=== PATIENT | female | born 1990 | race Caucasian/White ===

== ENCOUNTER 2016-11-20 22:15 | Emergency (ER) | payer OTHER, SELFPAY ==
[~2016-11-20 22:15] MED LIST: /LAMO10TA PO; AMBI5TAB PO; ATARAX PO; CELE40TA PO; EFFEXOR XR PO; TRAZ50TA2 PO; VENL37TA PO; WELLTAB38 PO
--- NOTE | 2016-11-20 22:55 | EDDOCDS ---
Nurse's Notes [facility] Name: Brooke Krishnamurthy Age: 26 yrs Sex: Female : 1990 Arrival Date: 11/20/2016 Time: 22:15 Bed I7 Private MD: No Pcp Diagnosis: Acute nasopharyngitis [common cold] Presentation: 11/20 22:29 Presenting complaint: Patient states: ST and weakness since yesterday. Nasal congestion ttb and mild cough. Some nausea, decreased appetite. Possible chance of ... Risk factors: Stridor is not present. Drooling is not present. Shortness of breath is not present. Cellulitis is not present. Adult Sepsis Screening: The patient does not have new or worsening altered mentation. Patient's respiratory rate is less than 22. Systolic blood pressure is greater than 100. Patient has a qSOFA score of 0- Negative Sepsis Screen. Suicide/Homicide risk assessment- the patient denies having any suicidal and/or homicidal ideations and does not present with any other emotional, behavioral or mental health complaints. Status: Patient is not a mechanical technical service specialist or dependent. Transition of care: patient was not received from another setting of care. 22:29 Acuity: OLIVERIO Level 4 ttb 22:29 Method Of Arrival: Walkin/Carried/Asstd ttb Triage Assessment: 22:32 General: Appears in no apparent distress, well nourished, well groomed, Behavior is ttb anxious, appropriate for age, cooperative, pleasant. Pain: Location: throat 7/10 Pain currently is 7 out of 10 on a pain scale. HIV screening NA for this visit Offered previously. EENT: Throat pt states painful. Reports nasal congestion nasal discharge. Cardiovascular: Chest pain is denied. Respiratory: Airway is patent Respiratory effort is even, unlabored, Reports cough that is the patient has mild shortness of breath Denies shortness of breath. GI: Reports nausea. Derm: Skin is normal. 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 Iron CR 250 mg Oral cpER daily (Last dose: 11/19/2016) - PMHx: Anemia; Substance Abuse; Hepatitis C; Depression; Bipolar disorder; Anxiety; - PSHx: Tonsillectomy; - Social history: Smoking status: Patient states was never smoker of tobacco. Patient/guardian denies using alcohol, street drugs, the patient reports quitting approximately 1 years ago, No barriers to communication noted, The patient speaks fluent Occitan, Speaks appropriately for age. - Family history: Not pertinent. - : The pt / caregiver states he / she is not on anticoagulants. Home medication list is obtained from the patient. - Exposure Risk Screening:: None identified. Screenin:46 Screening information is obtained from the patient. Primary language is Occitan. Fall ck1 risk: No risks identified. Assistance ADL's: requires no assistance with activities of daily living. Abuse/DV Screen: The patient / caregiver reports he/she is: not in a situation that causes fear, pain or injury. 22:46 Nutritional screening: No deficits noted. Advance Directives: Currently, there is no ck1 health care proxy. home support is adequate. Assessment: 22:54 General: Appears in no apparent distress, comfortable, Behavior is appropriate for age, ck1 cooperative. Pain: Complains of pain in chest Pain currently is 6 out of 10 on a pain scale. Awake, alert, oriented. Skin warm and dry. Moves all extremities. Respirations unlabored. No apparent distress. The patient / caregiver is instructed regarding the plan of care and ED course. Vital Signs: 22:17 BP 195 / 114 RA Sitting (auto/lg); Pulse 108; Resp 16; Temp 98.7(O); Pulse Ox 100% on rs6 R/A; Weight 58.97 kg (R); Height 5 ft. 6 in. (167.64 cm) (R); Pain 5/10; 22:28 BP 148 / 88 RA Sitting (man/lg); rs6 22:17 Body Mass Index 20.98 (58.97 kg, 167.64 cm) rs6 Vitals: 22:17 Log In Time: November 20, 2016 at 22:17. rs6 ED Course: 22:16 Patient visited by Wendy Quintero PCA. rs6 22:16 Patient moved to Waiting rs6 22:17 No Pcp is Private Physician. rs6 22:28 Patient visited by Wendy Quintero PCA. rs6 22:29 Patient moved to Pre RCE rs6 22:31 Triage Initiated ttb 22:33 Patient visited by Ximena Solitario RN. ttb 22:33 Patient moved to ttb 22:36 Beau Weaver PA is PHCP. btw 22:36 Viridiana Whiteside MD is Attending Physician. btw 22:36 Patient visited by Beau Weaver PA. btw 22:46 Patient has correct armband on for positive identification. Bed in low position. Call ck1 light in reach. Side rails up X 1. 22:46 The patient / caregiver is instructed regarding the plan of care and ED course. ck1 22:46 No IV's were initiated during this patient's visit. No procedures done that require ck1 assistance. 22:49 [facility] is Referral Physician. btw Order Results: There are currently no results for this order. Outcome: 22:46 Discharge Assessment: Patient awake, alert and oriented x 3. No cognitive and/or ck1 functional deficits noted. Patient verbalized understanding of disposition instructions. patient administered narcotics - no. The following High Risk Discharge criteria are identified: None. Discharged to home ambulatory. Condition: stable. No special radiology studies were completed. Property :Personal belongings accompany Pt. 22:49 Discharge ordered by Provider. btw 22:53 Discharge instructions given to patient, Instructed on discharge instructions, follow ck1 up and referral plans. medication usage, Demonstrated understanding of instructions, medications, Pt was receptive of discharge instructions/ teaching. Prescriptions given X 1. 22:54 Patient left the ED. ck1 Signatures: Tiffany Nichols RN RN ck1 Beau Weaver PA PA btw Ximena Solitario RN RN ttb Wendy Quintero, SAMARA PHOTOGRAPHIC PROCESSOR rs6 MTDD
--- NOTE | 2016-11-20 22:55 | EDDOCDS ---
Physician Documentation [facility] Name: Brooke Krishnamurthy Age: 26 yrs Sex: Female : 1990 Arrival Date: 11/20/2016 Time: 22:15 Bed I7 / 29 Private MD: No Pcp Disposition: 11/20/16 22:49 Discharged to Home/Self Care. Impression: Acute nasopharyngitis [common cold]. - Condition is Stable. - Discharge Instructions: Cool Mist Vaporizers, Upper Respiratory Infection, Adult, Hcxx-lr-Butw, Viral Infections, Feuj-Vi-Rfqi. - Prescriptions for azelastine 137 mcg (0.1 %) Nasal Aerosol, [place] - spray 2 spray by INTRANASAL route 2 times per day each nostril; 1 bottle. - Medication Reconciliation, Local Pharmacy Hours form. - Follow up: [facility]; When: Call to arrange an appointment; Reason: Further diagnostic work-up, Recheck today's complaints, Continuance of care. - Problem is new. - Symptoms are unchanged. Historical: - Allergies: no known allergies; - Home Meds: 1. Iron CR 250 mg Oral cpER daily (Last dose: 11/19/2016) - PMHx: Anemia; Substance Abuse; Hepatitis C; Depression; Bipolar disorder; Anxiety; - PSHx: Tonsillectomy; - Social history: Smoking status: Patient states was never smoker of tobacco. Patient/guardian denies using alcohol, street drugs, the patient reports quitting approximately 1 years ago, No barriers to communication noted, The patient speaks fluent Croatian, Speaks appropriately for age. - Family history: Not pertinent. - : The pt / caregiver states he / she is not on anticoagulants. Home medication list is obtained from the patient. - Exposure Risk Screening:: None identified. 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 6 in. (167.64 cm) (R); Pain 5/10; 22:28 BP 148 / 88 RA Sitting (man/lg); rs6 22:17 Body Mass Index 20.98 (58.97 kg, 167.64 cm) rs6 Signatures: Tiffany Nichols,RN RN ck1 Beau Weaver PA PA btw Conner, Teresa, RN RN ttb MTDD
--- NOTE | 2016-11-20 23:11 | EDDOCDS ---
Physician Documentation [facility] Name: Brooke Krishnamurthy Age: 26 yrs Sex: Female : 1990 Arrival Date: 11/20/2016 Time: 22:15 Bed I7 / 29 Private MD: No Pcp Disposition: 11/20/16 22:49 Discharged to Home/Self Care. Impression: Acute nasopharyngitis [common cold]. - Condition is Stable. - Discharge Instructions: Cool Mist Vaporizers, Upper Respiratory Infection, Adult, Rjzb-ni-Enpn, Viral Infections, Vspg-Ry-Nytx. - Prescriptions for azelastine 137 mcg (0.1 %) Nasal Aerosol, [place] - spray 2 spray by INTRANASAL route 2 times per day each nostril; 1 bottle. - Work Release Form - 1 day, Medication Reconciliation, Local Pharmacy Hours form. - Follow up: [facility]; When: Call to arrange an appointment; Reason: Further diagnostic work-up, Recheck today's complaints, Continuance of care. - Problem is new. - Symptoms are unchanged. Historical: - Allergies: no known allergies; - Home Meds: 1. Iron CR 250 mg Oral cpER daily (Last dose: 11/19/2016) - PMHx: Anemia; Substance Abuse; Hepatitis C; Depression; Bipolar disorder; Anxiety; - PSHx: Tonsillectomy; - Social history: Smoking status: Patient states was never smoker of tobacco. Patient/guardian denies using alcohol, street drugs, the patient reports quitting approximately 1 years ago, No barriers to communication noted, The patient speaks fluent Lao, Speaks appropriately for age. - Family history: Not pertinent. - : The pt / caregiver states he / she is not on anticoagulants. Home medication list is obtained from the patient. - Exposure Risk Screening:: None identified. 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 6 in. (167.64 cm) (R); Pain 5/10; 22:28 BP 148 / 88 RA Sitting (man/lg); rs6 22:17 Body Mass Index 20.98 (58.97 kg, 167.64 cm) rs6 Signatures: Tiffany Nichols,RN RN ck1 Beau Weaver PA PA btw Conner, Teresa, RN RN ttb MTDD
--- NOTE | 2016-11-20 23:11 | EDDOCDS ---
Nurse's Notes [facility] Name: Brooke Krishnamurthy Age: 26 yrs Sex: Female : 1990 Arrival Date: 11/20/2016 Time: 22:15 Bed I7 Private MD: No Pcp Diagnosis: Acute nasopharyngitis [common cold] Presentation: 11/20 22:29 Presenting complaint: Patient states: ST and weakness since yesterday. Nasal congestion ttb and mild cough. Some nausea, decreased appetite. Possible chance of ... Risk factors: Stridor is not present. Drooling is not present. Shortness of breath is not present. Cellulitis is not present. Adult Sepsis Screening: The patient does not have new or worsening altered mentation. Patient's respiratory rate is less than 22. Systolic blood pressure is greater than 100. Patient has a qSOFA score of 0- Negative Sepsis Screen. Suicide/Homicide risk assessment- the patient denies having any suicidal and/or homicidal ideations and does not present with any other emotional, behavioral or mental health complaints. 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 Transition of care: patient was not received from another setting of care. 22:29 Acuity: OLIVERIO Level 4 ttb 22:29 Method Of Arrival: Walkin/Carried/Asstd ttb Triage Assessment: 22:32 General: Appears in no apparent distress, well nourished, well groomed, Behavior is ttb anxious, appropriate for age, cooperative, pleasant. Pain: Location: throat 7/10 Pain currently is 7 out of 10 on a pain scale. HIV screening NA for this visit Offered previously. EENT: Throat pt states painful. Reports nasal congestion nasal discharge. Cardiovascular: Chest pain is denied. Respiratory: Airway is patent Respiratory effort is even, unlabored, Reports cough that is the patient has mild shortness of breath Denies shortness of breath. GI: Reports nausea. Derm: Skin is normal. 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 Iron CR 250 mg Oral cpER daily (Last dose: 11/19/2016) - PMHx: Anemia; Substance Abuse; Hepatitis C; Depression; Bipolar disorder; Anxiety; - PSHx: Tonsillectomy; - Social history: Smoking status: Patient states was never smoker of tobacco. Patient/guardian denies using alcohol, street drugs, the patient reports quitting approximately 1 years ago, No barriers to communication noted, The patient speaks fluent Turkmen, Speaks appropriately for age. - Family history: Not pertinent. - : The pt / caregiver states he / she is not on anticoagulants. Home medication list is obtained from the patient. - Exposure Risk Screening:: None identified. Screenin:46 Screening information is obtained from the patient. Primary language is Turkmen. Fall ck1 risk: No risks identified. Assistance ADL's: requires no assistance with activities of daily living. Abuse/DV Screen: The patient / caregiver reports he/she is: not in a situation that causes fear, pain or injury. 22:46 Nutritional screening: No deficits noted. Advance Directives: Currently, there is no ck1 health care proxy. home support is adequate. Assessment: 22:54 General: Appears in no apparent distress, comfortable, Behavior is appropriate for age, ck1 cooperative. Pain: Complains of pain in chest Pain currently is 6 out of 10 on a pain scale. Awake, alert, oriented. Skin warm and dry. Moves all extremities. Respirations unlabored. No apparent distress. The patient / caregiver is instructed regarding the plan of care and ED course. Vital Signs: 22:17 BP 195 / 114 RA Sitting (auto/lg); Pulse 108; Resp 16; Temp 98.7(O); Pulse Ox 100% on rs6 R/A; Weight 58.97 kg (R); Height 5 ft. 6 in. (167.64 cm) (R); Pain 5/10; 22:28 BP 148 / 88 RA Sitting (man/lg); rs6 22:17 Body Mass Index 20.98 (58.97 kg, 167.64 cm) rs6 Vitals: 22:17 Log In Time: November 20, 2016 at 22:17. rs6 ED Course: 22:16 Patient visited by Wendy Quintero PCA. rs6 22:16 Patient moved to Waiting rs6 22:17 No Pcp is Private Physician. rs6 22:28 Patient visited by Wendy Quintero PCA. rs6 22:29 Patient moved to Pre RCE rs6 22:31 Triage Initiated ttb 22:33 Patient visited by Ximena Solitario RN. ttb 22:33 Patient moved to ttb 22:36 Beau Weaver PA is PHCP. btw 22:36 Viridiana Whiteside MD is Attending Physician. btw 22:36 Patient visited by Beau Weaver PA. btw 22:46 Patient has correct armband on for positive identification. Bed in low position. Call ck1 light in reach. Side rails up X 1. 22:46 The patient / caregiver is instructed regarding the plan of care and ED course. ck1 22:46 No IV's were initiated during this patient's visit. No procedures done that require ck1 assistance. 22:49 [facility] is Referral Physician. btw Order Results: There are currently no results for this order. Outcome: 22:46 Discharge Assessment: Patient awake, alert and oriented x 3. No cognitive and/or ck1 functional deficits noted. Patient verbalized understanding of disposition instructions. patient administered narcotics - no. The following High Risk Discharge criteria are identified: None. Discharged to home ambulatory. Condition: stable. No special radiology studies were completed. Property :Personal belongings accompany Pt. 22:49 Discharge ordered by Provider. btw 22:53 Discharge instructions given to patient, Instructed on discharge instructions, follow ck1 up and referral plans. medication usage, Demonstrated understanding of instructions, medications, Pt was receptive of discharge instructions/ teaching. Prescriptions given X 1. 22:54 Patient left the ED. ck1 23:09 Patient left the ED. btw Signatures: Tiffany Nichols RN RN ck1 Beau Weaver PA PA btw Ximena Solitario RN RN ttb Wendy Quintero, SAMARA IT PROJECT MANAGER rs6 MTDD
--- NOTE | 2016-11-23 00:11 | EDDOCDS ---
Physician Documentation [facility] Name: Brooke Krishnamurthy Age: 26 yrs Sex: Female : 1990 Arrival Date: 11/20/2016 Time: 22:15 Bed I7 / 29 Private MD: No Pcp Disposition: 11/20/16 22:49 Discharged to Home/Self Care. Impression: Acute nasopharyngitis [common cold]. - Condition is Stable. - Discharge Instructions: Cool Mist Vaporizers, Upper Respiratory Infection, Adult, Tyso-uz-Dtof, Viral Infections, Ticg-Hf-Ffzt. - Prescriptions for azelastine 137 mcg (0.1 %) Nasal Aerosol, [address] - spray 2 spray by INTRANASAL route 2 times per day each nostril; 1 bottle. - Work Release Form - 1 day, Medication Reconciliation, Local Pharmacy Hours form. - Follow up: [facility]; When: Call to arrange an appointment; Reason: Further diagnostic work-up, Recheck today's complaints, Continuance of care. - Problem is new. - Symptoms are unchanged. Historical: - Allergies: no known allergies; - Home Meds: 1. Iron CR 250 mg Oral cpER daily (Last dose: 11/19/2016) - PMHx: Anemia; Substance Abuse; Hepatitis C; Depression; Bipolar disorder; Anxiety; - PSHx: Tonsillectomy; - Social history: Smoking status: Patient states was never smoker of tobacco. Patient/guardian denies using alcohol, street drugs, the patient reports quitting approximately 1 years ago, No barriers to communication noted, The patient speaks fluent Indonesian, Speaks appropriately for age. - Family history: Not pertinent. - : The pt / caregiver states he / she is not on anticoagulants. Home medication list is obtained from the patient. - Exposure Risk Screening:: None identified. 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 6 in. (167.64 cm) (R); Pain 5/10; 22:28 BP 148 / 88 RA Sitting (man/lg); rs6 22:17 Body Mass Index 20.98 (58.97 kg, 167.64 cm) rs6 MDM: 11/21 10:45 T-Sheet-- Draft Copy was scanned into [employer] and attached to record. gb Signatures: Mary Bell, Reg Reg gb Tiffnay Nichols RN RN ck1 Beau Weaver PA PA btw Ximena Solitario RN RN ttb The chart was reviewed and I authenticate all verbal orders and agree with the evaluation and treatment provided.Attachments: 10:45 T-Sheet-- Draft Copy gb Chart Complete MTDD
--- NOTE | 2016-11-23 00:11 | EDDOCDS ---
Physician Documentation [facility] Name: Brooke Krishnamurthy Age: 26 yrs Sex: Female : 1990 Arrival Date: 11/20/2016 Time: 22:15 Bed I7 / 29 Private MD: No Pcp Disposition: 11/20/16 22:49 Discharged to Home/Self Care. Impression: Acute nasopharyngitis [common cold]. - Condition is Stable. - Discharge Instructions: Cool Mist Vaporizers, Upper Respiratory Infection, Adult, Brvy-nq-Tgkj, Viral Infections, Jusb-Te-Kngy. - Prescriptions for azelastine 137 mcg (0.1 %) Nasal Aerosol, [place] - spray 2 spray by INTRANASAL route 2 times per day each nostril; 1 bottle. - Work Release Form - 1 day, Medication Reconciliation, Local Pharmacy Hours form. - Follow up: [facility]; When: Call to arrange an appointment; Reason: Further diagnostic work-up, Recheck today's complaints, Continuance of care. - Problem is new. - Symptoms are unchanged. Historical: - Allergies: no known allergies; - Home Meds: 1. Iron CR 250 mg Oral cpER daily (Last dose: 11/19/2016) - PMHx: Anemia; Substance Abuse; Hepatitis C; Depression; Bipolar disorder; Anxiety; - PSHx: Tonsillectomy; - Social history: Smoking status: Patient states was never smoker of tobacco. Patient/guardian denies using alcohol, street drugs, the patient reports quitting approximately 1 years ago, No barriers to communication noted, The patient speaks fluent Bruneian, Speaks appropriately for age. - Family history: Not pertinent. - : The pt / caregiver states he / she is not on anticoagulants. Home medication list is obtained from the patient. - Exposure Risk Screening:: None identified. 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 6 in. (167.64 cm) (R); Pain 5/10; 22:28 BP 148 / 88 RA Sitting (man/lg); rs6 22:17 Body Mass Index 20.98 (58.97 kg, 167.64 cm) rs6 MDM: 11/21 10:45 T-Sheet-- Draft Copy was scanned into [employer] and attached to record. gb Signatures: Mary Bell, Reg Reg gb Tiffany Nichols RN RN ck1 Beau Weaver PA PA btw Ximena Solitario RN RN ttb The chart was reviewed and I authenticate all verbal orders and agree with the evaluation and treatment provided.Attachments: 10:45 T-Sheet-- Draft Copy gb Chart Complete MTDD
--- NOTE | 2016-11-23 00:11 | EDDOCDS ---
Nurse's Notes [facility] Name: Brooke Krishnamurthy Age: 26 yrs Sex: Female : 1990 Arrival Date: 11/20/2016 Time: 22:15 Bed I7 Private MD: No Pcp Diagnosis: Acute nasopharyngitis [common cold] Presentation: 11/20 22:29 Presenting complaint: Patient states: ST and weakness since yesterday. Nasal congestion ttb and mild cough. Some nausea, decreased appetite. Possible chance of ... Risk factors: Stridor is not present. Drooling is not present. Shortness of breath is not present. Cellulitis is not present. Adult Sepsis Screening: The patient does not have new or worsening altered mentation. Patient's respiratory rate is less than 22. Systolic blood pressure is greater than 100. Patient has a qSOFA score of 0- Negative Sepsis Screen. Suicide/Homicide risk assessment- the patient denies having any suicidal and/or homicidal ideations and does not present with any other emotional, behavioral or mental health complaints. Status: Patient is not a family service assistant or dependent. Transition of care: patient was not received from another setting of care. 22:29 Acuity: OLIVERIO Level 4 ttb 22:29 Method Of Arrival: Walkin/Carried/Asstd ttb Triage Assessment: 22:32 General: Appears in no apparent distress, well nourished, well groomed, Behavior is ttb anxious, appropriate for age, cooperative, pleasant. Pain: Location: throat 7/10 Pain currently is 7 out of 10 on a pain scale. HIV screening NA for this visit Offered previously. EENT: Throat pt states painful. Reports nasal congestion nasal discharge. Cardiovascular: Chest pain is denied. Respiratory: Airway is patent Respiratory effort is even, unlabored, Reports cough that is the patient has mild shortness of breath Denies shortness of breath. GI: Reports nausea. Derm: Skin is normal. 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 Iron CR 250 mg Oral cpER daily (Last dose: 11/19/2016) - PMHx: Anemia; Substance Abuse; Hepatitis C; Depression; Bipolar disorder; Anxiety; - PSHx: Tonsillectomy; - Social history: Smoking status: Patient states was never smoker of tobacco. Patient/guardian denies using alcohol, street drugs, the patient reports quitting approximately 1 years ago, No barriers to communication noted, The patient speaks fluent Czech, Speaks appropriately for age. - Family history: Not pertinent. - : The pt / caregiver states he / she is not on anticoagulants. Home medication list is obtained from the patient. - Exposure Risk Screening:: None identified. Screenin:46 Screening information is obtained from the patient. Primary language is Czech. Fall ck1 risk: No risks identified. Assistance ADL's: requires no assistance with activities of daily living. Abuse/DV Screen: The patient / caregiver reports he/she is: not in a situation that causes fear, pain or injury. 22:46 Nutritional screening: No deficits noted. Advance Directives: Currently, there is no ck1 health care proxy. home support is adequate. Assessment: 22:54 General: Appears in no apparent distress, comfortable, Behavior is appropriate for age, ck1 cooperative. Pain: Complains of pain in chest Pain currently is 6 out of 10 on a pain scale. Awake, alert, oriented. Skin warm and dry. Moves all extremities. Respirations unlabored. No apparent distress. The patient / caregiver is instructed regarding the plan of care and ED course. Vital Signs: 22:17 BP 195 / 114 RA Sitting (auto/lg); Pulse 108; Resp 16; Temp 98.7(O); Pulse Ox 100% on rs6 R/A; Weight 58.97 kg (R); Height 5 ft. 6 in. (167.64 cm) (R); Pain 5/10; 22:28 BP 148 / 88 RA Sitting (man/lg); rs6 22:17 Body Mass Index 20.98 (58.97 kg, 167.64 cm) rs6 Vitals: 22:17 Log In Time: November 20, 2016 at 22:17. rs6 ED Course: 22:16 Patient visited by Wendy Quintero PCA. rs6 22:16 Patient moved to Waiting rs6 22:17 No Pcp is Private Physician. rs6 22:28 Patient visited by Wendy Quintero PCA. rs6 22:29 Patient moved to Pre RCE rs6 22:31 Triage Initiated ttb 22:33 Patient visited by Ximena Solitario RN. ttb 22:33 Patient moved to I7 ttb 22:36 Beau Weaver PA is PHCP. btw 22:36 Viridiana Whiteside MD is Attending Physician. btw 22:36 Patient visited by Beau Weaver PA. btw 22:46 Patient has correct armband on for positive identification. Bed in low position. Call ck1 light in reach. Side rails up X 1. 22:46 The patient / caregiver is instructed regarding the plan of care and ED course. ck1 22:46 No IV's were initiated during this patient's visit. No procedures done that require ck1 assistance. 22:49 [facility] is Referral Physician. btw 11/21 10:45 T-Sheet-- Draft Copy was scanned into [employer] and attached to record. gb Order Results: There are currently no results for this order. Outcome: 11/20 22:46 Discharge Assessment: Patient awake, alert and oriented x 3. No cognitive and/or ck1 functional deficits noted. Patient verbalized understanding of disposition instructions. patient administered narcotics - no. The following High Risk Discharge criteria are identified: None. Discharged to home ambulatory. Condition: stable. No special radiology studies were completed. Property :Personal belongings accompany Pt. 22:49 Discharge ordered by Provider. btw 22:53 Discharge instructions given to patient, Instructed on discharge instructions, follow ck1 up and referral plans. medication usage, Demonstrated understanding of instructions, medications, Pt was receptive of discharge instructions/ teaching. Prescriptions given X 1. 22:54 Patient left the ED. ck1 23:09 Patient left the ED. btw Signatures: Mary Bell, Reg Reg Tiffany CoppolaRN RN ck1 Beau Weaver PA PA btw Ximena Solitario RN RN ttb Wendy Quintero, SAMARA TRACK HOE OPERATOR rs6 Chart Complete MTDD
== END 2016-11-20 23:09 | disposition home or self-care (01) ==
LOC: M ED 22:15
DX: D64.9 Anemia, unspecified (principal); F19.10 Other psychoactive substance abuse, uncomplicated; Z86.19 Personal history of other infectious and parasitic diseases; F32.9 Major depressive disorder, single episode, unspecified; F41.9 Anxiety disorder, unspecified; Z79.899 Other long term (current) drug therapy

== ENCOUNTER 2017-01-06 00:21 | Emergency (ER) | payer MEDICAID, SELFPAY ==
[2017-01-06 02:37] LABS: MEAN CORPUSCULAR HEMOGLOBIN 20.5 pg (27.0-33.0); MEAN CORPUSCULAR HGB CONC 29.9 g/dl (32.0-36.5); MEAN CORPUSCULAR VOLUME 68.6 fl (80.0-96.0); RED CELL DISTRIBUTION WIDTH 15.9 % (11.5-14.5); WHITE BLOOD COUNT 4.4 K/mm3 (4.0-10.0)
[2017-01-06 02:54] LABS: CONTROL LINE INT CTR LINE PRESENT; METHADONE URINE NEGATIVE (NEGATIVE); TRICYCLIC ANTIDEPRESS URINE NEGATIVE (NEGATIVE)
[2017-01-06 03:00] LABS: CONTROL LINE HCG INT CTR LINE PRESENT
[2017-01-06 03:11] LABS: ALBUMIN 4.1 GM/DL (3.2-5.2); ALBUMIN/GLOBULIN RATIO 1.21 (1.00-1.93); ALKALINE PHOSPHATASE 116 U/L (45-117); ALT/SGPT 63 U/L (12-78); ANION GAP 10 MEQ/L (8-16); AST/SGOT 47 U/L (15-37); BILIRUBIN,DIRECT 0.1 MG/DL (0.0-0.2); BILIRUBIN,TOTAL 0.4 MG/DL (0.2-1.0); BLOOD UREA NITROGEN 11 MG/DL (7-18); CALCIUM LEVEL 8.7 MG/DL (8.5-10.1); CARBON DIOXIDE LEVEL 28 MEQ/L (21-32); CHLORIDE LEVEL 102 MEQ/L (98-107); CREATININE FOR GFR 0.74 MG/DL (0.55-1.02); GLOMERULAR FILTRATION RATE > 60.0 (>60); GLUCOSE, FASTING 80 MG/DL (70-105); POTASSIUM SERUM 3.3 MEQ/L (3.5-5.1); SODIUM LEVEL 140 MEQ/L (136-145); TOTAL PROTEIN 7.5 GM/DL (6.4-8.2)
--- NOTE | 2017-01-06 03:44 | EDDOCDS ---
Physician Documentation [facility] Name: Brooke Krishnamurthy Age: 26 yrs Sex: Female : 1990 Arrival Date: 01/06/2017 Time: 00:21 Bed 30 Private MD: Disposition: 01/06/17 03:27 Discharged to Home/Self Care. Impression: Opioid dependence, Adverse effect of amphetamines - abuse of, Sedative, hypnotic or anxiolytic abuse with intoxication, Nasal congestion. - Condition is Stable. - Medication Reconciliation, Local Pharmacy Hours, Work Release Form - 1 day form. - Follow up: Referral list, As provided by PFS; When: Call to arrange an appointment; Reason: To establish care. - Problem is chronic. - Symptoms are unchanged. Historical: - Allergies: No known drug Allergies; - Home Meds: 1. none - PMHx: Anemia; Anxiety; Bipolar disorder; Depression; Hepatitis C; Substance Abuse; - PSHx: Tonsillectomy; ear drum repaired; - Social history: Smoking status: Patient states was never smoker of tobacco. No barriers to communication noted, The patient speaks fluent Togolese, Speaks appropriately for age. - Family history: Not pertinent. - : The pt / caregiver states he / she is not on anticoagulants. Home medication list is obtained from the patient. - Exposure Risk Screening:: None identified. 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 6 in. (167.64 cm) (R); 02:13 BP 136 / 84; Pulse 105; Resp 18; Pulse Ox 98% on R/A; kc3 03:41 BP 130 / 72; Pulse 99; Resp 18; Pulse Ox 99% on R/A; Pain 0/10; slm 00:53 Body Mass Index 20.98 (58.97 kg, 167.64 cm) jo3 MDM: 02:15 Accucheck ordered. mo1 02:27 Fingerstick Blood Sugar Ordered. EDMS 02:28 Consult PFS/PSA/Sr Technical Sales Consultant ordered. cs11 02:28 Consult PFS/PSA/Sr Technical Sales Consultant: Patient's case requires discussion with on-call cs11 Psychiatrist ordered. 02:28 PSA/PFS to call Nursing Certified Medication Technician, to enter patient data on [place] Safe Act if patient cs11 involuntarily admitted or transferred for SI or HI ordered. 02:28 Confirm accurate psychiatric medication list and times of last dosage ordered. cs11 02:28 Detain Pt Until Medically/PFS Cleared ordered. cs11 02:30 Acetaminophen Level Ordered. EDMS 02:30 Basic Metabolic Profile Ordered. EDMS 02:30 Complete Blood Count Ordered. EDMS 02:30 Drug Eval Toxicology ED Only Ordered. EDMS 02:30 Ethyl Alcohol (ethanol) Ordered. EDMS 02:30 HCG,Serum Qualitative Ordered. EDMS 02:30 Liver Profile Ordered. EDMS 02:30 Salicylate Level Ordered. EDMS 02:30 Thyroid Stimulating Hormone Ordered. EDMS 02:30 CT Head Without Contrast Ordered. EDMS 03:09 Drug Eval Toxicology ED Only Reviewed. mo1 03:10 Complete Blood Count Reviewed. mo1 03:10 Fingerstick Blood Sugar Reviewed. mo1 03:10 HCG,Serum Qualitative Reviewed. mo1 03:11 Financial registration complete. hs2 03:12 [facility] [place] was scanned into [email or web address] and attached to record. hs2 03:23 Acetaminophen Level Reviewed. cs11 03:23 Basic Metabolic Profile Reviewed. cs11 03:23 Liver Profile Reviewed. cs11 03:23 Salicylate Level Reviewed. cs11 03:23 Ethyl Alcohol (ethanol) Reviewed. cs11 03:23 HCG,Serum Qualitative Reviewed. cs11 03:23 Thyroid Stimulating Hormone Reviewed. cs11 03:37 Consult PFS/PSA/Sr Technical Sales Consultant complete. cl 03:37 Consult PFS/PSA/Sr Technical Sales Consultant: Patient's case requires discussion with on-call cl Psychiatrist complete. 03:37 PSA/PFS to call Nursing Certified Medication Technician, to enter patient data on [place] Safe [place] if patient cl involuntarily admitted or transferred for SI or HI complete. Point of Care Testing: Blood Glucose: 02:19 Blood Glucose: 85 mg/dL; kc3 Ranges: Signatures: Dispatcher [employer] EDMS Eleuterio Townsend, TAVO PSA cl Jennifer Singleton RN RN jo3 Jocelyne Saleem RN RN lf1 Johnny Tomlinson, DO cs11 Russell Rodriguez PA PA mo1 Velasco,ColletteAVEL coello LPN, Hillary, Reg Reg hs2 The chart was reviewed and I authenticate all verbal orders and agree with the evaluation and treatment provided.Attachments: 03:12 [facility] Payment Agreement hs2 MTDD
--- NOTE | 2017-01-06 03:45 | EDDOCDS ---
Nurse's Notes [facility] Name: Brooke Krishnamurthy Age: 26 yrs Sex: Female : 1990 Arrival Date: 01/06/2017 Time: 00:21 Bed 30 Private MD: Diagnosis: Opioid dependence;Adverse effect of amphetamines-abuse of;Sedative, hypnotic or anxiolytic abuse with intoxication;Nasal congestion Presentation: 01/06 00:51 Presenting complaint: Patient states: Pt reports sinus pressure and foggy feeling x 4 jo3 days. Adult Sepsis Screening: The patient does not have new or worsening altered mentation. Patient's respiratory rate is less than 22. Systolic blood pressure is greater than 100. Patient has a qSOFA score of 0- Negative Sepsis Screen. Suicide/Homicide risk assessment- the patient denies having any suicidal and/or homicidal ideations and does not present with any other emotional, behavioral or mental health complaints. Status: Patient is not a private branch exchange service advisor or dependent. Transition of care: patient was not received from another setting of care. 00:51 Acuity: OLIVERIO Level 5 jo3 00:51 Method Of Arrival: Walkin/Carried/Asstd jo3 Triage Assessment: 00:53 General: Appears in no apparent distress, Behavior is appropriate for age, cooperative. jo3 HIV screening NA for this visit Offered previously. Neurological: Level of Consciousness is awake, alert, Oriented to person, place, time. EENT: Reports pain to frontal sinuses upon palpation . Respiratory: Airway is patent Respiratory effort is even, unlabored. Derm: Skin is pink, warm & dry. 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 none - PMHx: Anemia; Anxiety; Bipolar disorder; Depression; Hepatitis C; Substance Abuse; - PSHx: Tonsillectomy; ear drum repaired; - Social history: Smoking status: Patient states was never smoker of tobacco. No barriers to communication noted, The patient speaks fluent French, Speaks appropriately for age. - Family history: Not pertinent. - : The pt / caregiver states he / she is not on anticoagulants. Home medication list is obtained from the patient. - Exposure Risk Screening:: None identified. Screenin:30 Screening information is obtained from the patient. Fall risk: No risks identified. slm Assistance ADL's: requires no assistance with activities of daily living. Abuse/DV Screen: The patient / caregiver reports he/she is: not in a situation that causes fear, pain or injury. Nutritional screening: No deficits noted. Advance Directives: Currently, there is no health care proxy. There is no active DNR order. There is no living will. There is no Power of Supervisor Advertising Dispatch Clerks. Advance directive information has not previously been placed in an [facility] medical record. Further advance directive information is declined. home support is adequate. Assessment: 02:12 General: Appears unkempt, Behavior is drowsy. Pain: Denies pain. Neurological: Level of lf1 Consciousness is awake, Oriented to none Attempted to assess pt. She was unable to tell me where she was or why she was here. Pt. is confused, appears altered. Denies drug and alcohol use. . Gait is unsteady, Speech is slurred, When I asked pt. what brought her here she stated "[employer]" When I asked pt. if she knew where she was she stated "actually no". . EENT: No deficits noted. Cardiovascular: No deficits noted. Respiratory: Respiratory effort is even, unlabored. GI: Denies nausea, vomiting. Derm: Skin is normal. 03:25 General: Appears in no apparent distress, Behavior is appropriate for age, cooperative. slm General: pt sitting on stretcher eating box lunch provided NAD .. Neurological: Level of Consciousness is awake, alert, obeys commands, Oriented to person, place, time, Gait is steady, Speech is normal. Respiratory: Airway is patent Respiratory effort is even, unlabored. Derm: Skin is pink, warm & dry. 03:41 Reassessment: Patient appears in no apparent distress at this time. pt d/c with via cab slm pt seem by valentino Samuels . Vital Signs: 00:53 BP 131 / 82; Pulse 108; Resp 16; Temp 98.5(O); Pulse Ox 97% ; Weight 58.97 kg; Height 5 jo3 ft. 6 in. (167.64 cm) (R); 02:13 BP 136 / 84; Pulse 105; Resp 18; Pulse Ox 98% on R/A; kc3 03:41 BP 130 / 72; Pulse 99; Resp 18; Pulse Ox 99% on R/A; Pain 0/10; slm 00:53 Body Mass Index 20.98 (58.97 kg, 167.64 cm) jo3 Vitals: 00:53 Log In Time: January 06, 2017 at 00:22. jo3 ED Course: 00:21 Patient visited by Linda Aguilera Reg. hs2 00:21 Patient moved to Waiting hs2 00:52 Triage Initiated jo3 01:10 Patient moved to MTA Wait cz 01:31 Patient moved to I4 / M4 lf1 02:13 Patient visited by Anneliese Hays,LIV. kc3 02:18 Patient visited by Jocelyne Saleem,LIV. lf1 02:36 Collette Velasco LPN is Primary Nurse. slm 02:36 No IV's were initiated during this patient's visit. No procedures done that require slm assistance. Labs drawn. (by ED staff). Sent per order to lab. Urine collected. Urine specimen sent to lab. 02:37 Drug Eval Toxicology ED Only Sent. slm 02:55 Russell Rodriguez PA is PHCP. mo1 02:55 Johnny Tomlinson DO is Attending Physician. mo1 03:01 Patient visited by Johnny Tomlinson DO. cs11 03:12 [facility] Payment Agreement was scanned into [employer] and attached to record. hs2 03:24 Patient moved to 30 cz 03:25 Referral list, As provided by PFS is Referral Physician. cs11 03:37 Patient visited by Collette Velasco LPN. slm 03:43 The patient / caregiver is instructed regarding the plan of care and ED course. Patient slm has correct armband on for positive identification. Bed in low position. Call light in reach. Side rails up X 1. Point of Care Testing: Blood Glucose: 02:19 Blood Glucose: 85 mg/dL; kc3 Ranges: Order Results: Lab Order: Fingerstick Blood Sugar; SPEC'M 01/06/17 02:17 Test: BEDSIDE GLUCOSE; Value: 85; Range: 70-105; Units: MG/DL; Status: F Lab Order: Acetaminophen Level; SPEC'M 01/06/17 02:31 Test: ACETAMINOPHEN LEVEL; Value: < 2.0; Range: 10.0-30.0; Abnormal: Below low normal; Units: UG/ML; Status: F Lab Order: Basic Metabolic Profile; SPEC'M 01/06/17 02:31 Test: GLUCOSE, FASTING; Value: 80; Range: 70-105; Units: MG/DL; Status: F Test: BLOOD UREA NITROGEN; Value: 11; Range: 7-18; Units: MG/DL; Status: F Test: CREATININE FOR GFR; Value: 0.74; Range: 0.55-1.02; Units: MG/DL; Status: F Test: SODIUM LEVEL; Range: 136-145; Units: MEQ/L; Status: I Test: POTASSIUM SERUM; Range: 3.5-5.1; Units: MEQ/L; Status: I Test: CHLORIDE LEVEL; Range: 98-107; Units: MEQ/L; Status: I Test: CARBON DIOXIDE LEVEL; Range: 21-32; Units: MEQ/L; Status: I Test: ANION GAP; Range: 8-16; Units: MEQ/L; Status: I Test: CALCIUM LEVEL; Range: 8.5-10.1; Units: MG/DL; Status: I Test: GLOMERULAR FILTRATION RATE; Value: > 60.0; Range: >60; Status: F Test: SODIUM LEVEL; Value: 140; Range: 136-145; Units: MEQ/L; Status: F Test: POTASSIUM SERUM; Value: 3.3; Range: 3.5-5.1; Abnormal: Below low normal; Units: MEQ/L; Status: F Test: CHLORIDE LEVEL; Value: 102; Range: 98-107; Units: MEQ/L; Status: F Test: CARBON DIOXIDE LEVEL; Value: 28; Range: 21-32; Units: MEQ/L; Status: F Test: ANION GAP; Value: 10; Range: 8-16; Units: MEQ/L; Status: F Test: CALCIUM LEVEL; Value: 8.7; Range: 8.5-10.1; Units: MG/DL; Status: F Test Note: ; Units are mL/min/1.73 m2 Chronic Kidney Disease Staging per NKF: Stage I & II GFR >=60 Normal to Mildly Decreased Stage III GFR 30-59 Moderately Decreased Stage IV GFR 15-29 Severely Decreased Stage V GFR <15 Very Little GFR Left ESRD GFR <15 on 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 Lab Order: Complete Blood Count; SPEC'M 01/06/17 02:31 Test: WHITE BLOOD COUNT; Value: 4.4; Range: 4.0-10.0; Units: K/mm3; Status: F Test: RED BLOOD COUNT; Value: 4.97; Range: 4.00-5.40; Units: M/mm3; Status: F Test: HEMOGLOBIN; Value: 10.2; Range: 12.0-16.0; Abnormal: Below low normal; Units: g/dl; Status: F Test: HEMATOCRIT; Value: 34.1; Range: 36.0-47.0; Abnormal: Below low normal; Units: %; Status: F Test: MEAN CORPUSCULAR VOLUME; Value: 68.6; Range: 80.0-96.0; Abnormal: Below low normal; Units: fl; Status: F Test: MEAN CORPUSCULAR HEMOGLOBIN; Value: 20.5; Range: 27.0-33.0; Abnormal: Below low normal; Units: pg; Status: F Test: MEAN CORPUSCULAR HGB CONC; Value: 29.9; Range: 32.0-36.5; Abnormal: Below low normal; Units: g/dl; Status: F Test: RED CELL DISTRIBUTION WIDTH; Value: 15.9; Range: 11.5-14.5; Abnormal: Above high normal; Units: %; Status: F Test: PLATELET COUNT, AUTOMATED; Value: 270; Range: 150-450; Units: k/mm3; Status: F Lab Order: Drug Eval Toxicology ED Only; SPEC'M 01/06/17 02:31 Test: AMPHETAMINES LEVEL URINE; Value: POSITIVE; Range: NEGATIVE; Abnormal: Above high normal; Status: F Test: BARBITURATES URINE; Value: NEGATIVE; Range: NEGATIVE; Status: F Test: BENZODIAZEPINES URINE; Value: POSITIVE; Range: NEGATIVE; Abnormal: Above high normal; Status: F Test: CANNABINOIDS URINE; Value: NEGATIVE; Range: NEGATIVE; Status: F Test: COCAINE METABOLITE URINE; Value: NEGATIVE; Range: NEGATIVE; Status: F Test: METHADONE URINE; Value: NEGATIVE; Range: NEGATIVE; Status: F Test: OPIATES URINE; Value: POSITIVE; Range: NEGATIVE; Abnormal: Above high normal; Status: F Test: TRICYCLIC ANTIDEPRESS URINE; Value: NEGATIVE; Range: NEGATIVE; Status: F Test Note: ; ALL PRESUMPTIVE POSITIVE FINDINGS ARE UNCONFIRMED NORMAL VALUES THRESHOLD IN NG/ML AMPHETAMINES 1000 METHAMPHETAMINES 1000 BARBITURATES 300 BENZODIAZEPINES 300 CANNABINOIDS (THC) 50 COCAINE METABOLITE 300 METHADONE 300 OPIATES 300 PHENCYCLIDINE 25 TRICYCLIC ANTIDEPRESSANTS 1000 RESULTS ARE FOR MEDICAL PURPOSES ONLY. ALL URINE SPECIMENS WILL BE SAVED FOR 3 DAYS. IF CONFIRMATION OF A PRESUMPTIVE POSTIVE SCREEN RESULT IS DESIRED, CALL CHEMISTRY ([phone]) AND REQUEST URINE TO BE SENT TO REFERENCE LAB. FOR A LIST OF CLOSELY RELATED COMPOUNDS PLEASE CALL THE LAB. Lab Order: Ethyl Alcohol (ethanol); SPEC' 01/06/17 02:31 Test: ETHYL ALCOHOL (ETHANOL); Value: < 0.003; Range: 0.000-0.010; Units: %; Status: F Lab Order: HCG,Serum Qualitative; SPEC 01/06/17 02:31 Test: HCG, SERUM QUALITATIVE; Value: NEGATIVE; Range: NEGATIVE; Status: F Lab Order: Liver Profile; 01/06/17 02:31 Test: AST/SGOT; Value: 47; Range: 15-37; Abnormal: Above high normal; Units: U/L; Status: F Test: ALT/SGPT; Value: 63; Range: 12-78; Units: U/L; Status: F Test: ALKALINE PHOSPHATASE; Value: 116; Range: 45-117; Units: U/L; Status: F Test: BILIRUBIN,TOTAL; Value: 0.4; Range: 0.2-1.0; Units: MG/DL; Status: F Test: BILIRUBIN,DIRECT; Value: 0.1; Range: 0.0-0.2; Units: MG/DL; Status: F Test: TOTAL PROTEIN; Value: 7.5; Range: 6.4-8.2; Units: GM/DL; Status: F Test: ALBUMIN; Value: 4.1; Range: 3.2-5.2; Units: GM/DL; Status: F Test: ALBUMIN/GLOBULIN RATIO; Value: 1.21; Range: 1.00-1.93; Status: F Lab Order: Salicylate Level; SPEC' 01/06/17 02:31 Test: SALICYLATE LEVEL; Value: < 1.7; Range: 5.0-30.0; Abnormal: Below low normal; Units: MG/DL; Status: F Lab Order: Thyroid Stimulating Hormone; SPEC'M 01/06/17 02:31 Test: THYROID STIMULATING HORMONE; Value: 1.160; Range: 0.358-3.740; Units: uIU/ML; Status: F Outcome: 03:27 Discharge ordered by Provider. cs11 03:42 Discharge Assessment: Patient awake, alert and oriented x 3. No cognitive and/or slm functional deficits noted. Patient verbalized understanding of disposition instructions. Patient awake and alert. awake, obeys commands, Oriented to person, place and time. patient administered narcotics - no. The following High Risk Discharge criteria are identified: Yes, pt seen by md and PSA no concerns. Discharged to home ambulatory, via cab. Condition: good Condition: improved. Discharge instructions given to patient, Instructed on discharge instructions, follow up and referral plans. Demonstrated understanding of instructions, Pt was receptive of discharge instructions/ teaching. CT Study completed. Property :Personal belongings accompany Pt. 03:43 Patient left the ED. slm Signatures: Manjeet Coulter, RN RN Jennifer CorriganRN RN Jocelyne RoyRN RN lf1 Johnny Tomlinson, DO DO cs11 Russell Rodriguez PA PA mo1 Collette Velasco LPN LPN slm Crane, Kelsi,RN RN kc3 Linda Aguilera, Reg Reg hs2 MTDD
--- NOTE | 2017-01-06 03:50 | REPUSA ---
CLINICAL HISTORY: Altered level of consciousness. TECHNIQUE: Multiple axial brain CT scan sections were obtained from base to vertex without contrast a dministration. COMMENTS: The study shows normal configuration of sella turcica. There are no intra or extra-axial collections. There is no mass effect or midline shift. There is no evidence of hematoma formation. No hydrocephal us is present. No abnormal calcifications are noted. No significant abnormalities are seen either in the posterior fossa or supratentorial compartment. The sinuses and mastoid air cells are patent. IMPRESSION: No evidence of acute intracranial pathology. Thank you for your kind referral of this patient.
--- NOTE | 2017-01-08 04:45 | EDDOCDS ---
Physician Documentation [facility] Name: Brooke Krishnamurthy Age: 26 yrs Sex: Female : 1990 Arrival Date: 01/06/2017 Time: 00:21 Bed 30 Private MD: Disposition: 01/06/17 03:27 Discharged to Home/Self Care. Impression: Opioid dependence, Adverse effect of amphetamines - abuse of, Sedative, hypnotic or anxiolytic abuse with intoxication, Nasal congestion. - Condition is Stable. - Medication Reconciliation, Local Pharmacy Hours, Work Release Form - 1 day form. - Follow up: Referral list, As provided by PFS; When: Call to arrange an appointment; Reason: To establish care. - Problem is chronic. - Symptoms are unchanged. Historical: - Allergies: No known drug Allergies; - Home Meds: 1. none - PMHx: Anemia; Anxiety; Bipolar disorder; Depression; Hepatitis C; Substance Abuse; - PSHx: Tonsillectomy; ear drum repaired; - Social history: Smoking status: Patient states was never smoker of tobacco. No barriers to communication noted, The patient speaks fluent Greek, Speaks appropriately for age. - Family history: Not pertinent. - : The pt / caregiver states he / she is not on anticoagulants. Home medication list is obtained from the patient. - Exposure Risk Screening:: None identified. [employer] INS[employer]OR [employer]: 01/06 00:53 LMP 12/17/2016 jo3 Vital Signs: 00:53 BP 131 / 82; Pulse 108; Resp 16; Temp 98.5(O); Pulse Ox 97% ; Weight 58.97 kg / 130.01 jo3 lbs; Height 5 ft. 6 in. (167.64 cm) (R); 02:13 BP 136 / 84; Pulse 105; Resp 18; Pulse Ox 98% on R/A; kc3 03:41 BP 130 / 72; Pulse 99; Resp 18; Pulse Ox 99% on R/A; Pain 0/10; slm 00:53 Body Mass Index 20.98 (58.97 kg, 167.64 cm) jo3 MDM: 02:15 Accucheck ordered. mo1 02:27 Fingerstick Blood Sugar Ordered. EDMS 02:28 Consult PFS/PSA/Solutions Analyst ordered. cs11 02:28 Consult PFS/PSA/Solutions Analyst: Patient's case requires discussion with on-call cs11 Psychiatrist ordered. 02:28 PSA/PFS to call Nursing Cover Remover, to enter patient data on [place] if patient cs11 involuntarily admitted or transferred for SI or HI ordered. 02:28 Confirm accurate psychiatric medication list and times of last dosage ordered. cs11 02:28 Detain Pt Until Medically/PFS Cleared ordered. cs11 02:30 Acetaminophen Level Ordered. EDMS 02:30 Basic Metabolic Profile Ordered. EDMS 02:30 Complete Blood Count Ordered. EDMS 02:30 Drug Eval Toxicology ED Only Ordered. EDMS 02:30 Ethyl Alcohol (ethanol) Ordered. EDMS 02:30 HCG,Serum Qualitative Ordered. EDMS 02:30 Liver Profile Ordered. EDMS 02:30 Salicylate Level Ordered. EDMS 02:30 Thyroid Stimulating Hormone Ordered. EDMS 02:30 CT Head Without Contrast Ordered. EDMS 03:09 Drug Eval Toxicology ED Only Reviewed. mo1 03:10 Complete Blood Count Reviewed. mo1 03:10 Fingerstick Blood Sugar Reviewed. mo1 03:10 HCG,Serum Qualitative Reviewed. mo1 03:11 Financial registration complete. hs2 03:12 [facility] [place] was scanned into [employer] and attached to record. hs2 03:23 Acetaminophen Level Reviewed. cs11 03:23 Basic Metabolic Profile Reviewed. cs11 03:23 Liver Profile Reviewed. cs11 03:23 Salicylate Level Reviewed. cs11 03:23 Ethyl Alcohol (ethanol) Reviewed. cs11 03:23 HCG,Serum Qualitative Reviewed. cs11 03:23 Thyroid Stimulating Hormone Reviewed. cs11 03:37 Consult PFS/PSA/Solutions Analyst complete. cl 03:37 Consult PFS/PSA/Solutions Analyst: Patient's case requires discussion with on-call cl Psychiatrist complete. 03:37 PSA/PFS to call Nursing Cover Remover, to enter [place] data [place] if patient cl involuntarily admitted or transferred for SI or HI complete. Point of Care Testing: Blood Glucose: 02:19 Blood Glucose: 85 mg/dL; kc3 Ranges: Signatures: Dispatcher [employer]Host EDMS Eleuterio Townsend, TAVO PSA cl Jennifer Singleton RN RN jo3 Jocelyne Saleem RN RN lf1 Johnny Tomlinson, DO cs11 Russell Rodriguez PA PA mo1 Velasco,ColletteAVEL coello LPN, Hillary, Reg Reg hs2 The chart was reviewed and I authenticate all verbal orders and agree with the evaluation and treatment provided.Attachments: 03:12 [facility] Payment Agreement hs2 Chart Complete MTDD
--- NOTE | 2017-01-08 04:45 | EDDOCDS ---
Nurse's Notes [facility] Name: Brooke Krishnamurthy Age: 26 yrs Sex: Female : 1990 Arrival Date: 01/06/2017 Time: 00:21 Bed 30 Private MD: Diagnosis: Opioid dependence;Adverse effect of amphetamines-abuse of;Sedative, hypnotic or anxiolytic abuse with intoxication;Nasal congestion Presentation: 01/06 00:51 Presenting complaint: Patient states: Pt reports sinus pressure and foggy feeling x 4 jo3 days. Adult Sepsis Screening: The patient does not have new or worsening altered mentation. Patient's respiratory rate is less than 22. Systolic blood pressure is greater than 100. Patient has a qSOFA score of 0- Negative Sepsis Screen. Suicide/Homicide risk assessment- the patient denies having any suicidal and/or homicidal ideations and does not present with any other emotional, behavioral or mental health complaints. Status: Patient is not a client service coordinator or dependent. Transition of care: patient was not received from another setting of care. 00:51 Acuity: OLIVERIO Level 5 jo3 00:51 Method Of Arrival: Walkin/Carried/Asstd jo3 Triage Assessment: 00:53 General: Appears in no apparent distress, Behavior is appropriate for age, cooperative. jo3 HIV screening NA for this visit Offered previously. Neurological: Level of Consciousness is awake, alert, Oriented to person, place, time. EENT: Reports pain to frontal sinuses upon palpation . Respiratory: Airway is patent Respiratory effort is even, unlabored. Derm: Skin is pink, warm & dry. CLAIMS AGENT RIGHT OF WAY: 00:53 LMP 12/17/2016 jo3 Historical: - Allergies: No known drug Allergies; - Home Meds: 1. none - PMHx: Anemia; Anxiety; Bipolar disorder; Depression; Hepatitis C; Substance Abuse; - PSHx: Tonsillectomy; ear drum repaired; - Social history: Smoking status: Patient states was never smoker of tobacco. No barriers to communication noted, The patient speaks fluent Cuban, Speaks appropriately for age. - Family history: Not pertinent. - : The pt / caregiver states he / she is not on anticoagulants. Home medication list is obtained from the patient. - Exposure Risk Screening:: None identified. Screenin:30 Screening information is obtained from the patient. Fall risk: No risks identified. slm Assistance ADL's: requires no assistance with activities of daily living. Abuse/DV Screen: The patient / caregiver reports he/she is: not in a situation that causes fear, pain or injury. Nutritional screening: No deficits noted. Advance Directives: Currently, there is no health care proxy. There is no active DNR order. There is no living will. There is no Power of Inspector Outside [employer]. Advance directive information has not previously been placed in an [facility] medical record. Further advance directive information is declined. home support is adequate. Assessment: 02:12 General: Appears unkempt, Behavior is drowsy. Pain: Denies pain. Neurological: Level of lf1 Consciousness is awake, Oriented to none Attempted to assess pt. She was unable to tell me where she was or why she was here. Pt. is confused, appears altered. Denies drug and alcohol use. . Gait is unsteady, Speech is slurred, When I asked pt. what brought her here she stated "[employer]" When I asked pt. if she knew where she was she stated "actually no". . EENT: No deficits noted. Cardiovascular: No deficits noted. Respiratory: Respiratory effort is even, unlabored. GI: Denies nausea, vomiting. Derm: Skin is normal. 03:25 General: Appears in no apparent distress, Behavior is appropriate for age, cooperative. slm General: pt sitting on stretcher eating box lunch provided NAD .. Neurological: Level of Consciousness is awake, alert, obeys commands, Oriented to person, place, time, Gait is steady, Speech is normal. Respiratory: Airway is patent Respiratory effort is even, unlabored. Derm: Skin is pink, warm & dry. 03:41 Reassessment: Patient appears in no apparent distress at this time. pt d/c with via cab slm pt seem by valentino Samuels . Social Work Consult: 03:38 Social Work Note: PSA met with pt due to bizarre speech/behavior while being triaged cl for sinus pain complaint in ED MTA. Pt has hx of MH issues as well as polysubstance abuse, was answering questions inappropriately per RN. Pt denied any SI/HI but appeared s/w disoriented, had been sleeping in WR while waiting admittance to ED tx area and after being woken up by ED staff she began to display aforementioned sx's/behaviors. Pt is currently A&Ox3, is appropriate during conversation, appears mildly anxious but denies any depression, denies SI/HI/AH/VH, admits to recent drug use(U-tox + for Opiates, Amphetamine and Benzo's), denies any ETOH abuse. Pt adds that she is in no current outpt tx as she has no insurance but is "trying" to re-establish insurance. Pt denies any safety issues, states she has safe place to stay, adamantly denies need for psych admission or detox tx, requests d/c home as she is due to work later this morning. PSA extended support and provided all appropriate referral info and 24 hr. crisis #'s, PSA also provided cab voucher for pt to return home, no further interventions required. Vital Signs: 00:53 BP 131 / 82; Pulse 108; Resp 16; Temp 98.5(O); Pulse Ox 97% ; Weight 58.97 kg; Height 5 jo3 ft. 6 in. (167.64 cm) (R); 02:13 BP 136 / 84; Pulse 105; Resp 18; Pulse Ox 98% on R/A; kc3 03:41 BP 130 / 72; Pulse 99; Resp 18; Pulse Ox 99% on R/A; Pain 0/10; slm 00:53 Body Mass Index 20.98 (58.97 kg, 167.64 cm) jo3 Vitals: 00:53 Log In Time: January 06, 2017 at 00:22. jo3 ED Course: 00:21 Patient visited by Linda Aguilera, Reg. hs2 00:21 Patient moved to Waiting hs2 00:52 Triage Initiated jo3 01:10 Patient moved to [facility] Wait cz 01:31 Patient moved to I4 / M4 lf1 02:13 Patient visited by Anneliese Hays,RN. kc3 02:18 Patient visited by Jocelyne Saleem,LIV. lf1 02:36 Collette Velasco LPN is Primary Nurse. slm 02:36 No IV's were initiated during this patient's visit. No procedures done that require slm assistance. Labs drawn. (by ED staff). Sent per order to lab. Urine collected. Urine specimen sent to lab. 02:37 Drug Eval Toxicology ED Only Sent. slm 02:55 Russell Rodriguez PA is PHCP. mo1 02:55 Johnny Tomlinsno DO is Attending Physician. mo1 03:01 Patient visited by Johnny Tomlinson DO. cs11 03:12 [facility] Payment Agreement was scanned into [employer] and attached to record. hs2 03:24 Patient moved to 30 cz 03:25 Referral list, As provided by PFS is Referral Physician. cs11 03:37 Patient visited by Collette Velasco LPN. slm 03:43 The patient / caregiver is instructed regarding the plan of care and ED course. Patient slm has correct armband on for positive identification. Bed in low position. Call light in reach. Side rails up X 1. 03:53 CT Head Without Contrast Returned. EDMS Point of Care Testing: Blood Glucose: 02:19 Blood Glucose: 85 mg/dL; kc3 Ranges: Order Results: Lab Order: Fingerstick Blood Sugar; SPEC'M 01/06/17 02:17 Test: BEDSIDE GLUCOSE; Value: 85; Range: 70-105; Units: MG/DL; Status: F Lab Order: Acetaminophen Level; SPEC'M 01/06/17 02:31 Test: ACETAMINOPHEN LEVEL; Value: < 2.0; Range: 10.0-30.0; Abnormal: Below low normal; Units: UG/ML; Status: F Lab Order: Basic Metabolic Profile; SPEC'M 01/06/17 02:31 Test: GLUCOSE, FASTING; Value: 80; Range: 70-105; Units: MG/DL; Status: F Test: BLOOD UREA NITROGEN; Value: 11; Range: 7-18; Units: MG/DL; Status: F Test: CREATININE FOR GFR; Value: 0.74; Range: 0.55-1.02; Units: MG/DL; Status: F Test: SODIUM LEVEL; Range: 136-145; Units: MEQ/L; Status: I Test: POTASSIUM SERUM; Range: 3.5-5.1; Units: MEQ/L; Status: I Test: CHLORIDE LEVEL; Range: 98-107; Units: MEQ/L; Status: I Test: CARBON DIOXIDE LEVEL; Range: 21-32; Units: MEQ/L; Status: I Test: ANION GAP; Range: 8-16; Units: MEQ/L; Status: I Test: CALCIUM LEVEL; Range: 8.5-10.1; Units: MG/DL; Status: I Test: GLOMERULAR FILTRATION RATE; Value: > 60.0; Range: >60; Status: F Test: SODIUM LEVEL; Value: 140; Range: 136-145; Units: MEQ/L; Status: F Test: POTASSIUM SERUM; Value: 3.3; Range: 3.5-5.1; Abnormal: Below low normal; Units: MEQ/L; Status: F Test: CHLORIDE LEVEL; Value: 102; Range: 98-107; Units: MEQ/L; Status: F Test: CARBON DIOXIDE LEVEL; Value: 28; Range: 21-32; Units: MEQ/L; Status: F Test: ANION GAP; Value: 10; Range: 8-16; Units: MEQ/L; Status: F Test: CALCIUM LEVEL; Value: 8.7; Range: 8.5-10.1; Units: MG/DL; Status: F Test Note: ; Units are mL/min/1.73 m2 Chronic Kidney Disease Staging per NKF: Stage I & II GFR >=60 Normal to Mildly Decreased Stage III GFR 30-59 Moderately Decreased Stage IV GFR 15-29 Severely Decreased Stage V GFR <15 Very Little GFR Left ESRD GFR <15 on RECONCILEMENT CLERK Lab Order: Complete Blood Count; [facility]' 01/06/17 02:31 Test: WHITE BLOOD COUNT; Value: 4.4; Range: 4.0-10.0; Units: K/mm3; Status: F Test: RED BLOOD COUNT; Value: 4.97; Range: 4.00-5.40; Units: M/mm3; Status: F Test: HEMOGLOBIN; Value: 10.2; Range: 12.0-16.0; Abnormal: Below low normal; Units: g/dl; Status: F Test: HEMATOCRIT; Value: 34.1; Range: 36.0-47.0; Abnormal: Below low normal; Units: %; Status: F Test: MEAN CORPUSCULAR VOLUME; Value: 68.6; Range: 80.0-96.0; Abnormal: Below low normal; Units: fl; Status: F Test: MEAN CORPUSCULAR HEMOGLOBIN; Value: 20.5; Range: 27.0-33.0; Abnormal: Below low normal; Units: pg; Status: F Test: MEAN CORPUSCULAR HGB CONC; Value: 29.9; Range: 32.0-36.5; Abnormal: Below low normal; Units: g/dl; Status: F Test: RED CELL DISTRIBUTION WIDTH; Value: 15.9; Range: 11.5-14.5; Abnormal: Above high normal; Units: %; Status: F Test: PLATELET COUNT, AUTOMATED; Value: 270; Range: 150-450; Units: k/mm3; Status: F Lab Order: Drug Eval Toxicology ED Only; SPEC'M 01/06/17 02:31 Test: AMPHETAMINES LEVEL URINE; Value: POSITIVE; Range: NEGATIVE; Abnormal: Above high normal; Status: F Test: BARBITURATES URINE; Value: NEGATIVE; Range: NEGATIVE; Status: F Test: BENZODIAZEPINES URINE; Value: POSITIVE; Range: NEGATIVE; Abnormal: Above high normal; Status: F Test: CANNABINOIDS URINE; Value: NEGATIVE; Range: NEGATIVE; Status: F Test: COCAINE METABOLITE URINE; Value: NEGATIVE; Range: NEGATIVE; Status: F Test: METHADONE URINE; Value: NEGATIVE; Range: NEGATIVE; Status: F Test: OPIATES URINE; Value: POSITIVE; Range: NEGATIVE; Abnormal: Above high normal; Status: F Test: TRICYCLIC ANTIDEPRESS URINE; Value: NEGATIVE; Range: NEGATIVE; Status: F Test Note: ; ALL PRESUMPTIVE POSITIVE FINDINGS ARE UNCONFIRMED NORMAL VALUES THRESHOLD IN NG/ML AMPHETAMINES 1000 METHAMPHETAMINES 1000 BARBITURATES 300 BENZODIAZEPINES 300 CANNABINOIDS (THC) 50 COCAINE METABOLITE 300 METHADONE 300 OPIATES 300 PHENCYCLIDINE 25 TRICYCLIC ANTIDEPRESSANTS 1000 RESULTS ARE FOR MEDICAL PURPOSES ONLY. ALL URINE SPECIMENS WILL BE SAVED FOR 3 DAYS. IF CONFIRMATION OF A PRESUMPTIVE POSTIVE SCREEN RESULT IS DESIRED, CALL CHEMISTRY ([phone]) AND REQUEST URINE TO BE SENT TO REFERENCE LAB. FOR A LIST OF CLOSELY RELATED COMPOUNDS PLEASE CALL THE LAB. Lab Order: Ethyl Alcohol (ethanol); SPEC'M 01/06/17 02:31 Test: ETHYL ALCOHOL (ETHANOL); Value: < 0.003; Range: 0.000-0.010; Units: %; Status: F Lab Order: HCG,Serum Qualitative; SPEC'M 01/06/17 02:31 Test: HCG, SERUM QUALITATIVE; Value: NEGATIVE; Range: NEGATIVE; Status: F Lab Order: Liver Profile; SPEC'M 01/06/17 02:31 Test: AST/SGOT; Value: 47; Range: 15-37; Abnormal: Above high normal; Units: U/L; Status: F Test: ALT/SGPT; Value: 63; Range: 12-78; Units: U/L; Status: F Test: ALKALINE PHOSPHATASE; Value: 116; Range: 45-117; Units: U/L; Status: F Test: BILIRUBIN,TOTAL; Value: 0.4; Range: 0.2-1.0; Units: MG/DL; Status: F Test: BILIRUBIN,DIRECT; Value: 0.1; Range: 0.0-0.2; Units: MG/DL; Status: F Test: TOTAL PROTEIN; Value: 7.5; Range: 6.4-8.2; Units: GM/DL; Status: F Test: ALBUMIN; Value: 4.1; Range: 3.2-5.2; Units: GM/DL; Status: F Test: ALBUMIN/GLOBULIN RATIO; Value: 1.21; Range: 1.00-1.93; Status: F Lab Order: Salicylate Level; SPEC'M 01/06/17 02:31 Test: SALICYLATE LEVEL; Value: < 1.7; Range: 5.0-30.0; Abnormal: Below low normal; Units: MG/DL; Status: F Lab Order: Thyroid Stimulating Hormone; SPEC'M 01/06/17 02:31 Test: THYROID STIMULATING HORMONE; Value: 1.160; Range: 0.358-3.740; Units: uIU/ML; Status: F Radiology Order: CT Head Without Contrast Test: CT Head Without Contrast REASON FOR EXAMINATION: aloc; ; CLINICAL HISTORY: Altered level of consciousness.; TECHNIQUE: Multiple axial brain CT scan sections were obtained from base to vertex without contrast a; dministration.; COMMENTS:; The study shows normal configuration of sella turcica. There are no intra or extra-axial collections.; There is no mass effect or midline shift. There is no evidence of hematoma formation. No hydrocephal; us is present. No abnormal calcifications are noted.; No significant abnormalities are seen either in the posterior fossa or supratentorial compartment.; The sinuses and mastoid air cells are patent.; IMPRESSION:; No evidence of acute intracranial pathology.; Thank you for your kind referral of this patient.; ; Outcome: 03:27 Discharge ordered by Provider. cs11 03:42 Discharge Assessment: Patient awake, alert and oriented x 3. No cognitive and/or slm functional deficits noted. Patient verbalized understanding of disposition instructions. Patient awake and alert. awake, obeys commands, Oriented to person, place and time. patient administered narcotics - no. The following High Risk Discharge criteria are identified: Yes, pt seen by md and PSA no concerns. Discharged to home ambulatory, via cab. Condition: good Condition: improved. Discharge instructions given to patient, Instructed on discharge instructions, follow up and referral plans. Demonstrated understanding of instructions, Pt was receptive of discharge instructions/ teaching. CT Study completed. Property :Personal belongings accompany Pt. 03:43 Patient left the ED. slm Signatures: Dispatcher [employer] EDMS Manjeet Coulter, RN RN Eleuterio Fowler PSA PSA Jennifer CaleroRN RN donna3 Jocelyne SaleemRN RN lf1 Johnny Tomlinson, DO DO cs11 Russell Rodriguez PA PA mo1 Collette Velasco,AVEL REGULATORY AFFAIRS INTERN slAnneliese Humphries,LIV RN kc3 Linda Aguilera, Reg Reg hs2 Chart Complete MTDD
--- NOTE | 2017-01-08 04:45 | EDDOCDS ---
Physician Documentation [facility] Name: Brooke Krishnamurthy Age: 26 yrs Sex: Female : 1990 Arrival Date: 01/06/2017 Time: 00:21 Bed 30 Private MD: Disposition: 01/06/17 03:27 Discharged to Home/Self Care. Impression: Opioid dependence, Adverse effect of amphetamines - abuse of, Sedative, hypnotic or anxiolytic abuse with intoxication, Nasal congestion. - Condition is Stable. - Medication Reconciliation, Local Pharmacy Hours, Work Release Form - 1 day form. - Follow up: Referral list, As provided by PFS; When: Call to arrange an appointment; Reason: To establish care. - Problem is chronic. - Symptoms are unchanged. Historical: - Allergies: No known drug Allergies; - Home Meds: 1. none - PMHx: Anemia; Anxiety; Bipolar disorder; Depression; Hepatitis C; Substance Abuse; - PSHx: Tonsillectomy; ear drum repaired; - Social history: Smoking status: Patient states was never smoker of tobacco. No barriers to communication noted, The patient speaks fluent Argentine, Speaks appropriately for age. - Family history: Not pertinent. - : The pt / caregiver states he / she is not on anticoagulants. Home medication list is obtained from the patient. - Exposure Risk Screening:: None identified. 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 6 in. (167.64 cm) (R); 02:13 BP 136 / 84; Pulse 105; Resp 18; Pulse Ox 98% on R/A; kc3 03:41 BP 130 / 72; Pulse 99; Resp 18; Pulse Ox 99% on R/A; Pain 0/10; slm 00:53 Body Mass Index 20.98 (58.97 kg, 167.64 cm) jo3 MDM: 02:15 Accucheck ordered. mo1 02:27 Fingerstick Blood Sugar Ordered. EDMS 02:28 Consult PFS/PSA/School Attendance Secretary ordered. cs11 02:28 Consult PFS/PSA/School Attendance Secretary: Patient's case requires discussion with on-call cs11 Psychiatrist ordered. 02:28 PSA/PFS to call Nursing Quality And Reliability Engineer, to enter patient data on [place] if patient cs11 involuntarily admitted or transferred for SI or HI ordered. 02:28 Confirm accurate psychiatric medication list and times of last dosage ordered. cs11 02:28 Detain Pt Until Medically/PFS Cleared ordered. cs11 02:30 Acetaminophen Level Ordered. EDMS 02:30 Basic Metabolic Profile Ordered. EDMS 02:30 Complete Blood Count Ordered. EDMS 02:30 Drug Eval Toxicology ED Only Ordered. EDMS 02:30 Ethyl Alcohol (ethanol) Ordered. EDMS 02:30 HCG,Serum Qualitative Ordered. EDMS 02:30 Liver Profile Ordered. EDMS 02:30 Salicylate Level Ordered. EDMS 02:30 Thyroid Stimulating Hormone Ordered. EDMS 02:30 CT Head Without Contrast Ordered. EDMS 03:09 Drug Eval Toxicology ED Only Reviewed. mo1 03:10 Complete Blood Count Reviewed. mo1 03:10 Fingerstick Blood Sugar Reviewed. mo1 03:10 HCG,Serum Qualitative Reviewed. mo1 03:11 Financial registration complete. hs2 03:12 [facility] [place] Agreement was scanned into [employer] and attached to record. hs2 03:23 Acetaminophen Level Reviewed. cs11 03:23 Basic Metabolic Profile Reviewed. cs11 03:23 Liver Profile Reviewed. cs11 03:23 Salicylate Level Reviewed. cs11 03:23 Ethyl Alcohol (ethanol) Reviewed. cs11 03:23 HCG,Serum Qualitative Reviewed. cs11 03:23 Thyroid Stimulating Hormone Reviewed. cs11 03:37 Consult PFS/PSA/School Attendance Secretary complete. cl 03:37 Consult PFS/PSA/School Attendance Secretary: Patient's case requires discussion with on-call cl Psychiatrist complete. 03:37 PSA/PFS to call Nursing Quality And Reliability Engineer, to enter patient data [place] if patient cl involuntarily admitted or transferred for SI or HI complete. Point of Care Testing: Blood Glucose: 02:19 Blood Glucose: 85 mg/dL; kc3 Ranges: Signatures: Dispatcher [employer] EDMS Eleuterio Townsend, TAVO PSA cl Jennifer Singleton RN RN jo3 Jocelyne Saleem RN RN lf1 Johnny Tomlinson, DO cs11 Russell Rodriguez PA PA mo1 Velasco,ColletteAVEL coello LPN, Hillary, Reg Reg hs2 The chart was reviewed and I authenticate all verbal orders and agree with the evaluation and treatment provided.Attachments: 03:12 [facility] Payment Agreement hs2 Chart Complete MTDD
== END 2017-01-06 03:43 | disposition home or self-care (01) ==
LOC: M ED 00:21
DX: F11.10 Opioid abuse, uncomplicated (principal); F13.10 Sedative, hypnotic or anxiolytic abuse, uncomplicated; F15.10 Other stimulant abuse, uncomplicated; R09.81 Nasal congestion; D64.9 Anemia, unspecified; F31.9 Bipolar disorder, unspecified; B18.2 Chronic viral hepatitis C
CPT/HCPCS: 36415; 70450; 80048; 80076; 80306; 84443; 84703; 85027; 99284; G0480

== ENCOUNTER 2017-01-18 01:00 | Emergency (ER) | payer SELFPAY ==
[~2017-01-18] VITALS: Ht 170.2 cm; Wt 59.0 kg
[2017-01-18 01:20] VITALS: BP 138/93
== END 2017-01-18 04:13 | disposition home or self-care (01) ==
LOC: M ED 03:59
DX: F11.10 Opioid abuse, uncomplicated (principal); Z88.8 Allergy status to other drugs, medicaments and biological substances

== ENCOUNTER 2017-02-02 17:37 | Emergency (ER) | payer MEDICAID, SELFPAY ==
[~2017-02-02] VITALS: Ht 167.6 cm; Wt 56.7 kg
[2017-02-02 19:11] LABS: MEAN CORPUSCULAR HEMOGLOBIN 20.5 pg (27.0-33.0); MEAN CORPUSCULAR VOLUME 70.6 fl (80.0-96.0); RED CELL DISTRIBUTION WIDTH 15.9 % (11.5-14.5)
[2017-02-02 19:17] LABS: METHADONE URINE NEGATIVE (NEGATIVE)
[2017-02-02 19:18] LABS: CONTROL LINE HCG INT CTR LINE PRESENT
[2017-02-02 19:34] LABS: ALBUMIN 4.1 GM/DL (3.2-5.2); ALBUMIN/GLOBULIN RATIO 1.21 (1.00-1.93); ALKALINE PHOSPHATASE 100 U/L (45-117); ALT/SGPT 53 U/L (12-78); ANION GAP 9 MEQ/L (8-16); AST/SGOT 26 U/L (15-37); BILIRUBIN,DIRECT 0.1 MG/DL (0.0-0.2); BILIRUBIN,TOTAL 0.4 MG/DL (0.2-1.0); BLOOD UREA NITROGEN 17 MG/DL (7-18); CALCIUM LEVEL 9.4 MG/DL (8.5-10.1); CARBON DIOXIDE LEVEL 30 MEQ/L (21-32); CHLORIDE LEVEL 104 MEQ/L (98-107); CREATININE FOR GFR 0.69 MG/DL (0.55-1.02); GLOMERULAR FILTRATION RATE > 60.0 (>60); GLUCOSE, FASTING 98 MG/DL (70-105); POTASSIUM SERUM 3.5 MEQ/L (3.5-5.1); SODIUM LEVEL 143 MEQ/L (136-145); TOTAL PROTEIN 7.5 GM/DL (6.4-8.2)
[2017-02-02 21:35] VITALS: BP 106/61
== END 2017-02-02 22:04 | disposition home or self-care (01) ==
LOC: EDBD 17:37 → M ED 18:27
DX: F43.0 Acute stress reaction (principal); Z91.5 Personal history of self-harm
CPT/HCPCS: 80048; 80076; 80306; 84443; 84703; 85027; 99285; G0480

== ENCOUNTER 2017-03-12 22:16 | Emergency (ER) | payer MEDICAID, OTHER ==
[~2017-03-12] VITALS: Ht 170.2 cm; Wt 61.2 kg
[2017-03-12 22:18] VITALS: BP 142/100
[2017-03-12] MEDS ORDERED: MULTCAP8 PO (22:45)
[2017-03-12] MEDS ORDERED: ASCO25TA PO (22:45)
[2017-03-12] MEDS ORDERED: IRON65TA PO (22:45)
[2017-03-12] MEDS ORDERED: NS 500 ML IV ONE (23:30)
[2017-03-13 00:19] LABS: METHADONE URINE NEGATIVE (NEGATIVE)
[2017-03-13 00:23] LABS: CONTROL LINE HCG INT CTR LINE PRESENT
[2017-03-13 00:32] LABS: BASO % 0.7 % (0.0-1.0); EOS # 0.1 K/mm3 (0.0-0.50); EOS % 1.8 % (0.0-3.0); LARGE UNSTAINED CELL # 0.2 K/mm3 (0.0-0.4); LARGE UNSTAINED CELL % 4.4 % (0.0-4.0); LYMPH # 1.3 K/mm3 (1.5-6.5); LYMPH % 28.9 % (24.0-44.0); MEAN CORPUSCULAR HGB CONC 28.3 g/dl (32.0-36.5); MONO # 0.4 K/mm3 (0.0-0.8); MONO % 9.2 % (0.0-5.0); NEUTROPHILS # 2.5 K/mm3 (1.8-7.7); NEUTROPHILS % 55.1 % (36.0-66.0); PLATELET COUNT, AUTOMATED 303 k/mm3 (150-450); RED CELL DISTRIBUTION WIDTH 17.5 % (11.5-14.5); WHITE BLOOD COUNT 4.5 K/mm3 (4.0-10.0)
[2017-03-13 00:33] LABS: ADD MORPHOLOGY? YES
[2017-03-13 00:40] LABS: ALBUMIN 4.2 GM/DL (3.2-5.2); ALBUMIN/GLOBULIN RATIO 1.11 (1.00-1.93); ALKALINE PHOSPHATASE 104 U/L (45-117); ALT/SGPT 116 U/L (12-78); ANION GAP 9 MEQ/L (8-16); AST/SGOT 53 U/L (15-37); BILIRUBIN,DIRECT 0.1 MG/DL (0.0-0.2); BILIRUBIN,TOTAL 0.4 MG/DL (0.2-1.0); BLOOD UREA NITROGEN 8 MG/DL (7-18); CALCIUM LEVEL 9.7 MG/DL (8.5-10.1); CARBON DIOXIDE LEVEL 27 MEQ/L (21-32); CHLORIDE LEVEL 103 MEQ/L (98-107); GLOMERULAR FILTRATION RATE > 60.0 (>60); GLUCOSE, FASTING 94 MG/DL (70-105); POTASSIUM SERUM 3.5 MEQ/L (3.5-5.1); SODIUM LEVEL 139 MEQ/L (136-145)
[2017-03-13 00:51] LABS: ANISOCYTOSIS 1+; HYPOCHROMASIA 3+; MICROCYTOSIS 2+; OVALOCYTES 1+
[2017-03-13] MEDS ORDERED: POTASSIUM CHLORIDE 10 MEQ SR TABLET PO ONE (01:00)
[2017-03-13] MEDS ORDERED: cefTRIAXone SOD 2 GM VIAL (J0696) IM ONE (01:00)
[2017-03-13] MEDS ORDERED: LEVA500T PO (01:01)
[2017-03-13 01:09] LABS: INR 1.14
--- NOTE | 2017-03-13 01:27 | REP ---
Clinical: Chest pain . Comparison: None . Technique: PA and lateral. Findings: The mediastinum and cardiac silhouette are normal. The lung muse are clear and without acute consolidation, effusion, or pneumothorax. The skeletal structures are intact and normal. Impression: 1. No acute cardiopulmonary process. Signed by Ulises Fajardo MD 03/13/2017 01:17 A
[2017-03-13 01:36] LABS: ERYTHROCYTE SEDIMENTATION RATE 2 mm/hr (0-20)
--- NOTE | 2017-03-13 05:54 | ECGEPIP ---
Stationary ECG Study [facility] - ED Test Date: 2017-03-12 Pat Name: ADRIAN MALDONADO Department: Room: - Gender: F Director Orange: deepali : 1990 Requested By: HAN LITTLE Order Number: [id number] Reading MD: Robin Iraheta Measurements Intervals [place] Rate: 104 P: 68 MI: 151 QRS: 31 QRSD: 101 T: 47 QT: 349 QTc: 459 Interpretive Statements SINUS TACHYCARDIA LEFT ATRIAL ENLARGEMENT INCOMPLETE RIGHT BUNDLE BRANCH BLOCK SIMILAR TO 06/28/14 Electronically Signed On 03-13-2017 5:54:37 EDT by Robin Iraheta
[2017-03-17 10:09] LABS: HEPATITIS C QUANTITATION 218260 IU/mL (.)
== END 2017-03-13 03:04 | disposition home or self-care (01) ==
LOC: M ED 23:20
DX: N39.0 Urinary tract infection, site not specified (principal); F15.10 Other stimulant abuse, uncomplicated
CPT/HCPCS: 36415; 71020; 80048; 80076; 80306; 81001; 82550; 82553; 83690; 84443; 84703; 85025; 85379; 85610; 85652; 86140; 87522; 93005; 93041; 94760; 96372; 99284; J0696

== ENCOUNTER → 2017-04-29 | Outpatient (REF) | payer OTHER ==
[~2017-04-29] MED LIST changes: +ASCO25TA PO; +IRON65TA PO; +LEVA500T PO; +MULTCAP8 PO
== END ==
LOC: M LAB REF 16:56
PROVIDERS: ATTEND Physician Assistant
DX: R30.0 Dysuria (principal)

== ENCOUNTER 2017-08-13 02:31 | Emergency (ER) | payer OTHER ==
[~2017-08-13] VITALS: Ht 167.6 cm; Wt 59.1 kg
[~2017-08-13 02:31] MED LIST changes: +LEVA1TAB2 PO; -LEVA500T PO
[2017-08-13 05:44] LABS: BASO % 0.6 % (0.0-1.0); EOS # 0.2 10^3/uL (0.0-0.50); IMMATURE GRANULOCYTE % 0.2 % (0-0); LYMPH # 1.9 10^3/uL (1.5-6.5); LYMPH % 38.4 % (24.0-44.0); MEAN CORPUSCULAR HEMOGLOBIN 25.6 pg (27.0-33.0); MEAN CORPUSCULAR HGB CONC 31.5 g/dl (32.0-36.5); MEAN CORPUSCULAR VOLUME 81.4 fl (80.0-96.0); MONO # 0.5 10^3/uL (0.0-0.8); MONO % 9.7 % (0.0-5.0); NEUTROPHILS # 2.3 10^3/uL (1.8-7.7); NEUTROPHILS % 47.1 % (36.0-66.0); PLATELET COUNT, AUTOMATED 362 10^3/uL (150-450); RED CELL DISTRIBUTION WIDTH 15.5 % (11.5-14.5)
[2017-08-13] MEDS ORDERED: KETOROLAC 30 MG/ML VIAL (J1885) IV ONE (06:00)
[2017-08-13 06:11] LABS: METHADONE URINE NEGATIVE (NEGATIVE)
[2017-08-13] MEDS ORDERED: GASTROGRAFIN SOLUTION 30ML (Q9963) As Ordered ONE (06:11)
[2017-08-13] MEDS ORDERED: GASTROGRAFIN SOLUTION 30ML (Q9963) PO ONE ×2 (06:15→06:45)
[2017-08-13 06:58] LABS: CONTROL LINE HCG INT CTR LINE PRESENT
[2017-08-13 07:03] LABS: ALBUMIN 4.6 GM/DL (3.2-5.2); ALBUMIN/GLOBULIN RATIO 1.15 (1.00-1.93); ALKALINE PHOSPHATASE 112 U/L (45-117); ALT/SGPT 98 U/L (12-78); ANION GAP 9 MEQ/L (8-16); AST/SGOT 44 U/L (15-37); BILIRUBIN,DIRECT 0.1 MG/DL (0.0-0.2); BILIRUBIN,TOTAL 0.4 MG/DL (0.2-1.0); BLOOD UREA NITROGEN 10 MG/DL (7-18); CALCIUM LEVEL 9.9 MG/DL (8.5-10.1); CARBON DIOXIDE LEVEL 26 MEQ/L (21-32); CHLORIDE LEVEL 104 MEQ/L (98-107); CREATININE FOR GFR 0.78 MG/DL (0.55-1.02); GLOMERULAR FILTRATION RATE > 60.0 (>60); GLUCOSE, FASTING 77 MG/DL (70-105); POTASSIUM SERUM 3.7 MEQ/L (3.5-5.1); SODIUM LEVEL 139 MEQ/L (136-145); TOTAL PROTEIN 8.6 GM/DL (6.4-8.2)
[2017-08-13] MEDS ORDERED: ISOVUE-370 76% 100ML VIAL (Q9967) As Ordered ONE (07:39)
--- NOTE | 2017-08-13 08:24 | REP ---
CT of the abdomen pelvis with IV and oral contrast: Comparison is 04/21/2013. The visualized lung muse are unremarkable. The hepatic parenchyma is homogeneous. The gallbladder is unremarkable. The stomach is distended with ingested material. The pancreas and spleen are unremarkable. The adrenals and kidneys are unremarkable. The abdominal aorta is unremarkable. There is no bowel distension or obstruction. Pelvis: The appendix has a normal appearance. The uterus and adnexa are unremarkable. There is no ascites. The bladder is unremarkable. There is a phlebolith posterolateral to the bladder on the left, unchanged. The pelvic bowel loops are unremarkable. Impression: Essentially negative CT study of the abdomen and pelvis. The gallbladder, pancreas, kidneys, bladder, uterus, adnexa and appendix are unremarkable. There is no ascites or adenopathy. No bowel distension or obstruction. Signed by Bryant Zimmerman MD 08/13/2017 08:15 A
[2017-08-13 08:49] VITALS: BP 144/86
== END 2017-08-13 08:54 | disposition home or self-care (01) ==
LOC: M ED 02:31
DX: R10.9 Unspecified abdominal pain (principal); B18.2 Chronic viral hepatitis C
CPT/HCPCS: 74177; 80048; 80076; 80307; 80320; 81001; 82140; 83690; 84703; 85025; 87086; 87491; 87591; 96374; 99283; J1885; Q9963; Q9967

== ENCOUNTER → 2017-11-27 | Outpatient (REF) | payer OTHER ==
[2017-11-27 11:56] LABS: BASO % 0.9 % (0.0-1.0); EOS # 0.2 10^3/uL (0.0-0.50); EOS % 4.4 % (0.0-3.0); HEMATOCRIT 36.2 % (36.0-47.0); HEMOGLOBIN 11.2 g/dl (12.0-16.0); IMMATURE GRANULOCYTE % 0.2 % (0-0); LYMPH # 1.6 10^3/uL (1.5-6.5); MEAN CORPUSCULAR HEMOGLOBIN 25.2 pg (27.0-33.0); MEAN CORPUSCULAR HGB CONC 30.9 g/dl (32.0-36.5); MEAN CORPUSCULAR VOLUME 81.5 fl (80.0-96.0); MONO # 0.3 10^3/uL (0.0-0.8); MONO % 7.2 % (0.0-5.0); NEUTROPHILS # 2.1 10^3/uL (1.8-7.7); NEUTROPHILS % 49.3 % (36.0-66.0); PLATELET COUNT, AUTOMATED 352 10^3/uL (150-450); RED BLOOD COUNT 4.44 10^6/uL (4.00-5.40); RED CELL DISTRIBUTION WIDTH 14.2 % (11.5-14.5); WHITE BLOOD COUNT 4.3 10^3/uL (4.0-10.0)
[2017-11-27 12:27] LABS: ALBUMIN 4.1 GM/DL (3.2-5.2); ALBUMIN/GLOBULIN RATIO 1.24 (1.00-1.93); ALKALINE PHOSPHATASE 91 U/L (45-117); ALT/SGPT 38 U/L (12-78); ANION GAP 5 MEQ/L (8-16); AST/SGOT 22 U/L (7-37); BILIRUBIN,TOTAL 0.3 MG/DL (0.2-1.0); BLOOD UREA NITROGEN 11 MG/DL (7-18); CALCIUM LEVEL 9.4 MG/DL (8.5-10.1); CARBON DIOXIDE LEVEL 31 MEQ/L (21-32); CHLORIDE LEVEL 106 MEQ/L (98-107); CREATININE FOR GFR 0.63 MG/DL (0.55-1.02); FERRITIN 6 NG/ML (8-252); GLOMERULAR FILTRATION RATE > 60.0 (>60); GLUCOSE, FASTING 87 MG/DL (70-105); IRON (FE) 46 UG/DL (50-170); PERCENT SATURATION 10.2 % (13.2-45.0); POTASSIUM SERUM 4.4 MEQ/L (3.5-5.1); SODIUM LEVEL 142 MEQ/L (136-145); TOTAL IRON BINDING CAPACITY 453 UG/DL (250-450); TOTAL PROTEIN 7.4 GM/DL (6.4-8.2)
[2017-11-28 10:04] LABS: HIV 1&2 SCREEN CENTAUR NEGATIVE (NEGATIVE)
== END ==
LOC: M SFHCPLAZ 11:28
DX: B18.2 Chronic viral hepatitis C (principal); D50.8 Other iron deficiency anemias
CPT/HCPCS: 83010

== ENCOUNTER 2018-03-13 21:44 | Emergency (ER) | payer OTHER ==
[2018-03-13 23:02] LABS: BASO # 0.1 10^3/uL (0.0-0.2); BASO % 0.3 % (0.0-1.0); EOS % 0.1 % (0.0-3.0); HEMOGLOBIN 14.5 g/dl (12.0-15.5); IMMATURE GRANULOCYTE % 0.4 % (0-3.0); LYMPH # 1.2 10^3/uL (1.5-6.5); LYMPH % 6.2 % (24.0-44.0); MEAN CORPUSCULAR HGB CONC 31.5 g/dl (32.0-36.5); MEAN CORPUSCULAR VOLUME 79.4 fl (80.0-96.0); MONO # 1.1 10^3/uL (0.0-0.8); MONO % 5.4 % (0.0-5.0); NEUTROPHILS # 17.2 10^3/uL (1.8-7.7); NEUTROPHILS % 87.6 % (36.0-66.0); PLATELET COUNT, AUTOMATED 481 10^3/uL (150-450); RED BLOOD COUNT 5.79 10^6/uL (4.00-5.40); RED CELL DISTRIBUTION WIDTH 14.5 % (11.5-14.5); WHITE BLOOD COUNT 19.6 10^3/uL (4.0-10.0)
[2018-03-13] MEDS: KETOROLAC 30 MG/ML VIAL (J1885) IV (23:08)
[2018-03-13] MEDS: NS 1,000 ML IV (23:08)
[2018-03-13] MEDS: ONDANSETRON 4MG/2ML VIAL (J2405) IV (23:08)
[2018-03-13 23:23] LABS: ALBUMIN 4.8 GM/DL (3.2-5.2); ALBUMIN/GLOBULIN RATIO 1.12 (1.00-1.93); ALKALINE PHOSPHATASE 136 U/L (45-117); ALT/SGPT 16 U/L (12-78); ANION GAP 8 MEQ/L (8-16); AST/SGOT 13 U/L (7-37); BILIRUBIN,TOTAL 0.4 MG/DL (0.2-1.0); BLOOD UREA NITROGEN 13 MG/DL (7-18); CALCIUM LEVEL 10.9 MG/DL (8.5-10.1); CARBON DIOXIDE LEVEL 31 MEQ/L (21-32); CHLORIDE LEVEL 100 MEQ/L (98-107); CREATININE FOR GFR 0.93 MG/DL (0.55-1.30); GLOMERULAR FILTRATION RATE > 60.0 (>60); GLUCOSE, FASTING 156 MG/DL (70-100); LIPASE 98 U/L (73-393); POTASSIUM SERUM 4.1 MEQ/L (3.5-5.1); SODIUM LEVEL 139 MEQ/L (136-145); TOTAL PROTEIN 9.1 GM/DL (6.4-8.2)
[2018-03-13 23:54] LABS: CONTROL LINE HCG INT CTR LINE PRESENT; HCG, SERUM QUALITATIVE NEGATIVE (NEGATIVE)
[2018-03-13] MEDS ORDERED: ISOVUE-370 76% 100ML VIAL (Q9967) As Ordered (23:55)
[2018-03-14 00:55] LABS: APPEARANCE, URINE HAZY (CLEAR); BACTERIA, URINE AUTO NEGATIVE (NEGATIVE); BILIRUBIN, URINE AUTO NEGATIVE (NEGATIVE); BLOOD, URINE BLOOD NEGATIVE (NEGATIVE); COLOR, URINE YELLOW (YELLOW); GLUCOSE, URINE (UA) AUTO NEGATIVE (NEGATIVE); KETONE, URINE AUTO NEGATIVE (NEGATIVE); LEUKOCYTE ESTERASE, URINE AUTO NEGATIVE (NEGATIVE); MUCUS, URINE MODERATE (NEGATIVE); NITRITE, URINE AUTO NEGATIVE (NEGATIVE); PROTEIN, URINE AUTO NEGATIVE (NEGATIVE); RBC, URINE AUTO 1 /HPF (0-3); SQUAMOUS EPITHELIAL CELL UR AU 10 /HPF (0-6); UROBILINOGEN, URINE AUTO 0.2 mg/dL (0.0-2.0); WBC, URINE AUTO 2 /HPF (0-3)
[2018-03-14 00:56] LABS: SPECIFIC GRAVITY URINE AUTO >1.060 (1.002-1.035)
[2018-03-14] MEDS: GOLYTELY SOLN 4000 ML BTL PO (01:30)
[2018-03-14] MEDS: LACTULOSE 20 GM/30 ML SYRUP UD PO (05:23)
== END 2018-03-14 07:10 | disposition home or self-care (01) ==
LOC: M ED 03-14 07:10
DX: T18.9XXA Foreign body of alimentary tract, part unspecified, initial encounter (principal); X58.XXXA Exposure to other specified factors, initial encounter; Y92.149 Unspecified place in prison as the place of occurrence of the external cause; R11.10 Vomiting, unspecified; B19.20 Unspecified viral hepatitis C without hepatic coma; D64.9 Anemia, unspecified; Z88.8 Allergy status to other drugs, medicaments and biological substances
CPT/HCPCS: J2405

== ENCOUNTER 2018-09-07 10:50 | Emergency (ER) | payer MEDICAID, SELFPAY, OTHER ==
[2018-09-07 11:33] LABS: BASO % 0.4 % (0.0-1.0); EOS # 0.3 10^3/uL (0.0-0.50); EOS % 5.2 % (0.0-3.0); HEMATOCRIT 43.1 % (36.0-47.0); IMMATURE GRANULOCYTE % 0.4 % (0-3.0); LYMPH # 1.1 10^3/uL (1.5-6.5); LYMPH % 23.1 % (24.0-44.0); MEAN CORPUSCULAR HEMOGLOBIN 27.5 pg (27.0-33.0); MEAN CORPUSCULAR HGB CONC 32.5 g/dl (32.0-36.5); MEAN CORPUSCULAR VOLUME 84.7 fl (80.0-96.0); MONO # 0.4 10^3/uL (0.0-0.8); MONO % 8.7 % (0.0-5.0); NEUTROPHILS % 62.2 % (36.0-66.0); PLATELET COUNT, AUTOMATED 268 10^3/uL (150-450); RED BLOOD COUNT 5.09 10^6/uL (4.00-5.40); RED CELL DISTRIBUTION WIDTH 13.7 % (11.5-14.5); WHITE BLOOD COUNT 4.8 10^3/uL (4.0-10.0)
[2018-09-07] MEDS: ONDANSETRON 4MG/2ML VIAL (J2405) IV ×2 (11:52)
[2018-09-07 12:25] LABS: ACETAMINOPHEN LEVEL < 2.0 UG/ML (10.0-30.0); ALBUMIN 4.2 GM/DL (3.2-5.2); ALBUMIN/GLOBULIN RATIO 1.24 (1.00-1.93); ALKALINE PHOSPHATASE 114 U/L (45-117); ALT/SGPT 33 U/L (12-78); ANION GAP 11 MEQ/L (8-16); AST/SGOT 27 U/L (7-37); BILIRUBIN,DIRECT 0.1 MG/DL (0.0-0.2); BILIRUBIN,TOTAL 0.4 MG/DL (0.2-1.0); BLOOD UREA NITROGEN 14 MG/DL (7-18); CALCIUM LEVEL 9.5 MG/DL (8.5-10.1); CARBON DIOXIDE LEVEL 27 MEQ/L (21-32); CHLORIDE LEVEL 102 MEQ/L (98-107); CPK CREATINE PHOSPHOKINASE 255 U/L (26-192); CREATININE FOR GFR 0.87 MG/DL (0.55-1.30); ETHYL ALCOHOL (ETHANOL) < 0.003 % (0.000-0.010); GLOMERULAR FILTRATION RATE > 60.0 (>60); GLUCOSE, FASTING 141 MG/DL (70-100); POTASSIUM SERUM 3.7 MEQ/L (3.5-5.1); SALICYLATE LEVEL < 1.7 MG/DL (5.0-30.0); SODIUM LEVEL 140 MEQ/L (136-145); TOTAL PROTEIN 7.6 GM/DL (6.4-8.2)
== END 2018-09-07 13:43 | disposition home or self-care (01) ==
LOC: M ED 10:50
DX: F11.20 Opioid dependence, uncomplicated (principal); T40.1X1A Poisoning by heroin, accidental (unintentional), initial encounter; Y92.89 Other specified places as the place of occurrence of the external cause; Y93.9 Activity, unspecified; I45.19 Other right bundle-branch block; Z88.8 Allergy status to other drugs, medicaments and biological substances
CPT/HCPCS: J2405

== ENCOUNTER 2018-09-27 11:00 | Emergency (ER) | payer MEDICAID, SELFPAY ==
[2018-09-27] MEDS: ONDANSETRON 4MG/2ML VIAL (J2405) IV (11:58)
[2018-09-27] MEDS: NS 1,000 ML IV (11:58)
[2018-09-27 12:04] LABS: BASO % 0.5 % (0.0-1.0); EOS # 0.1 10^3/uL (0.0-0.50); EOS % 0.8 % (0.0-3.0); HEMATOCRIT 41.7 % (36.0-47.0); HEMOGLOBIN 13.5 g/dl (12.0-15.5); IMMATURE GRANULOCYTE % 0.2 % (0-3.0); LYMPH % 17.4 % (24.0-44.0); MEAN CORPUSCULAR HEMOGLOBIN 27.2 pg (27.0-33.0); MEAN CORPUSCULAR HGB CONC 32.4 g/dl (32.0-36.5); MEAN CORPUSCULAR VOLUME 84.1 fl (80.0-96.0); MONO # 0.3 10^3/uL (0.0-0.8); MONO % 4.8 % (0.0-5.0); NEUTROPHILS # 4.6 10^3/uL (1.8-7.7); NEUTROPHILS % 76.3 % (36.0-66.0); PLATELET COUNT, AUTOMATED 439 10^3/uL (150-450); RED BLOOD COUNT 4.96 10^6/uL (4.00-5.40)
[2018-09-27 12:29] LABS: ALBUMIN 4.6 GM/DL (3.2-5.2); ALBUMIN/GLOBULIN RATIO 1.28 (1.00-1.93); ALKALINE PHOSPHATASE 114 U/L (45-117); ALT/SGPT 18 U/L (12-78); ANION GAP 8 MEQ/L (8-16); AST/SGOT 14 U/L (7-37); BILIRUBIN,DIRECT 0.1 MG/DL (0.0-0.2); BILIRUBIN,TOTAL 0.4 MG/DL (0.2-1.0); BLOOD UREA NITROGEN 12 MG/DL (7-18); CALCIUM LEVEL 9.8 MG/DL (8.5-10.1); CARBON DIOXIDE LEVEL 30 MEQ/L (21-32); CHLORIDE LEVEL 100 MEQ/L (98-107); CREATININE FOR GFR 0.61 MG/DL (0.55-1.30); GLOMERULAR FILTRATION RATE > 60.0 (>60); GLUCOSE, FASTING 97 MG/DL (70-100); LIPASE 57 U/L (73-393); SODIUM LEVEL 138 MEQ/L (136-145); TOTAL PROTEIN 8.2 GM/DL (6.4-8.2)
[2018-09-27 12:32] LABS: AMPHETAMINES LEVEL URINE POSITIVE (NEGATIVE); BARBITURATES URINE NEGATIVE (NEGATIVE); BENZODIAZEPINES URINE NEGATIVE (NEGATIVE); CANNABINOIDS URINE NEGATIVE (NEGATIVE); COCAINE METABOLITE URINE NEGATIVE (NEGATIVE); METHADONE URINE NEGATIVE (NEGATIVE); OPIATES URINE POSITIVE (NEGATIVE); PHENCYCLIDINE URINE NEGATIVE (NEGATIVE)
[2018-09-27 12:42] LABS: CONTROL LINE HCG INT CTR LINE PRESENT; HCG, SERUM QUALITATIVE NEGATIVE (NEGATIVE)
== END 2018-09-27 13:37 | disposition home or self-care (01) ==
LOC: M ED 11:00
DX: R11.2 Nausea with vomiting, unspecified (principal); F11.20 Opioid dependence, uncomplicated; F31.9 Bipolar disorder, unspecified; F44.81 Dissociative identity disorder; F42.9 Obsessive-compulsive disorder, unspecified; Z88.8 Allergy status to other drugs, medicaments and biological substances
CPT/HCPCS: J2405

== ENCOUNTER → 2018-12-17 | Outpatient (REF) | payer MEDICAID ==
[~2018-12-17] MED LIST changes: +CLAR1TAB2 PO; +SUBO8MIS; +ZOFR4TAB14 SL
[2018-12-17 12:20] LABS: BASO % 0.6 % (0.0-1.0); EOS # 0.2 10^3/uL (0.0-0.50); EOS % 6.9 % (0.0-3.0); HEMATOCRIT 40.9 % (36.0-47.0); LYMPH # 1.2 10^3/uL (1.5-6.5); LYMPH % 38.2 % (24.0-44.0); MEAN CORPUSCULAR HEMOGLOBIN 26.6 pg (27.0-33.0); MEAN CORPUSCULAR HGB CONC 31.8 g/dl (32.0-36.5); MEAN CORPUSCULAR VOLUME 83.8 fl (80.0-96.0); MONO # 0.2 10^3/uL (0.0-0.8); MONO % 7.2 % (0.0-5.0); NEUTROPHILS # 1.5 10^3/uL (1.8-7.7); NEUTROPHILS % 47.1 % (36.0-66.0); PLATELET COUNT, AUTOMATED 266 10^3/uL (150-450); RED BLOOD COUNT 4.88 10^6/uL (4.00-5.40); WHITE BLOOD COUNT 3.2 10^3/uL (4.0-10.0)
[2018-12-17 12:29] LABS: ALBUMIN 4.1 GM/DL (3.2-5.2); ALT/SGPT 14 U/L (12-78); BILIRUBIN,TOTAL 0.3 MG/DL (0.2-1.0); BLOOD UREA NITROGEN 13 MG/DL (7-18); CALCIUM LEVEL 9.3 MG/DL (8.5-10.1); CARBON DIOXIDE LEVEL 31 MEQ/L (21-32); CHLORIDE LEVEL 103 MEQ/L (98-107); CREATININE FOR GFR 0.71 MG/DL (0.55-1.30); GLOMERULAR FILTRATION RATE > 60.0 (>60); GLUCOSE, FASTING 82 MG/DL (70-100); POTASSIUM SERUM 4.2 MEQ/L (3.5-5.1); SODIUM LEVEL 138 MEQ/L (136-145)
[2018-12-18 13:15] LABS: HIV 1&2 SCREEN CENTAUR NEGATIVE (NEGATIVE)
[2018-12-22 01:34] LABS: HEPATITIS C QUANTITATION 400 IU/mL (.)
== END ==
LOC: M SFHCPLAZ 10:07
PROVIDERS: ATTEND Internal Medicine Infectious Disease
DX: B18.2 Chronic viral hepatitis C (principal)

== ENCOUNTER 2019-01-04 20:26 | Emergency (ER) | payer MEDICAID ==
[~2019-01-04] VITALS: Ht 167.6 cm; Wt 59.1 kg
[2019-01-04 21:49] LABS: INFLUENZA A AMPLIFICATION NEGATIVE (NEGATIVE); INFLUENZA B AMPLIFICATION NEGATIVE (NEGATIVE)
[2019-01-04] MEDS ORDERED: AZIT-12 PO (22:10)
[2019-01-04] MEDS ORDERED: IBUP-1114 PO (22:11)
[2019-01-04] MEDS ORDERED: TESS100C PO (22:11)
[2019-01-04] MEDS ORDERED: AZITHROMYCIN 250 MG TAB PO ONE (22:15)
[2019-01-04] MEDS ORDERED: IBUPROFEN 400 MG TAB PO ONE (22:15)
[2019-01-04 22:27] VITALS: BP 140/89
--- NOTE | 2019-01-05 05:44 | REP ---
Clinical: Cough and dyspnea. Technique: PA and lateral. Comparison: 03/13/2017. Findings: Mediastinum and cardiac silhouette are normal. There is a very subtle vague area of opacity in the right upper lung zone overlying the fourth posterior rib in the midclavicular line and while this may represent summation artifact, follow-up chest x-ray should be considered. No further area of consolidation, effusion, or pneumothorax appreciated. Musculoskeletal structures are intact. Impression: 1. A very subtle vague area of opacity in the right upper lung zone cannot be excluded and warrants followup chest x-ray. 2. No further acute mediastinal or pleuroparenchymal process appreciated. Electronically Signed by Ulises Fajardo MD 01/05/2019 05:36 A
--- NOTE | 2019-01-05 12:32 | ED PDOC ---
Post-Departure Follow-Up certified letter sent to pt re formal read of cxr. see report. needs pcp and nee ds repeat cxr. ensure pt aware. if she has established please fax to new pcp Destiny Reich MD Jan 05, 2019 12:32
== END 2019-01-04 22:29 | disposition home or self-care (01) ==
LOC: M ED 20:26
DX: J18.9 Pneumonia, unspecified organism (principal); F31.9 Bipolar disorder, unspecified; F44.89 Other dissociative and conversion disorders; Z79.899 Other long term (current) drug therapy; Z88.8 Allergy status to other drugs, medicaments and biological substances

== ENCOUNTER → 2019-01-12 | Outpatient (REF) | payer MEDICAID ==
[~2019-01-12] MED LIST changes: -/LAMO10TA PO; -ASCO25TA PO; +AZIT-12 PO; +IBUP-1114 PO; +LAMI1TAB7 PO; +TESS100C PO; +VITA1TAB23 PO
[2019-01-12 17:06] LABS: BASO % 0.7 % (0.0-1.0); EOS # 0.1 10^3/uL (0.0-0.50); EOS % 1.2 % (0.0-3.0); HEMATOCRIT 40.1 % (36.0-47.0); HEMOGLOBIN 12.7 g/dl (12.0-15.5); LYMPH # 1.8 10^3/uL (1.5-6.5); LYMPH % 29.8 % (24.0-44.0); MEAN CORPUSCULAR HGB CONC 31.7 g/dl (32.0-36.5); MEAN CORPUSCULAR VOLUME 82.2 fl (80.0-96.0); MONO # 0.4 10^3/uL (0.0-0.8); MONO % 7.3 % (0.0-5.0); NEUTROPHILS # 3.6 10^3/uL (1.8-7.7); NEUTROPHILS % 60.8 % (36.0-66.0); PLATELET COUNT, AUTOMATED 475 10^3/uL (150-450); RED BLOOD COUNT 4.88 10^6/uL (4.00-5.40); WHITE BLOOD COUNT 5.9 10^3/uL (4.0-10.0)
[2019-01-12 17:07] LABS: HCG, SERUM QUALITATIVE NEGATIVE (NEGATIVE)
[2019-01-12 17:17] LABS: ALBUMIN 4.3 GM/DL (3.2-5.2); ALT/SGPT 21 U/L (12-78); BILIRUBIN,TOTAL 0.2 MG/DL (0.2-1.0); BLOOD UREA NITROGEN 9 MG/DL (7-18); CALCIUM LEVEL 9.9 MG/DL (8.5-10.1); CARBON DIOXIDE LEVEL 32 MEQ/L (21-32); CHLORIDE LEVEL 99 MEQ/L (98-107); CREATININE FOR GFR 0.64 MG/DL (0.55-1.30); FREE T4 1.39 NG/DL (0.76-1.46); GLOMERULAR FILTRATION RATE > 60.0 (>60); GLUCOSE, FASTING 85 MG/DL (70-100); POTASSIUM SERUM 3.8 MEQ/L (3.5-5.1); SODIUM LEVEL 138 MEQ/L (136-145)
== END ==
LOC: M LAB REF 16:37
PROVIDERS: ATTEND Family Medicine Addiction Medicine
DX: R63.4 Abnormal weight loss (principal); N91.0 Primary amenorrhea

== ENCOUNTER 2019-06-29 05:04 | Emergency (ER) | payer MEDICAID, OTHER ==
[~2019-06-29] VITALS: Ht 170.2 cm; Wt 59.1 kg
[2019-06-29 05:05] VITALS: BP 142/95
[2019-06-29 07:07] LABS: BASO % 0.8 % (0.0-1.0); EOS # 0.1 10^3/uL (0.0-0.50); EOS % 1.2 % (0.0-3.0); HEMATOCRIT 38.6 % (36.0-47.0); LYMPH # 1.7 10^3/uL (1.5-6.5); LYMPH % 33.9 % (24.0-44.0); MEAN CORPUSCULAR HEMOGLOBIN 25.4 pg (27.0-33.0); MEAN CORPUSCULAR HGB CONC 31.1 g/dl (32.0-36.5); MEAN CORPUSCULAR VOLUME 81.8 fl (80.0-96.0); MONO # 0.5 10^3/uL (0.0-0.8); MONO % 10.6 % (0.0-5.0); NEUTROPHILS # 2.6 10^3/uL (1.8-7.7); NEUTROPHILS % 53.3 % (36.0-66.0); PLATELET COUNT, AUTOMATED 334 10^3/uL (150-450); RED BLOOD COUNT 4.72 10^6/uL (4.00-5.40); WHITE BLOOD COUNT 4.9 10^3/uL (4.0-10.0)
[2019-06-29] MEDS ORDERED: ACETAMINOPHEN TAB 650MG DOSE (2X325MG) PO ONE (07:30)
[2019-06-29 07:33] LABS: ALBUMIN 4.4 GM/DL (3.2-5.2); ALT/SGPT 47 U/L (12-78); BILIRUBIN,TOTAL 0.5 MG/DL (0.2-1.0); BLOOD UREA NITROGEN 15 MG/DL (7-18); CALCIUM LEVEL 10.3 MG/DL (8.5-10.1); CARBON DIOXIDE LEVEL 29 MEQ/L (21-32); CHLORIDE LEVEL 105 MEQ/L (98-107); GLOMERULAR FILTRATION RATE > 60.0 (>60); GLUCOSE, FASTING 81 MG/DL (70-100); POTASSIUM SERUM 3.7 MEQ/L (3.5-5.1); SODIUM LEVEL 140 MEQ/L (136-145); TOTAL PROTEIN 8.1 GM/DL (6.4-8.2)
[2019-06-29 08:13] LABS: HCG, SERUM QUALITATIVE NEGATIVE (NEGATIVE)
[2019-06-29] MEDS ORDERED: metroNIDAZOLE (FLAGYL) 500 MG TAB PO ONE (09:00)
[2019-06-29] MEDS ORDERED: AZITHROMYCIN 250 MG TAB PO ONE (09:00)
[2019-06-29] MEDS ORDERED: ULIPRISTAL ACETATE 30 MG TAB (ELLA) PO ONE (09:00)
[2019-06-29] MEDS ORDERED: LIDOCAINE 1% SDV 5 ML VIAL DILUENT ONE (09:00)
[2019-06-29] MEDS ORDERED: EXPOSURE KIT-ADULT 7 DAY SUPPLY PO ONE (09:00)
[2019-06-29] MEDS ORDERED: cefTRIAXone SOD 250 MG VIAL (J0696) IM ONE (09:00)
[2019-06-29] MEDS ORDERED: TRUVTAB PO (09:12)
[2019-06-29] MEDS ORDERED: RALT40TA PO (09:13)
[2019-06-29] MEDS ORDERED: ZOFR4TAB16 PO (09:13)
[2019-06-30 08:59] LABS: HEPATITIS B SURFACE ANTIBODY POSITIVE (POSITIVE)
[2019-06-30 09:10] LABS: HEPATITIS B SURFACE ANTIGEN NEGATIVE (NEGATIVE)
[2019-06-30 09:38] LABS: HIV 1&2 SCREEN CENTAUR NEGATIVE (NEGATIVE)
[2019-06-30 09:39] LABS: HEPATITIS A ANTIBODY IGM NEGATIVE (NEGATIVE)
[2019-06-30 10:53] LABS: HEPATITIS C VIRUS ABY INDEX > 11.0 INDEX (<0.8)
== END 2019-06-29 09:23 | disposition home or self-care (01) ==
LOC: M ED 05:04
DX: T76.21XA Adult sexual abuse, suspected, initial encounter (principal); B19.20 Unspecified viral hepatitis C without hepatic coma; F11.10 Opioid abuse, uncomplicated; F17.200 Nicotine dependence, unspecified, uncomplicated; Z88.8 Allergy status to other drugs, medicaments and biological substances; Z79.899 Other long term (current) drug therapy
CPT/HCPCS: 36415; 80053; 84703; 85025; 86706; 86708; 86709; 86780; 86803; 87070; 87110; 87210; 87340; 87389; 87521; 87529; 96372; 99284; J0696

== ENCOUNTER → 2019-07-27 | Outpatient (REF) | payer MEDICAID, OTHER ==
[~2019-07-27] MED LIST changes: +RALT40TA PO; +TRUVTAB PO; +ZOFR4TAB16 PO
[2019-07-28 10:13] LABS: HEPATITIS B SURFACE ANTIBODY POSITIVE (POSITIVE)
[2019-07-28 10:24] LABS: HEPATITIS B SURFACE ANTIGEN NEGATIVE (NEGATIVE)
[2019-07-28 10:54] LABS: HEPATITIS A ANTIBODY IGM NEGATIVE (NEGATIVE)
[2019-07-30 09:06] LABS: HEPATITIS A IgG TOTAL Positive (Negative); HEPATITIS B CORE ANTIBODY IGG Negative (Negative)
== END ==
LOC: M LABDRAWP 13:37
PROVIDERS: ATTEND Nurse Practitioner Adult Health
DX: Z11.4 Encounter for screening for human immunodeficiency virus [HIV] (principal); F11.20 Opioid dependence, uncomplicated; B18.2 Chronic viral hepatitis C

== ENCOUNTER → 2019-07-27 | Outpatient (REF) | payer MEDICAID, OTHER ==
[2019-07-27 15:50] LABS: BASO % 0.8 % (0.0-1.0); EOS # 0.4 10^3/uL (0.0-0.5); EOS % 7.5 % (0.0-3.0); HEMATOCRIT 37.3 % (36.0-47.0); HEMOGLOBIN 11.4 g/dl (12.0-15.5); LYMPH # 1.8 10^3/uL (1.5-5.0); LYMPH % 35.8 % (24.0-44.0); MEAN CORPUSCULAR HEMOGLOBIN 25.3 pg (27.0-33.0); MEAN CORPUSCULAR HGB CONC 30.6 g/dl (32.0-36.5); MEAN CORPUSCULAR VOLUME 82.9 fl (80.0-96.0); MONO # 0.3 10^3/uL (0.0-0.8); MONO % 6.1 % (0.0-5.0); NEUTROPHILS # 2.5 10^3/uL (1.5-8.5); NEUTROPHILS % 49.6 % (36.0-66.0); PLATELET COUNT, AUTOMATED 354 10^3/uL (150-450); WHITE BLOOD COUNT 4.9 10^3/uL (4.0-10.0)
[2019-07-27 16:26] LABS: ALBUMIN 3.8 GM/DL (3.2-5.2); ALT/SGPT 17 U/L (12-78); BILIRUBIN,TOTAL 0.3 MG/DL (0.2-1.0); BLOOD UREA NITROGEN 14 MG/DL (7-18); CARBON DIOXIDE LEVEL 29 MEQ/L (21-32); CHLORIDE LEVEL 103 MEQ/L (98-107); CREATININE FOR GFR 0.69 MG/DL (0.55-1.30); GLOMERULAR FILTRATION RATE > 60.0 (>60); GLUCOSE, FASTING 83 MG/DL (70-100); POTASSIUM SERUM 4.6 MEQ/L (3.5-5.1); SODIUM LEVEL 139 MEQ/L (136-145); TOTAL PROTEIN 7.1 GM/DL (6.4-8.2)
[2019-07-28 10:49] LABS: HIV 1&2 SCREEN CENTAUR NEGATIVE (NEGATIVE)
[2019-08-02 00:06] LABS: HEPATITIS C QUANTITATION 240 IU/mL (.)
== END ==
LOC: M SFHCPLAZ 13:21
PROVIDERS: ATTEND Internal Medicine Infectious Disease
DX: B18.2 Chronic viral hepatitis C (principal)

== ENCOUNTER 2019-09-02 17:49 | Emergency (ER) | payer OTHER ==
[~2019-09-02] VITALS: Ht 167.6 cm; Wt 61.3 kg
[2019-09-02] MEDS ORDERED: BUPR8SUB (17:54)
[2019-09-02 18:37] LABS: BASO % 0.4 % (0.0-1.0); EOS # 0.1 10^3/uL (0.0-0.5); EOS % 1.3 % (0.0-3.0); HEMATOCRIT 37.8 % (36.0-47.0); HEMOGLOBIN 11.9 g/dl (12.0-15.5); LYMPH # 1.2 10^3/uL (1.5-5.0); LYMPH % 21.7 % (24.0-44.0); MEAN CORPUSCULAR HEMOGLOBIN 25.5 pg (27.0-33.0); MEAN CORPUSCULAR HGB CONC 31.5 g/dl (32.0-36.5); MEAN CORPUSCULAR VOLUME 81.1 fl (80.0-96.0); MONO # 0.4 10^3/uL (0.0-0.8); MONO % 7.1 % (0.0-5.0); NEUTROPHILS # 3.7 10^3/uL (1.5-8.5); NEUTROPHILS % 69.1 % (36.0-66.0); PLATELET COUNT, AUTOMATED 311 10^3/uL (150-450); RED BLOOD COUNT 4.66 10^6/uL (4.00-5.40); WHITE BLOOD COUNT 5.4 10^3/uL (4.0-10.0)
--- NOTE | 2019-09-02 22:21 | REPVR ---
PROCEDURE INFORMATION: Exam: US First Trimester, Transabdominal and US , Transvaginal Exam date and time: 09/02/2019 9:05 PM Clinical history: 29 years old, female; Pain; Lmp or gestational age (in weeks): 07/12/19; Other: Vaginal bleeding; Other: Cramping; ; Additional info: Vag bleeding/cramping/7 wks TECHNIQUE: Imaging protocol: Real-time transabdominal obstetrical ultrasound of the maternal pelvis and a first trimester , less than 14 weeks 0 days, with image documentation. Transvaginal imaging was used for better evaluation of the fetus and adnexa. COMPARISON: CT ABD PELVIS WITH CONTRAST 03/13/2018 11:55 PM FINDINGS: The uterus measures: 10.8 CM in length by 5.8 CM in AP dimension by 6.5 CM in transverse dimension. There is very severe thickening of the endometrium. An oval fluid collection is noted in the lower anterior endometrium. No pole or yolk sac can be identified. It is possible that this is a blighted ovum. Because of the position of this gestational sac far anterior and somewhat inferior this could be an impending spontaneous . Some of the thickening of the endometrium could be the result of clotted blood or pathologic decidual reaction including molar degeneration. There is no evidence of free fluid in the pelvis. There is some thickening of the myometrium which could be due to fibroid changes. The uterus however is previously noted to be anteverted but no definite fibroid. Right adnexa: The right ovary measures 2.6 CM in length by 1.6 CM in thickness and there is vascular flow the right ovary with no evidence of torsion. Left adnexa: The left ovary is not identified. There is no evidence of left adnexal process. IMPRESSION: 1. Severe thickening of the endometrium. Oval fluid filled structure far anterior and somewhat inferior in the endometrial canal is thought to be a small gestational sac. No pole identified and no cardiac activity. This could be a blighted ovum and representing early spontaneous . The uterus is markedly anteverted. 2. The left ovary cannot be identified. Electronically signed by: Ben Black On 09/02/2019 22:21:07 PM
[2019-09-02 23:29] VITALS: BP 117/79
--- NOTE | 2019-09-04 07:54 | ED PDOC ---
Post-Departure Follow-Up dr sanchez faxed formal report of ob us for fu Destiny Reich MD Sep 04, 2019 07:54
== END 2019-09-02 23:47 | disposition home or self-care (01) ==
LOC: M ED 17:49
DX: O03.4 Incomplete spontaneous abortion without complication (principal); D50.9 Iron deficiency anemia, unspecified; G40.909 Epilepsy, unspecified, not intractable, without status epilepticus; B18.2 Chronic viral hepatitis C; F41.9 Anxiety disorder, unspecified; F31.9 Bipolar disorder, unspecified; F19.11 Other psychoactive substance abuse, in remission; F42.9 Obsessive-compulsive disorder, unspecified; Z79.899 Other long term (current) drug therapy; Z88.8 Allergy status to other drugs, medicaments and biological substances

== ENCOUNTER → 2019-09-05 | Outpatient (CLI) | payer OTHER ==
[~2019-09-05] MED LIST changes: +BUPR8SUB
== END ==
LOC: M LAB 14:19
PROVIDERS: ATTEND Advanced Practice Midwife
DX: O26.851 Spotting complicating pregnancy, first trimester (principal); Z3A.00 Weeks of gestation of pregnancy not specified

== ENCOUNTER → 2019-09-06 | Outpatient (CLI) | payer OTHER ==
[2019-09-06 10:46] LABS: HEMATOCRIT 35.4 % (36.0-47.0); MEAN CORPUSCULAR HEMOGLOBIN 25.5 pg (27.0-33.0); MEAN CORPUSCULAR HGB CONC 31.1 g/dl (32.0-36.5); MEAN CORPUSCULAR VOLUME 82.1 fl (80.0-96.0); PLATELET COUNT, AUTOMATED 265 10^3/uL (150-450); RED BLOOD COUNT 4.31 10^6/uL (4.00-5.40); WHITE BLOOD COUNT 4.6 10^3/uL (4.0-10.0)
[2019-09-06 11:33] LABS: ALBUMIN 3.6 GM/DL (3.2-5.2); ALT/SGPT 17 U/L (12-78); BILIRUBIN,TOTAL 0.2 MG/DL (0.2-1.0); BLOOD UREA NITROGEN 12 MG/DL (7-18); CALCIUM LEVEL 9.3 MG/DL (8.5-10.1); CARBON DIOXIDE LEVEL 30 MEQ/L (21-32); CHLORIDE LEVEL 106 MEQ/L (98-107); CREATININE FOR GFR 0.65 MG/DL (0.55-1.30); GLOMERULAR FILTRATION RATE > 60.0 (>60); GLUCOSE, FASTING 76 MG/DL (70-100); HCG, SERUM QUANTITATIVE 9052 MIU/ML; POTASSIUM SERUM 4.3 MEQ/L (3.5-5.1); SODIUM LEVEL 139 MEQ/L (136-145)
== END ==
LOC: M LAB 10:11
PROVIDERS: ATTEND Obstetrics & Gynecology
DX: O00.109 Unspecified tubal pregnancy without intrauterine pregnancy (principal); Z3A.00 Weeks of gestation of pregnancy not specified

== ENCOUNTER → 2019-09-14 | Outpatient (CLI) | payer OTHER | LOC: M LAB 14:42 | PROVIDERS: ATTEND Obstetrics & Gynecology | DX: O02.1 Missed abortion (principal); Z3A.00 Weeks of gestation of pregnancy not specified ==

== ENCOUNTER 2020-03-12 00:44 | Emergency (ER) | payer MEDICAID, OTHER ==
[~2020-03-12] VITALS: Ht 167.6 cm; Wt 61.2 kg
[2020-03-12 00:44] VITALS: BP 137/83
[2020-03-12] MEDS ORDERED: AUGM875T28 PO (01:25)
[2020-03-12] MEDS ORDERED: MAGICMW SSP (01:25)
[2020-03-12] MEDS ORDERED: AUGMENTIN 875 MG TAB PO ONE (01:30)
[2020-03-12] MEDS ORDERED: MAGIC MOUTHWASH SUSPENSION BTL SS ONE (01:30)
== END 2020-03-12 01:45 | disposition home or self-care (01) ==
LOC: M ED 00:44
DX: K04.7 Periapical abscess without sinus (principal); K12.0 Recurrent oral aphthae; B18.2 Chronic viral hepatitis C; F19.10 Other psychoactive substance abuse, uncomplicated; Z88.8 Allergy status to other drugs, medicaments and biological substances

== ENCOUNTER 2020-08-16 20:35 | Inpatient (IN) | payer OTHER ==
[~2020-08-16] VITALS: Ht 170.2 cm; Wt 56.2 kg
[~2020-08-16 20:35] MED LIST changes: +ASCO250T20 PO; +AUGM875T28 PO; +MAGICMW SSP; -VITA1TAB23 PO
[2020-08-16] MEDS ORDERED: NS 1,000 ML IV ONE ×2 (21:00→23:30)
[2020-08-16] MEDS ORDERED: IBUPROFEN 600MG TAB PO ONE (21:15)
[2020-08-16 21:37] LABS: HEMATOCRIT 28.6 % (36.0-47.0); HEMOGLOBIN 8.9 g/dl (12.0-15.5); MEAN CORPUSCULAR HEMOGLOBIN 21.3 pg (27.0-33.0); MEAN CORPUSCULAR HGB CONC 31.1 g/dl (32.0-36.5); MEAN CORPUSCULAR VOLUME 68.4 fl (80.0-96.0); PLATELET COUNT, AUTOMATED 202 10^3/uL (150-450); RED BLOOD COUNT 4.18 10^6/uL (4.00-5.40); WHITE BLOOD COUNT 28.2 10^3/uL (4.0-10.0)
[2020-08-16 21:52] LABS: ATYPICAL LYMPH 1 % (0-5); LYMPHOCYTES 8 % (16-44); MONOCYTES 4 % (0-5); NEUTROPHILS 86 % (28-66)
[2020-08-16 21:53] LABS: ANISOCYTOSIS 1+; HYPOCHROMASIA 1+; PLATELET ESTIMATE NORMAL (NORMAL)
[2020-08-16 21:58] LABS: ERYTHROCYTE SEDIMENTATION RATE 74 mm/hr (0-20)
[2020-08-16 22:05] LABS: ALBUMIN 1.7 GM/DL (3.2-5.2); ALT/SGPT 45 U/L (12-78); BILIRUBIN,DIRECT 0.5 MG/DL (0.0-0.2); BILIRUBIN,TOTAL 0.7 MG/DL (0.2-1.0); BLOOD UREA NITROGEN 26 MG/DL (7-18); CALCIUM LEVEL 8.4 MG/DL (8.5-10.1); CARBON DIOXIDE LEVEL 27 MEQ/L (21-32); CHLORIDE LEVEL 96 MEQ/L (98-107); CREATININE FOR GFR 0.56 MG/DL (0.55-1.30); GLOMERULAR FILTRATION RATE > 60.0 (>60); GLUCOSE, FASTING 108 MG/DL (70-100); POTASSIUM SERUM 4.2 MEQ/L (3.5-5.1); SODIUM LEVEL 131 MEQ/L (136-145); TOTAL PROTEIN 6.8 GM/DL (6.4-8.2)
[2020-08-16 22:41] LABS: HCG, SERUM QUALITATIVE NEGATIVE (NEGATIVE)
--- NOTE | 2020-08-16 23:33 | REPVR ---
PROCEDURE INFORMATION: Exam: XR Chest, 1 View Exam date and time: 08/16/2020 10:47 PM Age: 29 years old Clinical indication: Other: Fever TECHNIQUE: Imaging protocol: XR of the chest Views: 1 view. COMPARISON: CR Chest, 2 view PA, Lat 01/04/2019 9:38 PM FINDINGS: Lungs: Patchy bibasilar airspace consolidation. No masses are seen. Pleural space: Unremarkable. No pleural effusion. No pneumothorax. Heart/Mediastinum: Unremarkable. No cardiomegaly. Bones/joints: Unremarkable. IMPRESSION: Bibasilar pneumonia. Electronically signed by: Arik Isbell On 08/16/2020 23:33:01 PM
[2020-08-17] VITALS (24 sets, daily range): BP systolic 114–141; BP diastolic 71–85; PULSE 108–111
--- NOTE | 2020-08-17 00:12 | ECGEPIP ---
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
[2020-08-17] MEDS ORDERED: propofoL 200 MG/20 ML VIAL As Ordered ONE (00:16)
[2020-08-17] MEDS ORDERED: LIDOCAINE 2% 100MG/5ML SDV (FOR ANES.) As Ordered ONE (00:16)
[2020-08-17] MEDS ORDERED: ONDANSETRON 4MG/2ML VIAL As Ordered ONE (00:16)
[2020-08-17] MEDS ORDERED: dexameTHASONE 4 MG/ML 1ML VIAL (J1100 PER 1MG) As Ordered ONE (00:16)
[2020-08-17] MEDS ORDERED: MIDAZOLAM INJ 2MG/2ML VIAL (J2250 PER 1MG) As Ordered ONE (00:17)
[2020-08-17] MEDS ORDERED: fentaNYL 250 MCG/5 ML INJECTION (J3010) As Ordered ONE (00:17)
--- NOTE | 2020-08-17 00:19 | REPVR ---
PROCEDURE INFORMATION: Exam: XR Right Knee Exam date and time: 08/16/2020 11:58 PM Age: 29 years old Clinical indication: Other: Septic arthritis TECHNIQUE: Imaging protocol: XR Right knee. Views: 1 or 2 views. COMPARISON: No relevant prior studies available. FINDINGS: Bones/joints: Suprapatellar joint effusion. No knee joint space narrowing or erosive/inflammatory changes. No acute fracture or malalignment. Soft tissues: Knee soft tissue swelling. Subcutaneous gas or foreign bodies. IMPRESSION: 1. Knee joint effusion with soft tissue swelling. 2. No fracture or malalignment. Electronically signed by: Arik Isbell On 08/17/2020 00:19:31 AM
[2020-08-17] MEDS ORDERED: ceFAZolin 1GM VIAL (J0690 PER 500MG) As Ordered ONE (00:56)
[2020-08-17 01:34] LABS: INR 1.2; PROTHROMBIN TIME 15.5 SECONDS (12.5-14.3)
[2020-08-17] MEDS ORDERED: ACETAMINOPHEN 1000MG 100ML IV BTL (OFIRMEV) (J0131 PER 10MG) As Ordered ONE (01:46)
--- NOTE | 2020-08-17 02:03 | HPEPDOC ---
[facility] Medical History & Physical Date of Admission Aug 17, 2020 Date of Service: Aug 17, 2020 History and Physical CHIEF COMPLAINT: Right knee pain and swelling HISTORY OF PRESENT ILLNESS: 29-year-old female with past medical history of heroin IV drug abuse presented to the ED for worsening right knee pain and fever. Viktor that her right knee pain has been worsening since and she is unable to ambulate on it causing her to use more hair when than usual. Says also over the past few weeks she has been feeling tired and feverish at home. In ED found to have a 1.8 cm vegetation on the tricuspid valve at bedside echo done in the ED and read by Dr. fernando. Patient was also found to have septic right knee joint and was taken for washout by Dr. Mar. Patient meets criteria for sepsis at time of admission and will be admitted to ICU for close monitoring and initiation of empiric antibiotics. Tells me that she has lower back pain which started 2 weeks ago after lifting heavy items during a house move. Endorses history of hepatitis C but she did not complete treatment because she got incarcerated. PAST MEDICAL HISTORY: IV drug abuse heroin PAST SURGICAL HISTORY: perforated ear drug repair SOCIAL HISTORY: Patient denies tobacco use Patient denies alcohol use Patient endorses daily IV drug abuse. Does not snort. States only heroin 10-15 bags a day but she is unsure. Says she's been using more bags recently to control her right knee pain. FAMILY HISTORY: Patient unaware of medical problems and her immediate family ALLERGIES: Please see below. REVIEW OF SYSTEMS: Constitutional: Fever and chills and generalized tiredness Eyes: No eye pain or acute blurred vision HENT: No complaints of headache or sore throat Cadiovascular: No Chest pain or palpitations Pulm: No SOB mild cough Gastrointestinal: No N/V, no abdominal pain. Genitourinary: No dysuria or hematuria Musculoskeletal: Per HPI Skin: Per HPI Neurological: Feels tired and weak HOME MEDICATIONS: Please see below. PHYSICAL EXAMINATION: Constitutional: Awake and alert, in no apparent distress ENT: Sclera are clear. Mucosa is moist. Respiratory: Lungs CTA bilaterally. No respiratory distress. No use of accessory muscles. Cardiovascular: RRR S1 and S2 are normal, loud 3/6 murmur loudest at left costal margin Gastrointestinal: Abdomen is soft, non distended, non tender, BS present. Musculoskeletal: RLE and R knee swelling extending from thigh down to ankle. R knee is red and swollen, warm, and tender to touch. Neurologic: No focal neurological deficit. Mental Status: A&O x3, appears anxious Skin: no osler nodes, or janeway lesions, dirty poorly groomed nails no cl ubbing LABORATORY DATA: See below. IMAGING: Chest x-ray showing bibasilar pneumonia MICROBIOLOGY: Please see below. ASSESSMENT/PLAN 29-year-old female with past medical history of heroin IV drug abuse presented to the ED for worsening right knee pain and fever. Found to have a 1.8 cm vegetation on the tricuspid valve at bedside echo done in the ED and read by Dr. fernando. Patient was also found to have septic right knee joint and was taken for washout by Dr. Mar. Patient meets criteria for sepsis at time of admission and will be admitted to ICU for close monitoring and initiation of empiric antibiotics. # Infective endocarditis: - Admit to ICU. IVFs. Repeat lactate, initially 1.2. - Started on emperic IV vancomycin and Meropenem pending BCx - BCx, UCx - PE reveals no osler nodes, or janeway lesions. Currently meeting 1 major, 2 minor criteria dukes criteria. - Cardiology Dr Fernando consulted. Will do OBDULIA in the am. patient NPO for procedure. - Speak with and consult with Dr Roland NICOLAS in the am. # Septic arthritis of R knee: likely seeding from heart vegetation. To be taken by Dr Mar ortho for washout tonight. Fluid to be sent for analysis. Duplex R leg, swelling extending to ankles. # Sepsis: 2/2 infective endocarditis and septic R knee. Sepsis protocol. WBC 28.2 on admit. Lactate bundle. IVFs. Empiric Abx. Rest as above. # PNA: CXR showing bibasilar PNA. On emperic ABx. BCx, UCx. Enterovirus/Rhinovirus positive. # IV drug abuse, heroin: Monitor COWS for withdrawals. Last use on morning of admission, says she used 15 bags. STI screen. UDS. needs SW consult. EKG for qtc prior to methadone if needed. # Hep C+: Never completed treatment due to incarceration. check Hep C. Will eventually need OP treatment if she's a candidate. Needs to quit IV drug use. # [facility] [place] Critical care time spent in examination and management of this patient 70 minutes A Yousef Hospitalist Vital Signs Vital Signs Date Time Temp Pulse Resp B/P (MAP) Pulse Ox O2 Delivery O2 Flow Rate FiO2 08/17/20 00:46 108 26 99 Room Air 08/17/20 00:30 138/82 (100) 08/16/20 22:54 99.4 Laboratory Data Labs 24H Laboratory Tests 2 08/16/20 21:14: Immature Granulocyte % (Auto) , Neutrophils (%) (Auto) , Nucleated Red Blood Cells % (auto) 0.0, Neutrophils 86H, Band Neutrophils 1, Lymphocytes (Manual) 8L, Monocytes (Manual) 4, Atypical Lymphocytes 1, Hypochromasia 1+, Anisocytosis 1+, Platelet Estimate NORMAL, Erythrocyte Sedimentation Rate 74H, Anion Gap 8, Glomerular Filtration Rate > 60.0, Lactic Acid Level 1.2, Calcium Level 8.4L, Total Bilirubin 0.7, Direct Bilirubin 0.5H, Aspartate Amino Transf (AST/SGOT) 103H, Alanine Aminotransferase (ALT/SGPT) 45, Alkaline Phosphatase 280H, C-Reactive Protein, Quantitative 20.10H, Total Protein 6.8, Albumin 1.7L, Albumin/Globulin Ratio 0.3L, Human Chorionic Gonadotropin, Qual NEGATIVE CBC/BMP Laboratory Tests 08/16/20 21:14 Microbiology Microbiology 08/16/20 Respiratory Virus Panel (PCR) ([facility]) - Final, Complete Human Rhinovirus/Enterovirus 08/16/20 Blood Culture, Received Pending 08/16/20 Blood Culture, Received Pending 08/16/20 Blood Culture, Received Pending Home Medications No Active Prescriptions or Reported Meds Allergies Coded Allergies: fluoxetine (Verified Adverse Reaction, Intermediate, tongue dystonia, 06/29/19) A-FIB/CHADSVASC A-FIB History Current/History of A-Fib/PAF?: No NAVNEET BROWN MD Aug 17, 2020 01:32
[2020-08-17 03:11] LABS: CHLAMYDIA DNA AMPLIFICATION NEGATIVE (NEGATIVE); GC DNA AMPLIFICATION NEGATIVE (NEGATIVE)
[2020-08-17] MEDS ORDERED: fentaNYL 100 MCG/2 ML INJECTION (J3010) IV PRN (03:15)
[2020-08-17] MEDS ORDERED: ONDANSETRON 4MG/2ML VIAL IV PRN (03:15)
[2020-08-17] MEDS ORDERED: MEPERIDINE INJ 25 MG/ML VIAL (J2175) IV PRN (03:15)
[2020-08-17] MEDS ORDERED: METOCLOPRAMIDE INJ 10MG/2ML VIAL (J2765 PER 1) IV PRN (03:15)
[2020-08-17] MEDS ORDERED: LR 1,000 ML IV SCH (03:15)
[2020-08-17] MEDS ORDERED: oxyCODONE 5MG TAB PO PRN (03:15)
[2020-08-17] MEDS: NS 1,000 ML IV SCH ×2 (03:31→10:37)
[2020-08-17] MEDS: MEROPENEM INJ 1 GM in IV 1 EA IV SCH ×2 (03:31→10:46)
[2020-08-17 03:36] LABS: SOURCE, BODY FLUID GLUCOSE RT KNEE
[2020-08-17 03:52] LABS: SOURCE, BODY FLUID RT KNEE; SYNOVIAL FLUID COLOR YELLOW (YELLOW)
[2020-08-17] MEDS: VANCOMYCIN HCL 1,000 MG, VIAL MATE ADAPTER 1 EACH in D5W 250 ML IV SCH ×3 (04:40→20:35)
[2020-08-17 05:33] LABS: HEMATOCRIT 27.6 % (36.0-47.0); HEMOGLOBIN 8.5 g/dl (12.0-15.5); MEAN CORPUSCULAR HEMOGLOBIN 21.2 pg (27.0-33.0); MEAN CORPUSCULAR HGB CONC 30.8 g/dl (32.0-36.5); MEAN CORPUSCULAR VOLUME 68.8 fl (80.0-96.0); PLATELET COUNT, AUTOMATED 156 10^3/uL (150-450); RED BLOOD COUNT 4.01 10^6/uL (4.00-5.40)
[2020-08-17 06:09] LABS: ALBUMIN 1.6 GM/DL (3.2-5.2); ALT/SGPT 48 U/L (12-78); BILIRUBIN,TOTAL 0.9 MG/DL (0.2-1.0); BLOOD UREA NITROGEN 30 MG/DL (7-18); CALCIUM LEVEL 8.5 MG/DL (8.5-10.1); CARBON DIOXIDE LEVEL 27 MEQ/L (21-32); CHLORIDE LEVEL 101 MEQ/L (98-107); CREATININE FOR GFR 0.51 MG/DL (0.55-1.30); GLOMERULAR FILTRATION RATE > 60.0 (>60); GLUCOSE, FASTING 155 MG/DL (70-100); MAGNESIUM LEVEL 2.5 MG/DL (1.8-2.4); POTASSIUM SERUM 3.9 MEQ/L (3.5-5.1); SODIUM LEVEL 134 MEQ/L (136-145); TOTAL PROTEIN 6.2 GM/DL (6.4-8.2)
[2020-08-17] MEDS ORDERED: METHADONE 10 MG TAB (S0109) PO ONE (06:45)
--- NOTE | 2020-08-17 08:07 | ECHO ---
DATE OF PROCEDURE: 08/16/2020 Age: 30 Gender: Female PATIENT LOCATION: Emergency department. REFERRING PHYSICIAN: Dr. Iraheta from the emergency room. REASON FOR STUDY: Endocarditis. 2D MEASUREMENTS: IVS 0.9 cm LV 3.6 cm LVPW 1.2 cm LA 2.1 cm Aorta 2.9 cm IVC 1.3 cm DOPPLER MEASUREMENT Mitral E 0.8 Mitral A 0.9 with a ratio of 0.9 Maximum tricuspid valve velocity 3.3 m/sec 2D COMMENTS: 1. Normal left ventricular size, wall thickness, and normal left ventricular systolic function with a hyperdynamic left ventricle. The estimated left ventricular systolic ejection fraction is 70% to 75%. 2. Normal left atrium. The right atrium and the right ventricle were not well visualized, but appeared to be normal on limited views. 3. Normal aortic root. 4. No pericardial effusion seen on limited views. 5. Minimally calcified aortic valve, normal leaflet excursion, normal mitral valve. There was an echogenic structure on the ventricular side of the tricuspid valve measuring 1.8 cm long. The pulmonic valve was not well visualized. 6. The inferior vena cava was normal in size, central venous pressure is most likely normal. Doppler detects [id number] tricuspid regurgitation on limited views. The calculated pulmonary artery systolic pressure varies between 40 to 50 mmHg. Abnormal relaxation pattern was noted across the mitral valve leaflets, as well as the mitral valve annulus consistent with features of grade 1 left ventricular diastolic dysfunction. IMPRESSION: 1. Normal global left ventricular systolic function with a hyperdynamic left ventricle. There are also features of grade 1 left ventricular diastolic dysfunction. 2. [id number] tricuspid regurgitation with moderate pulmonary hypertension. 3. Probably vegetation noted on the tricuspid valve. The above findings were discussed with the ER provider. RUSS
[2020-08-17] MEDS ORDERED: ENOXAPARIN 40MG/0.4ML SYRINGE (J1650 PER 10MG) SC SCH (09:00)
--- NOTE | 2020-08-17 09:33 | REPVR ---
PROCEDURE INFORMATION: Exam: US Duplex Right Lower Extremity Veins, Limited Exam date and time: 08/17/2020 9:12 AM Age: 29 years old Clinical indication: Swelling (edema) of limb; Lower extremity, right; Prior surgery; Surgery date: Post-operative (0-2 days); Surgery type: Drained fluid from knee last night; Additional info: R leg swelling TECHNIQUE: Imaging protocol: Real-time Duplex ultrasound of the Right Lower Extremity with 2-D castro scale, color Doppler flow and spectral waveform analysis with image documentation. Limited exam was focused on the right lower extremity veins. COMPARISON: No relevant prior studies available. FINDINGS: Right deep veins: There is extensive occlusive thrombus throughout the right femoral and popliteal veins with absence of compressibility and Doppler waveforms. The common femoral and proximal profunda femoral veins are patent without thrombus and demonstrate normal Doppler waveforms, compressibility and/or augmentation response. Right superficial veins: Saphenofemoral junction is patent without thrombus. Soft tissues: Unremarkable. IMPRESSION: Extensive right femoropopliteal DVT. THIS REPORT CONTAINS FINDINGS THAT MAY BE CRITICAL TO PATIENT CARE. The findings were verbally communicated via telephone conference with Dr. Fitzgerald at 9:30 AM EDT on 08/17/2020. The findings were acknowledged and understood. Electronically signed by: Ulises Manuel On 08/17/2020 09:33:02 AM
[2020-08-17] MEDS: PANTOPRAZOLE 40MG VIAL (C9113 PER 1) IV SCH (10:38)
[2020-08-17] MEDS: HEPARIN DRIP 25,000 UNITS in IV 1 EA IV SCH (10:50)
--- NOTE | 2020-08-17 12:34 | IPNPDOC ---
Text Note Date of Service The patient was seen on 08/17/20. 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 In the emergency room, patient was found to have a septic knee, as well as a stat echocardiogram that revealed a 1.8 cm vegetation of the tricuspid valve. Patient was taken to the OR by orthopedic surgery, Dr. Mar who has performed a washout of the right knee. Patient was admitted to the hospitalist service to the intensive care unit. Orthopedic surgery, Cardiology and infectious disease were called on consultation. Patient was seen and examined at the bedside. Currently patient reports that they experience chills or sweating. They deny any shortness of breath, but they do report some chest pain that occurs intermittently. He denies any nausea, vomiting, abdominal pain, diarrhea, constipation or discomfort with urination. Patient reports that her right knee does feel better compared to yesterday. Objective: Vitals (See below) General: Lying in bed, appears slightly restless, AAOx3 HEENT: NC, AT CVS: RRR, +S1S2 Lungs: Fair air entry b/l, there does not appear to be any appreciable wheezing, rhonchi or rales Abdomen: Soft, ND, NT Extremities: R leg with edema / R knee in dressing, L leg without edema, - Calf tenderness Assessment and plan: Sepsis - likely 2/2 infective endocarditis, likely with bacteremia - likely 2/2 IV drug abuse with heroine - Currently, patient is afebrile and hemodynamically stable - Leukocytosis is improving; no lactic acidosis - Respiratory panel 08/16: Human rhinovirus/enterovirus - Blood culture 08/16: Pending - c/w Broad spectrum antibiotics (Vancomycin and Meropenem) - Day #1 - c/w IV fluid hydration - Discussed case with Dr. Dai and Dr. Garcia; at this point will hold off on OBDULIA; Will DC NPO status - Dr. Dai on consultation; appreciate their input - Dr. Watkins on consultation; appreciate their input Septic arthritis - XR Knee 08/16: 1. Knee joint effusion with soft tissue swelling. 2. No fracture or malalignment. - Right knee culture 08/16: Pending - s/p joint washout on 08/[address] Shiv Mar - Antibiotics (See above) Imaging suggestive of pneumonia - possibility of septic emboli? - CXR 08/16: Bibasilar pneumonia. - Will start Incentive spirometry and acapella - Antibiotics (See above) IV drug abuse with heroine - She reports the use of 10-15 bags per day - Patient is at risk of going into withdrawal - Will c/w Methadone; MDD of 40mg for today - EKG with QTc of 460; will repeat EKG in AM Poor IV access - Given patient's history of IV drug abuse; peripheral access is poor - Dr. Adams will be placing a central line today; appreciate their assistance Extensive RLE DVT - Duplex US 08/17: Extensive right femoropopliteal DVT. - Will start Heparin drip Hepatitis - Patient has not completed therapy as an outpatient; reports she was incarcerated - Will likely require treatment after the above acute episodes resolve GI prophylaxis - c/w Protonix DVT prophylaxis - Will DC Lovenox - Will start Heparin drip VS,Fishbone, I+O VS, Fishbone, I+O Laboratory Tests 08/16/20 21:14 08/17/20 05:22 Vital Signs Date Time Temp Pulse Resp B/P (MAP) Pulse Ox O2 Delivery O2 Flow Rate FiO2 08/17/20 11:00 109 129/76 (93) 96 Room Air 08/17/20 08:30 97.3 24 08/17/20 02:20 10 I&O- Last 24 Hours up to 6 AM0 08/17/20 06:00 Intake Total 930 ml Balance 930 ml BARRY NICHOLE MD Aug 17, 2020 12:34
[2020-08-17] MEDS: MORPHINE 4 MG/ML 1ML VIAL/SYRINGE (J2270) IV PRN ×3 (13:41→22:51)
[2020-08-17 14:20] LABS: HIV 1&2 SCREEN CENTAUR NEGATIVE (NEGATIVE)
[2020-08-17] MEDS: METHADONE 10 MG TAB (S0109) PO SCH ×2 (15:08→20:35)
[2020-08-17] MEDS: HEPARIN SOD (PORCINE) 5000UNITS/ML 1ML VIAL/SYRINGE IV PRN ×2 (17:14→23:25)
[2020-08-17] MEDS: ACETAMINOPHEN TAB 650MG DOSE (2X325MG) PO PRN (17:46)
--- NOTE | 2020-08-17 19:12 | REPVR ---
PROCEDURE INFORMATION: Exam: CT Chest Without Contrast Exam date and time: 08/17/2020 5:55 PM Age: 29 years old Clinical indication: Other: Tricuspid valve endocarditis TECHNIQUE: Imaging protocol: Computed tomography of the chest without contrast. 3D rendering (Not supervised by radiologist): MIP and/or 3D reconstructed images were created by the technologist. Radiation optimization: All CT scans at this facility use at least one of these dose optimization techniques: automated exposure control; mA and/or kV adjustment per patient size (includes targeted exams where dose is matched to clinical indication); or iterative reconstruction. COMPARISON: [place] Chest, 1 view 08/17/2020 10:35 AM FINDINGS: Lungs: Multiple solid and cavitary intrapulmonary nodules are present throughout both lungs, most likely representing septic emboli. Cavitation is noted in the nodule in the right middle lobe lateral segment on image 56 of series 201. A tiny left pleural effusion is present. Heart: The heart size is within normal limits. A small pericardial effusion is present. Tricuspid valve vegetations are not clearly visible on this limited noncontrast study. Pulmonary arteries: The main pulmonary artery trunk is abnormally dilated measuring up to 4.3 cm in size suggestive of underlying central pulmonary arterial hypertension. Aorta: Unremarkable. No aortic aneurysm. Lymph nodes: Unremarkable. No enlarged lymph nodes. Spleen: The spleen appears somewhat enlarged. Bones/joints: Unremarkable. No acute fracture. Soft tissues: Unremarkable. IMPRESSION: 1. The heart size is within normal limits. A small pericardial effusion is present. Tricuspid valve vegetations are not clearly visible on this limited noncontrast study. 2. The main pulmonary artery trunk is abnormally dilated measuring up to 4.3 cm in size, suggestive of underlying central pulmonary arterial hypertension. 3. Multiple solid and cavitary intrapulmonary nodules are present throughout both lungs, most likely representing septic emboli. Cavitation is noted in the nodule in the right middle lobe lateral segment on image 56 of series 201. A tiny left pleural effusion is present. 4. The spleen appears somewhat enlarged. Electronically signed by: Shaan Juarez On 08/17/2020 19:12:42 PM
[2020-08-18] VITALS (23 sets, daily range): BP systolic 121–140; BP diastolic 69–86
[2020-08-18] MEDS: VANCOMYCIN HCL 1,000 MG, VIAL MATE ADAPTER 1 EACH in D5W 250 ML IV SCH ×4 (00:02→19:38)
[2020-08-18] MEDS: ACETAMINOPHEN TAB 650MG DOSE (2X325MG) PO PRN ×4 (01:40→21:28)
[2020-08-18] MEDS: HEPARIN DRIP 25,000 UNITS in IV 1 EA IV SCH ×2 (05:04→19:59)
[2020-08-18 05:41] LABS: HEMATOCRIT 24.5 % (36.0-47.0); HEMOGLOBIN 7.5 g/dl (12.0-15.5); MEAN CORPUSCULAR HEMOGLOBIN 21.3 pg (27.0-33.0); MEAN CORPUSCULAR HGB CONC 30.6 g/dl (32.0-36.5); MEAN CORPUSCULAR VOLUME 69.6 fl (80.0-96.0); PLATELET COUNT, AUTOMATED 197 10^3/uL (150-450); RED BLOOD COUNT 3.52 10^6/uL (4.00-5.40); WHITE BLOOD COUNT 24.8 10^3/uL (4.0-10.0)
[2020-08-18] MEDS: MORPHINE 4 MG/ML 1ML VIAL/SYRINGE (J2270) IV PRN ×4 (05:46→19:40)
[2020-08-18 06:16] LABS: ALBUMIN 1.5 GM/DL (3.2-5.2); ALT/SGPT 28 U/L (12-78); BILIRUBIN,TOTAL 0.5 MG/DL (0.2-1.0); BLOOD UREA NITROGEN 14 MG/DL (7-18); CALCIUM LEVEL 7.7 MG/DL (8.5-10.1); CARBON DIOXIDE LEVEL 27 MEQ/L (21-32); CHLORIDE LEVEL 102 MEQ/L (98-107); CREATININE FOR GFR 0.38 MG/DL (0.55-1.30); GLOMERULAR FILTRATION RATE > 60.0 (>60); GLUCOSE, FASTING 114 MG/DL (70-100); MAGNESIUM LEVEL 2.2 MG/DL (1.8-2.4); POTASSIUM SERUM 3.4 MEQ/L (3.5-5.1); SODIUM LEVEL 135 MEQ/L (136-145); TOTAL PROTEIN 5.7 GM/DL (6.4-8.2)
[2020-08-18] MEDS: HEPARIN SOD (PORCINE) 5000UNITS/ML 1ML VIAL/SYRINGE IV PRN ×3 (06:23→20:00)
[2020-08-18] MEDS: METHADONE 10 MG TAB (S0109) PO SCH ×3 (06:30→21:27)
[2020-08-18] MEDS ORDERED: POTASSIUM CHLORIDE 10 MEQ SR TABLET PO ONE (06:30)
[2020-08-18] MEDS: PANTOPRAZOLE 40MG VIAL (C9113 PER 1) IV SCH (08:52)
[2020-08-18 09:47] LABS: C REACTIVE PROTEIN QUANTITATIV 9.78 MG/DL (0.00-0.30)
--- NOTE | 2020-08-18 10:01 | IPNPDOC ---
Text Note Date of Service The patient was seen on 08/18/20. 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 In the emergency room, patient was found to have a septic knee, as well as a stat echocardiogram that revealed a 1.8 cm vegetation of the tricuspid valve. Patient was taken to the OR by orthopedic surgery, Dr. Mar who has performed a washout of the right knee. Patient was admitted to the hospitalist service to the intensive care unit. Orthopedic surgery, Cardiology and infectious disease were called on consultation. Patient was seen and examined at the bedside. Patient reports that she is still experiencing some pain. She denies any significant shortness of breath or productive cough. Does report some left sided pleuritic chest pain with deep inspiration and movement. Denies any nausea, vomiting, abdominal pain, diarrhea, constipation, or urinary discomfort. They report that the right knee pain has improved but not resolved completely. Objective: Vitals (See below) General: Patient is laying in bed, does not appear to be in any acute distress, again does appear fidgety, awake/alert, oriented 3 HEENT: NC, AT CVS: Tachycardic, +S1S2 Lungs: Air entry is fair bilaterally without any appreciable wheezing or rhonchi, very faint crackles can be appreciated at bases Abdomen: Soft, without any distention/tenderness Extremities: Left leg is without any edema. Right leg is with 1+ pitting edema, right knee dressing in place, - Calf tenderness Assessment and plan: Sepsis - likely 2/2 infective endocarditis, likely with bacteremia - likely 2/2 IV drug abuse with heroine - Patient remains hemodynamically stable, patient has continued to experience low-grade temperatures of 100.2 - Leukocytosis with slight improvement; CRP trending down - Respiratory panel 08/16: Human rhinovirus/enterovirus - Blood culture 08/16: Negative at 24 hours - Nafcillin added today; c/w Vancomycin (Day #2); s/p Meropenem - c/w IV fluid hydration - Discussed case with Dr. Dai and Dr. Garcia; at this point will hold off on OBDULIA - Dr. Dai on consultation; appreciate their input - Dr. Roland on consultation; appreciate their input Septic arthritis - XR Knee 08/16: 1. Knee joint effusion with soft tissue swelling. 2. No fracture or malalignment. - Right knee culture 08/16: Few gram-positive cocci in clusters - s/p joint washout on 08/[address] Shiv Mar - Antibiotics (See above) Imaging suggestive of pneumonia - possibility of septic emboli? - CXR 08/16: Bibasilar pneumonia. - c/w Incentive spirometry and Acapella - Antibiotics (See above) IV drug abuse with heroine - She reports the use of 10-15 bags per day - Patient is at risk of going into withdrawal - c/w Methadone 10 TID with Morphine for breakthrough pain - EKG with QTc of 460; EKG today evaluate QTC Poor IV access - Given patient's history of IV drug abuse; peripheral access is poor - Dr. Adams has placed central line 08/17 Extensive RLE DVT - Duplex US 08/17: Extensive right femoropopliteal DVT. - c/w Heparin drip Hepatitis - Patient has not completed therapy as an outpatient; reports she was incarcerated - Will likely require treatment after the above acute episodes resolve GI prophylaxis - c/w Protonix DVT prophylaxis - c/w Heparin drip Disposition: - Will remain in ICU for continued monitoring VS,Kiersten, I+O VS, Jonathane, I+O Laboratory Tests 08/18/20 05:19 Vital Signs Date Time Temp Pulse Resp B/P (MAP) Pulse Ox O2 Delivery O2 Flow Rate FiO2 08/18/20 09:00 122 28 134/78 (96) 98 Room Air 08/18/20 08:00 100.1 08/17/20 02:20 10 I&O- Last 24 Hours up to 6 AM 08/18/20 06:00 Intake Total 4129.5 ml Output Total 2425 ml Balance 1704.5 ml BARRY NICHOLE MD Aug 18, 2020 10:01
[2020-08-18 12:25] LABS: HEMATOCRIT 25.9 % (36.0-47.0); MEAN CORPUSCULAR HEMOGLOBIN 21.4 pg (27.0-33.0); MEAN CORPUSCULAR HGB CONC 30.9 g/dl (32.0-36.5); MEAN CORPUSCULAR VOLUME 69.4 fl (80.0-96.0); PLATELET COUNT, AUTOMATED 213 10^3/uL (150-450); RED BLOOD COUNT 3.73 10^6/uL (4.00-5.40)
[2020-08-18 13:09] LABS: ANISOCYTOSIS 2+; LYMPHOCYTES 7 % (16-44); MICROCYTOSIS 2+; MONOCYTES 5 % (0-5); NEUTROPHILS 85 % (28-66); PLATELET ESTIMATE NORMAL (NORMAL)
[2020-08-18 13:10] LABS: HYPOCHROMASIA 1+
[2020-08-18] MEDS: VANCOMYCIN HCL 500 MG in D5W MINI-BAG PLUS 100 ML IV SCH ×2 (13:51→21:29)
--- NOTE | 2020-08-18 14:12 | CR ---
DATE OF CONSULTATION: 08/17/2020 CHIEF COMPLAINT: Right knee swelling. HISTORY OF PRESENT ILLNESS: 29-year-old female with a history of IV drug use presented to the [facility] this evening with complaints of knee pain, swelling in the knee. This has been going on for 12 days. She had a week and half of fever. Says she has been only in bed for the last three days, unable to ambulate. There is no trauma to her knee. No prior history of any septic joints. She has great difficulty in pain with any kind of movement of her right knee. PAST MEDICAL HISTORY: According to the patient, includes hepatitis, as well as a heart murmur. MEDICATIONS: None. ALLERGIES: PROZAC. SURGICAL HISTORY: She had a hole in her eardrum, surgery as a child. SOCIAL HISTORY: She lives with her fiance in a studio apartment. She does not smoke; however she has used IV drugs in the past and continues to use them PHYSICAL EXAMINATION: Toxic appearing 29-year-old female. She looks extremely unwell. Temperature not recorded. However, she is tachycardiac at 120 beats per minute. Blood pressure is 120/85. Pulse oximetry 96% on room air. Her right knee has moderate size effusion, redness and warmth above the knee. She is holding it in a flex position. Any sort of micro motion causes extreme pain of the knee. Normal sensation and motor function in the foot. Foot is warm and well perfuse. Good pedal pulses. No pain at the ankle or hip. No are no other hot, swollen joints. Radiographs taken AP lateral right knee. No obvious fracture. There does appear to be some moderate soft tissue swelling and possible effusion. Laboratory examination reveals white blood cell count 28.2, hemoglobin 8.9, neutrophils 86. ESR 74, lactic acid 1.2. CRP of 20. ASSESSMENT AND PLAN: This 29-year-old female with acutely hot, swollen, extremely painful right knee with an increased white blood cell count and inflammatory markers, as well as past history of new drug use and hepatitis C. I am however suspicious that she has an acute septic arthritis of her right knee. Other differential would include synovitis, as well as cellulitis of the knee. However, given the very convincing clinical presentation in my opinion the best option would be to go ahead with emergent irrigation and debridement in the operating room, as well as sending samples. I have asked the emergency department physician to hold off on the antibiotics for now; we are waiting on a sample intraoperatively to guide antibiotic therapy. She will need infectious disease consult afterwards. In addition, she apparently has vegetations on cardiac ultrasound and is being admitted by the hospitalist for further workup and management of that. I have asked the patient to remain n.p.o. and she is being admitted under the hospitalist service and has started IV fluids. In the meantime, I have left the operating room theatre and the last few days of just on-call for the case. In the meantime, we are awaiting COVID results. Ultrasound took approximately 30 minutes before I was contacted to see and assess the patient. I consented the patient for emergent irrigation and debridement of the right knee. Surgical risks were discussed which included, but limited to infection, pain, stiffness, weakness, damage to surrounding structures, neurovascular injury, anesthetic complications, blood clots, need for further surgery and other risks not discussed. She wished to go ahead. I marked the right lower extremity and consented the form for surgery, as well as possible need for blood products. She had no further questions. RUSS
--- NOTE | 2020-08-18 14:15 | CR ---
DATE OF CONSULTATION: 08/17/2020 Asked to consult by hospitalist for tricuspid valve endocarditis and septic arthritis of the right knee. HISTORY OF PRESENT ILLNESS: Brooke is a 29-year-old female with a history of intravenous (IV) drug abuse and chronic hepatitis C who has been sick for about 2 weeks with what started as low-back pain, fever, and chills. She has been in bed for 2 weeks with worsening pain, fever, chills, and right knee pain. The patient was unable to ambulate and therefore called the ambulance, and she was brought into the hospital. She has a history of IV drug use and bipolar disorder that has been untreated, history of hepatitis C. We started her treatment, but she ended up in intermediate. The patient was taken to the operating room (OR) by Dr. Mar for washout of the right knee, and an echocardiogram showed a 1.8 cm vegetation at the tricuspid valve. Today patient states her low back pain has improved. She had been sleeping in a tent, and she thinks that was related to the poor sleeping conditions. MEDICAL HISTORY: 1. IV drug abuse with heroin. 2. Chronic hepatitis C. 3. History of bipolar disorder, untreated. SURGICAL HISTORY: Perforated eardrum. SOCIAL HISTORY: She denies tobacco or marijuana abuse. She denies alcohol use but uses IV heroin. Her significant other as well uses IV drugs. FAMILY HISTORY: Unrevealing. ALLERGIES: FLUOXETINE, dystonia. REVIEW OF SYSTEMS: Patient has fever and chills with generalized fatigue. No headache or neck stiffness. No sore throat. She has chest pain, especially on the left side, pleuritic. She has some shortness of breath. No cough. No nausea, vomiting, or abdominal pain. No dysuria or hematuria. No rashes. LABORATORY DATA: White count yesterday was 28.2, today 25, hemoglobin 8.5, hematocrit 27.6, platelets 156, 86% neutrophils, 8% lymphocytes, 4% monocytes. ESR 74. Sodium 134, potassium 3.9, chloride 101, bicarbonate 27, BUN 30, creatinine 0.51, glucose 155. Lactic acid 1.6. Calcium 8.5, magnesium 2.5. Total bilirubin normal AST 96, ALT 48, alkaline phosphatase 246. CRP 20.1. Albumin 1.6. HCG qualitative negative. Hepatitis C is positive. Blood cultures are still pending from yesterday. She came at 21, 14, and 2231. Two sets have been obtained. Gram stain from left knee has gram-positive cocci in clusters with many white cells. Acid-fast bacillus (AFB) anaerobic culture, fungal culture are obtained as well. Chest x-ray shows bibasilar pneumonia. Knee x-ray, right side, shows a large knee effusion with soft tissue swelling. No fracture or malalignment. Vascular ultrasound August 17 shows extensive occlusive thrombus throughout the right femoropopliteal vein. Extensive right femoropopliteal deep venous thrombosis (DVT). PHYSICAL EXAMINATION: She is healthy female in moderate discomfort, especially when she is breathing. Maximum temperature yesterday was 101.4, total was 100.2. Sick-looking, thin. HEART: Normal S1, S2, tachycardic with a systolic ejection murmur, 2/6 at the left upper sternal border. LUNGS: Diminished breath sounds at the bases with few crackles with pleurisy with deep inspiration. ABDOMEN: Soft, nontender. No hepatosplenomegaly. BACK: No costovertebral angle (CVA) or lumbosacral tenderness. EXTREMITIES: Right leg swollen, upper thigh and calf with right knee limited range of motion with effusion, status post arthroscopy. Left leg: No calf tenderness, no swelling, no redness, no rashes. NEUROLOGIC: Alert and oriented times three. Motor strength normal except for the right leg. Patient is feeling upset and somewhat depressed but mostly related to her medical illness. IMPRESSION: This is a 29-year-old female admitted with tricuspid valve endocarditis with a normal left ventricular ejection size, left ventricular systolic function, normal aortic root, normal left side valve, the aortic and mitral valve, but the tricuspid valve has a 1.8 cm. Pulmonic valve is not well visualized. Patient most likely has septic emboli to the lungs with pleuritic chest pain on the left side, which is expected. She also has septic arthritis of the right knee, which has been irrigated and debrided (I and D) today. Patient has been on IV vancomycin and meropenem. This is most likely methicillin-sensitive Staphylococcus aureus (MSSA) or methicillin-resistant Staphylococcus aureus (MRSA). Meropenem will be discontinued. MEDICATIONS: - methadone 10 mg by mouth every 8 hours - morphine 4 mg IV every 4 as needed - heparin IV drip for deep venous thrombosis (DVT) - pantoprazole 40 mg IV daily - vancomycin 1 gram IV every 8 hours - Tylenol 650 mg by mouth every as needed - milk of magnesia as needed for constipation PLAN: 1. Discontinue IV meropenem. If culture tomorrow is MSSA, switch to nafcillin 2 grams IV every 4 hours. If MRSA, continue vancomycin. 2. Obtain HIV testing. Her last HIV test was a year ago. 3. Will obtain chest CT in the morning to document septic emboli and the extent of them. Patient seems to have a lot of pleuritic chest pain. 4. Repeat blood cultures in 48 hours after antibiotics have been started to document clearance of bacteremia, as I am pretty sure the patient will be bacteremic with Staphylococcus aureus. [facility]
--- NOTE | 2020-08-18 14:22 | RO ---
DATE OF PROCEDURE: 08/17/2020 PREOPERATIVE DIAGNOSIS: Right knee septic arthritis. POSTOPERATIVE DIAGNOSIS: Right knee septic arthritis. PROCEDURE PROPOSED: Right knee arthroscopic irrigation and debridement with samples. PROCEDURE PERFORMED: Right knee arthroscopic irrigation and debridement with samples plus complete synovectomy. SURGEON: Dr. Mra ANESTHESIA: Dr. Webb PEANUT CLEANER: None. TYPE OF ANESTHETIC: General anesthetic. PREAMBLE: This 29-year-old female has a history of intravenous (IV) drug use and presented with a high white blood cell count and acutely swollen and painful right knee with signs and symptoms concerning for septic arthritis. I consented to acute irrigation and debridement and sample sent arthroscopically. She wished to go ahead and signed the consent form for surgery. I marked the right lower extremity and proceeded to surgery. OPERATIVE REPORT: Patient was brought to the operative theater. She was placed supine position on the operating room table. General anesthesia was induced. All bony prominences were padded. Antibiotics were Antibiotics were held until after the samples were sent. A tourniquet was applied to the right thigh. All bony prominences were padded. Stress positioner to the patient's right side. A time- out was performed to confirm the site, patient, and surgery. We began by using a 18 gauge needle with a 30 mL syringe to draw 30 mL of white yellow fluid through a superolateral approach at the interarticular portion of the knee. Sent this for Gram stain, culture and sensitivity (C and S), aerobes, anaerobes, fungus, and cell count and glucose. I performed a standard arthroscopy with anterolateral and anteromedial portals. I performed a complete synovectomy in all three compartments. Cartilage appeared normal in all three quadrants. There were no obvious meniscus tears. There was a moderate amount of synovitis. I debrided this around the anterior cruciate ligament (ACL) and posterior cruciate ligament (PCL), which appeared intact, as well as in the medial and lateral gutters. No loose bodies. Tourniquet was inflated prior to and deflated at the end of the case. Scope was withdrawn. Arthroscopy pictures saved onto the system. Tourniquet taken down. Wound was cleaned and dried, followed by application of Steri-Strips, Adaptic, 4 x 4 gauze, then wrapped with Gaurav bandage. The patient was woken up from general anesthetic, transferred off the operating table, and taken to the postanesthesia care unit in stable condition. All sponge count, needle and instrument counts were correct. No complications. PLAN: The patient is to start antibiotics in the immediate postoperative period per the hospitalist service, whom she will be readmitted under. I suggest infectious disease consult as well as possible consultation with power brake rebuilder given her cardiac vegetations. Followup with myself in the office in 2 weeks' time. I will follow along while she is in the hospital. We will change the dressing postoperative day #1 or #2 and start immediate range of motion and weightbearing as tolerated to the right lower extremity with crutches as needed. We will followup the cultures and follow along her white blood cell count and inflammatory markers to ensure good clinical response to the antibiotics. RUSS
--- NOTE | 2020-08-18 14:40 | IPN ---
CHIEF COMPLAINT: Postop day one right septic arthritis, irrigation and debridement arthroscopically. HISTORY OF PRESENT ILLNESS: A 29-year-old female presented late last evening with an acute swollen joint. We performed irrigation and debridement. She is seen today in the PCU. She is doing reasonably well. Still complains about some soreness to the knee. PHYSICAL EXAMINATION: This is a well-appearing 29-year-old female. She still has pain to the knee. Dressing is in situ. She has less pain to range of motion testing of the knee. Normal sensation and motor function. The foot is warm and well perfused. Good pedal pulses. Gram stain and cultures results are still pending in the computer. ASSESSMENT AND PLAN: This is a 29-year-old female likely had a septic joint right knee. She had irrigation and debridement last evening. We are pending the stat gram stain culture and sensitivities to guide antibiotic therapy, but she has been placed on Vancomycin. I will follow while she is in the hospital. RUSS
[2020-08-18] MEDS: NAFCILLIN SOD 2 GM in D5W MINI-BAG PLUS 50 ML IV SCH ×3 (15:28→22:42)
[2020-08-18 23:07] LABS: HEPATITIS C QUANTITATION 180 IU/mL (.)
[2020-08-19] VITALS (16 sets, daily range): BP systolic 123–145; BP diastolic 74–88
[2020-08-19] MEDS: MORPHINE 4 MG/ML 1ML VIAL/SYRINGE (J2270) IV PRN ×5 (00:47→19:32)
[2020-08-19] MEDS: NAFCILLIN SOD 2 GM in D5W MINI-BAG PLUS 50 ML IV SCH (03:01)
[2020-08-19] MEDS: VANCOMYCIN HCL 1,000 MG, VIAL MATE ADAPTER 1 EACH in D5W 250 ML IV SCH ×3 (04:10→19:31)
[2020-08-19] MEDS: HEPARIN SOD (PORCINE) 5000UNITS/ML 1ML VIAL/SYRINGE IV PRN (04:22)
[2020-08-19] MEDS: METHADONE 10 MG TAB (S0109) PO SCH ×4 (05:14→23:04)
[2020-08-19] MEDS: VANCOMYCIN HCL 500 MG in D5W MINI-BAG PLUS 100 ML IV SCH ×3 (05:16→21:23)
[2020-08-19 05:20] LABS: HEMATOCRIT 22.6 % (36.0-47.0); MEAN CORPUSCULAR HEMOGLOBIN 21.5 pg (27.0-33.0); MEAN CORPUSCULAR VOLUME 69.5 fl (80.0-96.0); PLATELET COUNT, AUTOMATED 215 10^3/uL (150-450); RED BLOOD COUNT 3.25 10^6/uL (4.00-5.40); WHITE BLOOD COUNT 25.2 10^3/uL (4.0-10.0)
[2020-08-19] MEDS: HEPARIN DRIP 25,000 UNITS in IV 1 EA IV SCH ×2 (05:52→16:18)
[2020-08-19 06:19] LABS: ALBUMIN 1.5 GM/DL (3.2-5.2); ALT/SGPT 20 U/L (12-78); BILIRUBIN,TOTAL 0.6 MG/DL (0.2-1.0); BLOOD UREA NITROGEN 8 MG/DL (7-18); CALCIUM LEVEL 8.1 MG/DL (8.5-10.1); CARBON DIOXIDE LEVEL 27 MEQ/L (21-32); CHLORIDE LEVEL 100 MEQ/L (98-107); CREATININE FOR GFR 0.48 MG/DL (0.55-1.30); GLOMERULAR FILTRATION RATE > 60.0 (>60); GLUCOSE, FASTING 163 MG/DL (70-100); MAGNESIUM LEVEL 2.1 MG/DL (1.8-2.4); POTASSIUM SERUM 3.3 MEQ/L (3.5-5.1); SODIUM LEVEL 133 MEQ/L (136-145); TOTAL PROTEIN 5.9 GM/DL (6.4-8.2)
[2020-08-19] MEDS ORDERED: POTASSIUM CHLORIDE 10 MEQ SR TABLET PO ONE (06:45)
[2020-08-19] MEDS: ACETAMINOPHEN TAB 650MG DOSE (2X325MG) PO PRN ×2 (08:20→16:44)
[2020-08-19] MEDS: PANTOPRAZOLE 40MG VIAL (C9113 PER 1) IV SCH (08:20)
[2020-08-19] MEDS ORDERED: NS 1,000 ML IV SCH (10:45)
--- NOTE | 2020-08-19 10:49 | IPNPDOC ---
Text Note Date of Service The patient was seen on 08/19/20. 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 In the emergency room, patient was found to have a septic knee, as well as a stat echocardiogram that revealed a 1.8 cm vegetation of the tricuspid valve. Patient was taken to the OR by orthopedic surgery, Dr. Mar who has performed a washout of the right knee. Patient was admitted to the hospitalist service to the intensive care unit. Orthopedic surgery, Cardiology and infectious disease were called on consultation. Patient was seen and examined at the bedside. Patient reports that she still experiences discomfort. Denies any nausea, vomiting, abdominal pain, diarrhea, or urinary discomfort. Patient reports her right knee still has some pain. Patient also reports left-sided pleuritic chest pain. Objective: Vitals (See below) General: Again, patient is laying in bed, appears uncomfortable, awake, alert and oriented 3 HEENT: Normocephalic, atraumatic CVS: Tachycardic, +S1S2 Lungs: Air entry is fair bilaterally does not appear to have any wheezing, crackles or rhonchi Abdomen: Abdomen is soft, non-distended, non-tender Extremities: R leg with edema, R knee with dressing in place, L leg without any pitting Assessment and plan: Sepsis - likely 2/2 infective endocarditis, likely with bacteremia - likely 2/2 IV drug abuse with heroine - Hemodynamically stable / Continues to experience fevers - Leukocytosis remains stable; CRP will be checked today - Respiratory panel 08/16: Human rhinovirus/enterovirus - Blood culture 08/16: Negative at 48 hours - Right knee culture 08/16: MRSA - c/w Vancomycin (Day #3); Will DC Nafcillin; s/p Meropenem - c/w IV fluid hydration - Discussed case with Dr. Dai and Dr. Garcia; at this point will hold off on OBDULIA - Dr. Dai and Dr. Watkins on consultation; appreciate their input Septic arthritis - XR Knee 08/16: 1. Knee joint effusion with soft tissue swelling. 2. No fracture or malalignment. - s/p joint washout on 10/[address] Shiv Mar - Antibiotics (See above) Imaging suggestive of pneumonia - possibility of septic emboli? - CXR 08/16: Bibasilar pneumonia. - CT chest 08/17: 1. The heart size is within normal limits. A small pericardial effusion is present. Tricuspid valve vegetations are not clearly visible on this limited noncontrast study. 2. The main pulmonary artery trunk is abnormally dilated measuring up to 4.3 cm in size, suggestive of underlying central pulmonary arterial hypertension. 3. Multiple solid and cavitary intrapulmonary nodules are present throughout both lungs, most likely representing septic emboli. Cavitation is noted in the nodule in the right middle lobe lateral segment on image 56 of series 201. A tiny left pleural effusion is present. 4. The spleen appears somewhat enlarged. - c/w Incentive spirometry and Acapella - Antibiotics (See above) IV drug abuse with heroine - She reports the use of 10-15 bags per day - Patient is at risk of going into withdrawal - c/w Methadone 10 TID with Morphine for breakthrough pain - EKG reviewed yesterday reveals QTc of 393 Normocytic anemia - Hg has trended down - No evidence of bleeding - Will transfuse 1 unit PRBC Hyponatremia / Hypokalemia - Will supplement - Will start IV fluid hydration Poor IV access - Given patient's history of IV drug abuse; peripheral access is poor - Dr. Adams has placed central line 08/17 Extensive RLE DVT - Duplex US 08/17: Extensive right femoropopliteal DVT. - c/w Heparin drip Hepatitis - Patient has not completed therapy as an outpatient; reports she was incarcerated - Will likely require treatment after the above acute episodes resolve GI prophylaxis - c/w Protonix DVT prophylaxis - c/w Heparin drip Disposition: - Will remain in ICU for continued monitoring VS,Fishbone, I+O VS, Fishbone, I+O Laboratory Tests 08/18/20 12:01 08/19/20 05:07 Vital Signs Date Time Temp Pulse Resp B/P (MAP) Pulse Ox O2 Delivery O2 Flow Rate FiO2 08/19/20 10:34 26 08/19/20 08:39 98.7 124 133/81 98 Room Air 08/17/20 02:20 10 I&O- Last 24 Hours up to 6 AM 08/19/20 06:00 Intake Total 7872 ml Output Total 3450 ml Balance 4422 ml NICHOLE,VIJESH MD Aug 19, 2020 10:49
[2020-08-19 12:49] LABS: HEMATOCRIT 25.9 % (36.0-47.0); HEMOGLOBIN 8.1 g/dl (12.0-15.5); MEAN CORPUSCULAR HEMOGLOBIN 22.3 pg (27.0-33.0); MEAN CORPUSCULAR HGB CONC 31.3 g/dl (32.0-36.5); MEAN CORPUSCULAR VOLUME 71.2 fl (80.0-96.0); PLATELET COUNT, AUTOMATED 244 10^3/uL (150-450); RED BLOOD COUNT 3.64 10^6/uL (4.00-5.40)
[2020-08-19 13:13] LABS: BLOOD UREA NITROGEN 8 MG/DL (7-18); CALCIUM LEVEL 8.2 MG/DL (8.5-10.1); CARBON DIOXIDE LEVEL 28 MEQ/L (21-32); CHLORIDE LEVEL 104 MEQ/L (98-107); CREATININE FOR GFR 0.35 MG/DL (0.55-1.30); GLOMERULAR FILTRATION RATE > 60.0 (>60); GLUCOSE, FASTING 111 MG/DL (70-100); MAGNESIUM LEVEL 2.2 MG/DL (1.8-2.4); POTASSIUM SERUM 3.9 MEQ/L (3.5-5.1); SODIUM LEVEL 136 MEQ/L (136-145)
[2020-08-19] MEDS: ONDANSETRON 4MG/2ML VIAL IV PRN (17:36)
--- NOTE | 2020-08-19 21:13 | ECGEPIP ---
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
[2020-08-20] VITALS (13 sets, daily range): BP systolic 108–140; BP diastolic 70–89
[2020-08-20] MEDS: ONDANSETRON 4MG/2ML VIAL IV PRN (00:40)
[2020-08-20] MEDS: MORPHINE 4 MG/ML 1ML VIAL/SYRINGE (J2270) IV PRN ×4 (00:40→19:51)
[2020-08-20] MEDS: ACETAMINOPHEN TAB 650MG DOSE (2X325MG) PO PRN ×3 (00:40→23:18)
[2020-08-20] MEDS: HEPARIN DRIP 25,000 UNITS in IV 1 EA IV SCH ×3 (01:45→19:19)
[2020-08-20] MEDS: VANCOMYCIN HCL 500 MG in D5W MINI-BAG PLUS 100 ML IV SCH ×3 (05:21→21:17)
[2020-08-20] MEDS: METHADONE 10 MG TAB (S0109) PO SCH ×4 (05:21→23:45)
[2020-08-20] MEDS: VANCOMYCIN HCL 1,000 MG, VIAL MATE ADAPTER 1 EACH in D5W 250 ML IV SCH ×3 (05:21→19:50)
[2020-08-20 05:49] LABS: HEMATOCRIT 23.8 % (36.0-47.0); HEMOGLOBIN 7.4 g/dl (12.0-15.5); MEAN CORPUSCULAR HEMOGLOBIN 22.6 pg (27.0-33.0); MEAN CORPUSCULAR HGB CONC 31.1 g/dl (32.0-36.5); MEAN CORPUSCULAR VOLUME 72.6 fl (80.0-96.0); PLATELET COUNT, AUTOMATED 294 10^3/uL (150-450); RED BLOOD COUNT 3.28 10^6/uL (4.00-5.40); WHITE BLOOD COUNT 22.1 10^3/uL (4.0-10.0)
[2020-08-20 06:12] LABS: ALBUMIN 1.4 GM/DL (3.2-5.2); ALT/SGPT 15 U/L (12-78); BILIRUBIN,TOTAL 0.4 MG/DL (0.2-1.0); BLOOD UREA NITROGEN 9 MG/DL (7-18); CARBON DIOXIDE LEVEL 24 MEQ/L (21-32); CHLORIDE LEVEL 104 MEQ/L (98-107); CREATININE FOR GFR 0.52 MG/DL (0.55-1.30); GLOMERULAR FILTRATION RATE > 60.0 (>60); GLUCOSE, FASTING 145 MG/DL (70-100); POTASSIUM SERUM 3.8 MEQ/L (3.5-5.1); SODIUM LEVEL 134 MEQ/L (136-145)
[2020-08-20] MEDS: PANTOPRAZOLE 40MG VIAL (C9113 PER 1) IV SCH (09:14)
--- NOTE | 2020-08-20 09:36 | IPNPDOC ---
Text Note Date of Service The patient was seen on 08/20/20. 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 In the emergency room, patient was found to have a septic knee, as well as a stat echocardiogram that revealed a 1.8 cm vegetation of the tricuspid valve. Patient was taken to the OR by orthopedic surgery, Dr. Mar who has performed a washout of the right knee. Patient was admitted to the hospitalist service to the intensive care unit. Orthopedic surgery, Cardiology and infectious disease were called on consultation. Patient was seen and examined at the bedside. , Patient reports that she feels slightly better after the methadone dose has been adjusted. Patient denies any active chest pain, shortness breath, cough, belly pain, nausea, vomiting, diarrhea, or discomfort urination. Reports her right leg feels relatively better. Objective: Vitals (See below) General: Patient reports that she feels slightly better, no distress, awake, alert and oriented 3 HEENT: Normocephalic, atraumatic CVS: Remains tachycardic, +S1S2 Lungs: There appears to be fair air entry bilaterally without evidence of rhonchi, wheezing or crackles Abdomen: Again abdomen is soft without distention or tenderness Extremities: R leg with edema still present, L leg without any pitting Assessment and plan: Sepsis - likely 2/2 infective endocarditis, likely with bacteremia - likely 2/2 IV drug abuse with heroin - Hemodynamically stable / Low grade fevers persist - Leukocytosis improving; CRP trending up - Respiratory panel 08/16: Human rhinovirus/enterovirus - Blood culture 08/16: Negative at 72 hours - Right knee culture 08/16: MRSA - c/w Vancomycin (Day #4); s/p Nafcillin and Meropenem - c/w IV fluid hydration - Discussed case with Dr. Dai and Dr. Garcia; at this point will hold off on OBDULIA - Dr. Dai and Dr. Watkins on consultation; appreciate their input Septic arthritis - XR Knee 08/16: 1. Knee joint effusion with soft tissue swelling. 2. No fracture or malalignment. - s/p joint washout on 08/[address] Shiv Mar - Antibiotics (See above) Imaging suggestive of pneumonia - possibility of septic emboli? - CXR 08/16: Bibasilar pneumonia. - CT chest 08/17: 1. The heart size is within normal limits. A small pericardial effusion is present. Tricuspid valve vegetations are not clearly visible on this limited noncontrast study. 2. The main pulmonary artery trunk is abnormally dilated measuring up to 4.3 cm in size, suggestive of underlying central pulmonary arterial hypertension. 3. Multiple solid and cavitary intrapulmonary nodules are present throughout both lungs, most likely representing septic emboli. Cavitation is noted in the nodule in the right middle lobe lateral segment on image 56 of series 201. A tiny left pleural effusion is present. 4. The spleen appears somewhat enlarged. - c/w Incentive spirometry and Acapella - Antibiotics (See above) IV drug abuse with heroine - She reports the use of 10-15 bags per day - Patient is at risk of going into withdrawal - c/w Methadone 10 TID with Morphine for breakthrough pain - EKG reviewed yesterday reveals QTc of 393 Normocytic anemia - Hg has trended down - No evidence of bleeding - s/p 1 unit PRBC on 08/19 - Will transfuse additional 1 unit of PRBC s/p Hypokalemia Hyponatremia - c/w IV fluid hydration Poor IV access - Given patient's history of IV drug abuse; peripheral access is poor - Dr. Adams has placed central line 08/17 Extensive RLE DVT - Duplex US 08/17: Extensive right femoropopliteal DVT. - c/w Heparin drip Hepatitis - Patient has not completed therapy as an outpatient; reports she was incarcerated - Will likely require treatment after the above acute episodes resolve GI prophylaxis - c/w Protonix DVT prophylaxis - c/w Heparin drip Disposition: - Will downgrade - Awaiting for clinical stability VS,Fishbone, I+O VS, Fishbone, I+O Laboratory Tests 08/19/20 12:37 08/20/20 05:28 Vital Signs Date Time Temp Pulse Resp B/P (MAP) Pulse Ox O2 Delivery O2 Flow Rate FiO2 08/20/20 09:10 99.9 120 26 133/79 Room Air 08/20/20 08:54 95 08/17/20 02:20 10 I&O- Last 24 Hours up to 6 AM 08/20/20 06:00 Intake Total 4018 ml Output Total 1500 ml Balance 2518 ml BARRY NICHOLE MD Aug 20, 2020 09:36
--- NOTE | 2020-08-20 15:11 | IPN ---
DATE: 08/18/2020 Brooke complains of withdrawal symptoms, shakiness, fever, feeling hot and cold at the same time. She continues complaining of right leg pain and pleuritic chest pain on the left side. She is in the intensive care unit (ICU). MEDICATIONS: - vancomycin 1.5 grams intravenous (IV) every 8 hours - methadone 10 mg by mouth every 8 hours - morphine 4 mg Q 8 hours prn - Tylenol as needed - pantoprazole 40 mg IV daily LABORATORY DATA: White count is 26, hemoglobin 8, hematocrit 25.9, platelets 213, 85% neutrophils, 3% bands, 7% lymphocytes. Sodium 135, potassium 3.4, chloride 102, bicarbonate 27, BUN 14, creatinine 1.38, glucose 114, calcium 7.7, magnesium 2.2. AST 24, ALT 28, alkaline phosphatase 184, CRP 9.78, albumin 1.5. Vancomycin trough is 11.1. Syphilis nonreactive. HIV negative. Hepatitis C RNA pending. Methicillin-resistant Staphylococcus aureus (MRSA) screen not detected. Chlamydia, gonorrhea, and trichomonas were negative. Blood cultures, three sets, done on August 16 are no growth. Right knee fluid had gram-positive cocci in clusters, still not identified. Anaerobic culture, acid-fast bacillus (AFB) smear and culture, macrobacterial culture from the right knee are pending. CT chest shows multiple solid and cavitary intrapulmonary nodules present throughout both lungs, most likely representing septic emboli. Cavitation is noted in the right middle lobe. A tiny left pleural effusion is present. Spleen is somewhat enlarged. Heart size is normal with a small pericardial effusion. IMPRESSION: 1. 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 I would suggest adding nafcillin to current regimen, as her MRSA screen was negative, to cover for methicillin-sensitive Staphylococcus aureus (MSSA), as beta lactams have better coverage for MSSA. 2. Septic arthritis of the right knee with evidence of Staph on Gram stain. Will add IV nafcillin. 3. Septic emboli to the lungs with left-sided pleuritic chest pain. CT chest has been reviewed. 4. History of hepatitis C, currently with normal AST and ALT. 5. History of IV heroin abuse, going through withdrawal. PLAN: Add nafcillin 2 grams IV every 4 hours. If blood cultures or knee cultures are positive for MRSA, she needs to remain on vancomycin, If positive for MSSA, vancomycin could be discontinued. Patient would be interested in psychiatrist, to be treated of her bipolar disorder, which over the years as an outpatient she has been reluctant on treatment. This could be done some time during this admission when she is out of the ICU. RUSS
[2020-08-21] VITALS: BP 140/88
[2020-08-21 04:00] VITALS: BP 118/60
[2020-08-21] MEDS: VANCOMYCIN HCL 1,000 MG, VIAL MATE ADAPTER 1 EACH in D5W 250 ML IV SCH ×3 (04:48→20:26)
[2020-08-21] MEDS: ACETAMINOPHEN TAB 650MG DOSE (2X325MG) PO PRN ×3 (04:49→17:31)
[2020-08-21] MEDS: MORPHINE 4 MG/ML 1ML VIAL/SYRINGE (J2270) IV PRN ×4 (04:50→20:26)
[2020-08-21 05:57] LABS: HEMATOCRIT 27.3 % (36.0-47.0); HEMOGLOBIN 8.5 g/dl (12.0-15.5); MEAN CORPUSCULAR HEMOGLOBIN 23.4 pg (27.0-33.0); MEAN CORPUSCULAR HGB CONC 31.1 g/dl (32.0-36.5); MEAN CORPUSCULAR VOLUME 75.2 fl (80.0-96.0); PLATELET COUNT, AUTOMATED 377 10^3/uL (150-450); RED BLOOD COUNT 3.63 10^6/uL (4.00-5.40); WHITE BLOOD COUNT 17.8 10^3/uL (4.0-10.0)
[2020-08-21] MEDS: METHADONE 10 MG TAB (S0109) PO SCH ×4 (06:06→23:27)
[2020-08-21] MEDS: VANCOMYCIN HCL 500 MG in D5W MINI-BAG PLUS 100 ML IV SCH ×3 (06:06→22:33)
[2020-08-21] MEDS: HEPARIN DRIP 25,000 UNITS in IV 1 EA IV SCH (06:13)
[2020-08-21 06:20] LABS: ALBUMIN 1.4 GM/DL (3.2-5.2); ALT/SGPT 14 U/L (12-78); BILIRUBIN,TOTAL 0.4 MG/DL (0.2-1.0); BLOOD UREA NITROGEN 10 MG/DL (7-18); CALCIUM LEVEL 8.5 MG/DL (8.5-10.1); CARBON DIOXIDE LEVEL 25 MEQ/L (21-32); CHLORIDE LEVEL 104 MEQ/L (98-107); CREATININE FOR GFR 0.45 MG/DL (0.55-1.30); GLOMERULAR FILTRATION RATE > 60.0 (>60); GLUCOSE, FASTING 136 MG/DL (70-100); MAGNESIUM LEVEL 2.1 MG/DL (1.8-2.4); POTASSIUM SERUM 4.1 MEQ/L (3.5-5.1); SODIUM LEVEL 134 MEQ/L (136-145); TOTAL PROTEIN 5.9 GM/DL (6.4-8.2)
[2020-08-21 08:00] VITALS: BP 123/77
[2020-08-21] MEDS: PANTOPRAZOLE 40MG VIAL (C9113 PER 1) IV SCH (09:21)
[2020-08-21] MEDS: ENOXAPARIN 60MG/0.6ML SYRINGE (J1650 PER 10MG) SC SCH ×2 (09:22→20:25)
--- NOTE | 2020-08-21 10:00 | IPNPDOC ---
Text Note Date of Service The patient was seen on 08/21/20. 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 In the emergency room, patient was found to have a septic knee, as well as a stat echocardiogram that revealed a 1.8 cm vegetation of the tricuspid valve. Patient was taken to the OR by orthopedic surgery, Dr. Mar who has performed a washout of the right knee. Patient was admitted to the hospitalist service to the intensive care unit. Orthopedic surgery, Cardiology and infectious disease were called on consultation. Patient was seen and examined at the bedside. Patient reports that she feels significantly better today. Denies any nausea, vomiting, shortness breath or palpitations. Patient reports that her pleuritic left-sided chest pain has improved from yesterday. Denies any abdominal pain, diarrhea, or urinary discomfort. She notes that her right leg still has some discomfort. Patient reports that the symptoms of withdrawal seems to have dissipated. Objective: Vitals (See below) General: Patient is sitting up in bed, does not appear to be in any acute distress, awake, alert and oriented 3 HEENT: Normocephalic, atraumatic CVS: Regular rate and rhythm. Positive S1 and S2 Lungs: Air entry is fair bilaterally without any auscultated rhonchi, rales or wheezing Abdomen: Abdomen remains soft without distention or tenderness Extremities: Left leg without any pitting edema, right leg with trace to 1+ pitting edema Assessment and plan: Sepsis - likely 2/2 infective endocarditis, likely with bacteremia - likely 2/2 presumed MRSA - likely 2/2 IV drug abuse with heroin - Remains hemodynamically stable / Continues to have low grade fevers - Leukocytosis improving; CRP still trending up - Respiratory panel 08/16: Human rhinovirus/enterovirus - Blood culture 08/16: Negative at 72 hours; Blood cultures 08/20: Gram positive cocci in clusters - Right knee culture 08/16: MRSA - c/w Vancomycin (Day #5); s/p Nafcillin and Meropenem - c/w IV fluid hydration - Discussed case with Dr. Dai and Dr. Garcia; at this point will hold off on OBDULIA - Dr. Dai and Dr. Watkins on consultation; appreciate their input Septic arthritis - XR Knee 08/16: 1. Knee joint effusion with soft tissue swelling. 2. No fracture or malalignment. - s/p joint washout on 08/[address] Shiv Mar - Antibiotics (See above) Imaging suggestive of pneumonia - possibility of septic emboli? - CXR 08/16: Bibasilar pneumonia. - CT chest 08/17: 1. The heart size is within normal limits. A small pericardial effusion is present. Tricuspid valve vegetations are not clearly visible on this limited noncontrast study. 2. The main pulmonary artery trunk is abnormally dilated measuring up to 4.3 cm in size, suggestive of underlying central pulmonary arterial hypertension. 3. Multiple solid and cavitary intrapulmonary nodules are present throughout both lungs, most likely representing septic emboli. Cavitation is noted in the nodule in the right middle lobe lateral segment on image 56 of series 201. A tiny left pleural effusion is present. 4. The spleen appears somewhat enlarged. - c/w Incentive spirometry and Acapella - Antibiotics (See above) IV drug abuse with heroin - Had reported the use of 10-15 bags per day (possibly even double strength) - Appears to be out of withdrawal - c/w Methadone 10 [id number] Normocytic anemia - Hg remains stable compared to yesterday - No evidence of bleeding - s/p 2 unit PRBC s/p Hypokalemia Hyponatremia - c/w IV fluid hydration Poor IV access - Given patient's history of IV drug abuse; peripheral access is poor - Dr. Adams has placed central line 08/17 Extensive RLE DVT - Duplex US 08/17: Extensive right femoropopliteal DVT. - Will start Lovenox therapeutic; s/p Heparin drip Hepatitis - Patient has not completed therapy as an outpatient; reports she was incarcerated - Will likely require treatment after the above acute episodes resolve GI prophylaxis - c/w Protonix DVT prophylaxis - c/w Heparin drip Disposition: - Will await negative blood cultures - Adjusting anticoagulation to Lovenox VS,Fishbone, I+O VS, Fishbone, I+O Laboratory Tests 08/21/20 05:34 Vital Signs Date Time Temp Pulse Resp B/P (MAP) Pulse Ox O2 Delivery O2 Flow Rate FiO2 08/21/20 05:00 18 Room Air 08/21/20 04:00 100.8 114 118/60 (79) 95 08/17/20 02:20 10 I&O- Last 24 Hours up to 6 AM 08/21/20 06:00 Intake Total 2690 ml Output Total 1400 ml Balance 1290 ml BARRY NICHOLE MD Aug 21, 2020 10:00
[2020-08-21 12:00] VITALS: BP 129/72
[2020-08-21 16:00] VITALS: BP 133/79
[2020-08-21] MEDS: ONDANSETRON 4MG/2ML VIAL IV PRN (17:31)
[2020-08-21 20:00] VITALS: BP 116/77
[2020-08-22] VITALS: BP 126/70
[2020-08-22] MEDS: MORPHINE 4 MG/ML 1ML VIAL/SYRINGE (J2270) IV PRN ×4 (01:29→22:21)
[2020-08-22 04:00] VITALS: BP 129/73
[2020-08-22] MEDS: VANCOMYCIN HCL 1,000 MG, VIAL MATE ADAPTER 1 EACH in D5W 250 ML IV SCH (04:31)
[2020-08-22 05:37] LABS: HEMATOCRIT 26.1 % (36.0-47.0); HEMOGLOBIN 7.9 g/dl (12.0-15.5); MEAN CORPUSCULAR HGB CONC 30.3 g/dl (32.0-36.5); MEAN CORPUSCULAR VOLUME 75.9 fl (80.0-96.0); PLATELET COUNT, AUTOMATED 439 10^3/uL (150-450); RED BLOOD COUNT 3.44 10^6/uL (4.00-5.40); WHITE BLOOD COUNT 15.1 10^3/uL (4.0-10.0)
[2020-08-22] MEDS: METHADONE 10 MG TAB (S0109) PO SCH ×3 (05:49→17:52)
[2020-08-22] MEDS: VANCOMYCIN HCL 500 MG in D5W MINI-BAG PLUS 100 ML IV SCH ×3 (05:49→21:04)
[2020-08-22 06:00] LABS: ALBUMIN 1.6 GM/DL (3.2-5.2); ALT/SGPT 15 U/L (12-78); BILIRUBIN,TOTAL 0.4 MG/DL (0.2-1.0); BLOOD UREA NITROGEN 8 MG/DL (7-18); CALCIUM LEVEL 8.7 MG/DL (8.5-10.1); CARBON DIOXIDE LEVEL 27 MEQ/L (21-32); CHLORIDE LEVEL 102 MEQ/L (98-107); CREATININE FOR GFR 0.42 MG/DL (0.55-1.30); GLOMERULAR FILTRATION RATE > 60.0 (>60); GLUCOSE, FASTING 96 MG/DL (70-100); MAGNESIUM LEVEL 2.1 MG/DL (1.8-2.4); POTASSIUM SERUM 4.5 MEQ/L (3.5-5.1); SODIUM LEVEL 134 MEQ/L (136-145); TOTAL PROTEIN 6.4 GM/DL (6.4-8.2)
[2020-08-22 07:54] VITALS: BP 122/73
[2020-08-22] MEDS: PANTOPRAZOLE 40MG VIAL (C9113 PER 1) IV SCH (08:00)
[2020-08-22] MEDS: ACETAMINOPHEN TAB 650MG DOSE (2X325MG) PO PRN ×3 (08:00→19:47)
[2020-08-22] MEDS: ENOXAPARIN 60MG/0.6ML SYRINGE (J1650 PER 10MG) SC SCH ×2 (08:01→19:48)
--- NOTE | 2020-08-22 08:07 | REP ---
PORTABLE CHEST X-RAY: SITTING AP VIEW HISTORY: Central line placement. COMPARISON STUDY: 08/16/2020. FINDINGS: A left subclavian line has been inserted with its tip in the expected location of the superior vena cava. There is no evidence of pneumothorax or hydrothorax. There are coarse infiltrates in the lower lobes bilaterally and some vascular congestion is seen. Heart size is borderline. These findings are unchanged. IMPRESSION: Patchy bibasilar infiltrates persist. Left subclavian central venous line in the superior vena cava. No complication seen. MTDD
--- NOTE | 2020-08-22 08:27 | IPNPDOC ---
Text Note Date of Service The patient was seen on 08/22/20. 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 In the emergency room, patient was found to have a septic knee, as well as a stat echocardiogram that revealed a 1.8 cm vegetation of the tricuspid valve. Patient was taken to the OR by orthopedic surgery, Dr. Mar who has performed a washout of the right knee. Patient was admitted to the hospitalist service to the intensive care unit. Orthopedic surgery, Cardiology and infectious disease were called on consultation. Patient was seen and examined at the bedside. Patient reports an uneventful night. Denies any chest pain, shortness breath, palpitations, nausea, vomiting, abdominal pain, diarrhea, or urinary discomfort. They report that the right knee is feeling better. Patient has been up ambulating to the bathroom, although with some difficulty because of pain. Objective: Vitals (See below) General: Sitting up in bed, no acute distress. Appears comfortable. AAO 3 HEENT: Normocephalic, atraumatic CVS: Mildly tachycardic, Positive S1 and S2 Lungs: There appears to be fair air entry bilaterally without evidence of rhonchi, crackles or wheezing Abdomen: Again, abdomen is soft without any distention or tenderness Extremities: Right leg 1+ pitting edema, left leg with no pitting edema Assessment and plan: Sepsis - likely 2/2 infective endocarditis, likely with bacteremia - likely 2/2 presumed MRSA - likely 2/2 IV drug abuse with heroin - Hemodynamically stable / Fever noted this morning - Leukocytosis continues to improve; CRP appears to be reaching peak - Respiratory panel 08/16: Human rhinovirus/enterovirus - Blood culture 08/16: Negative at 5 days; Blood cultures 08/20: Staph aureus - Right knee culture 08/16: MRSA - c/w Vancomycin (Day #6); s/p Nafcillin and Meropenem - s/p IV fluid hydration - Discussed case with Dr. Dai and Dr. Garcia; at this point will hold off on OBDULIA - Dr. Watkins on consultation; appreciate their input Septic arthritis - XR Knee 08/16: 1. Knee joint effusion with soft tissue swelling. 2. No fracture or malalignment. - s/p joint washout on 08/[address] Shiv Mar - Antibiotics (See above) Septic emboli to lung, unlikely PNA - CXR 08/16: Bibasilar pneumonia. - CT chest 08/17: 1. The heart size is within normal limits. A small pericardial effusion is present. Tricuspid valve vegetations are not clearly visible on this limited noncontrast study. 2. The main pulmonary artery trunk is abnormally dilated measuring up to 4.3 cm in size, suggestive of underlying central pulmonary arterial hypertension. 3. Multiple solid and cavitary intrapulmonary nodules are present throughout both lungs, most likely representing septic emboli. Cavitation is noted in the nodule in the right middle lobe lateral segment on image 56 of series 201. A tiny left pleural effusion is present. 4. The spleen appears somewhat enlarged. - c/w Incentive spirometry and Acapella - Antibiotics (See above) IV drug abuse with heroin - Had reported the use of 10-15 bags per day (possibly even double strength) - Appears to be out of withdrawal - c/w Methadone 10 [id number] Normocytic anemia - Hg continues to remain stable - No evidence of bleeding - s/p 2 unit PRBC s/p Hypokalemia Hyponatremia - c/w IV fluid hydration Poor IV access - Given patient's history of IV drug abuse; peripheral access is poor - Dr. Adams has placed central line 08/17 Extensive RLE DVT - Duplex US 08/17: Extensive right femoropopliteal DVT. - c/w Lovenox therapeutic; s/p Heparin drip Hepatitis - Patient has not completed therapy as an outpatient; reports she was incarcerated - Will likely require treatment after the above acute episodes resolve GI prophylaxis - c/w Protonix DVT prophylaxis - c/w Lovenox therapeutic Disposition: - Repeat blood cultures this morning; anticipate PICC line after negative blood cultures VS,Ceferinobone, I+O VS, Fishbone, I+O Laboratory Tests 08/22/20 04:55 Vital Signs Date Time Temp Pulse Resp B/P (MAP) Pulse Ox O2 Delivery O2 Flow Rate FiO2 08/22/20 07:54 101.1 107 20 122/73 (89) 96 Room Air 08/17/20 02:20 10 I&O- Last 24 Hours up to 6 AM 10/13/20 05:59 Intake Total 1590 ml Output Total 1800 ml Balance -210 ml BARRY NICHOLE MD Aug 22, 2020 08:27
--- NOTE | 2020-08-22 08:40 | IPN ---
INFECTIOUS DISEASE PROGRESS NOTE This is performed in conjunction with Dr. Joey Watkins. DATE: 08/21/2020 SUBJECTIVE: The patient states she is feeling much better than she did last week. She continues to have some right knee and right lower extremity pain along with some swelling, however it is significantly improved. She is requiring ongoing Morphine for her pain but states overall that that is fine. She continues to have some fevers but otherwise denies any new complaints. She states that her chest pain that she had the week prior is resolved. She denies any difficulty breathing, abdominal pain, nausea, vomiting, constipation, diarrhea. OBJECTIVE: PHYSICAL EXAMINATION: VITAL SIGNS: As of 08:00 temperature 99, was febrile with a T-max of 100.8 overnight. Pulse is 113 and regular, respiratory rate of 20, blood pressure 123/77, sating 100% on room air. GENERAL APPEARANCE: The patient is a pale appearing female sitting comfortably in bed in no acute distress. HEENT: Head is normocephalic and atraumatic. EOMI. Mucous membranes moist. No scleral icterus. CARDIOVASCULAR: Tachycardic rate, regular rhythm. LUNGS: Clear to auscultation bilaterally with no wheezes, crackles, rhonchi. ABDOMEN: Soft, nontender, nondistended. EXTREMITIES: Right leg with trace 1+ pitting edema and Band-Aid over right knee. Left leg without any edema and normal. LABORATORY STUDIES: White blood cell count of 17.8, hemoglobin 8.5, hematocrit 27.3, platelet count 377. Sodium 134, potassium 4.1, chloride of 104, bicarbonate of 25, BUN of 10, creatinine 0.45, glucose of 136, calcium 8.5, magnesium 2.1, total bilirubin 0.4, AST 11, ALT 14, alkaline phosphatase 134, CRP 16, total protein 5.9, albumin 1.4, PTT 9.5. Serology showing hepatitis C viral RNA PCR of 180. Preliminary blood culture on 08/20/2020 showing gram positive cocci in clusters for both blood cultures. ASSESSMENT AND PLAN: 1. Tricuspid valve endocarditis with these recent blood cultures are showing repeat positives of what is likely going to be a MRSA infection. We will continue the patient on IV Vancomycin for this, given the results of the previous sensitivities. We will wait for her blood cultures to be negative prior to taking out the central line and putting in the PICC line. 2. Septic arthritis of the right knee with evidence of staph on gram stain. Continue with IV Vancomycin. 3. Septic emboli of the lungs. Chest CT has been reviewed. Continue with IV Vancomycin. 4. History of hepatitis C - discussed results with patient. This appears to be self cleared on her own. This is the second or third time that this has occurred. 5. History of IV heroin abuse. She does not appear to be going through withdrawal at this point and is currently on Methadone treatments. 6. History of bipolar disorder may consider Psych consult while inpatient since she is here already. She previously was against being treated by Psych in the past because of medication side effects, however now she is more open to the idea. RUSS
[2020-08-22] MEDS: ONDANSETRON 4MG/2ML VIAL IV PRN (11:38)
[2020-08-22 11:59] VITALS: BP 122/72
[2020-08-22] MEDS: VANCOMYCIN HCL 750 MG, VIAL MATE ADAPTER 1 EACH in D5W 250 ML IV SCH ×2 (13:10→19:48)
[2020-08-22 16:00] VITALS: BP 130/71
[2020-08-22 20:00] VITALS: BP 128/79
[2020-08-23] VITALS: BP 121/74
[2020-08-23] MEDS: METHADONE 10 MG TAB (S0109) PO SCH ×5 (00:56→23:26)
[2020-08-23 04:00] VITALS: BP 126/76
[2020-08-23 05:26] LABS: HEMATOCRIT 26.7 % (36.0-47.0); HEMOGLOBIN 8.3 g/dl (12.0-15.5); MEAN CORPUSCULAR HEMOGLOBIN 23.6 pg (27.0-33.0); MEAN CORPUSCULAR HGB CONC 31.1 g/dl (32.0-36.5); MEAN CORPUSCULAR VOLUME 75.9 fl (80.0-96.0); PLATELET COUNT, AUTOMATED 482 10^3/uL (150-450); RED BLOOD COUNT 3.52 10^6/uL (4.00-5.40); WHITE BLOOD COUNT 12.8 10^3/uL (4.0-10.0)
[2020-08-23] MEDS: VANCOMYCIN HCL 750 MG, VIAL MATE ADAPTER 1 EACH in D5W 250 ML IV SCH ×3 (05:28→21:00)
[2020-08-23 05:51] LABS: ALBUMIN 1.7 GM/DL (3.2-5.2); ALT/SGPT 14 U/L (12-78); BILIRUBIN,TOTAL 0.3 MG/DL (0.2-1.0); BLOOD UREA NITROGEN 10 MG/DL (7-18); CALCIUM LEVEL 9.4 MG/DL (8.5-10.1); CARBON DIOXIDE LEVEL 28 MEQ/L (21-32); CHLORIDE LEVEL 100 MEQ/L (98-107); CREATININE FOR GFR 0.48 MG/DL (0.55-1.30); GLOMERULAR FILTRATION RATE > 60.0 (>60); GLUCOSE, FASTING 90 MG/DL (70-100); MAGNESIUM LEVEL 2.2 MG/DL (1.8-2.4); POTASSIUM SERUM 4.2 MEQ/L (3.5-5.1); SODIUM LEVEL 132 MEQ/L (136-145); TOTAL PROTEIN 7.5 GM/DL (6.4-8.2)
[2020-08-23] MEDS: MORPHINE 4 MG/ML 1ML VIAL/SYRINGE (J2270) IV PRN ×4 (06:51→20:59)
[2020-08-23] MEDS: VANCOMYCIN HCL 500 MG in D5W MINI-BAG PLUS 100 ML IV SCH ×3 (06:52→22:28)
[2020-08-23 08:00] VITALS: BP 120/68
[2020-08-23] MEDS ORDERED: SLF 3 ML SYR IV PRN (08:30)
--- NOTE | 2020-08-23 08:38 | IPN ---
INFECTIOUS DISEASE PROGRESS NOTE DATE: 08/22/2020 SUBJECTIVE: Brooke feels better, except that she is having low-grade fevers. She states her leg pain has improved, but now she has a bruise on her ankle, which is painful. T-max today was 101.1. She states she has mild shortness of breath with exertion. No nausea, vomiting or diarrhea. No abdominal pain. She has a cough, mostly nonproductive. LABORATORY DATA: White count 15.1, hemoglobin 7.9, hematocrit 26.1, platelets 439,000. Sodium 134, potassium 4.5, chloride 102, bicarb 27, BUN 8, creatinine 0.42, glucose 96, calcium 8.7, magnesium 2.1. AST 9, ALT 15, alkaline phosphatase 133. CRP 17.2. Blood cultures positive on 08/20/2020 when they were negative on 08/16/2020, which was surprising. Repeat blood cultures have been done on 08/22/2020. Knee culture was positive for MRSA. PHYSICAL EXAMINATION: VITALS: Temperature 99 with T-max 101.1, pulse 105, respiratory 18, blood pressure 130/71, O2 sat 100% on room air. HEART: Normal S1, S2, with a systolic ejection murmur at the left upper sternal border, tachycardic. No rubs or gallops. LUNGS: Diminished breath sounds at both bases; left more than right. ABDOMEN: Soft, nontender. No hepatosplenomegaly. EXTREMITIES: Left; no cyanosis, clubbing or edema. Right knee range of motion 90 degrees, ankle ecchymosis , lateral malleolus slightly tender to touch, but ankle range of motion is normal. Hip range of motion is normal. BACK: No CVA or lumbosacral tenderness. OROPHARYNX: Clear with no lesions. IMPRESSION: 1. MRSA endocarditis of the tricuspid valve with persistently positive bacteremia and fever. Clinically, the patient is doing better on I.V. Vancomycin at a dose of 1.25 grams I.V. every 8 hours and Vancomycin trough of 19.7. If repeat blood cultures are positive on 08/22/2020, I would suggest switching her to Daptomycin with Ceftaroline for synergy. ADWOA of vancomycin is less than 0.5. 2. Septic arthritis of the right knee: Markedly better range of motion. 3. DVT of her lower extremity: On Enoxaparin 60 mg subcutaneously every 12 hours. 4. History of Hepatitis C with spontaneous remission: Currently viral load is 180 and AST and ALT are less than 20. Patient will probably have another spontaneous remission. 5. History of bipolar disorder: Untreated. PLAN: 1. Suggest PICC line whenever her blood cultures are negative and remove the central line. 2. Consult psychiatry for treatment of bipolar disorder and addiction. The patient would like to follow-up with psychiatry on discharge for vivitrol injection and biolar disorder . JOYCED
[2020-08-23] MEDS ORDERED: MIRALAX *UNIT DOSE* 17GM PACKET PO PRN (09:00)
[2020-08-23] MEDS: PANTOPRAZOLE 40MG VIAL (C9113 PER 1) IV SCH (09:02)
[2020-08-23] MEDS: ENOXAPARIN 60MG/0.6ML SYRINGE (J1650 PER 10MG) SC SCH ×2 (09:03→20:58)
--- NOTE | 2020-08-23 09:08 | IPNPDOC ---
Text Note Date of Service The patient was seen on 08/23/20. 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 In the emergency room, patient was found to have a septic knee, as well as a stat echocardiogram that revealed a 1.8 cm vegetation of the tricuspid valve. Patient was taken to the OR by orthopedic surgery, Dr. Mar who has performed a washout of the right knee. Patient was admitted to the hospitalist service to the intensive care unit. Orthopedic surgery, Cardiology and infectious disease were called on consultation. Patient was seen and examined at the bedside. Patient reports that they're evening with an uneventful. They deny any chest pain, shortness breath or palpitations. Has not experience any nausea, vomiting, abdominal pain. They do report some constipation. Denies any urinary discomfort. Objective: Vitals (See below) General: Sitting up in bed, does not appear to be in any distress. Appears comfortable, awake and oriented 3 HEENT: Normocephalic, atraumatic CVS: Regular rate and rhythm. Positive S1 and S2 Lungs: Air entry is fair bilaterally without any auscultated rhonchi, crackles or wheezing Abdomen: Abdomen remains soft without distention or tenderness Extremities: 1+ pitting edema noted on the right leg. 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 Dai and Dr. Garcia; at this point will hold off on OBDULIA - Dr. Watkins on consultation; appreciate their input Septic arthritis - XR Knee 08/16: 1. Knee joint effusion with soft tissue swelling. 2. No fracture or malalignment. - s/p joint washout on 08/[address] Shiv Mar - Antibiotics (See above) Septic emboli to lung, unlikely PNA - CXR 08/16: Bibasilar pneumonia. - CT chest 08/17: 1. The heart size is within normal limits. A small pericardial effusion is present. Tricuspid valve vegetations are not clearly visible on this limited noncontrast study. 2. The main pulmonary artery trunk is abnormally dilated measuring up to 4.3 cm in size, suggestive of underlying central pulmonary arterial hypertension. 3. Multiple solid and cavitary intrapulmonary nodules are present throughout both lungs, most likely representing septic emboli. Cavitation is noted in the nodule in the right middle lobe lateral segment on image 56 of series 201. A tiny left pleural effusion is present. 4. The spleen appears somewhat enlarged. - c/w Incentive spirometry and Acapella - Antibiotics (See above) IV drug abuse with heroin - Had reported the use of 10-15 bags per day (possibly even double strength) - No current evidence of withdrawal - c/w Methadone 10 [id number] Normocytic anemia - Patient reports history of iron deficiency - Hg continues to remain stable - No evidence of bleeding - s/p 2 unit PRBC - Will start ferrous sulfate s/p Hypokalemia Hyponatremia - c/w IV fluid hydration Poor IV access - Given patient's history of IV drug abuse; peripheral access is poor - Dr. Adams has placed central line 08/17 Extensive RLE DVT - Duplex US 08/17: Extensive right femoropopliteal DVT. - c/w Lovenox therapeutic; s/p Heparin drip Hepatitis - Patient has not completed therapy as an outpatient; reports she was incarcerated - Will likely require treatment after the above acute episodes resolve History of bipolar disorder - Currently untreated - Will consider psychiatric evaluation on discharge GI prophylaxis - c/w Protonix DVT prophylaxis - c/w Lovenox therapeutic Disposition: - Repeat blood cultures this morning; anticipate PICC line after negative blood cultures VS,Ceferinobone, I+O VS, Ceferinobone, I+O Laboratory Tests 08/23/20 05:08 Vital Signs Date Time Temp Pulse Resp B/P (MAP) Pulse Ox O2 Delivery O2 Flow Rate FiO2 08/23/20 08:00 99.3 108 20 120/68 (85) 98 Room Air 08/17/20 02:20 10 I&O- Last 24 Hours up to 6 AM 08/23/20 06:00 Intake Total 1190 ml Output Total 2750 ml Balance -1560 ml BARRY NICHOLE MD Aug 23, 2020 09:08
[2020-08-23] MEDS ORDERED: NS 1,000 ML IV SCH (09:15)
[2020-08-23] MEDS: FERROUS SULFATE 325MG TAB PO SCH ×2 (09:49→20:59)
[2020-08-23] MEDS: SENOKOT S TAB PO PRN (09:49)
[2020-08-23 12:00] VITALS: BP 130/80
[2020-08-23] MEDS: ACETAMINOPHEN TAB 650MG DOSE (2X325MG) PO PRN ×2 (12:36→20:59)
[2020-08-23] MEDS: ONDANSETRON 4MG/2ML VIAL IV PRN (13:36)
[2020-08-23] MEDS: SLF 3 ML SYR IV SCH ×2 (13:38→22:28)
[2020-08-23 16:00] VITALS: BP 126/72
[2020-08-23 20:00] VITALS: BP 135/77
[2020-08-24] VITALS: BP 126/84
[2020-08-24] MEDS: SENOKOT S TAB PO PRN (03:12)
[2020-08-24 04:00] VITALS: BP 129/71
[2020-08-24 05:06] LABS: HEMATOCRIT 24.6 % (36.0-47.0); HEMOGLOBIN 7.6 g/dl (12.0-15.5); MEAN CORPUSCULAR HEMOGLOBIN 23.4 pg (27.0-33.0); MEAN CORPUSCULAR HGB CONC 30.9 g/dl (32.0-36.5); MEAN CORPUSCULAR VOLUME 75.7 fl (80.0-96.0); PLATELET COUNT, AUTOMATED 454 10^3/uL (150-450); RED BLOOD COUNT 3.25 10^6/uL (4.00-5.40); WHITE BLOOD COUNT 10.7 10^3/uL (4.0-10.0)
[2020-08-24 05:34] LABS: ALBUMIN 1.6 GM/DL (3.2-5.2); ALT/SGPT 16 U/L (12-78); BILIRUBIN,TOTAL 0.3 MG/DL (0.2-1.0); BLOOD UREA NITROGEN 9 MG/DL (7-18); CALCIUM LEVEL 8.9 MG/DL (8.5-10.1); CARBON DIOXIDE LEVEL 29 MEQ/L (21-32); CHLORIDE LEVEL 100 MEQ/L (98-107); GLOMERULAR FILTRATION RATE > 60.0 (>60); GLUCOSE, FASTING 90 MG/DL (70-100); POTASSIUM SERUM 4.3 MEQ/L (3.5-5.1); SODIUM LEVEL 133 MEQ/L (136-145); TOTAL PROTEIN 6.8 GM/DL (6.4-8.2)
[2020-08-24] MEDS: VANCOMYCIN HCL 750 MG, VIAL MATE ADAPTER 1 EACH in D5W 250 ML IV SCH ×3 (05:43→21:00)
[2020-08-24] MEDS: SLF 3 ML SYR IV SCH ×3 (05:43→21:03)
[2020-08-24] MEDS: METHADONE 10 MG TAB (S0109) PO SCH ×4 (05:43→23:59)
[2020-08-24] MEDS: VANCOMYCIN HCL 500 MG in D5W MINI-BAG PLUS 100 ML IV SCH ×3 (06:58→22:25)
[2020-08-24] MEDS: MORPHINE 4 MG/ML 1ML VIAL/SYRINGE (J2270) IV PRN ×3 (07:49→22:26)
[2020-08-24 08:00] VITALS: BP 116/74
--- NOTE | 2020-08-24 09:07 | IPNPDOC ---
Text Note Date of Service The patient was seen on 08/24/20. 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 In the emergency room, patient was found to have a septic knee, as well as a stat echocardiogram that revealed a 1.8 cm vegetation of the tricuspid valve. Patient was taken to the OR by orthopedic surgery, Dr. Mar who has performed a washout of the right knee. Patient was admitted to the hospitalist service to the intensive care unit. Orthopedic surgery, Cardiology and infectious disease were called on consultation. Patient was seen and examined at the bedside. Patient is an uneventful evening denies any chest pain, shortness of breath politicians nausea, vomiting, abdominal pain, diarrhea, or urinary discomfort. She reports that her right leg still experiences some discomfort, however, she's been out of bed, working with physical therapy. 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 Dai and Dr. Garcia; at this point will hold off on OBDULIA - Dr. Watkins on consultation; appreciate their input Septic arthritis - XR Knee 08/16: 1. Knee joint effusion with soft tissue swelling. 2. No fracture or malalignment. - s/p joint washout on 08/[address] Shiv Mar - Antibiotics (See above) Septic emboli to lung, unlikely PNA - CXR 08/16: Bibasilar pneumonia. - CT chest 08/17: 1. The heart size is within normal limits. A small pericardial effusion is present. Tricuspid valve vegetations are not clearly visible on this limited noncontrast study. 2. The main pulmonary artery trunk is abnormally dilated measuring up to 4.3 cm in size, suggestive of underlying central pulmonary arterial hypertension. 3. Multiple solid and cavitary intrapulmonary nodules are present throughout both lungs, most likely representing septic emboli. Cavitation is noted in the nodule in the right middle lobe lateral segment on image 56 of series 201. A tiny left pleural effusion is present. 4. The spleen appears somewhat enlarged. - c/w Incentive spirometry and Acapella - Antibiotics (See above) IV drug abuse with heroin - Had reported the use of 10-15 bags per day (possibly even double strength) - No current evidence of withdrawal - c/w Methadone 10 [id number] - Will be begin to reduce frequency of morphine Normocytic anemia - Patient reports history of iron deficiency - Hg remains relatively stable; will continue to follow - No evidence of bleeding - s/p 2 unit PRBC - c/w ferrous sulfate s/p Hypokalemia Hyponatremia - s/p IV fluid hydration Poor IV access - Given patient's history of IV drug abuse; peripheral access is poor - Dr. Adams has placed central line 08/17 Extensive RLE DVT - Duplex US 08/17: Extensive right femoropopliteal DVT. - c/w Lovenox therapeutic; s/p Heparin drip Hepatitis - Patient has not completed therapy as an outpatient; reports she was incarcerated - Will likely require treatment after the above acute episodes resolve History of bipolar disorder - Currently untreated - Will consider psychiatric evaluation on discharge GI prophylaxis - c/w Protonix DVT prophylaxis - c/w Lovenox therapeutic Disposition: - Repeat blood cultures this morning; - Anticipate PICC line after negative blood cultures; possibly tomorrow if cultures remain negative VS,Fishbone, I+O VS, Fishbone, I+O Laboratory Tests 08/24/20 04:42 Vital Signs Date Time Temp Pulse Resp B/P (MAP) Pulse Ox O2 Delivery O2 Flow Rate FiO2 08/24/20 08:00 100.5 110 18 116/74 (88) 96 Room Air I&O- Last 24 Hours up to 6 AM 08/24/20 06:00 Intake Total 1401 ml Output Total 1300 ml Balance 101 ml BARRY NICHOLE MD Aug 24, 2020 09:07
[2020-08-24] MEDS: ENOXAPARIN 60MG/0.6ML SYRINGE (J1650 PER 10MG) SC SCH ×2 (09:33→20:58)
[2020-08-24] MEDS: FERROUS SULFATE 325MG TAB PO SCH ×2 (09:34→20:59)
[2020-08-24] MEDS: ACETAMINOPHEN TAB 650MG DOSE (2X325MG) PO PRN ×3 (09:34→20:59)
[2020-08-24] MEDS: PANTOPRAZOLE 40MG TAB (PROTONIX) PO SCH (09:34)
[2020-08-24 16:00] VITALS: BP 124/73
[2020-08-24 20:00] VITALS: BP 130/80
[2020-08-25] VITALS: BP 132/76
[2020-08-25] MEDS: VANCOMYCIN HCL 750 MG, VIAL MATE ADAPTER 1 EACH in D5W 250 ML IV SCH ×5 (05:00→22:19)
[2020-08-25] MEDS: METHADONE 10 MG TAB (S0109) PO SCH ×4 (05:44→23:39)
[2020-08-25] MEDS: SLF 3 ML SYR IV SCH ×3 (06:26→22:19)
[2020-08-25] MEDS: VANCOMYCIN HCL 500 MG in D5W MINI-BAG PLUS 100 ML IV SCH (06:26)
--- NOTE | 2020-08-25 07:25 | IPN ---
DATE: 08/24/2020 SUBJECTIVE: Brooke is feeling better. She states her shortness of breath has improved. She has rare pleuritic chest pains. Her temperature is 101.9 this afternoon, currently 100. Pulse 121, respirations 16, blood pressure 124/73, O2 saturation 98% on room air. She has no nausea, vomiting or diarrhea. No abdominal pain. Her knee pain has improved. LABORATORY DATA: White count is 10.7 down from 22.1, hemoglobin is 7.6, hematocrit 24.6, platelets 454. Sodium 133, potassium 4.3, chloride 100, bicarbonate 24, BUN 9, creatinine 0.5, glucose 90, calcium 8.9, magnesium 2, AST 15, ALT 16, alkaline phosphatase 131, C-reactive protein 15.2 down from 20.1. Total protein 6.8, albumin 1.6, vancomycin trough is 15.2. Blood cultures are negative at 48 hours on 08/22. PHYSICAL EXAMINATION: Healthy looking female in no acute distress. Heart normal S1, S2, tachycardiac with a faint systolic ejection murmur at the left upper sternal border. Lungs: Clear. No wheezes, rales or rhonchi. Abdomen: Soft, nontender. No hepatosplenomegaly. Extremities: No edema, clubbing or cyanosis on the left side. Right leg has +1 pitting edema with a swollen knee. Two incisions well healed from arthroscopic surgery. Range of motion of right knee is about 90 degrees. Chest: Left side central line, no redness or tenderness. IMPRESSION: 1. 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 2. MRSA Septic arthritis of the right knee improving. 3. History of IV drug abuse with heroin currently on tapering morphine 4 mg IV q 6 hours and methadone 10 mg by mouth q 6 hours doing well. 4. History of hepatitis C with spontaneous remission. Currently has normal liver function test and a viral load of 180. 5. History of bipolar disorder. The patient has finally agreed to get treated and followup with psychiatry. PLAN: Continue with IV vancomycin at current dosing, keeping vancomycin trough between 15 and 20. Encourage ambulation. Central line needs to be removed. She is currently day #10 and a PICC line could be placed since her cultures are negative. The patient will need at least 4 to 6 weeks of IV antibiotics from negative culture with end of therapy being minimum until September 19. The case has been discussed with Dr. Fitzgerald, who has ordered a PIC line for tomorrow. [facility]
[2020-08-25 08:00] VITALS: BP 119/73
[2020-08-25] MEDS: PANTOPRAZOLE 40MG TAB (PROTONIX) PO SCH (09:22)
[2020-08-25] MEDS: FERROUS SULFATE 325MG TAB PO SCH ×2 (09:22→20:38)
[2020-08-25] MEDS: ENOXAPARIN 60MG/0.6ML SYRINGE (J1650 PER 10MG) SC SCH ×2 (09:22→20:38)
[2020-08-25] MEDS: MOM 30ML SUSPENSION UDC PO PRN (09:32)
[2020-08-25] MEDS: ACETAMINOPHEN TAB 650MG DOSE (2X325MG) PO PRN ×2 (11:51→17:20)
--- NOTE | 2020-08-25 11:56 | IPNPDOC ---
Text Note Date of Service The patient was seen on 08/25/20. NOTE Subjective: Patient was seen and examined at the bedside. Patient denies any chest pain, shortness of breath politicians nausea, vomiting, abdominal pain, diarrhea, or urinary discomfort. She reports that her right leg still experiences some discomfort, however, she's been out of bed, working with physical therapy. Objective: Vitals (See below) General: Patient sitting up in chair, appears comfortable, awake, alert and oriented 3 HEENT: Normocephalic, atraumatic CVS: Mildly tachycardic, normal S1-S2, no rub/ murmur or gallop Lungs: Air entry is fair bilaterally without evidence of rhonchi, crackles or wheezing Abdomen: Nondistended, without tenderness, bowel sounds normal Extremities: Left leg is without any edema, right leg reveals 1+ pitting edema Labs and radiology reviewed Assessment and plan: Patient is a 29-year-old female with a PMHx of Hepatitis C (not completed treatement0, IV heroin abuse (increased usage to 15 bags per day), who has presented to the emergency room with right knee pain and fever. In the emergency room, patient was found to have a septic knee, as well as a stat echocardiogram that revealed a 1.8 cm vegetation of the tricuspid valve. Patient was taken to the OR by orthopedic surgery, Dr. Mar who has performed a washout of the right knee. Patient was admitted to the hospitalist service to the intensive care unit. Orthopedic surgery, Cardiology and infectious disease were called on consultation. 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 will need 4 to 6 weeks of IV antibiotics with minimum till Sep [address] Dai and Dr. Garcia; at this point will hold off on OBDULIA Dr. Watkins on consultation; appreciate their input MRSA Septic arthritis of right knee XR Knee 08/16: 1. Knee joint effusion with soft tissue swelling. 2. No fracture or malalignment. s/p joint washout on 08/[address] Shiv Mar Antibiotics (See above) Septic emboli to lung, unlikely PNA CXR 08/16: Bibasilar pneumonia. CT chest 08/17: 1. The heart size is within normal limits. A small pericardial effusion is present. Tricuspid valve vegetations are not clearly visible on this limited noncontrast study. 2. The main pulmonary artery trunk is abnormally dilated measuring up to 4.3 cm in size, suggestive of underlying central pulmonary arterial hypertension. 3. Multiple solid and cavitary intrapulmonary nodules are present throughout both lungs, most likely representing septic emboli. Cavitation is noted in the nodule in the right middle lobe lateral segment on image 56 of series 201. A tiny left pleural effusion is present. 4. The spleen appears somewhat enlarged. c/w Incentive spirometry and Acapella Antibiotics (See above) IV drug abuse with heroin Had reported the use of 10-15 bags per day (possibly even double strength) No current evidence of withdrawal c/w Methadone 10 [id number] and tapering of morphine Extensive RLE DVT Duplex US 08/17: Extensive right femoropopliteal DVT. c/w Lovenox therapeutic; s/p Heparin drip Hepatitis C Patient has not completed therapy as an outpatient; reports she was incarcerated spontaneous remission as per ID LFTs normal Normocytic anemia Patient reports history of iron deficiency s/p 2 unit PRBC c/w ferrous sulfate s/p Hypokalemia s/p Hyponatremia History of bipolar disorder Currently untreated Has agreed to be treated and agreed to see psychiatry as outpatient. GI prophylaxis Protonix DVT prophylaxis Lovenox therapeutic Disposition: Continued rehabilitation for completion of antibiotic therapy VS,Fishbone, I+O VS, Fishbone, I+O Vital Signs Date Time Temp Pulse Resp B/P (MAP) Pulse Ox O2 Delivery O2 Flow Rate FiO2 08/25/20 08:00 98.6 98 20 119/73 (88) 100 Room Air I&O- Last 24 Hours up to 6 AM 08/25/20 06:00 Intake Total 2210 ml Output Total 2000 ml Balance 210 ml ALDEN TEMPLETON MD Aug 25, 2020 11:56
[2020-08-25 12:00] VITALS: BP 128/68
[2020-08-25] MEDS: MORPHINE 4 MG/ML 1ML VIAL/SYRINGE (J2270) IV PRN (12:16)
[2020-08-25] MEDS ORDERED: LIDOCAINE 1% MDV 20ML VIAL As Ordered ONE (14:41)
--- NOTE | 2020-08-25 16:18 | REP ---
INDICATION: diminished breath sounds on the left (do after PICC) COMPARISON: 08/17/2020 TECHNIQUE: PA and lateral. FINDINGS: Patchy bilateral infiltrates and presumed pleural-based opacities are again appreciated and slightly improved when compared to prior examination. No effusion. No pneumothorax. Mediastinum and cardiac silhouette are stable with left-sided PICC line again identified extending into the SVC/right atrium. IMPRESSION: Patchy bilateral pulmonary and pleural opacities with slight improvement as compared to prior examination. <Electronically signed by Ulises Fajardo > 08/25/20 [id number]
[2020-08-25 16:21] VITALS: BP 122/71
--- NOTE | 2020-08-25 17:30 | REP ---
PROCEDURE NAME: PICC LINE INSERTION W/SITERITE SEDATION: None CLINICAL INFORMATION: Continued antibiotics PHYSICIAN: Wendy Yusuf PROCEDURE DESCRIPTION: The procedure was performed by BENSON Corrales, under the direct supervision of Dr. Layton. The risks and benefits of the procedure were explained to the patient and an informed consent was obtained both verbally and written. Directly prior to the start of the procedure a formal time-out was completed in the procedure room. The left medial brachial vein was localized using ultrasound guidance. The skin was prepped and draped in sterile fashion. One mL of 1% lidocaine 10 milligrams/milliliter was used as a local anesthetic. Using ultrasound guidance the left medial brachial vein was cannulated, and a 0.018 guidewire was inserted and advanced to the level of SVC using fluoroscopic guidance. The needle was removed and a 4.5 [place] dilator and peel-away sheath was inserted over the guidewire. A 4.5 [place] single lumen catheter was cut to a length of 40 cm. The dilator was removed and the catheter was inserted over the guidewire with the tip ending at the level of the SVC. The peel-away sheath was removed and the catheter was flushed with heparinized saline as per hospital protocol. The catheter was affixed to the skin and a sterile dressing was applied. The patient tolerated the procedure well and there were no immediate complications. ESTIMATED BLOOD LOSS: Less than 5 mL COMPLICATIONS: None CONCLUSION: Successful PICC line insertion into the left medial brachial vein <Electronically signed by Dandy Layton > 08/25/20 [id number]
[2020-08-25 20:00] VITALS: BP 120/65
[2020-08-26 00:45] VITALS: BP 130/76
[2020-08-26] MEDS: ACETAMINOPHEN TAB 650MG DOSE (2X325MG) PO PRN ×3 (01:09→20:49)
[2020-08-26] MEDS: VANCOMYCIN HCL 750 MG, VIAL MATE ADAPTER 1 EACH in D5W 250 ML IV SCH ×6 (04:54→22:33)
[2020-08-26 06:00] VITALS: BP 114/73
[2020-08-26] MEDS: METHADONE 10 MG TAB (S0109) PO SCH ×4 (06:11→23:46)
[2020-08-26] MEDS: SLF 3 ML SYR IV SCH (06:11)
[2020-08-26] MEDS: ENOXAPARIN 60MG/0.6ML SYRINGE (J1650 PER 10MG) SC SCH ×2 (08:06→20:49)
[2020-08-26] MEDS: FERROUS SULFATE 325MG TAB PO SCH ×2 (08:06→20:49)
[2020-08-26] MEDS: PANTOPRAZOLE 40MG TAB (PROTONIX) PO SCH (08:06)
[2020-08-26 08:42] LABS: BASO % 0.4 % (0.0-1.0); EOS # 0.2 10^3/uL (0.0-0.5); EOS % 2.9 % (0.0-3.0); HEMATOCRIT 24.8 % (36.0-47.0); HEMOGLOBIN 7.6 g/dl (12.0-15.5); LYMPH # 1.2 10^3/uL (1.5-5.0); MEAN CORPUSCULAR HEMOGLOBIN 23.2 pg (27.0-33.0); MEAN CORPUSCULAR HGB CONC 30.6 g/dl (32.0-36.5); MEAN CORPUSCULAR VOLUME 75.8 fl (80.0-96.0); MONO # 0.7 10^3/uL (0.0-0.8); MONO % 8.7 % (0.0-5.0); NEUTROPHILS # 5.5 10^3/uL (1.5-8.5); NEUTROPHILS % 70.6 % (36.0-66.0); PLATELET COUNT, AUTOMATED 436 10^3/uL (150-450); RED BLOOD COUNT 3.27 10^6/uL (4.00-5.40); WHITE BLOOD COUNT 7.7 10^3/uL (4.0-10.0)
--- NOTE | 2020-08-26 11:58 | IPNPDOC ---
Text Note Date of Service The patient was seen on 08/26/20. NOTE Subjective: Patient was seen and examined at the bedside. Patient denies any chest pain, shortness of breath politicians nausea, vomiting, abdominal pain, diarrhea, or urinary discomfort. she's been out of bed, working with physical therapy. Objective: Vitals (See below) General: Patient sitting up in chair, comfortable, awake, alert and oriented 3 HEENT: Normocephalic, atraumatic CVS: Mildly tachycardic, normal S1-S2, no rub/ murmur or gallop Lungs: Air entry is fair bilaterally without evidence of rhonchi, crackles or wheezing Abdomen: Nondistended, without tenderness, bowel sounds normal Extremities: Left leg is without any edema, right leg reveals 1+ pitting edema, right knee swollen. Labs and radiology reviewed Assessment and plan: Patient is a 29-year-old female with a PMHx of Hepatitis C (not completed treatement0, IV heroin abuse (increased usage to 15 bags per day), who has presented to the emergency room with right knee pain and fever. In the emergency room, patient was found to have a septic knee, as well as a stat echocardiogram that revealed a 1.8 cm vegetation of the tricuspid valve. Patient was taken to the OR by orthopedic surgery, Dr. Mar who has performed a washout of the right knee. Patient was admitted to the hospitalist service to the intensive care unit. Orthopedic surgery, Cardiology and infectious disease were called on consultation. 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 will need 4 to 6 weeks of IV antibiotics with minimum till Sep [address] Dai and Dr. Garcia; at this point will hold off on OBDULIA Dr. Watkins on consultation; appreciate their input MRSA Septic arthritis of right knee XR Knee 08/16: 1. Knee joint effusion with soft tissue swelling. 2. No fracture or malalignment. s/p joint washout on 08/[address] Shiv Mar vancomycin Septic emboli to lung CXR 08/[address] chest 08/17: 1. The heart size is within normal limits. A small pericardial effusion is present. Tricuspid valve vegetations are not clearly visible on this limited noncontrast study. 2. The main pulmonary artery trunk is abnormally dilated measuring up to 4.3 cm in size, suggestive of underlying central pulmonary arterial hypertension. 3. Multiple solid and cavitary intrapulmonary nodules are present throughout both lungs, most likely representing septic emboli. Cavitation is noted in the nodule in the right middle lobe lateral segment on image 56 of series 201. A tiny left pleural effusion is present. 4. The spleen appears somewhat enlarged. c/w Incentive spirometry and Acapella vancomycin IV drug abuse with heroin Had reported the use of 10-15 bags per day (possibly even double strength) No current evidence of withdrawal c/w Methadone 10 [id number] and tapering of morphine Extensive RLE DVT Duplex US 08/17: Extensive right femoropopliteal DVT. c/w Lovenox therapeutic; s/p Heparin drip Hepatitis C Patient has not completed therapy as an outpatient; reports she was incarcerated spontaneous remission as per ID LFTs normal Normocytic anemia Patient reports history of iron deficiency s/p 2 unit PRBC c/w ferrous sulfate s/p Hypokalemia s/p Hyponatremia History of bipolar disorder Currently untreated Has agreed to be treated and agreed to see psychiatry as outpatient. GI prophylaxis Protonix DVT prophylaxis Lovenox therapeutic Disposition: Continued rehabilitation for completion of antibiotic therapy VS,Kiersten, I+O VS, Kiersten, I+O Laboratory Tests 08/26/20 08:02 Vital Signs Date Time Temp Pulse Resp B/P (MAP) Pulse Ox O2 Delivery O2 Flow Rate FiO2 08/26/20 06:00 98.1 99 18 114/73 (87) 99 Room Air I&O- Last 24 Hours up to 6 AM 08/26/20 06:00 Intake Total 2156 ml Output Total 1400 ml Balance 756 ml ALDEN TEMPLETON MD Aug 26, 2020 11:58
[2020-08-26] MEDS ORDERED: MORPHINE 4 MG/ML 1ML VIAL/SYRINGE (J2270) IV PRN (12:00)
[2020-08-26] MEDS: SODIUM CHLORIDE 0.9% INJ 10 ML SYR IV PRN (12:55)
[2020-08-26 14:00] VITALS: BP 126/68
[2020-08-26] MEDS: SODIUM CHLORIDE 0.9% INJ 10 ML SYR IV SCH (17:01)
[2020-08-26 22:00] VITALS: BP 113/73
[2020-08-27] MEDS: VANCOMYCIN HCL 750 MG, VIAL MATE ADAPTER 1 EACH in D5W 250 ML IV SCH ×6 (04:38→22:08)
[2020-08-27] MEDS: ACETAMINOPHEN TAB 650MG DOSE (2X325MG) PO PRN ×2 (04:39→20:49)
[2020-08-27] MEDS: METHADONE 10 MG TAB (S0109) PO SCH ×3 (05:58→22:08)
[2020-08-27 06:00] VITALS: BP 113/72
[2020-08-27] MEDS: SODIUM CHLORIDE 0.9% INJ 10 ML SYR IV SCH ×2 (07:13→18:49)
[2020-08-27] MEDS: PANTOPRAZOLE 40MG TAB (PROTONIX) PO SCH (09:21)
[2020-08-27] MEDS: ENOXAPARIN 60MG/0.6ML SYRINGE (J1650 PER 10MG) SC SCH ×2 (09:21→20:49)
[2020-08-27] MEDS: FERROUS SULFATE 325MG TAB PO SCH ×2 (09:21→20:49)
--- NOTE | 2020-08-27 09:59 | IPNPDOC ---
Text Note Date of Service The patient was seen on 08/27/20. NOTE Subjective: Patient was seen and examined at the bedside. Patient denies any chest pain, shortness of breath politicians nausea, vomiting, abdominal pain, diarrhea, or urinary discomfort. She's been out of bed, working with physical therapy. She was asking if she could go to her parents at [place]. I discussed the problem of prescribing methadone as outpatient. She is willing to cut down on the dose and try to get off it. She says that she wants to get into Naltrexone(vivitrol ) injections which she reports are given at the [facility]. Will discuss with foundation relations manager and Dr Watkins Objective: Vitals (See below) General: Patient sitting up in chair, comfortable, awake, alert and oriented 3 HEENT: Normocephalic, atraumatic CVS: Mildly tachycardic, normal S1-S2, no rub/ murmur or gallop Lungs: Air entry is fair bilaterally without evidence of rhonchi, crackles or wheezing Abdomen: Nondistended, without tenderness, bowel sounds normal Extremities: Left leg is without any edema, right leg reveals 1+ pitting edema, right knee swollen. Labs and radiology reviewed Assessment and plan: Patient is a 29-year-old female with a PMHx of Hepatitis C (not completed treatement0, IV heroin abuse (increased usage to 15 bags per day), who has presented to the emergency room with right knee pain and fever. In the emergency room, patient was found to have a septic knee, as well as a stat echocardiogram that revealed a 1.8 cm vegetation of the tricuspid valve. Patient was taken to the OR by orthopedic surgery, Dr. Mar who has performed a washout of the right knee. Patient was admitted to the hospitalist service to the intensive care unit. Orthopedic surgery, Cardiology and infectious disease were called on consultation. 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 will need 4 to 6 weeks of IV antibiotics with minimum till Sep [address] Dai and Dr. Garcia; at this point will hold off on OBDULIA Dr. Watkins on consultation; appreciate their input MRSA Septic arthritis of right knee XR Knee 10/7: 1. Knee joint effusion with soft tissue swelling. 2. No fracture or malalignment. s/p joint washout on 08/[address] Shiv Mar vancomycin Septic emboli to lung CXR 08/[address] chest 08/17: 1. The heart size is within normal limits. A small pericardial effusion is present. Tricuspid valve vegetations are not clearly visible on this limited noncontrast study. 2. The main pulmonary artery trunk is abnormally dilated measuring up to 4.3 cm in size, suggestive of underlying central pulmonary arterial hypertension. 3. Multiple solid and cavitary intrapulmonary nodules are present throughout both lungs, most likely representing septic emboli. Cavitation is noted in the nodule in the right middle lobe lateral segment on image 56 of series 201. A tiny left pleural effusion is present. 4. The spleen appears somewhat enlarged. c/w Incentive spirometry and Acapella vancomycin IV drug abuse with heroin Had reported the use of 10-15 bags per day (possibly even double strength) No current evidence of withdrawal Off Morphine now. On Methadone will start tapering Extensive RLE DVT Duplex US 08/17: Extensive right femoropopliteal DVT. c/w Lovenox therapeutic; s/p Heparin drip Hepatitis C Patient has not completed therapy as an outpatient; reports she was incarcerated spontaneous remission as per ID LFTs normal Normocytic anemia Patient reports history of iron deficiency s/p 2 unit PRBC c/w ferrous sulfate s/p Hypokalemia s/p Hyponatremia History of bipolar disorder Currently untreated Has agreed to be treated and agreed to see psychiatry as outpatient. GI prophylaxis Protonix DVT prophylaxis Lovenox therapeutic Disposition: Continued rehabilitation for completion of antibiotic therapy VS,Kiersten, I+O VS, Kiersten, I+O Vital Signs Date Time Temp Pulse Resp B/P (MAP) Pulse Ox O2 Delivery O2 Flow Rate FiO2 08/27/20 09:20 99.5 08/27/20 06:00 105 20 113/72 (86) 96 Room Air I&O- Last 24 Hours up to 6 AM 08/27/20 06:00 Intake Total 2575 ml Output Total 1900 ml Balance 675 ml ALDEN TEMPLETON MD Aug 27, 2020 09:59
[2020-08-27 13:52] VITALS: BP 124/72
[2020-08-27] MEDS: SODIUM CHLORIDE 0.9% INJ 10 ML SYR IV PRN (15:37)
[2020-08-27 22:00] VITALS: BP 119/77
[2020-08-28] MEDS: VANCOMYCIN HCL 750 MG, VIAL MATE ADAPTER 1 EACH in D5W 250 ML IV SCH ×4 (04:32→22:02)
[2020-08-28] MEDS: METHADONE 10 MG TAB (S0109) PO SCH ×3 (05:48→21:58)
[2020-08-28 06:00] VITALS: BP 118/63
[2020-08-28 06:17] LABS: HEMATOCRIT 24.2 % (36.0-47.0); HEMOGLOBIN 7.1 g/dl (12.0-15.5); MEAN CORPUSCULAR HEMOGLOBIN 22.5 pg (27.0-33.0); MEAN CORPUSCULAR HGB CONC 29.3 g/dl (32.0-36.5); MEAN CORPUSCULAR VOLUME 76.6 fl (80.0-96.0); PLATELET COUNT, AUTOMATED 341 10^3/uL (150-450); RED BLOOD COUNT 3.16 10^6/uL (4.00-5.40); WHITE BLOOD COUNT 8.2 10^3/uL (4.0-10.0)
[2020-08-28 06:35] LABS: BLOOD UREA NITROGEN 6 MG/DL (7-18); CALCIUM LEVEL 9.4 MG/DL (8.5-10.1); CARBON DIOXIDE LEVEL 29 MEQ/L (21-32); CHLORIDE LEVEL 99 MEQ/L (98-107); CREATININE FOR GFR 0.56 MG/DL (0.55-1.30); GLOMERULAR FILTRATION RATE > 60.0 (>60); GLUCOSE, FASTING 133 MG/DL (70-100); POTASSIUM SERUM 3.9 MEQ/L (3.5-5.1); SODIUM LEVEL 133 MEQ/L (136-145)
[2020-08-28] MEDS: SODIUM CHLORIDE 0.9% INJ 10 ML SYR IV SCH ×2 (06:57→17:25)
[2020-08-28] MEDS: FERROUS SULFATE 325MG TAB PO SCH ×2 (08:57→21:58)
[2020-08-28] MEDS: ENOXAPARIN 60MG/0.6ML SYRINGE (J1650 PER 10MG) SC SCH ×2 (08:57→21:59)
[2020-08-28] MEDS: PANTOPRAZOLE 40MG TAB (PROTONIX) PO SCH (08:57)
--- NOTE | 2020-08-28 10:15 | IPN ---
INFECTIOUS DISEASE PROGRESS NOTE DATE: 08/25/2020. Dictation in conjunction with Dr. Joey Watkins. SUBJECTIVE: Brooke continues to do well. She feels like her breathing continues to be improved. She continues to spike fevers that cause her to sweat through her bed sheets, however, she is otherwise doing well and has no complaints. She is still having a difficult time bending her knee, but continues to work with physical therapy. OBJECTIVE/PHYSICAL EXAMINATION: GENERAL: A well appearing female, sitting upright in chair at bedside in no acute distress. HEENT: Head is normocephalic, atraumatic. EOMI. No scleral icterus. Mucous membranes moist. CHEST: Left-sided central line in place. No erythema or tenderness overlying this. CARDIOVASCULAR: Regular rate and rhythm, normal S1 and S2. Systolic ejection murmur heard best at left upper sternal border. LUNGS: Mildly diminished breath sounds at left lung base. No wheezes, crackles or rhonchi. ABDOMEN: Soft, nontender, non-distended. No hepatosplenomegaly. EXTREMITIES: Left side without edema, clubbing or cyanosis. Right leg with mild pitting edema and a mildly swollen knee. The incisions over the anterior knee are healing well; right knee is at about 120 degrees and can be bent to about 90 degrees. ASSESSMENT AND PLAN: 1. MRSA with tricuspid valve endocarditis secondary to MRSA with septic emboli in her lungs. Her cultures thus far have been negative and she is continued on her I.V. vancomycin every 8 hours with troughs between 15 and 20. Her central line is being removed today and she is having a PICC line put in with end of therapy being minimum until September 19 after 4-6 weeks of I.V. antibiotics. 2. MRSA septic arthritis of the right knee: She continues to improve. We encouraged her to continue with ambulation. 3. History of I.V. drug abuse with heroin: Currently on tapering morphine 4 mg I.V. every 6 hours and Methadone 10 mg p.o. every 6 hours doing well. 4. History of Hepatitis C with spontaneous remission with normal LFTs and viral load of 180. 5. History of bipolar disorder: Patient is still in agreement about being treated for bipolar disorder and to follow-up with psychiatry. We will continue to follow along. RUSS
[2020-08-28 13:52] VITALS: BP 126/77
[2020-08-28] MEDS: VANCOMYCIN HCL 500 MG in D5W MINI-BAG PLUS 100 ML IV SCH ×2 (16:04→23:37)
[2020-08-28 16:25] LABS: HEMATOCRIT 27.1 % (36.0-47.0); HEMOGLOBIN 8.1 g/dl (12.0-15.5); MEAN CORPUSCULAR HEMOGLOBIN 22.9 pg (27.0-33.0); MEAN CORPUSCULAR HGB CONC 29.9 g/dl (32.0-36.5); MEAN CORPUSCULAR VOLUME 76.6 fl (80.0-96.0); PLATELET COUNT, AUTOMATED 345 10^3/uL (150-450); RED BLOOD COUNT 3.54 10^6/uL (4.00-5.40); WHITE BLOOD COUNT 6.5 10^3/uL (4.0-10.0)
--- NOTE | 2020-08-28 16:41 | IPNPDOC ---
Text Note Date of Service The patient was seen on 08/28/20. NOTE Subjective: Patient was seen and examined at the bedside. Patient denies any chest pain, shortness of breath nausea, vomiting, abdominal pain, diarrhea, or urinary discomfort. Still has low grade fevers intermittently but less frequently. Objective: Vitals (See below) General: Patient sitting up in chair, comfortable, awake, alert and oriented 3 HEENT: Normocephalic, atraumatic CVS: Mildly tachycardic, normal S1-S2, no rub/ murmur or gallop Lungs: Air entry is fair bilaterally without evidence of rhonchi, crackles or wheezing Abdomen: Nondistended, without tenderness, bowel sounds normal Extremities: Left leg is without any edema, right leg reveals 1+ pitting edema, right knee swollen. Labs and radiology reviewed Assessment and plan: Patient is a 29-year-old female with a PMHx of Hepatitis C (not completed treatement0, IV heroin abuse (increased usage to 15 bags per day), who has presented to the emergency room with right knee pain and fever. In the emergency room, patient was found to have a septic knee, as well as a stat echocardiogram that revealed a 1.8 cm vegetation of the tricuspid valve. Patient was taken to the OR by orthopedic surgery, Dr. Mar who has performed a washout of the right knee. Patient was admitted to the hospitalist service to the intensive care unit. Orthopedic surgery, Cardiology and infectious disease were called on consultation. 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 will need 4 to 6 weeks of IV antibiotics with minimum till Sep [address] Dai and Dr. Garcia; at this point will hold off on OBDULIA Dr. Watkins on consultation; appreciate their input MRSA Septic arthritis of right knee XR Knee 08/16: 1. Knee joint effusion with soft tissue swelling. 2. No fracture or malalignment. s/p joint washout on 08/[address] Shiv Mar vancomycin Septic emboli to lung CXR 08/[address] chest 08/17: 1. The heart size is within normal limits. A small pericardial effusion is present. Tricuspid valve vegetations are not clearly visible on this limited noncontrast study. 2. The main pulmonary artery trunk is abnormally dilated measuring up to 4.3 cm in size, suggestive of underlying central pulmonary arterial hypertension. 3. Multiple solid and cavitary intrapulmonary nodules are present throughout both lungs, most likely representing septic emboli. Cavitation is noted in the nodule in the right middle lobe lateral segment on image 56 of series 201. A tiny left pleural effusion is present. 4. The spleen appears somewhat enlarged. c/w Incentive spirometry and Acapella vancomycin IV drug abuse with heroin Had reported the use of 10-15 bags per day (possibly even double strength) No current evidence of withdrawal Off Morphine now. On Methadone will start tapering Extensive RLE DVT Duplex US 08/17: Extensive right femoropopliteal DVT. c/w Lovenox therapeutic; s/p Heparin drip Hepatitis C Patient has not completed therapy as an outpatient; reports she was incarcerated spontaneous remission as per ID LFTs normal Normocytic anemia Patient reports history of iron deficiency s/p 2 unit PRBC c/w ferrous sulfate s/p Hypokalemia s/p Hyponatremia History of bipolar disorder Currently untreated Has agreed to be treated and agreed to see psychiatry as outpatient. GI prophylaxis Protonix DVT prophylaxis Lovenox therapeutic Disposition: Continued rehabilitation for completion of antibiotic therapy VS,Kiersten, I+O VS, Kiersten, I+O Laboratory Tests 08/28/20 05:48 Vital Signs Date Time Temp Pulse Resp B/P (MAP) Pulse Ox O2 Delivery O2 Flow Rate FiO2 08/28/20 06:00 98.3 83 12 118/63 (81) 97 Room Air I&O- Last 24 Hours up to 6 AM 08/28/20 07:00 Intake Total 2340 ml Output Total 3100 ml Balance -760 ml ALDEN TEMPLETON MD Aug 28, 2020 08:10
[2020-08-28 22:00] VITALS: BP 123/76
[2020-08-29] MEDS: SODIUM CHLORIDE 0.9% INJ 10 ML SYR IV PRN ×2 (00:55→08:55)
[2020-08-29 06:00] VITALS: BP 122/74
[2020-08-29] MEDS: VANCOMYCIN HCL 750 MG, VIAL MATE ADAPTER 1 EACH in D5W 250 ML IV SCH ×3 (06:12→22:07)
[2020-08-29] MEDS: MOM 30ML SUSPENSION UDC PO PRN (06:12)
[2020-08-29] MEDS: METHADONE 10 MG TAB (S0109) PO SCH ×3 (06:12→21:28)
[2020-08-29] MEDS: SODIUM CHLORIDE 0.9% INJ 10 ML SYR IV SCH ×2 (06:18→17:49)
[2020-08-29] MEDS: VANCOMYCIN HCL 500 MG in D5W MINI-BAG PLUS 100 ML IV SCH ×3 (07:32→23:49)
[2020-08-29] MEDS: ACETAMINOPHEN TAB 650MG DOSE (2X325MG) PO PRN ×3 (07:39→21:29)
--- NOTE | 2020-08-29 08:34 | IPN ---
DATE: 08/28/2020 SUBJECTIVE: Brooke is doing much better. She states her knee pain has improved. She walks to the nurses station and back. The swelling in her right leg has diminished. She has had no fever in the past 48 hours. No nausea, vomiting or diarrhea. MEDICATIONS: Vancomycin 1.25 grams IV q. 8 hours. LABORATORY STUDIES: White count is 6.5, hemoglobin 8.1, hematocrit 27.1, platelets 345. Sodium 133, potassium 3.9, chloride 99, bicarbonate 29, BUN 6, creatinine 0.56, glucose 133, calcium 9.4, CRP 11.6 down from 20.1. Blood cultures from 08/20 positive for MRSA, 08/22 negative two sets. PHYSICAL EXAMINATION: VITAL SIGNS: Temperature is 99.5, pulse 118, respirations 18, blood pressure 126/77, O2 sat 97% on room air. HEART: Normal S1, S2, tachycardic with systolic ejection murmur, 2/6 at the left upper sternal border. LUNGS: Clear. No rales, rhonchi or wheezes. She had mild pleurisy on the right side last night. BACK: No CVA tenderness. ABDOMEN: Soft, nontender, no hepatosplenomegaly. EXTREMITIES: Right leg with +1 pitting edema. Ecchymosis on the right ankle along the lateral malleolus. Right knee effusion has decreased. Range of motion 90 degrees left leg and no clubbing, cyanosis, or edema. IMPRESSION: 1. MRSA tricuspid valve endocarditis doing much better with negative cultures on 08/22. The patient will need IV Vancomycin for at least 4 weeks from negative culture with end of treatment date hopefully September 19. 2. MRSA septic arthritis of the right knee improving, on IV Vancomycin. 3. Septic emboli to the lungs - The patient still has some pleuritic chest pain which is transient. 4. History of IV heroin abuse - currently off Morphine and on tapering doses of Methadone at 10 mg p.o. every 8 hours. 5. History of hepatitis C with a previous history of spontaneous remission - currently LFTs normal and HCVRNA at 180. PLAN: Continue IV Vancomycin. Keep trough between 15 and 18; current trough is 22.4 on 08/28. Dose is being adjusted by Pharmacy. End of therapy with IV Vancomycin anticipated to be September 19. There is discussion about transfer to [facility] for IV antibiotics. The patient is not a candidate for home IV antibiotics due to history of drug use. MTDD
[2020-08-29] MEDS: FERROUS SULFATE 325MG TAB PO SCH ×2 (08:54→21:28)
[2020-08-29] MEDS: PANTOPRAZOLE 40MG TAB (PROTONIX) PO SCH (08:54)
[2020-08-29] MEDS: ENOXAPARIN 60MG/0.6ML SYRINGE (J1650 PER 10MG) SC SCH (08:55)
--- NOTE | 2020-08-29 10:08 | IPNPDOC ---
Text Note Date of Service The patient was seen on 08/29/20. NOTE Subjective: Patient was seen and examined at the bedside. Patient denies any chest pain, shortness of breath nausea, vomiting, abdominal pain, diarrhea, or urinary discomfort. Still has low grade fevers intermittently but less frequently. Does complain of severe night sweats. Objective: Vitals (See below) General: Patient sitting up in chair, comfortable, awake, alert and oriented 3 HEENT: Normocephalic, atraumatic CVS: Mildly tachycardic, normal S1-S2, no rub/ murmur or gallop Lungs: Air entry is fair bilaterally without evidence of rhonchi, crackles or wheezing Abdomen: Nondistended, without tenderness, bowel sounds normal Extremities: Left leg is without any edema, right leg reveals 1+ pitting edema, right knee swollen. Labs and radiology reviewed Assessment and plan: Patient is a 29-year-old female with a PMHx of Hepatitis C (not completed treatement0, IV heroin abuse (increased usage to 15 bags per day), who has presented to the emergency room with right knee pain and fever. In the emergency room, patient was found to have a septic knee, as well as a stat echocardiogram that revealed a 1.8 cm vegetation of the tricuspid valve. Patient was taken to the OR by orthopedic surgery, Dr. Mar who has performed a washout of the right knee. Patient was admitted to the hospitalist service to the intensive care unit. Orthopedic surgery, Cardiology and infectious disease were called on consultation. 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 will need 4 to 6 weeks of IV antibiotics with minimum till Sep [address] Dai and Dr. Garcia; at this point will hold off on OBDULIA Dr. Watkins on consultation; appreciate their input MRSA Septic arthritis of right knee XR Knee 08/16: 1. Knee joint effusion with soft tissue swelling. 2. No fracture or malalignment. s/p joint washout on 08/[address] Shiv Mar vancomycin Septic emboli to lung CXR 08/[address] chest 08/17: 1. The heart size is within normal limits. A small pericardial effusion is present. Tricuspid valve vegetations are not clearly visible on this limited noncontrast study. 2. The main pulmonary artery trunk is abnormally dilated measuring up to 4.3 cm in size, suggestive of underlying central pulmonary arterial hypertension. 3. Multiple solid and cavitary intrapulmonary nodules are present throughout both lungs, most likely representing septic embo li. Cavitation is noted in the nodule in the right middle lobe lateral segment on image 56 of series 201. A tiny left pleural effusion is present. 4. The spleen appears somewhat enlarged. c/w Incentive spirometry and Acapella vancomycin IV drug abuse with heroin Had reported the use of 10-15 bags per day (possibly even double strength) No current evidence of withdrawal Off Morphine now. On Methadone started tapering Extensive RLE DVT Duplex US 08/17: Extensive right femoropopliteal DVT. will stop lovenox and start eliquis. Hepatitis C Patient has not completed therapy as an outpatient; reports she was incarcerated spontaneous remission as per ID LFTs normal Normocytic anemia Patient reports history of iron deficiency s/p 2 unit PRBC c/w ferrous sulfate s/p Hypokalemia s/p Hyponatremia History of bipolar disorder Currently untreated Has agreed to be treated and agreed to see psychiatry as outpatient. GI prophylaxis Protonix DVT prophylaxis Lovenox therapeutic Disposition: Continued rehabilitation for completion of antibiotic therapy VS,Kiersten, I+O VS, Kiersten, I+O Laboratory Tests 08/28/20 16:02 Vital Signs Date Time Temp Pulse Resp B/P (MAP) Pulse Ox O2 Delivery O2 Flow Rate FiO2 08/29/20 06:00 97.9 115 18 122/74 (90) 97 Room Air I&O- Last 24 Hours up to 6 AM 08/29/20 06:00 Intake Total 2005 ml Output Total 2275 ml Balance -270 ml ALDEN TEMPLETON MD Aug 29, 2020 10:08
[2020-08-29 14:00] VITALS: BP 118/62
[2020-08-29] MEDS: APIXABAN 5 MG TAB (ELIQUIS) PO SCH (21:28)
[2020-08-29 22:00] VITALS: BP 116/60
[2020-08-30] VITALS (14 sets, daily range): BP systolic 118–132; BP diastolic 64–90
[2020-08-30] MEDS: SODIUM CHLORIDE 0.9% INJ 10 ML SYR IV PRN ×3 (01:10→21:20)
[2020-08-30 06:36] LABS: BASO % 0.5 % (0.0-1.0); EOS # 0.2 10^3/uL (0.0-0.5); EOS % 3.5 % (0.0-3.0); HEMATOCRIT 25.3 % (36.0-47.0); HEMOGLOBIN 7.5 g/dl (12.0-15.5); LYMPH % 16.8 % (24.0-44.0); MEAN CORPUSCULAR HEMOGLOBIN 22.4 pg (27.0-33.0); MEAN CORPUSCULAR HGB CONC 29.6 g/dl (32.0-36.5); MEAN CORPUSCULAR VOLUME 75.5 fl (80.0-96.0); MONO # 0.5 10^3/uL (0.0-0.8); MONO % 7.6 % (0.0-5.0); NEUTROPHILS # 4.3 10^3/uL (1.5-8.5); NEUTROPHILS % 70.9 % (36.0-66.0); PLATELET COUNT, AUTOMATED 314 10^3/uL (150-450); RED BLOOD COUNT 3.35 10^6/uL (4.00-5.40); WHITE BLOOD COUNT 6.1 10^3/uL (4.0-10.0)
[2020-08-30] MEDS: METHADONE 10 MG TAB (S0109) PO SCH ×2 (06:37→20:13)
[2020-08-30] MEDS: MOM 30ML SUSPENSION UDC PO PRN (06:37)
[2020-08-30] MEDS: SODIUM CHLORIDE 0.9% INJ 10 ML SYR IV SCH ×2 (06:38→17:28)
[2020-08-30] MEDS: ACETAMINOPHEN TAB 650MG DOSE (2X325MG) PO PRN ×3 (06:38→18:19)
[2020-08-30] MEDS: VANCOMYCIN HCL 750 MG, VIAL MATE ADAPTER 1 EACH in D5W 250 ML IV SCH ×3 (06:38→22:56)
[2020-08-30 06:44] LABS: BLOOD UREA NITROGEN 6 MG/DL (7-18); CALCIUM LEVEL 9.3 MG/DL (8.5-10.1); CARBON DIOXIDE LEVEL 28 MEQ/L (21-32); CHLORIDE LEVEL 99 MEQ/L (98-107); CREATININE FOR GFR 0.59 MG/DL (0.55-1.30); GLOMERULAR FILTRATION RATE > 60.0 (>60); GLUCOSE, FASTING 95 MG/DL (70-100); POTASSIUM SERUM 4.1 MEQ/L (3.5-5.1); SODIUM LEVEL 134 MEQ/L (136-145)
--- NOTE | 2020-08-30 07:06 | IPN ---
DATE: 08/29/2020 SUBJECTIVE: Brooke is doing very well except for increased knee pain today. She states that her knee is a little more swollen. She has been doing much better with walking. She is ready for transfer to [facility] to continue her IV antibiotics. She has no cough or shortness of breath, no nausea, vomiting or diarrhea. No fever since 08/26 but she continues complaining of night sweats. LABORATORY STUDIES: White count 6.5, hemoglobin 8.1, hematocrit 27.1, platelets 345 Sodium 133, potassium 3.9, chloride 99, bicarbonate 29, BUN 6, creatinine 0.56, glucose 133, calcium 9.4, CRP 11.6. Blood cultures negative two sets on 08/22. PHYSICAL EXAMINATION: VITAL SIGNS: Temperature 98.6, pulse 120, respirations 18, blood pressure 118/62, O2 sat 97% on room air. HEART: Normal S1, S2, tachycardic. Systolic ejection murmur 1/6 best heard at the left upper sternal border. LUNGS: Clear, no rales, rhonchi or wheezes. ABDOMEN: Soft, nontender, no hepatosplenomegaly. EXTREMITIES: No clubbing, cyanosis, or edema. Right thigh slightly more swollen than the left. Right knee effusion with limited range of motion to 90 degrees. Ecchymosis on the right ankle above the lateral malleolus. IMPRESSION: 1. MRSA endocarditis of the tricuspid valve with secondary septic emboli to the lungs. Chest x-ray on 08/25 shows bilateral fluffy infiltrates but improving. Doing much better on IV Vancomycin, currently at a dose of 1.25 grams q. 8 hours. The patient will be treated through at least September 19 and depending on clinical improvement, 4-6 weeks. 2. MRSA septic arthritis of the right knee I discussed the case Dr. Mar, who had done her initial washout on 08/16. The patient needs another aspiration. She has a significant effusion. That will improve mobility and decrease risk of complications. 3. Septic emboli to the lungs - The patient has no cough or shortness of breath and is not hypoxic. 4. Intravenous drug abuse, especially heroin - The patient would like to see a psychiatrist while still in the hospital. She also has a history of bipolar disorder. 5. Extensive DVT of her lower extremity on Eliquis 10 mg twice daily. PLAN: 1. Continue Vancomycin at the dose of 1.25 grams q. 12 hours. I would suggest trying to adjust the dose to q. 12 dosing so when she is transferred to [facility] it will be less complicated. 2. I have re-consulted Dr. Mar to consider re-aspiration of the right knee to improve mobility. MTDD
[2020-08-30] MEDS ORDERED: FUROSEMIDE 40MG/4ML VIAL (J1940) IV ONE (07:45)
[2020-08-30] MEDS: APIXABAN 5 MG TAB (ELIQUIS) PO SCH ×2 (08:00→20:13)
[2020-08-30] MEDS: FERROUS SULFATE 325MG TAB PO SCH ×2 (08:00→20:13)
[2020-08-30] MEDS: PANTOPRAZOLE 40MG TAB (PROTONIX) PO SCH (08:00)
[2020-08-30] MEDS: VANCOMYCIN HCL 500 MG in D5W MINI-BAG PLUS 100 ML IV SCH ×2 (08:00→15:19)
[2020-08-30 09:35] LABS: C REACTIVE PROTEIN QUANTITATIV 13.7 MG/DL (0.00-0.30)
[2020-08-30 09:42] LABS: FOLATE 9.2 NG/ML (>5.4)
[2020-08-30] MEDS ORDERED: KETOROLAC 30 MG/ML 1ML VIAL IV ONE ×2 (09:45→20:30)
[2020-08-30] MEDS: CYCLOBENZAPRINE 5MG TABLET PO PRN ×2 (11:09→18:51)
[2020-08-30] MEDS: LIDOCAINE 5% (LIDODERM) PATCH TD SCH (11:09)
--- NOTE | 2020-08-30 12:54 | IPNPDOC ---
Text Note Date of Service The patient was seen on 08/30/20. NOTE Subjective: Patient was seen and examined at the bedside. has been complaining of increased right knee pain since yesterday. this am he leg was locking up with severe spasms. Reevaluated by ortho Dr Mar today. Does not need retapping. Pain control. Still has low grade fevers intermittently but less frequently. Does complain of severe night sweats. HH trending down will transfuse 2 units. Objective: Vitals (See below) General: Patient sitting up in chair, comfortable, awake, alert and oriented 3 HEENT: Normocephalic, atraumatic CVS: Mildly tachycardic, normal S1-S2, no rub/ murmur or gallop Lungs: Air entry is fair bilaterally without evidence of rhonchi, crackles or wheezing Abdomen: Nondistended, without tenderness, bowel sounds normal Extremities: Left leg is without any edema, right leg reveals 1+ pitting edema, right knee swollen. Labs and radiology reviewed Assessment and plan: Patient is a 29-year-old female with a PMHx of Hepatitis C (not completed treatement0, IV heroin abuse (increased usage to 15 bags per day), who has presented to the emergency room with right knee pain and fever. In the emergency room, patient was found to have a septic knee, as well as a stat echocardiogram that revealed a 1.8 cm vegetation of the tricuspid valve. Patient was taken to the OR by orthopedic surgery, Dr. Mar who has performed a washout of the right knee. Patient was admitted to the hospitalist service to the intensive care unit. Orthopedic surgery, Cardiology and infectious disease were called on consultation. 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 will need 4 to 6 weeks of IV antibiotics with minimum till Sep [address] Dai and Dr. Garcia; at this point will hold off on OBDULIA Dr. Watkins on consultation; appreciate their input MRSA Septic arthritis of right knee XR Knee 08/16: 1. Knee joint effusion with soft tissue swelling. 2. No fracture or malalignment. s/p joint washout on 08/[address] Shiv Mar Now with persistent pain and spasms and locking of the knee vancomycin toradol and cyclobenzaprine prn, lidoderm patch, cold compress. Septic emboli to lung CXR 08/[address] chest 08/17: 1. The heart size is within normal limits. A small pericardial effusion is present. Tricuspid valve vegetations are not clearly visible on this limited noncontrast study. 2. The main pulmonary artery trunk is abnormally dilated measuring up to 4.3 cm in size, suggestive of underlying central pulmonary arterial hypertension. 3. Multiple solid and cavitary intrapulmonary nodules are present throughout both lungs, most likely representing septic emboli. Cavitation is noted in the nodule in the right middle lobe lateral segment on image 56 of series 201. A tiny left pleural effusion is present. 4. The spleen appears somewhat enlarged. c/w Incentive spirometry and Acapella vancomycin IV drug abuse with heroin Had reported the use of 10-15 bags per day (possibly even double strength) No current evidence of withdrawal Off Morphine now. On Methadone started tapering Extensive RLE DVT Duplex US 08/17: Extensive right femoropopliteal DVT. started on eliquis. Chronic Anemia HH now trending down again possibly anemia of chronic disease. also has h/o iron def. No bleeding noted will check iron profile, vit b12 and folate levels. s/p 2 unit PRBC c/w ferrous sulfate will transfuse 2 more units today. Hepatitis C Patient has not completed therapy as an outpatient; reports she was incarcerated spontaneous remission as per ID LFTs normal s/p Hypokalemia s/p Hyponatremia History of bipolar disorder Currently untreated Has agreed to be treated and agreed to see psychiatry as outpatient. GI prophylaxis Protonix DVT prophylaxis Lovenox therapeutic Disposition: Continued rehabilitation for completion of antibiotic therapy VS,Kiersten, I+O VS, Kiersten, I+O Laboratory Tests 08/30/20 06:01 Vital Signs Date Time Temp Pulse Resp B/P (MAP) Pulse Ox O2 Delivery O2 Flow Rate FiO2 08/30/20 06:00 100.0 107 17 118/64 (82) 98 Room Air I&O- Last 24 Hours up to 6 AM 08/30/20 07:00 Intake Total 1520 ml Output Total 1650 ml Balance -130 ml ALDEN TEMPLETON MD Aug 30, 2020 07:44
[2020-08-30] MEDS ORDERED: ANEXSIA, NORCO 7.5MG/325MG TABLET(HYDROCODONE/APAP) PO ONE (13:15)
[2020-08-30] MEDS ORDERED: diphenhydrAMINE 25MG CAP PO ONE (13:45)
--- NOTE | 2020-08-30 14:44 | IPN ---
DATE: 08/30/2020 CHIEF COMPLAINT: Followup right septic knee irrigation and debridement arthroscopically. HISTORY OF PRESENT ILLNESS: This 30-year-old female presents with acute septic joint of her right knee. I performed irrigation and debridement arthroscopically. She has been on antibiotics for acute bacterial endocarditis as well. The knee is settling down. It is feeling better for her. She is doing a little bit in physical therapy over the last 2 days. She has had some minor swelling but no redness, drainage, or warmth of the knee. One minor temperature in the last 24 hours. REVIEW OF SYSTEMS: Reviewed and noted. No fevers. PHYSICAL EXAMINATION: This is a 30-year-old female. She appears well. Temperature 98.4. There is a small effusion. No redness, warmth, or drainage. Portal sites appears well healed. Free of complications. No redness, swelling, or drainage. Range of motion is 5-95 degrees, painless. A little bit of soreness in deep flexion. There is a small amount of prepatellar bursitis as well as that appears aseptic. Normal sensation of foot. Foot is warm and well perfused. Good pedal pulses. She can wiggle her toes, dorsiflex and plantarflex her foot. White blood cell count is trending down, 6.1 today. Last ESR was from yesterday, 106. C-reactive protein again trending down to 11.6 as of 2 days ago. ASSESSMENT AND PLAN: This 30-year-old female has some minor swelling after a knee arthroscopy, irrigation and debridement. I have a quite low suspicion that this could be still infected. I think this appears to be a normal amount of swelling post knee arthroscopy. She just started physical therapy and has not been icing this down more than one time, so I think that is her next best option is to continue range of motion, elevation, gentle range of motion, icing, and anti-inflammatories for swelling. I would not recommend re-aspiration for comfort at this point, and she can followup as an outpatient in the office. Myself and Raghu had a discussion about this this morning and agreed to proceed in this fashion. RUSS
[2020-08-30] MEDS: IBUPROFEN 600MG TAB PO PRN (15:18)
[2020-08-30] MEDS: **NOTE PATIENT COMMENT** MISC XX SCH (20:13)
[2020-08-31] MEDS: VANCOMYCIN HCL 500 MG in D5W MINI-BAG PLUS 100 ML IV SCH ×3 (00:29→15:52)
[2020-08-31] MEDS: SODIUM CHLORIDE 0.9% INJ 10 ML SYR IV PRN ×3 (01:41→20:19)
[2020-08-31] MEDS: ACETAMINOPHEN TAB 650MG DOSE (2X325MG) PO PRN ×2 (03:29→12:57)
[2020-08-31] MEDS: IBUPROFEN 600MG TAB PO PRN ×2 (04:21→15:16)
[2020-08-31] MEDS: SODIUM CHLORIDE 0.9% INJ 10 ML SYR IV SCH ×2 (05:12→18:00)
[2020-08-31 06:00] VITALS: BP 116/72
[2020-08-31 06:29] LABS: HEMATOCRIT 28.7 % (36.0-47.0); HEMOGLOBIN 8.8 g/dl (12.0-15.5); MEAN CORPUSCULAR HEMOGLOBIN 24.1 pg (27.0-33.0); MEAN CORPUSCULAR HGB CONC 30.7 g/dl (32.0-36.5); MEAN CORPUSCULAR VOLUME 78.6 fl (80.0-96.0); PLATELET COUNT, AUTOMATED 309 10^3/uL (150-450); RED BLOOD COUNT 3.65 10^6/uL (4.00-5.40); WHITE BLOOD COUNT 6.6 10^3/uL (4.0-10.0)
[2020-08-31] MEDS: VANCOMYCIN HCL 750 MG, VIAL MATE ADAPTER 1 EACH in D5W 250 ML IV SCH ×2 (06:33→15:52)
[2020-08-31 06:46] LABS: BLOOD UREA NITROGEN 11 MG/DL (7-18); CALCIUM LEVEL 9.1 MG/DL (8.5-10.1); CARBON DIOXIDE LEVEL 28 MEQ/L (21-32); CHLORIDE LEVEL 101 MEQ/L (98-107); CREATININE FOR GFR 0.65 MG/DL (0.55-1.30); GLOMERULAR FILTRATION RATE > 60.0 (>60); GLUCOSE, FASTING 103 MG/DL (70-100); POTASSIUM SERUM 4.2 MEQ/L (3.5-5.1); SODIUM LEVEL 138 MEQ/L (136-145)
[2020-08-31] MEDS: METHADONE 10 MG TAB (S0109) PO SCH ×2 (08:04→20:17)
[2020-08-31] MEDS: APIXABAN 5 MG TAB (ELIQUIS) PO SCH ×2 (08:04→20:17)
[2020-08-31] MEDS: FERROUS SULFATE 325MG TAB PO SCH ×2 (08:04→20:17)
[2020-08-31] MEDS: PANTOPRAZOLE 40MG TAB (PROTONIX) PO SCH (08:04)
[2020-08-31] MEDS: LIDOCAINE 5% (LIDODERM) PATCH TD SCH (08:05)
--- NOTE | 2020-08-31 10:19 | IPNPDOC ---
Text Note Date of Service The patient was seen on 08/31/20. NOTE Subjective: Right knee pain has been really bad for the past 2 days worst y esterday. Increased swelling this week though appears a little better today compared to yesterday. Reevaluated by ortho Dr Mar on 08/30 Does not need retapping. Pain control. Still has low grade fevers intermittently but less frequently. Does complain of severe night sweats. Objective: Vitals (See below) General: Patient sitting up in chair, comfortable, awake, alert and oriented 3 HEENT: Normocephalic, atraumatic CVS: Mildly tachycardic, normal S1-S2, no rub/ murmur or gallop Lungs: Air entry is fair bilaterally without evidence of rhonchi, crackles or wheezing Abdomen: Nondistended, without tenderness, bowel sounds normal Extremities: No edema. 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 In the emergency room, patient was found to have a septic knee, as well as a stat echocardiogram that revealed a 1.8 cm vegetation of the tricuspid valve. Patient was taken to the OR by orthopedic surgery, Dr. Mar who has performed a washout of the right knee. Patient was admitted to the hospitalist service to the intensive care unit. Orthopedic surgery, Cardiology and infectious disease were called on consultation. 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 will need 4 to 6 weeks of IV antibiotics with minimum till Sep [address] Dai and Dr. Garcia; at this point will hold off on OBDULIA Dr. Watkins on consultation; appreciate their input MRSA Septic arthritis of right knee XR Knee 08/16: 1. Knee joint effusion with soft tissue swelling. 2. No fracture or malalignment. s/p joint washout on 08/[address] Shiv Mar Now with persistent pain and spasms and locking of the knee worse last 2 to 3 da ys than before. Reevaluated by Dr Mar on 08/30/20 vancomycin Ibuprofen , tylenol and cyclobenzaprine prn, lidoderm patch Septic emboli to lung CXR 08/[address] chest 08/17: 1. The heart size is within normal limits. A small pericardial effusion is present. Tricuspid valve vegetations are not clearly visible on this limited noncontrast study. 2. The main pulmonary artery trunk is abnormally dilated measuring up to 4.3 cm in size, suggestive of underlying central pulmonary arterial hypertension. 3. Multiple solid and cavitary intrapulmonary nodules are present throughout both lungs, most likely representing septic emboli. Cavitation is noted in the nodule in the right middle lobe lateral segment on image 56 of series 201. A tiny left pleural effusion is present. 4. The spleen appears somewhat enlarged. c/w Incentive spirometry and Acapella vancomycin IV drug abuse with heroin Had reported the use of 10-15 bags per day (possibly even double strength) No current evidence of withdrawal On Methadone started tapering Extensive RLE DVT Duplex US 08/17: Extensive right femoropopliteal DVT. started on eliquis. Chronic Anemia HH now trending down again possibly anemia of chronic disease. also has h/o iron def. No bleeding noted will check iron profile, vit b12 and folate levels. s/p 4 unit PRBCs c/w ferrous sulfate Hepatitis C Patient has not completed therapy as an outpatient; reports she was incarcerated spontaneous remission as per ID LFTs normal s/p Hypokalemia s/p Hyponatremia History of bipolar disorder Currently untreated Has agreed to be treated and agreed to see psychiatry as outpatient. GI prophylaxis Protonix DVT prophylaxis Lovenox therapeutic Disposition: Continued rehabilitation for completion of antibiotic therapy VS,Kiersten, I+O VS, Kiersten, I+O Laboratory Tests 08/31/20 06:05 Vital Signs Date Time Temp Pulse Resp B/P (MAP) Pulse Ox O2 Delivery O2 Flow Rate FiO2 08/31/20 06:00 98.8 108 16 116/72 (87) 96 Room Air 08/30/20 11:21 I&O- Last 24 Hours up to 6 AM 08/31/20 06:00 Intake Total 2185 ml Output Total 2675 ml Balance -490 ml ALDEN TEMPLETON MD Aug 31, 2020 10:19
[2020-08-31 14:00] VITALS: BP 129/79
[2020-08-31] MEDS: CYCLOBENZAPRINE 5MG TABLET PO PRN (15:10)
[2020-08-31] MEDS: KETOROLAC 30 MG/ML 1ML VIAL IV PRN (20:18)
[2020-08-31] MEDS: **NOTE PATIENT COMMENT** MISC XX SCH (21:35)
[2020-08-31 22:00] VITALS: BP 120/64
[2020-09-01] MEDS: VANCOMYCIN HCL 750 MG, VIAL MATE ADAPTER 1 EACH in D5W 250 ML IV SCH ×2 (04:47→17:22)
[2020-09-01] MEDS: KETOROLAC 30 MG/ML 1ML VIAL IV PRN ×3 (04:56→20:57)
[2020-09-01 06:00] VITALS: BP 128/72
[2020-09-01] MEDS: VANCOMYCIN HCL 500 MG in D5W MINI-BAG PLUS 100 ML IV SCH ×2 (06:08→19:35)
[2020-09-01] MEDS: SODIUM CHLORIDE 0.9% INJ 10 ML SYR IV SCH ×2 (06:09→20:56)
[2020-09-01] MEDS: SODIUM CHLORIDE 0.9% INJ 10 ML SYR IV PRN (07:45)
[2020-09-01] MEDS: METHADONE 10 MG TAB (S0109) PO SCH (08:03)
[2020-09-01] MEDS: APIXABAN 5 MG TAB (ELIQUIS) PO SCH ×2 (08:03→20:56)
[2020-09-01] MEDS: FERROUS SULFATE 325MG TAB PO SCH ×2 (08:03→20:56)
[2020-09-01] MEDS: PANTOPRAZOLE 40MG TAB (PROTONIX) PO SCH (08:03)
[2020-09-01] MEDS: LIDOCAINE 5% (LIDODERM) PATCH TD SCH (08:04)
[2020-09-01 14:00] VITALS: BP 130/78
--- NOTE | 2020-09-01 14:15 | IPNPDOC ---
Text Note Date of Service The patient was seen on 09/01/20. NOTE Subjective: Right knee pain has been really bad this week. Increased swelling this week though appears a little better today compared to yesterday though still warm compared to the other. Reevaluated by ortho Dr Mar on 08/30 Does not need retapping. Pain control. Still has low grade fevers intermittently but less frequently. Does complain of night sweats. Objective: Vitals (See below) General: Patient sitting up in chair, comfortable, awake, alert and oriented 3 HEENT: Normocephalic, atraumatic CVS: Mildly tachycardic, normal S1-S2, no rub/ murmur or gallop Lungs: Air entry is fair bilaterally without evidence of rhonchi, crackles or wheezing Abdomen: Nondistended, without tenderness, bowel sounds normal Extremities: No edema. Right knee swollen , warm to touch, no redness Labs and radiology reviewed Assessment and plan: Patient is a 29-year-old female with a PMHx of Hepatitis C (not completed treatement0, IV heroin abuse (increased usage to 15 bags per day), who has presented to the emergency room with right knee pain and fever. In the emergency room, patient was found to have a septic knee, as well as a stat echocardiogram that revealed a 1.8 cm vegetation of the tricuspid valve. Patient was taken to the OR by orthopedic surgery, Dr. Mar who has performed a washout of the right knee. Patient was admitted to the hospitalist service to the intensive care unit. Orthopedic surgery, Cardiology and infectious disease were called on consultation. 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 will need 4 to 6 weeks of IV antibiotics with minimum till Sep [address] Dai and Dr. Garcia; at this point will hold off on OBDULIA Dr. Watkins on consultation; appreciate their input MRSA Septic arthritis of right knee XR Knee 08/16: 1. Knee joint effusion with soft tissue swelling. 2. No fracture or malalignment. s/p joint washout on 08/[address] Shiv Mar Now with persistent pain and spasms and locking of the knee worse last 2 to 3 days than before. Reevaluated by Dr Mar on 08/30/20 vancomycin toradol, tylenol and cyclobenzaprine prn, lidoderm patch Septic emboli to lung CXR 08/[address] chest 08/17: 1. The heart size is within normal limits. A small pericardial e ffusion is present. Tricuspid valve vegetations are not clearly visible on this limited noncontrast study. 2. The main pulmonary artery trunk is abnormally dilated measuring up to 4.3 cm in size, suggestive of underlying central pulmonary arterial hypertension. 3. Multiple solid and cavitary intrapulmonary nodules are present throughout both lungs, most likely representing septic e mboli. Cavitation is noted in the nodule in the right middle lobe lateral segment on image 56 of series 201. A tiny left pleural effusion is present. 4. The spleen appears somewhat enlarged. c/w Incentive spirometry and Acapella vancomycin IV drug abuse with heroin Had reported the use of 10-15 bags per day (possibly even double strength) No current evidence of withdrawal On Methadone tapering Extensive RLE DVT Duplex US 08/17: Extensive right femoropopliteal DVT. started on eliquis. Chronic Anemia HH now trending down again possibly anemia of chronic disease. also has h/o iron def. No bleeding noted will check iron profile, vit b12 and folate levels. s/p 4 unit PRBCs c/w ferrous sulfate Hepatitis C Patient has not completed therapy as an outpatient; reports she was incarcerated spontaneous remission as per ID LFTs normal s/p Hypokalemia s/p Hyponatremia History of bipolar disorder Currently untreated Has agreed to be treated and agreed to see psychiatry as outpatient. GI prophylaxis Protonix DVT prophylaxis Lovenox therapeutic Disposition: Continued rehabilitation for completion of antibiotic therapy VS,Jonathane, I+O VS, Jonathane, I+O Vital Signs Date Time Temp Pulse Resp B/P (MAP) Pulse Ox O2 Delivery O2 Flow Rate FiO2 09/01/20 06:00 98.4 111 20 128/72 (90) 96 Room Air 08/30/20 11:21 l I&O- Last 24 Hours up to 6 AM 09/01/20 06:00 Intake Total 1945 ml Output Total 1100 ml Balance 845 ml ALDEN TEMPLETON MD Sep 01, 2020 14:15
[2020-09-01] MEDS: **NOTE PATIENT COMMENT** MISC XX SCH (20:57)
[2020-09-01 22:00] VITALS: BP 120/65
[2020-09-02] MEDS: VANCOMYCIN HCL 750 MG, VIAL MATE ADAPTER 1 EACH in D5W 250 ML IV SCH ×2 (05:44→16:14)
[2020-09-02 06:00] VITALS: BP 120/75
[2020-09-02] MEDS: VANCOMYCIN HCL 500 MG in D5W MINI-BAG PLUS 100 ML IV SCH ×2 (07:14→17:31)
[2020-09-02] MEDS: SODIUM CHLORIDE 0.9% INJ 10 ML SYR IV SCH ×2 (08:17→18:53)
[2020-09-02] MEDS: LIDOCAINE 5% (LIDODERM) PATCH TD SCH (08:18)
[2020-09-02] MEDS: FERROUS SULFATE 325MG TAB PO SCH ×2 (08:18→20:13)
[2020-09-02] MEDS: METHADONE 10 MG TAB (S0109) PO SCH (08:18)
[2020-09-02] MEDS: APIXABAN 5 MG TAB (ELIQUIS) PO SCH ×2 (08:18→20:13)
[2020-09-02] MEDS: PANTOPRAZOLE 40MG TAB (PROTONIX) PO SCH (08:18)
[2020-09-02] MEDS: KETOROLAC 30 MG/ML 1ML VIAL IV PRN ×3 (09:16→22:56)
[2020-09-02 14:00] VITALS: BP 123/70
[2020-09-02] MEDS: **NOTE PATIENT COMMENT** MISC XX SCH ×2 (20:23→20:24)
[2020-09-02 22:00] VITALS: BP 118/72
[2020-09-02] MEDS: SODIUM CHLORIDE 0.9% INJ 10 ML SYR IV PRN (22:57)
[2020-09-03] MEDS: VANCOMYCIN HCL 750 MG, VIAL MATE ADAPTER 1 EACH in D5W 250 ML IV SCH ×2 (05:25→17:36)
[2020-09-03 06:00] VITALS: BP 124/72
[2020-09-03 06:44] LABS: BASO % 0.5 % (0.0-1.0); EOS # 0.2 10^3/uL (0.0-0.5); EOS % 5.9 % (0.0-3.0); HEMATOCRIT 26.5 % (36.0-47.0); HEMOGLOBIN 8.1 g/dl (12.0-15.5); LYMPH # 0.8 10^3/uL (1.5-5.0); MEAN CORPUSCULAR HEMOGLOBIN 23.7 pg (27.0-33.0); MEAN CORPUSCULAR HGB CONC 30.6 g/dl (32.0-36.5); MEAN CORPUSCULAR VOLUME 77.5 fl (80.0-96.0); MONO # 0.4 10^3/uL (0.0-0.8); MONO % 9.4 % (0.0-5.0); NEUTROPHILS # 2.6 10^3/uL (1.5-8.5); NEUTROPHILS % 63.7 % (36.0-66.0); PLATELET COUNT, AUTOMATED 366 10^3/uL (150-450); RED BLOOD COUNT 3.42 10^6/uL (4.00-5.40); WHITE BLOOD COUNT 4.1 10^3/uL (4.0-10.0)
[2020-09-03] MEDS: VANCOMYCIN HCL 500 MG in D5W MINI-BAG PLUS 100 ML IV SCH ×2 (07:00→17:37)
[2020-09-03 07:05] LABS: ALBUMIN 1.9 GM/DL (3.2-5.2); ALT/SGPT 10 U/L (12-78); BILIRUBIN,TOTAL 0.2 MG/DL (0.2-1.0); BLOOD UREA NITROGEN 9 MG/DL (7-18); CARBON DIOXIDE LEVEL 28 MEQ/L (21-32); CHLORIDE LEVEL 103 MEQ/L (98-107); CREATININE FOR GFR 0.61 MG/DL (0.55-1.30); GLOMERULAR FILTRATION RATE > 60.0 (>60); GLUCOSE, FASTING 114 MG/DL (70-100); POTASSIUM SERUM 4.2 MEQ/L (3.5-5.1); SODIUM LEVEL 136 MEQ/L (136-145); TOTAL PROTEIN 6.6 GM/DL (6.4-8.2)
--- NOTE | 2020-09-03 07:46 | IPNPDOC ---
Text Note Date of Service The patient was seen on 09/02/20. NOTE Subjective: Right knee pain has been really bad this week. Increased swelling this week though appears a little better now though still warm compared to the other. Reevaluated by ortho Dr Mar on 08/30 Does not need retapping. Pain control. Still has low grade fevers intermittently but less frequently. Does complain of night sweats but less. Objective: Vitals (See below) General: Patient sitting up in chair, comfortable, awake, alert and oriented 3 HEENT: Normocephalic, atraumatic CVS: Mildly tachycardic, normal S1-S2, no rub/ murmur or gallop Lungs: Air entry is fair bilaterally without evidence of rhonchi, crackles or wheezing Abdomen: Nondistended, without tenderness, bowel sounds normal Extremities: No edema. Right knee swollen , warm to touch, no redness Labs and radiology reviewed Assessment and plan: Patient is a 29-year-old female with a PMHx of Hepatitis C (not completed treatement0, IV heroin abuse (increased usage to 15 bags per day), who has presented to the emergency room with right knee pain and fever. In the emergency room, patient was found to have a septic knee, as well as a stat echocardiogram that revealed a 1.8 cm vegetation of the tricuspid valve. Patient was taken to the OR by orthopedic surgery, Dr. Mar who has performed a washout of the right knee. Patient was admitted to the hospitalist service to the intensive care unit. Orthopedic surgery, Cardiology and infectious disease were called on consultation. 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 will need 4 to 6 weeks of IV antibiotics with minimum till Sep [address] Dai and Dr. Garcia; at this point will hold off on OBDULIA Dr. Watkins on consultation; appreciate their input MRSA Septic arthritis of right knee XR Knee 08/16: 1. Knee joint effusion with soft tissue swelling. 2. No fracture or malalignment. s/p joint washout on 08/[address] Shiv Mar Now with persistent pain and spasms and locking of the knee worse last 2 to 3 days than before. Reevaluated by Dr Mar on 08/30/20 vancomycin toradol, tylenol and cyclobenzaprine prn, lidoderm patch Septic emboli to lung CXR 08/[address] chest 08/17: 1. The heart size is within normal limits. A small pericardial effusion is present. Tricuspid valve vegetations are not clearly visible on this limited noncontrast study. 2. The main pulmonary artery trunk is abnormally dilated measuring up to 4.3 cm in size, suggestive of underlying central pulmonary arterial hypertension. 3. Multiple solid and cavitary intrapulmonary nodules are present throughout both lungs, most likely representing septic emboli. Cavitation is noted in the nodule in the right middle lobe lateral segment on image 56 of series 201. A tiny left pleural effusion is present. 4. The spleen appears somewhat enlarged. c/w Incentive spirometry and Acapella vancomycin IV drug abuse with heroin Had reported the use of 10-15 bags per day (possibly even double strength) No current evidence of withdrawal On Methadone tapering Extensive RLE DVT Duplex US 08/17: Extensive right femoropopliteal DVT. started on eliquis. Chronic Anemia HH now trending down again possibly anemia of chronic disease. also has h/o iron def. No bleeding noted will check iron profile, vit b12 and folate levels. s/p 4 unit PRBCs c/w ferrous sulfate Hepatitis C Patient has not completed therapy as an outpatient; reports she was incarcerated spontaneous remission as per ID LFTs normal s/p Hypokalemia s/p Hyponatremia History of bipolar disorder Currently untreated Has agreed to be treated and agreed to see psychiatry as outpatient. GI prophylaxis Protonix DVT prophylaxis Lovenox therapeutic Disposition: Continued rehabilitation for completion of antibiotic therapy VS,Kiersten, I+O VS, Kiersten, I+O Vital Signs Date Time Temp Pulse Resp B/P (MAP) Pulse Ox O2 Delivery O2 Flow Rate FiO2 09/02/20 06:00 98.7 104 18 120/75 (90) 98 Room Air 08/30/20 11:21 I&O- Last 24 Hours up to 6 AM 09/02/20 07:00 Intake Total 1180 ml Output Total 1900 ml Balance -720 ml ALDEN TEMPLETON MD Sep 02, 2020 08:26
[2020-09-03] MEDS: SODIUM CHLORIDE 0.9% INJ 10 ML SYR IV SCH ×2 (08:29→17:32)
[2020-09-03] MEDS: METHADONE 10 MG TAB (S0109) PO SCH (08:29)
[2020-09-03] MEDS: APIXABAN 5 MG TAB (ELIQUIS) PO SCH ×2 (08:29→20:09)
[2020-09-03] MEDS: FERROUS SULFATE 325MG TAB PO SCH ×2 (08:29→20:09)
[2020-09-03] MEDS: PANTOPRAZOLE 40MG TAB (PROTONIX) PO SCH (08:29)
[2020-09-03] MEDS: LIDOCAINE 5% (LIDODERM) PATCH TD SCH (08:30)
--- NOTE | 2020-09-03 11:26 | IPNPDOC ---
Text Note Date of Service The patient was seen on 09/03/20. NOTE Subjective: Right knee pain has been really bad this week. Increased swelling this week though appears better now though still warm compared to the other. Reevaluated by ortho Dr Mar on 08/30 Does not need retapping. Pain control/ antiinflammatory meds, ice application. No fevers. Continues to have night sweats though less. Had an inadvertent exposure to COVID so will need to be on 14 days of contact and droplet isolation. Exposure on 08/30-09/01. Objective: Vitals (See below) General: Patient sitting up in chair, comfortable, awake, alert and oriented 3 HEENT: Normocephalic, atraumatic CVS: Mildly tachycardic, normal S1-S2, no rub/ murmur or gallop Lungs: Air entry is fair bilaterally without evidence of rhonchi, crackles or wheezing Abdomen: Nondistended, without tenderness, bowel sounds normal Extremities: No edema. Right knee swollen , warm to touch, no redness Labs and radiology reviewed Assessment and plan: Patient is a 29-year-old female with a PMHx of Hepatitis C (not completed treatement0, IV heroin abuse (increased usage to 15 bags per day), who has presented to the emergency room with right knee pain and fever. In the emergency room, patient was found to have a septic knee, as well as a stat echocardiogram that revealed a 1.8 cm vegetation of the tricuspid valve. Patient was taken to the OR by orthopedic surgery, Dr. Mar who has performed a washout of the right knee. Patient was admitted to the hospitalist service to the intensive care unit. Orthopedic surgery, Cardiology and infectious disease were called on consultation. 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 will need 4 to 6 weeks of IV antibiotics with minimum till Sep [address] Dai and Dr. Garcia; at this point will hold off on OBDULIA Dr. Watkins on consultation; appreciate her input MRSA Septic arthritis of right knee XR Knee 08/16: 1. Knee joint effusion with soft tissue swelling. 2. No fracture or malalignment. s/p joint washout on 08/[address] Shiv Mar Now with persistent pain and spasms and locking of the knee worse last 2 to 3 days than before. Reevaluated by ortho Dr Mar on 08/30 Does not need retapping. Pain control/ antiinflammatory meds, ice application. vancomycin toradol, tylenol and cyclobenzaprine prn, lidoderm patch Septic emboli to lung CXR 08/[address] chest 08/17: 1. The heart size is within normal limits. A small pericardial effusion is present. Tricuspid valve vegetations are not clearly visible on this limited noncontrast study. 2. The main pulmonary artery trunk is abnormally dilated measuring up to 4.3 cm in size, suggestive of underlying central pulmonary arterial hypertension. 3. Multiple solid and cavitary intrapulmonary nodules are present throughout both lungs, most likely representing septic emboli. Cavitation is noted in the nodule in the right middle lobe lateral segment on image 56 of series 201. A tiny left pleural effusion is present. 4. The spleen appears somewhat enlarged. c/w Incentive spirometry and Acapella vancomycin IV drug abuse with heroin Had reported the use of 10-15 bags per day (possibly even double strength) No current evidence of withdrawal On Methadone tapering Extensive RLE DVT Duplex US 08/17: Extensive right femoropopliteal DVT. started on eliquis. Chronic Anemia HH now trending down again possibly anemia of chronic disease. also has h/o iron def. No bleeding noted will check iron profile, vit b12 and folate levels. s/p 4 unit PRBCs c/w ferrous sulfate Hepatitis C Patient has not completed therapy as an outpatient; reports she was incarcerated spontaneous remission as per ID LFTs normal s/p Hypokalemia s/p Hyponatremia History of bipolar disorder Currently untreated Has agreed to be treated and agreed to see psychiatry as outpatient. GI prophylaxis Protonix DVT prophylaxis Lovenox therapeutic Disposition: Continued rehabilitation for completion of antibiotic therapy VS,Kiersten, I+O VS, Jonathane, I+O Laboratory Tests 09/03/20 06:27 Vital Signs Date Time Temp Pulse Resp B/P (MAP) Pulse Ox O2 Delivery O2 Flow Rate FiO2 09/03/20 06:00 99.1 110 18 124/72 (89) 99 Room Air 08/30/20 11:21 I&O- Last 24 Hours up to 6 AM 09/03/20 06:00 Intake Total 1395 ml Output Total 1450 ml Balance -55 ml ALDEN TEMPLETON MD Sep 03, 2020 08:39
[2020-09-03 14:00] VITALS: BP 123/74
[2020-09-03] MEDS: KETOROLAC 30 MG/ML 1ML VIAL IV PRN (16:25)
[2020-09-03] MEDS: **NOTE PATIENT COMMENT** MISC XX SCH (20:09)
[2020-09-03 22:00] VITALS: BP 128/70
[2020-09-04] MEDS: VANCOMYCIN HCL 750 MG, VIAL MATE ADAPTER 1 EACH in D5W 250 ML IV SCH ×2 (05:06→17:45)
[2020-09-04 06:00] VITALS: BP 126/68
[2020-09-04] MEDS: VANCOMYCIN HCL 500 MG in D5W MINI-BAG PLUS 100 ML IV SCH ×2 (06:39→19:48)
[2020-09-04 07:39] LABS: HEMATOCRIT 29.2 % (36.0-47.0); HEMOGLOBIN 8.8 g/dl (12.0-15.5); MEAN CORPUSCULAR HGB CONC 30.1 g/dl (32.0-36.5); MEAN CORPUSCULAR VOLUME 76.4 fl (80.0-96.0); PLATELET COUNT, AUTOMATED 401 10^3/uL (150-450); RED BLOOD COUNT 3.82 10^6/uL (4.00-5.40); WHITE BLOOD COUNT 4.3 10^3/uL (4.0-10.0)
[2020-09-04 07:59] LABS: BLOOD UREA NITROGEN 7 MG/DL (7-18); CALCIUM LEVEL 9.6 MG/DL (8.5-10.1); CARBON DIOXIDE LEVEL 29 MEQ/L (21-32); CHLORIDE LEVEL 101 MEQ/L (98-107); GLOMERULAR FILTRATION RATE > 60.0 (>60); GLUCOSE, FASTING 93 MG/DL (70-100); POTASSIUM SERUM 4.2 MEQ/L (3.5-5.1); SODIUM LEVEL 136 MEQ/L (136-145)
[2020-09-04] MEDS: SODIUM CHLORIDE 0.9% INJ 10 ML SYR IV SCH ×2 (08:20→19:49)
[2020-09-04] MEDS: PANTOPRAZOLE 40MG TAB (PROTONIX) PO SCH (08:21)
[2020-09-04] MEDS: FERROUS SULFATE 325MG TAB PO SCH ×2 (08:21→19:47)
[2020-09-04] MEDS: METHADONE 10 MG TAB (S0109) PO SCH (08:21)
[2020-09-04] MEDS: APIXABAN 5 MG TAB (ELIQUIS) PO SCH ×2 (08:21→19:47)
[2020-09-04] MEDS: LIDOCAINE 5% (LIDODERM) PATCH TD SCH (08:23)
--- NOTE | 2020-09-04 12:26 | IPNPDOC ---
Text Note Date of Service The patient was seen on 09/04/20. NOTE Subjective: Right knee pain is getting better. Swelling less. No fevers. Con tinues to have night sweats though less. Had an inadvertent exposure to COVID so will need to be on 14 days of contact and droplet isolation. Exposure on 08/30- 09/01. Objective: Vitals (See below) General: Patient sitting up in chair, comfortable, awake, alert and oriented 3 HEENT: Normocephalic, atraumatic CVS: Mildly tachycardic, normal S1-S2, no rub/ murmur or gallop Lungs: Air entry is fair bilaterally without evidence of rhonchi, crackles or wheezing Abdomen: Nondistended, without tenderness, bowel sounds normal Extremities: No edema. Right knee swollen , warm to touch, no redness Labs and radiology reviewed Assessment and plan: Patient is a 29-year-old female with a PMHx of Hepatitis C (not completed treatement0, IV heroin abuse (increased usage to 15 bags per day), who has presented to the emergency room with right knee pain and fever. In the emergency room, patient was found to have a septic knee, as well as a stat echocardiogram that revealed a 1.8 cm vegetation of the tricuspid valve. Patient was taken to the OR by orthopedic surgery, Dr. Mar who has performed a washout of the right knee. Patient was admitted to the hospitalist service to the intensive care unit. Orthopedic surgery, Cardiology and infectious disease were called on consultation. 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 will need 4 to 6 weeks of IV antibiotics with minimum till Sep [address] Dai and Dr. Garcia; at this point will hold off on OBDULIA Dr. Watkins on consultation; appreciate her input MRSA Septic arthritis of right knee XR Knee 08/16: 1. Knee joint effusion with soft tissue swelling. 2. No fracture or malalignment. s/p joint washout on 08/[address] Shiv Mar Now with persistent pain and spasms and locking of the knee worse last 2 to 3 days than before. Reevaluated by ortho Dr Mar on 08/30 Does not need retapping. Pain control/ antiinflammatory meds, ice application. vancomycin toradol, tylenol and cyclobenzaprine prn, lidoderm patch Septic emboli to lung CXR 08/[address] chest 08/17: 1. The heart size is within normal limits. A small pericardial effusion is present. Tricuspid valve vegetations are not clearly visible on this limited noncontrast study. 2. The main pulmonary artery trunk is abnormally dilated measuring up to 4.3 cm in size, suggestive of underlying central pulmonary arterial hypertension. 3. Multiple solid and cavitary intrapulmonary nodules are present throughout both lungs, most likely representing septic emboli. Cavitation is noted in the nodule in the right middle lobe lateral segment on image 56 of series 201. A tiny left pleural effusion is present. 4. The spleen appears somewhat enlarged. c/w Incentive spirometry and Acapella vancomycin IV drug abuse with heroin Had reported the use of 10-15 bags per day (possibly even double strength) No withdrawal Off methadone Extensive RLE DVT Duplex US 08/17: Extensive right femoropopliteal DVT. started on eliquis. Chronic Anemia HH now trending down again possibly anemia of chronic disease. also has h/o iron def. No bleeding noted will check iron profile, vit b12 and folate levels. s/p 4 unit PRBCs c/w ferrous sulfate Hepatitis C Patient has not completed therapy as an outpatient; reports she was incarcerated spontaneous remission as per ID LFTs normal s/p Hypokalemia s/p Hyponatremia History of bipolar disorder Currently untreated Has agreed to be treated and agreed to see psychiatry as outpatient. GI prophylaxis Protonix DVT prophylaxis Lovenox therapeutic Disposition: Continued rehabilitation for completion of antibiotic therapy VSKiersten, I+O VSKiersten, I+O Laboratory Tests 09/04/20 07:11 Vital Signs Date Time Temp Pulse Resp B/P (MAP) Pulse Ox O2 Delivery O2 Flow Rate FiO2 09/04/20 06:00 98.9 99 18 126/68 (87) 96 Room Air 08/30/20 11:21 I&O- Last 24 Hours up to 6 AM 09/04/20 06:00 Intake Total 1865 ml Output Total 3600 ml Balance -1735 ml ALDEN TEMPLETON MD Sep 04, 2020 12:25
[2020-09-04 14:00] VITALS: BP 110/60
[2020-09-04] MEDS: ACETAMINOPHEN 500 MG TAB PO SCH ×2 (14:10→21:03)
[2020-09-04] MEDS: MOM 30ML SUSPENSION UDC PO PRN (14:10)
[2020-09-04] MEDS: **NOTE PATIENT COMMENT** MISC XX SCH (19:47)
[2020-09-04 22:00] VITALS: BP 122/52
[2020-09-05] MEDS: VANCOMYCIN HCL 750 MG, VIAL MATE ADAPTER 1 EACH in D5W 250 ML IV SCH ×2 (04:40→16:34)
[2020-09-05] MEDS: SODIUM CHLORIDE 0.9% INJ 10 ML SYR IV SCH ×2 (05:48→17:49)
[2020-09-05] MEDS: ACETAMINOPHEN 500 MG TAB PO SCH ×3 (05:48→21:00)
[2020-09-05] MEDS: VANCOMYCIN HCL 500 MG in D5W MINI-BAG PLUS 100 ML IV SCH ×2 (05:49→17:48)
[2020-09-05 06:00] VITALS: BP 122/64
[2020-09-05 07:04] LABS: C REACTIVE PROTEIN QUANTITATIV 9.63 MG/DL (0.00-0.30)
[2020-09-05] MEDS: APIXABAN 5 MG TAB (ELIQUIS) PO SCH ×2 (08:11→20:59)
[2020-09-05] MEDS: PANTOPRAZOLE 40MG TAB (PROTONIX) PO SCH (08:11)
[2020-09-05] MEDS: FERROUS SULFATE 325MG TAB PO SCH ×2 (08:11→20:59)
[2020-09-05] MEDS: LIDOCAINE 5% (LIDODERM) PATCH TD SCH (08:12)
--- NOTE | 2020-09-05 09:21 | IPN ---
DATE: 09/04/2020 Brooke seems to be in good spirits. She cannot go to [facility] for rehabilitation as she had been exposed to somebody at [facility] with COVID-19 and therefore will need to quarantine at [facility]. She denies any fever or chills. No cough or shortness of breath. No nausea, vomiting, or diarrhea. PHYSICAL EXAMINATION: She does complain of right knee pain and some night sweats. Temperature is 98.8, pulse 124, respirations 18, blood pressure 110/60, oxygen saturation 98% on room air. Heart: Normal S1, S2, tachycardic with a systolic ejection murmur 2/6 at the left lower sternal border. Lungs are clear, no wheezes, rales, or rhonchi. Abdomen: Soft, nontender, no hepatosplenomegaly. Extremities: No clubbing, cyanosis, or edema. Right knee effusion persists, range of motion 90 degrees. LABORATORIES DATA: White count is 4.3, hemoglobin 8.8, hematocrit 29, platelets 401, ESR 106, sodium 136, potassium 4.2, chloride 101, bicarbonate 29, BUN 7, creatinine 0.6, glucose 93, calcium 9.6, AST 11, ALT 10, alkaline phosphatase 92, CRP 11.3 IMPRESSION: 1. 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 Patient will be treated with at least 4 weeks of IV vancomycin with anticipated end of therapy date being 09/19/2020. Patient currently on vancomycin 1.25 grams IV every 12 hours. Most recent vancomycin trough was 18.6 on 09/02/2020. 2. Septic arthritis of the right knee with persistent effusion and limited motion and increased C-reactive protein (CRP), pain. Patient would definitely benefit from aspiration of that knee for comfort and her inflammatory markers have remained elevated. 3. History of bipolar disorder. Suggest obtaining psych consult while the patient is inpatient. She will be here for another 2 weeks and would be of great benefit for her for outpatient followup. 4. History of heroin addiction currently on methadone 10 mg daily. 5. History of hepatitis C with previous history of spontaneous remission untreated. Current viral load 180 and AST/ALT are normal. PLAN: Continue IV vancomycin until 09/19/2020, repeat complete blood count (CBC), erythrocyte sedimentation rate (ESR), C-reactive protein (CRP). Will re- discuss with orthopaedics possible aspiration. MTDD
[2020-09-05 14:22] VITALS: BP 118/78
[2020-09-05 18:41] LABS: FREE T4 1.71 NG/DL (0.76-1.46); THYROID STIMULATING HORMONE 1.23 uIU/ML (0.358-3.740)
[2020-09-05] MEDS: **NOTE PATIENT COMMENT** MISC XX SCH (20:32)
[2020-09-06] MEDS: VANCOMYCIN HCL 750 MG, VIAL MATE ADAPTER 1 EACH in D5W 250 ML IV SCH ×2 (04:30→16:40)
[2020-09-06] MEDS: VANCOMYCIN HCL 500 MG in D5W MINI-BAG PLUS 100 ML IV SCH ×2 (05:36→18:07)
[2020-09-06 06:00] VITALS: BP 132/78
[2020-09-06] MEDS: SODIUM CHLORIDE 0.9% INJ 10 ML SYR IV SCH ×2 (06:39→18:07)
[2020-09-06] MEDS: ACETAMINOPHEN 500 MG TAB PO SCH ×3 (06:40→21:24)
--- NOTE | 2020-09-06 07:52 | IPN ---
DATE: 09/05/2020 SUBJECTIVE: Brooke is doing well except she complains of being tachycardic and having a high pulse, over 100. She denies any nausea, vomiting or diarrhea. She still has significant pain in her right knee with an effusion. She is still using the walker. She is afebrile. LABORATORY STUDIES: White count is 4.3, hemoglobin 8.8, hematocrit 29.2, platelets 401. ESR more than 140. Sodium 136, potassium 4.2, chloride 101, bicarbonate 29, BUN 7, creatinine 0.6, glucose 93, calcium 9.6, CRP 9.63. Blood cultures, two sets negative on 08/22. PHYSICAL EXAMINATION: VITAL SIGNS: Temperature is 98.9, pulse 117, respirations 18, blood pressure 118/78, 02 sat 100% on room air. NECK: Normal S1, S2, tachycardic with a systolic ejection murmur best heard at the left lower sternal border. LUNGS: Diminished breath sounds at the right base, no rales, rhonchi or wheezes. ABDOMEN: Soft, nontender, no hepatosplenomegaly. EXTREMITIES: No clubbing, cyanosis, or edema. Right ankle has a fading ecchymosis. Right knee has limited range of motion, still with an effusion, 90 degree range of motion. Significant swelling, especially medially. She has tenderness. MEDICATIONS: Vancomycin 1.25 grams IV q. 12 hours with a Vancomycin trough of 15.5 on 09/04. IMPRESSION: 1. Tricuspid valve endocarditis with secondary septic emboli to the lung and septic arthritis to the right knee on IV Vancomycin day number fourteen from negative cultures, out of 28. Patient with persistent tachycardia and mild elevation of CRP but clinically markedly better. 2. Persistent right knee pain with effusion I have attempted to aspirate some of the joint fluid. I was able to obtain 2 mL of bloody discharge that will be sent to the lab to rule out persistent MRSA infection. The patient clinically would do better if that knee is aspirated by Orthopedic Surgery for better ambulation and pain management. She is using a Lidoderm patch on it to help with pain relief. 3. Tachycardia follow by echocardiogram will be obtained next week. If tachycardia persists, we will also obtain free T-4, TSH. 4. Bipolar disorder - The patient has asked for psych consult and would like to see the while she is still here for the next 2 weeks. 5. COVID exposure - currently asymptomatic. PLAN: 1. Continue with IV Vancomycin 1.25 grams q. 12 hours. 2. Schedule echocardiogram for next week. MTDD
--- NOTE | 2020-09-06 07:55 | IPN ---
DATE: 09/05/2020 SUBJECTIVE: Brooke continues complaining of left knee pain and therefore an aspiration of the right knee was recommended, arthrocentesis of the right knee. The patient consented. She signed a consent. The risk of the procedure was explained including pain and bleeding. Under sterile condition after the right knee was cleaned with two alcohol swabs and two Betadine swabs, with an 18 gauge needle and 20 mL syringe, I aspirated 2 mL of bloody thick fluid that will be sent from gram stain and culture, that was witnessed by her nurse, Mary Duran, who was also present during the procedure. If effusion persists and knee pain, would obtain a follow up ultrasound and re-consult Orthopedic Surgery if the patient does not improve. RUSS
[2020-09-06] MEDS: PANTOPRAZOLE 40MG TAB (PROTONIX) PO SCH (08:39)
[2020-09-06] MEDS: LIDOCAINE 5% (LIDODERM) PATCH TD SCH (08:39)
[2020-09-06] MEDS: FERROUS SULFATE 325MG TAB PO SCH ×2 (08:40→21:23)
[2020-09-06] MEDS: APIXABAN 5 MG TAB (ELIQUIS) PO SCH ×2 (08:40→21:23)
[2020-09-06] MEDS ORDERED: diphenhydrAMINE 25MG CAP PO PRN ×2 (11:00)
[2020-09-06] MEDS: METHADONE 5 MG TAB (S0109) PO SCH (13:59)
[2020-09-06] MEDS: **NOTE PATIENT COMMENT** MISC XX SCH (20:41)
[2020-09-06] MEDS ORDERED: OLANZapine 5 MG TAB PO ONE (21:15)
[2020-09-06] MEDS: CYCLOBENZAPRINE 5MG TABLET PO PRN (21:23)
[2020-09-07] MEDS: ACETAMINOPHEN 500 MG TAB PO SCH ×3 (05:08→21:09)
[2020-09-07] MEDS: SODIUM CHLORIDE 0.9% INJ 10 ML SYR IV SCH ×2 (05:08→17:41)
[2020-09-07] MEDS: VANCOMYCIN HCL 750 MG, VIAL MATE ADAPTER 1 EACH in D5W 250 ML IV SCH ×2 (05:09→16:28)
[2020-09-07 06:00] VITALS: BP_SYST 124; BP_DIAS 78; BP_DIAS 80
[2020-09-07] MEDS: VANCOMYCIN HCL 500 MG in D5W MINI-BAG PLUS 100 ML IV SCH ×2 (06:29→17:40)
[2020-09-07 06:33] LABS: HEMATOCRIT 29.9 % (36.0-47.0); HEMOGLOBIN 9.2 g/dl (12.0-15.5); MEAN CORPUSCULAR HEMOGLOBIN 23.6 pg (27.0-33.0); MEAN CORPUSCULAR HGB CONC 30.8 g/dl (32.0-36.5); MEAN CORPUSCULAR VOLUME 76.7 fl (80.0-96.0); PLATELET COUNT, AUTOMATED 477 10^3/uL (150-450); WHITE BLOOD COUNT 5.2 10^3/uL (4.0-10.0)
[2020-09-07 06:56] LABS: BLOOD UREA NITROGEN 12 MG/DL (7-18); CALCIUM LEVEL 9.6 MG/DL (8.5-10.1); CARBON DIOXIDE LEVEL 28 MEQ/L (21-32); CHLORIDE LEVEL 102 MEQ/L (98-107); CREATININE FOR GFR 0.72 MG/DL (0.55-1.30); GLOMERULAR FILTRATION RATE > 60.0 (>60); GLUCOSE, FASTING 120 MG/DL (70-100); POTASSIUM SERUM 3.9 MEQ/L (3.5-5.1); SODIUM LEVEL 136 MEQ/L (136-145)
[2020-09-07 07:07] LABS: ERYTHROCYTE SEDIMENTATION RATE 108 mm/hr (0-20)
[2020-09-07] MEDS: APIXABAN 5 MG TAB (ELIQUIS) PO SCH ×2 (09:22→21:09)
[2020-09-07] MEDS: FERROUS SULFATE 325MG TAB PO SCH ×2 (09:22→21:09)
[2020-09-07] MEDS: METHADONE 5 MG TAB (S0109) PO SCH (09:22)
[2020-09-07] MEDS: LIDOCAINE 5% (LIDODERM) PATCH TD SCH (09:22)
[2020-09-07] MEDS: PANTOPRAZOLE 40MG TAB (PROTONIX) PO SCH (09:22)
[2020-09-07] MEDS: SENOKOT S TAB PO PRN (14:12)
--- NOTE | 2020-09-07 16:38 | IPNPDOC ---
Text Note Date of Service The patient was seen on 09/07/20. NOTE Subjective: Right knee still swollen and warm. No fevers. Continues to have night sweats though less. Had an inadvertent exposure to COVID so will need to be on 14 days of contact and droplet isolation. Exposure on 08/30-09/01. Yesterday she reported that she was feeling like she was withdrawing , skin crawling, anxious, jittery though her vitals were stable except for tachycardia which is not new for her. She requested to be restarted on the methadone so i started her on 5 mg daily . She also got a dose of olanzepine last night. Today seems to be doing OK. Discussed with Dr Deluna regarding consult she would like to wait till next week after COVID test is done to speak to her. Discussed with Dr Watkins she will need another echo prior to discharge due to the persistent tachycardia. Objective: Vitals (See below) General: Patient sitting up in bed, comfortable, awake, alert and oriented 3 HEENT: Normocephalic, atraumatic CVS: Mildly tachycardic, normal S1-S2, no rub/ murmur or gallop Lungs: Air entry is fair bilaterally without evidence of rhonchi, crackles or wheezing Abdomen: Nondistended, without tenderness, bowel sounds normal Extremities: No edema. Right knee swollen , warm to touch, no redness Labs and radiology reviewed Assessment and plan: Patient is a 29-year-old female with a PMHx of Hepatitis C (not completed treatement0, IV heroin abuse (increased usage to 15 bags per day), who has presented to the emergency room with right knee pain and fever. In the emergency room, patient was found to have a septic knee, as well as a stat echocardiogram that revealed a 1.8 cm vegetation of the tricuspid valve. Patient was taken to the OR by orthopedic surgery, Dr. Mar who has performed a washout of the right knee. Patient was admitted to the hospitalist service to the intensive care unit. Orthopedic surgery, Cardiology and infect ious disease were called on consultation. 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 will need 4 to 6 weeks of IV antibiotics with minimum till Nov 10th Discussed case with Dr. Dai and Dr. Garcia; at this point will hold off on OBDULIA Dr. Watkins on consultation; appreciate her input Repeat echo prior to discharge if tachycardia persists. MRSA Septic arthritis of right knee XR Knee 08/16: 1. Knee joint effusion with soft tissue swelling. 2. No fracture or malalignment. s/p joint washout on 08/[address] Shiv Mar Now with persistent pain and spasms and locking of the knee worse last 2 to 3 days than before. Reevaluated by ortho Dr Mar on 08/30 Does not need retapping. Pain control/ antiinflammatory meds, ice application. vancomycin toradol, tylenol and cyclobenzaprine prn, lidoderm patch Septic emboli to lung CXR 08/[address] chest 08/17: 1. The heart size is within normal limits. A small pericardial effusion is present. Tricuspid valve vegetations are not clearly visible on this limited noncontrast study. 2. The main pulmonary artery trunk is abnormally dilated measuring up to 4.3 cm in size, suggestive of underlying central pulmonary arterial hypertension. 3. Multiple solid and cavitary intrapulmonary nodules are present throughout both lungs, most likely representing septic emboli. Cavitation is noted in the nodule in the right middle lobe lateral segment on image 56 of series 201. A tiny left pleural effusion is present. 4. The spleen appears somewhat enlarged. c/w Incentive spirometry and Acapella vancomycin COVID exposure - consider ordering COVID test after 7 to 10 days of exposure as will be difficult to determine if she is having new symptoms or not. has has often low grade fever, drenching sweats, tachycardia. IV drug abuse with heroin Had reported the use of 10-15 bags per day (possibly even double strength) Now on methadone 5 mg. Olanzepine prn. Extensive RLE DVT Duplex US 08/17: Extensive right femoropopliteal DVT. started on eliquis. Chronic Anemia HH now trending down again possibly anemia of chronic disease. also has h/o iron def. No bleeding noted will check iron profile, vit b12 and folate levels. s/p 4 unit PRBCs c/w ferrous sulfate Hepatitis C Patient has not completed therapy as an outpatient; reports she was incarcerated spontaneous remission as per ID LFTs normal s/p Hypokalemia s/p Hyponatremia History of bipolar disorder Currently untreated Has agreed to be treated and agreed to see psychiatry I spoke with Dr Deluna for this consult . Please recall her after the COVID test is done. GI prophylaxis Protonix DVT prophylaxis Lovenox therapeutic Disposition: Continued rehabilitation for completion of antibiotic therapy VS,Fishbone, I+O VS, Fishbone, I+O Laboratory Tests 09/07/20 06:10 Vital Signs Date Time Temp Pulse Resp B/P (MAP) Pulse Ox O2 Delivery O2 Flow Rate FiO2 09/07/20 06:00 96.9 95 18 124/80 (95) 96 Room Air I&O- Last 24 Hours up to 6 AM 09/07/20 07:00 Intake Total 1340 ml Output Total 1700 ml Balance -360 ml ALDEN TEMPLETON MD Sep 07, 2020 16:38
[2020-09-07] MEDS: **NOTE PATIENT COMMENT** MISC XX SCH (21:09)
[2020-09-07] MEDS: OLANZapine 5 MG TAB PO PRN (21:10)
[2020-09-08] MEDS: VANCOMYCIN HCL 1,000 MG, VIAL MATE ADAPTER 1 EACH in D5W 250 ML IV SCH ×2 (05:50→17:51)
[2020-09-08] MEDS: ACETAMINOPHEN 500 MG TAB PO SCH ×3 (05:53→21:04)
[2020-09-08 06:00] VITALS: BP 120/82
[2020-09-08] MEDS: SODIUM CHLORIDE 0.9% INJ 10 ML SYR IV SCH ×2 (07:01→17:52)
[2020-09-08] MEDS: SENOKOT S TAB PO PRN (09:15)
[2020-09-08] MEDS: FERROUS SULFATE 325MG TAB PO SCH ×2 (09:16→21:04)
[2020-09-08] MEDS: APIXABAN 5 MG TAB (ELIQUIS) PO SCH ×2 (09:16→21:04)
[2020-09-08] MEDS: PANTOPRAZOLE 40MG TAB (PROTONIX) PO SCH (09:16)
[2020-09-08] MEDS: METHADONE 5 MG TAB (S0109) PO SCH (09:16)
[2020-09-08] MEDS: LIDOCAINE 5% (LIDODERM) PATCH TD SCH (09:16)
--- NOTE | 2020-09-08 13:05 | REP ---
INDICATION: pleuritic CP. COMPARISON: 08/25/2020 FINDINGS: The cardiomediastinal silhouette is unchanged. The heart is not enlarged. A single pic line catheter is seen today the tip of which is in the superior vena cava. Patchy airspace opacities seen in the lung muse bilaterally have improved. Persistent asymmetric opacities are seen in the right lung base. There are no new abnormal lung field opacities. The osseous structures are stable and intact. IMPRESSION: Improved lung muse and other findings as described above.. <Electronically signed by Jabier Hamilton > 09/08/20 1715
[2020-09-08] MEDS ORDERED: LIDOCAINE 1% MDV 20ML VIAL As Ordered ONE (14:13)
[2020-09-08] MEDS ORDERED: LIDOCAINE 1% MDV 20ML VIAL IM ONE (14:15)
[2020-09-08] MEDS ORDERED: LIDOCAINE 1% MDV 20ML VIAL SC ONE (14:30)
[2020-09-08] MEDS: DULoxetine 30 MG CAP (CYMBALTA) PO SCH (17:51)
[2020-09-08] MEDS: OLANZapine 5 MG TAB PO PRN (21:04)
[2020-09-08] MEDS: **NOTE PATIENT COMMENT** MISC XX SCH (21:04)
[2020-09-09] MEDS: SODIUM CHLORIDE 0.9% INJ 10 ML SYR IV SCH ×2 (05:26→17:47)
[2020-09-09] MEDS: ACETAMINOPHEN 500 MG TAB PO SCH ×3 (05:28→21:09)
[2020-09-09] MEDS: VANCOMYCIN HCL 1,000 MG, VIAL MATE ADAPTER 1 EACH in D5W 250 ML IV SCH ×2 (05:30→17:47)
[2020-09-09 06:00] VITALS: BP 122/72
[2020-09-09] MEDS: FERROUS SULFATE 325MG TAB PO SCH ×2 (08:18→21:09)
[2020-09-09] MEDS: APIXABAN 5 MG TAB (ELIQUIS) PO SCH ×2 (08:18→21:09)
[2020-09-09] MEDS: METHADONE 5 MG TAB (S0109) PO SCH (08:18)
[2020-09-09] MEDS: DULoxetine 30 MG CAP (CYMBALTA) PO SCH (08:18)
[2020-09-09] MEDS: LIDOCAINE 5% (LIDODERM) PATCH TD SCH (08:19)
[2020-09-09 10:08] LABS: BLOOD UREA NITROGEN 16 MG/DL (7-18); CALCIUM LEVEL 9.6 MG/DL (8.5-10.1); CARBON DIOXIDE LEVEL 27 MEQ/L (21-32); CHLORIDE LEVEL 105 MEQ/L (98-107); CREATININE FOR GFR 0.59 MG/DL (0.55-1.30); GLOMERULAR FILTRATION RATE > 60.0 (>60); GLUCOSE, FASTING 99 MG/DL (70-100); POTASSIUM SERUM 4.2 MEQ/L (3.5-5.1); SODIUM LEVEL 139 MEQ/L (136-145)
[2020-09-09] MEDS: **NOTE PATIENT COMMENT** MISC XX SCH (21:09)
[2020-09-10] MEDS: VANCOMYCIN HCL 1,000 MG, VIAL MATE ADAPTER 1 EACH in D5W 250 ML IV SCH ×2 (05:32→17:33)
[2020-09-10] MEDS: ACETAMINOPHEN 500 MG TAB PO SCH ×3 (05:32→21:48)
[2020-09-10 06:00] VITALS: BP 142/76
[2020-09-10] MEDS: SODIUM CHLORIDE 0.9% INJ 10 ML SYR IV SCH ×2 (07:00→17:33)
[2020-09-10] MEDS: DULoxetine 30 MG CAP (CYMBALTA) PO SCH (08:00)
[2020-09-10] MEDS: METHADONE 5 MG TAB (S0109) PO SCH (08:00)
[2020-09-10] MEDS: FERROUS SULFATE 325MG TAB PO SCH ×2 (08:00→21:48)
[2020-09-10] MEDS: APIXABAN 5 MG TAB (ELIQUIS) PO SCH ×2 (08:00→21:48)
[2020-09-10] MEDS: LIDOCAINE 5% (LIDODERM) PATCH TD SCH (08:01)
[2020-09-10] MEDS: SENOKOT S TAB PO PRN (14:19)
[2020-09-10] MEDS: **NOTE PATIENT COMMENT** MISC XX SCH (21:48)
[2020-09-10] MEDS: OLANZapine 5 MG TAB PO PRN (21:50)
[2020-09-11 05:38] LABS: HEMATOCRIT 30.4 % (36.0-47.0); MEAN CORPUSCULAR HEMOGLOBIN 22.6 pg (27.0-33.0); MEAN CORPUSCULAR HGB CONC 29.6 g/dl (32.0-36.5); MEAN CORPUSCULAR VOLUME 76.4 fl (80.0-96.0); PLATELET COUNT, AUTOMATED 439 10^3/uL (150-450); RED BLOOD COUNT 3.98 10^6/uL (4.00-5.40); WHITE BLOOD COUNT 5.4 10^3/uL (4.0-10.0)
[2020-09-11 06:00] VITALS: BP 122/88
[2020-09-11 06:16] LABS: BLOOD UREA NITROGEN 15 MG/DL (7-18); C REACTIVE PROTEIN QUANTITATIV 6.81 MG/DL (0.00-0.30); CALCIUM LEVEL 9.5 MG/DL (8.5-10.1); CARBON DIOXIDE LEVEL 28 MEQ/L (21-32); CHLORIDE LEVEL 106 MEQ/L (98-107); CREATININE FOR GFR 0.74 MG/DL (0.55-1.30); GLOMERULAR FILTRATION RATE > 60.0 (>60); GLUCOSE, FASTING 88 MG/DL (70-100); POTASSIUM SERUM 5.1 MEQ/L (3.5-5.1); SODIUM LEVEL 139 MEQ/L (136-145); VANCOMYCIN LEVEL TROUGH 14.8 UG/ML (10.0-20.0)
[2020-09-11] MEDS: VANCOMYCIN HCL 1,000 MG, VIAL MATE ADAPTER 1 EACH in D5W 250 ML IV SCH ×2 (06:29→17:32)
[2020-09-11] MEDS: ACETAMINOPHEN 500 MG TAB PO SCH ×3 (06:30→21:20)
[2020-09-11] MEDS: SODIUM CHLORIDE 0.9% INJ 10 ML SYR IV SCH ×2 (06:30→17:32)
[2020-09-11] MEDS: METHADONE 5 MG TAB (S0109) PO SCH (08:06)
[2020-09-11] MEDS: FERROUS SULFATE 325MG TAB PO SCH ×2 (08:06→21:20)
[2020-09-11] MEDS: LIDOCAINE 5% (LIDODERM) PATCH TD SCH (08:06)
[2020-09-11] MEDS: DULoxetine 30 MG CAP (CYMBALTA) PO SCH (08:06)
[2020-09-11] MEDS: APIXABAN 5 MG TAB (ELIQUIS) PO SCH ×2 (08:07→21:19)
[2020-09-11] MEDS: OLANZapine 5 MG TAB PO PRN (21:20)
[2020-09-11] MEDS: **NOTE PATIENT COMMENT** MISC XX SCH (21:20)
[2020-09-12] MEDS: ACETAMINOPHEN 500 MG TAB PO SCH ×3 (05:36→21:11)
[2020-09-12] MEDS: SODIUM CHLORIDE 0.9% INJ 10 ML SYR IV SCH ×2 (05:37→17:37)
[2020-09-12] MEDS: VANCOMYCIN HCL 1,000 MG, VIAL MATE ADAPTER 1 EACH in D5W 250 ML IV SCH ×2 (05:38→17:37)
[2020-09-12 06:00] VITALS: BP 132/86
--- NOTE | 2020-09-12 07:44 | ECHO ---
DATE OF PROCEDURE: 09/08/2020 Age: 30 Gender: Female REFERRING PHYSICIAN: Joey Watkins MD REASON FOR THIS STUDY: Heart murmur. 2D MEASUREMENTS: IVS 1.2 cm LV 3.2 cm LVPW 1.5 cm Aorta 1.5 cm LA 2.7 cm IVC 0.7 DOPPLER MEASUREMENTS Peak velocity across the aortic valve 1.1 m/s Peak velocity across the LVOT 0.9 m/s Mitral E 0.67 Mitral A 0.64 with a ratio of 1.1 Maximum tricuspid valve velocity 2.2 m/s 2D COMMENTS: Normal left ventricular size, REFERRING PHYSICIAN: Dr. Rod Guerra PATIENT LOCATION: Outpatient. REASON FOR THE STUDY: Heart murmur MEASUREMENTS: 2D measurements: IVS 1.1 cm LV 4.9. cm LVPW 1.1 cm LA 3.5 cm Aorta 3.1 cm IVC 1.3 cm DOPPLER MEASUREMENTS: Peak velocity for the aortic valve 1.2 meters per second Peak velocity across the LVOT 0.96 meters per second Mitral E 0.59, mitral A 0.54 with a ratio of 1.1 2D COMMENTS: 1. Normal left ventricular size, wall thickness, and normal global left ventricular systolic function. The estimated left ventricular systolic ejection fraction is 60 to 65%. 2. Normal left atrium. Normal right atrium and right ventricle. 3. The atrial septum appears to be normal without evidence of defect or shunt. 4. Normal aortic root. 5. Trace pericardial effusion noted, no evidence of cardiac tamponade. 6. The aortic valve, mitral valve, and pulmonic valve appear to be normal. The tricuspid valve seems to be moving well but there was an echogenic structure noted on the atrial side of the tricuspid valve that measured 0.8 x 0.3 cm that may represent a vegetation. 7. The proximal pulmonary artery branches were not well visualized. 8. The inferior vena cava was normal in size, central venous pressure is probably normal. Doppler detects just a mild mitral regurgitation and probably moderate tricuspid regurgitation. The calculated pulmonary artery systolic pressure was normal, most likely under-estimated. Assessment of the left ventricular diastolic function appeared to be normal. IMPRESSION: 1. Normal global left ventricular systolic and diastolic function. 2. Just mild mitral regurgitation. 3. Moderate tricuspid regurgitation. Pulmonary artery systolic pressure was normal but most likely under-estimated. 4. Diffuse pericardial effusion. 5. Possible vegetation on the tricuspid valve, it appeared to be smaller when compared to the most recent echocardiogram on 08/16/2020. MTDD
[2020-09-12] MEDS: APIXABAN 5 MG TAB (ELIQUIS) PO SCH ×2 (09:40→21:11)
[2020-09-12] MEDS: DULoxetine 30 MG CAP (CYMBALTA) PO SCH (09:41)
[2020-09-12] MEDS: FERROUS SULFATE 325MG TAB PO SCH ×2 (09:41→21:11)
[2020-09-12] MEDS: LIDOCAINE 5% (LIDODERM) PATCH TD SCH (09:41)
[2020-09-12] MEDS: METHADONE 5 MG TAB (S0109) PO SCH (09:41)
--- NOTE | 2020-09-12 10:45 | IPN ---
DATE: 09/08/2020 SUBJECTIVE: Brooke is complaining of right knee pain, swelling and warmth. She has had no fever, but continues with night sweats. She also complains of pleuritic chest pain on the right side. She has had no nasal discharge or cough, no runny nose or sore throat. She has been exposed to a health care worker who had COVID and therefore has been on isolation. Exposure was on 09/01 and will remain on a 14 day quarantine until 09/15. PHYSICAL EXAMINATION: Tachycardic, temperature 99.3, pulse 114, respirations 16, blood pressure 120/82, O2 sat 96% on room air. Heart: Normal S1 and S2, tachycardic with a systolic ejection murmur 2/6 at the left lower sternal border. Lungs: Clear, no wheezes, rhonchi or rales. Abdomen: Soft, nontender, no hepatosplenomegaly. Extremities: No cyanosis, clubbing or edema. Right knee is swollen with limited range of motion to 90 degrees, warm and tender to touch with an effusion. LABORATORY DATA: White count 5.2, hemoglobin 9.2, hematocrit 29.9, platelets 477, ESR 108. Sodium 136, potassium 3.9, chloride 102, bicarb 28, BUN 12, creatinine 0.72, glucose 120, calcium 9.6. CRP 7.2. SARS-CoV-2 is pending. Vancomycin trough on 09/07 was 20.1. IMAGING STUDIES: Last echocardiogram was done on 08/16 which showed vegetation of 1.8 cm on the tricuspid valve. MEDICATIONS: * Vancomycin 1 gram I.V. every 12h. * Methadone 5 mg by mouth daily. * Apixaban 5 mg by mouth twice a day. IMPRESSION: 1. MRSA tricuspid valve endocarditis with septic emboli to the lung. 2. Septic arthritis of the right knee on I.V. vancomycin. PLAN: 1. Continue I.V. vancomycin. Anticipated end of therapy would be at least until September 19 if no other complications. 2. MRSA septic arthritis of the right knee: I have asked Dr. Mar to re- examine her knee and possibly re-aspirate it as the patient still has significant pain and an effusion. 3. Septic emboli to the lung: Patient has increasing pleuritic chest pain on the right side. We will obtain chest x-ray PA and lateral. 4. COVID exposure: Patient will remain on isolation for a total of 14 days from exposure. A COVID PCR was done due to pleurisy and persistent night sweats, but even if negative patient will remain on quarantine for a total of 14 days. chest x-ray PA and lateral was ordered today, 5. follow up echocardiogram to make sure there is improvement of vegetation and no other vegetations are seen especially that she continues with night sweats. Patient was discussed with Dr. Mar who will see the patient later today. JOYCED
[2020-09-12] MEDS: OLANZapine 5 MG TAB PO PRN (21:11)
[2020-09-12] MEDS: **NOTE PATIENT COMMENT** MISC XX SCH (21:12)
[2020-09-13] MEDS: ACETAMINOPHEN 500 MG TAB PO SCH ×3 (05:16→21:55)
[2020-09-13 06:00] VITALS: BP 138/76
[2020-09-13] MEDS: VANCOMYCIN HCL 1,000 MG, VIAL MATE ADAPTER 1 EACH in D5W 250 ML IV SCH ×2 (06:23→17:50)
[2020-09-13] MEDS: SODIUM CHLORIDE 0.9% INJ 10 ML SYR IV SCH ×2 (06:23→17:49)
[2020-09-13] MEDS: SENOKOT S TAB PO PRN (09:07)
[2020-09-13] MEDS: APIXABAN 5 MG TAB (ELIQUIS) PO SCH ×2 (09:08→21:54)
[2020-09-13] MEDS: LIDOCAINE 5% (LIDODERM) PATCH TD SCH (09:08)
[2020-09-13] MEDS: FERROUS SULFATE 325MG TAB PO SCH ×2 (09:08→21:54)
[2020-09-13] MEDS: DULoxetine 30 MG CAP (CYMBALTA) PO SCH (09:08)
--- NOTE | 2020-09-13 09:28 | IPN ---
DATE: 09/12/2020 SUBJECTIVE: Brooke still complains of knee pain and limited range of motion. She has night sweats but they have improved. She is on Methadone 5 mg daily. Pleuritic chest pain has improved and she has no cough or shortness of breath. No runny nose or sore throat. The patient was exposed to COVID-19 on 09/01 and will remain on quarantine until 09/15. She is eating well. Still using the walker but is able to ambulate better. PHYSICAL EXAMINATION: VITAL SIGNS: Temperature is 98.4, pulse 95, respirations 18, blood pressure 132/86. O2 sat 99% on room air. HEART: Normal S1, S2. Ejection murmur best heard at the left upper sternal border. LUNGS: Clear. No rales, rhonchi or wheezes. ABDOMEN: Soft, nontender, no hepatosplenomegaly. No CVA, lump, or tenderness. EXTREMITIES: No clubbing, cyanosis, or edema. Right knee swollen with tenderness, especially medially with slight warmth. No redness. Range of motion about 90 degrees. LABORATORY STUDIES: White count 5.4, hemoglobin 9, hematocrit 30.4, platelets 439, ESR 108, sodium 139, potassium 5.1, chloride 106, bicarbonate 28, BUN 15, creatinine 0.74, glucose 88, calcium 9.5, CRP 6.81, down from 20.1 on admission. Right knee culture aspiration from Dr. Mar was negative. IMAGING: Echocardiogram follow up done shows vegetation of the tricuspid valve that is smaller 0.8 by 0.3 cm and moderate tricuspid regurgitation, mild mitral regurgitation, normal ejection fraction 60-65%. IMPRESSION: 1. MRSA tricuspid valve endocarditis with septic emboli to the lungs improving on IV Vancomycin one gram q. 12 hours. 2. MRSA Septic arthritis of the right knee with effusion and limited range of motion in spite of being on IV antibiotics for over three and a half weeks. We will obtain follow up MRI. Two aspiration attempts have been done and we were not able to obtain any synovial fluid. 3. COVID exposure - The patient will remain on isolation until 09/15. her COVID- 19 was negative by PCR and patient is asymptomatic. 4. HX IVDU on tapering methadone doing very well PLAN: 1. Continue IV Vancomycin one gram q. 12 hours until September 19. 2. Repeat MRI of the right knee to follow up on effusion and consider re- aspiration if persistent limited range of motion or evidence of fluid by MRI and reconsultation with orthopedic surgery The patient case has been discussed with Dr. Fernandez, Hospitalist. RUSS
[2020-09-13] MEDS ORDERED: PROHANCE 279.3MG/ML 15ML VIAL As Ordered ONE (14:25)
--- NOTE | 2020-09-13 14:40 | IPNPDOC ---
Date Seen The patient was seen on 09/13/20. Progress Note SUBJECTIVE: Right knee remains swollen and tender to touch. Remains tachycardic, afebrile, at times has night sweats according to patient. MRI right knee postponed 09/12/20 by MRI dept, to go today. Still on contact/droplet precautions for COVID until 09/15/20, has been asymptomatic. As we are approaching a discharge date, will make methadone Q48H. Patient denies chest pain, shortness of breath, n/v/d, chi lls. OBJECTIVE: PHYSICAL EXAMINATION: VS: Please see below General: Patient sitting up in bed, comfortable, awake, alert and oriented 3 HEENT: Normocephalic, atraumatic, moist mucous membranes, EOM intact CVS: sinus tachycardic, normal S1-S2, no M/R/G Lungs: CTAB, no W/R/R Abdomen: Nondistended, without tenderness, bowel sounds normal Extremities: No edema. Right knee swollen , tender to touch, no redness Psych: mood and affect appropriate LABORATORY: Please see below MICROBIOLOGY: COVID PCR 09/08/20: Neg BCx x 2 sets 08/16/20: NG BCx x 2 sets 08/20/20: MRSA + Repeat BCX x 2 sets 08/22/20: NG x 5 days Right knee fluid aspiration, GS and culture 08/17/20: MRSA Repeat right knee fluid aspiration, GS and culture 09/05/20: NG STD w/u: neg IMAGING: F/u MRI right knee with contrast 09/13/20 Echocardiogram 09/09/20: 1. Normal global left ventricular systolic and diastolic function. 2. Just mild mitral regurgitation. 3. Moderate tricuspid regurgitation. Pulmonary artery systolic pressure was normal but most likely under-estimated. 4. Diffuse pericardial effusion. 5. Possible vegetation on the tricuspid valve, it appeared to be smaller when compared to the most recent echocardiogram on 08/16/2020. ASSESSMENT: Patient is a 29-year-old female with a PMHx of Hepatitis C, IV heroin abuse who presented to the emergency room with right knee pain and fever. In the emergency room, patient was found to have a septic knee, as well as a stat echocardiogram that revealed a 1.8 cm vegetation of the tricuspid valve. Patient was taken to the OR by orthopedic surgery, Dr. Mar who has performed a washout of the right knee. Orthopedic surgery, Cardiology and infectious disease were called on consultation. 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 -ID following #Septic arthritis of right knee, MRSA. -S/p joint washout on 08/[address] Shiv Mar. Reevaluated by ortho 08/30/20 and did not think needed retapping. -Swelling persists but afebrile, WBC wnl. -F/u MRI right knee today with contrast to r/o abscess vs. incr fluid . If pres ent, consider re-aspiration per ID. -C/w IV vancomycin until 09/19/20, pain control -ID following #Septic emboli to lung -On RA, denies shortness of breath, chest pain. -CXR 08/25 slight improvement. -c/w treatment above #COVID + exposure 08/30- -Asymptomatic thus far -COVID 09/08/20 neg #IV drug abuse, heroin -Has been on low dose methadone daily here -Will make Q48 H as we are preparing her to d/c in 6 days. -Olanzepine prn. #Extensive RLE DVT -Duplex US 08/17: Extensive right femoropopliteal DVT. -Eliquis #Chronic Anemia likely 2/2 to chronic disease, MARTÍNEZ -S/p 4 units PRBC this admission. -No s/s of bleeding since admission -Iron low -C/w iron supplement -May benefit from IV venofer #Hepatitis C -Patient has not completed therapy as an outpatient; reports she was incarcerated -spontaneous remission as per ID -LFTs normal #History of bipolar disorder -Currently untreated but stable. -Will benefit from psychiatry referral by PCP. #GI prophylaxis -Protonix #DVT prophylaxis -Eliquis Disposition: On COVID precautions until 09/15/20, completes IV abx therapy on 09/19 then hopeful for discharge home. Will need f/u with ID, PCP and rehab information if she agrees. VS, I&O, 24H, Fishbone Vital Signs/I&O Vital Signs Date Time Temp Pulse Resp B/P (MAP) Pulse Ox O2 Delivery O2 Flow Rate FiO2 09/13/20 06:00 98.9 98 20 138/76 (96) 97 Room Air I&O- Last 24 Hours up to 6 AM 09/13/20 06:00 Intake Total 980 ml Output Total 1350 ml Balance -370 ml Laboratory Data Microbiology Microbiology 09/05/20 Gram Stain - Final, Complete 09/05/20 Wound Culture - Final, Complete Current Medications Current Medications Medications (Trade) Dose Ordered Sig/Sharmaine Route PRN Reason Start Time Stop Time Status Last Admin Dose Admin Acetaminophen (Tylenol Tab) 650 mg Q4H PRN PO PAIN OR FEVER 08/17/20 01:00 09/04/20 12:26 DC 08/31/20 12:57 Acetaminophen (Tylenol Tab) 1,000 mg Q8H PO 09/04/20 14:00 09/13/20 13:45 Apixaban (Eliquis) 5 mg BID PO 09/05/20 21:00 09/13/20 09:08 Apixaban (Eliquis) 10 mg BID PO 08/29/20 21:00 09/05/20 12:00 DC 09/05/20 08:11 Cyclobenzaprine HCl (Flexeril) 5 mg Q6HP PRN PO SPASMS 08/30/20 12:00 09/06/20 21:23 Diphenhydramine HCl (Benadryl) 25 mg Q8HP PRN PO ANXIETY 09/06/20 11:00 09/06/20 11:01 DC Diphenhydramine HCl (Benadryl) 50 mg Q8HP PRN PO ANXIETY 09/06/20 11:00 09/06/20 13:32 DC 09/06/20 11:45 Duloxetine HCl (Cymbalta) 30 mg QAM PO 09/08/20 09:00 09/13/20 09:08 Enoxaparin Sodium (Lovenox) 40 mg DAILY SC 08/17/20 09:00 08/17/20 09:35 DC Enoxaparin Sodium (Lovenox) 60 mg Q12H SC 08/21/20 09:00 08/29/20 10:08 DC 08/29/20 08:55 Fentanyl Citrate (Sublimaze) 25 mcg Q5MP PRN IV PAIN LEVEL 5-10 08/17/20 03:15 08/17/20 04:14 DC Ferrous Sulfate (Ferrous Sulfate) 325 mg BID PO 08/23/20 09:00 09/13/20 09:08 Heparin Sodium (Heparin (Flush)) 200 units ASDIRECTED PRN IV SEE LABEL COMMENTS 08/26/20 06:45 09/02/20 22:57 Heparin Sodium (Heparin (Flush)) 200 units PICC IV 08/26/20 18:00 09/13/20 09:08 Heparin Sodium (Porcine) (Heparin) ASDIRECTED PRN IV SEE LABEL COMMENTS 08/17/20 09:45 08/21/20 08:18 DC 08/19/20 04:22 Heparin Sodium (Porcine) 06188 units/IV Miscellaneous Supplies 250 ml @ 0 mls/hr Q0M IV 08/17/20 09:32 08/21/20 08:18 DC 08/21/20 06:13 Home Med (Med Rec Complete!) ASDIRECTED XX 08/17/20 00:00 08/16/20 23:50 DC Ibuprofen (Advil) 600 mg Q8HP PRN PO PAIN 08/30/20 13:00 08/31/20 17:05 DC 08/31/20 15:16 Ketorolac Tromethamine (ToRADol) 15 mg Q6H PRN IV PAIN 08/31/20 21:00 09/05/20 20:59 DC 09/03/20 16:25 Lactated Ringer's 1,000 ml @ 100 mls/hr Q10H IV 08/17/20 03:15 08/17/20 04:14 DC Lidocaine (Lidoderm Patch) 1 patch DAILY TD 08/30/20 09:00 09/13/20 09:08 Magnesium Hydroxide (Milk Of Magnesia) 30 ml DAILY PRN PO CONSTIPATION 08/17/20 01:00 09/04/20 14:10 Meperidine HCl (Demerol) 12.5 mg Q5MP PRN IV SHIVERING 08/17/20 03:15 08/17/20 04:14 DC Meropenem 1 gm/IV Miscellaneous Supplies 50 ml @ 100 mls/hr Q8H IV 08/17/20 02:00 08/17/20 15:38 DC 08/17/20 10:46 Methadone HCl (Dolophine) 5 mg DAILY PO 09/06/20 09:00 09/13/20 08:37 DC 09/12/20 09:41 Methadone HCl (Dolophine) 5 mg Q48H PO 09/14/20 09:00 Methadone HCl (Dolophine) 10 mg BID PO 08/30/20 21:00 09/01/20 14:13 DC 09/01/20 08:03 Methadone HCl (Dolophine) 10 mg DAILY PO 09/02/20 09:00 09/04/20 12:26 DC 09/04/20 08:21 Methadone HCl (Dolophine) 10 mg Q6H PO 08/19/20 12:00 08/27/20 09:53 DC 08/27/20 05:58 Methadone HCl (Dolophine) 10 mg Q8H PO 08/27/20 14:00 08/30/20 12:56 DC 08/30/20 06:37 Methadone HCl (Dolophine) 10 mg Q8H PO 08/17/20 14:00 08/19/20 13:30 DC 08/19/20 05:14 Metoclopramide HCl (REGLAN INJection) 10 mg Q6HP PRN IV NAUSEA OR VOMITING 08/17/20 03:15 08/17/20 04:14 DC Morphine Sulfate (Morphine Sulfate Inj) 4 mg Q12HP PRN IV SEVERE PAIN (PS 8-10) 08/26/20 12:00 08/27/20 09:53 DC Morphine Sulfate (Morphine Sulfate Inj) 4 mg Q4HP PRN IV SEVERE PAIN (PS 8-10) 08/17/20 13:00 08/24/20 08:14 DC 08/24/20 07:49 Morphine Sulfate (Morphine Sulfate Inj) 4 mg Q6HP PRN IV SEVERE PAIN (PS 8-10) 08/24/20 14:00 08/26/20 11:57 DC 08/25/20 12:16 Nafcillin Sodium 2 gm/Dextrose 50 ml @ 50 mls/hr Q4H IV 08/18/20 15:00 08/19/20 07:16 DC 08/19/20 03:01 Non-Formulary Medication ( See Comment Field Below ) REMOVE LIDODERM PATCH DAILY@21 XX 08/30/20 21:00 09/12/20 21:12 Non-Formulary Medication (Heparin Iv Rate Change Documentation ml/ Hr) ASDIRECTED XX 08/17/20 09:45 08/21/20 08:18 DC 08/21/20 03:10 Olanzapine (ZyPREXA) 5 mg Q6HP PRN PO ANXIETY/AGITATION 09/07/20 09:00 09/12/20 21:11 Ondansetron HCl (ZOFRAN INJection) 4 mg Q4HP PRN IV NAUSEA OR VOMITING 08/17/20 03:15 08/17/20 04:14 DC Ondansetron HCl (ZOFRAN INJection) 4 mg Q6HP PRN IV NAUSEA OR VOMITING 08/19/20 17:30 08/23/20 13:36 Oxycodone HCl (Roxicodone, Oxyir) 5 mg ASDIRECTED PRN PO PAIN LEVEL 1-4 08/17/20 03:15 08/17/20 04:14 DC Pantoprazole Sodium (Protonix) 40 mg DAILY IV 08/17/20 09:00 08/24/20 08:15 DC 08/23/20 09:02 Pantoprazole Sodium (Protonix) 40 mg DAILY PO 08/24/20 09:00 09/08/20 12:43 DC 09/08/20 09:16 Polyethylene Glycol (Miralax) 1 pkt BID PRN PO CONSTIPATION 08/23/20 09:00 Senna/Docusate Sodium (Senokot S) 1 tab BIDP PRN PO CONSTIPATION 08/23/20 09:00 09/13/20 09:07 Sodium Chloride 1,000 ml @ 60 mls/hr [id number] IV 08/19/20 10:45 08/20/20 08:44 DC 08/19/20 11:30 Sodium Chloride 1,000 ml @ 60 mls/hr [id number] IV 08/23/20 09:15 08/24/20 01:54 DC 08/23/20 09:49 Sodium Chloride 1,000 ml @ 60 mls/hr [id number] IV 08/17/20 01:15 08/17/20 19:04 DC 08/17/20 10:37 Sodium Chloride (Saline Lock Flush) 2 ml ASDIRECTED PRN IV SEE LABEL COMMENTS 08/23/20 08:30 08/26/20 06:38 DC Sodium Chloride (Saline Lock Flush) 2 ml SLF IV 08/23/20 14:00 08/26/20 06:38 DC 08/25/20 22:19 Sodium Chloride (Saline Lock Flush) 10 ml ASDIRECTED PRN IV SEE LABEL COMMENTS 08/26/20 06:45 09/02/20 22:57 Sodium Chloride (Saline Lock Flush) 10 ml PICC IV 08/26/20 18:00 09/13/20 06:23 Vancomycin HCl 500 mg/Dextrose 110 ml @ 110 mls/hr Q12H IV 09/01/20 06:00 09/07/20 20:00 DC 09/07/20 17:40 Vancomycin HCl 500 mg/Dextrose 110 ml @ 110 mls/hr Q8H IV 08/22/20 14:00 08/25/20 12:55 DC 08/25/20 06:26 Vancomycin HCl 500 mg/Dextrose 110 ml @ 110 mls/hr Q8H IV 08/28/20 16:00 08/31/20 18:00 DC 08/31/20 15:52 Vancomycin HCl 500 mg/Dextrose 110 ml @ 110 mls/hr Q8H IV 08/18/20 13:00 08/22/20 12:05 DC 08/22/20 05:49 Vancomycin HCl 750 mg/IV Miscellaneous Supplies 1 each/ Dextrose 275 ml @ 275 mls/hr Q12H IV 09/01/20 05:00 09/07/20 20:00 DC 09/07/20 16:28 Vancomycin HCl 750 mg/IV Miscellaneous Supplies 1 each/ Dextrose 275 ml @ 275 mls/hr Q8H IV 08/22/20 13:00 08/25/20 12:55 DC 08/25/20 05:00 Vancomycin HCl 750 mg/IV Miscellaneous Supplies 1 each/ Dextrose 275 ml @ 275 mls/hr Q8H IV 08/25/20 13:00 08/28/20 14:32 DC 08/28/20 04:32 Vancomycin HCl 750 mg/IV Miscellaneous Supplies 1 each/ Dextrose 275 ml @ 275 mls/hr Q8H IV 08/25/20 14:00 08/28/20 14:33 DC 08/28/20 05:48 Vancomycin HCl 750 mg/IV Miscellaneous Supplies 1 each/ Dextrose 275 ml @ 275 mls/hr Q8H IV 08/28/20 15:00 08/31/20 18:00 DC 08/31/20 15:52 Vancomycin HCl 1000 mg/IV Miscellaneous Supplies 1 each/ Dextrose 270 ml @ 270 mls/hr Q12H IV 09/08/20 06:00 09/13/20 06:23 Vancomycin HCl 1000 mg/IV Miscellaneous Supplies 1 each/ Dextrose 270 ml @ 270 mls/hr Q6H IV 08/18/20 00:00 08/18/20 12:25 DC 08/18/20 05:12 Vancomycin HCl 1000 mg/IV Miscellaneous Supplies 1 each/ Dextrose 270 ml @ 270 mls/hr Q8H IV 08/17/20 04:00 08/17/20 21:01 DC 08/17/20 20:35 Vancomycin HCl 1000 mg/IV Miscellaneous Supplies 1 each/ Dextrose 270 ml @ 270 mls/hr Q8H IV 08/18/20 12:00 08/22/20 12:05 DC 08/22/20 04:31 Allergies Coded Allergies: fluoxetine (Verified Adverse Reaction, Intermediate, tongue dystonia, 06/29/19) Ingrid Fernandez MD Sep 13, 2020 14:40
--- NOTE | 2020-09-13 16:15 | REP ---
INDICATION: Right knee swelling, r/o abscess. COMPARISON: Radiographs 08/17/2020. TECHNIQUE: Multiple sequences obtained in the axial, coronal and sagittal planes prior to and following the intravenous administration of 12 mL ProHance. FINDINGS: There is diffuse significant soft tissue edema and enhancement compatible with cellulitis. Moderate complex fluid is seen in the knee joint with diffuse synovial enhancement. No other fluid collection is seen. There is diffuse marrow edema and enhancement in the distal femur compatible with osteomyelitis. There is no abnormal enhancement of the patella, proximal tibia or fibula. The menisci appear intact. The cruciate and collateral ligaments are intact. The extensor mechanism is intact. IMPRESSION: Diffuse edema and cellulitis of the soft tissues of the right knee. Moderate complex joint fluid with diffuse synovial enhancement, compatible with septic arthritis and infected joint fluid. No other evidence of soft tissue abscess. There are findings compatible with osteomyelitis of the distal femur. <Electronically signed by Bryant Bravo > 09/13/20 [id number]
[2020-09-13] MEDS: **NOTE PATIENT COMMENT** MISC XX SCH (21:00)
[2020-09-13] MEDS: OLANZapine 5 MG TAB PO PRN (21:54)
[2020-09-13] MEDS: CYCLOBENZAPRINE 5MG TABLET PO PRN (22:30)
[2020-09-14] MEDS: VANCOMYCIN HCL 1,000 MG, VIAL MATE ADAPTER 1 EACH in D5W 250 ML IV SCH ×2 (05:53→18:19)
[2020-09-14] MEDS: ACETAMINOPHEN 500 MG TAB PO SCH ×3 (05:53→21:07)
[2020-09-14 06:00] VITALS: BP 126/88
[2020-09-14 06:20] LABS: HEMATOCRIT 31.6 % (36.0-47.0); HEMOGLOBIN 9.4 g/dl (12.0-15.5); MEAN CORPUSCULAR HEMOGLOBIN 22.7 pg (27.0-33.0); MEAN CORPUSCULAR HGB CONC 29.7 g/dl (32.0-36.5); MEAN CORPUSCULAR VOLUME 76.3 fl (80.0-96.0); PLATELET COUNT, AUTOMATED 516 10^3/uL (150-450); RED BLOOD COUNT 4.14 10^6/uL (4.00-5.40); WHITE BLOOD COUNT 6.8 10^3/uL (4.0-10.0)
[2020-09-14 06:38] LABS: ERYTHROCYTE SEDIMENTATION RATE 88 mm/hr (0-20)
[2020-09-14 06:44] LABS: BLOOD UREA NITROGEN 15 MG/DL (7-18); C REACTIVE PROTEIN QUANTITATIV 4.81 MG/DL (0.00-0.30); CALCIUM LEVEL 9.9 MG/DL (8.5-10.1); CARBON DIOXIDE LEVEL 26 MEQ/L (21-32); CHLORIDE LEVEL 105 MEQ/L (98-107); CREATININE FOR GFR 0.77 MG/DL (0.55-1.30); FREE T4 1.28 NG/DL (0.76-1.46); GLOMERULAR FILTRATION RATE > 60.0 (>60); GLUCOSE, FASTING 100 MG/DL (70-100); POTASSIUM SERUM 4.2 MEQ/L (3.5-5.1); SODIUM LEVEL 139 MEQ/L (136-145)
[2020-09-14] MEDS: SODIUM CHLORIDE 0.9% INJ 10 ML SYR IV SCH ×2 (07:05→18:18)
[2020-09-14] MEDS: METHADONE 5 MG TAB (S0109) PO SCH (10:01)
[2020-09-14] MEDS: LIDOCAINE 5% (LIDODERM) PATCH TD SCH (10:01)
[2020-09-14] MEDS: APIXABAN 5 MG TAB (ELIQUIS) PO SCH (10:01)
[2020-09-14] MEDS: SENOKOT S TAB PO PRN (10:01)
[2020-09-14] MEDS: FERROUS SULFATE 325MG TAB PO SCH ×2 (10:01→20:05)
[2020-09-14] MEDS: DULoxetine 30 MG CAP (CYMBALTA) PO SCH (10:01)
--- NOTE | 2020-09-14 13:35 | IPNPDOC ---
Date Seen The patient was seen on 09/14/20. Progress Note SUBJECTIVE: Patient and family requesting to change orthopedic surgeons, discussed with Dr. Vamshi Deshpande to see this evening. MRI right knee: right distal femur osteomyelitis, mod fluid. Concern remains for right knee swelling, discussed with Dr. Watkins. Will f/u on all specialists recommendations. Remains having night sweats but afebrile. WBC wnl, tachycardic with HR 98-101. Contact/droplet precautions removed today. Patient denies chest pain, shortness of breath, n/v/d, chills. OBJECTIVE: PHYSICAL EXAMINATION: VS: Please see below General: Patient sitting up in bed, comfortable, awake, alert and oriented 3 HEENT: Normocephalic, atraumatic, moist mucous membranes, EOM intact CVS: sinus tachycardic, normal S1-S2, no M/R/G Lungs: CTAB, no W/R/R Abdomen: Nondistended, without tenderness, bowel sounds normal Extremities: No edema. Right knee swollen , tender to touch, no redness- unchanged since last exam Psych: mood and affect appropriate LABORATORY: Please see below MICROBIOLOGY: COVID PCR 09/08/20: Neg BCx x 2 sets 08/16/20: NG BCx x 2 sets 08/20/20: MRSA + Repeat BCX x 2 sets 08/22/20: NG x 5 days Right knee fluid aspiration, GS and culture 08/17/20: MRSA Repeat right knee fluid aspiration, GS and culture 09/05/20: NG STD w/u: neg IMAGING: MRI right knee with contrast 09/13/20: Diffuse edema and cellulitis of the soft tissues of the right knee. Moderate complex joint fluid with diffuse synovial enhancement, compatible with septic arthritis and infected joint fluid. No other evidence of soft tissue abscess. There are findings compatible with osteomyelitis of the distal femur. Echocardiogram 09/09/20: 1. Normal global left ventricular systolic and diastolic function. 2. Just mild mitral regurgitation. 3. Moderate tricuspid regurgitation. Pulmonary artery systolic pressure was normal but most likely under-estimated. 4. Diffuse pericardial effusion. 5. Possible vegetation on the tricuspid valve, it appeared to be smaller when compared to the most recent echocardiogram on 08/16/2020. ASSESSMENT: Patient is a 29-year-old female with a PMHx of Hepatitis C, IV heroin abuse who presented to the emergency room with right knee pain and fever. Later treated for right septic knee 2/2 to MRSA s/p washout and later aspiration, TV endocarditis, MRSA bacteremia (resolved) and new diagnosis as of 09/13/20 of right distal femur osteomyelitis. PLAN: #Right distal femur osteomyelitis, new diagnosis -ESR improving, WBC wnl, afebrile but remains having night sweats and being tachycardic with HR 98- -MRI right knee with contrast 09/13/20: Please see above -Last XR from 08/16/20: No knee joint space narrowing or erosive/inflammatory changes. 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 -ID following #Septic arthritis of right knee, MRSA -MRI above: No abscess but moderate complex joint fluid with diffuse synovial enhancement, compatible with septic arthritis and infected joint fluid. -S/p joint washout on 08/[address] Shiv Mar. Reevaluated by ortho 08/30/20 and did not think needed retapping. -Swelling persists but afebrile, WBC wnl. -F/u MRI right knee today with contrast to r/o abscess vs. incr fluid . If present, consider re-aspiration per ID. -C/w IV vancomycin until 09/19/20, pain control -ID following #Septic emboli to lung -On RA, denies shortness of breath, chest pain. -CXR 08/25 slight improvement. -c/w treatment above #COVID + exposure 08/30- -Asymptomatic thus far -COVID 09/08/20 neg #IV drug abuse, heroin -Has been on low dose methadone daily here -C/w methadone Q48 H as we are preparing her to d/c in 5 days. -Olanzepine prn. #Extensive RLE DVT -Duplex US 08/17: Extensive right femoropopliteal DVT. -Eliquis #Chronic Anemia likely 2/2 to chronic disease, MARTÍNEZ -S/p 4 units PRBC this admission. -No s/s of bleeding since admission -Iron low -C/w iron supplement -May benefit from IV venofer #Hepatitis C -Patient has not completed therapy as an outpatient; reports she was incarcerated -spontaneous remission as per ID -LFTs normal #History of bipolar disorder -Currently untreated but stable. -Will benefit from psychiatry referral by PCP. #GI prophylaxis -Protonix #DVT prophylaxis -Eliquis Disposition: D/c COVID precautions today. Orthopedic surgery to see today, ID following. VS, I&O, 24H, Fishbone Vital Signs/I&O Vital Signs Date Time Temp Pulse Resp B/P (MAP) Pulse Ox O2 Delivery O2 Flow Rate FiO2 09/14/20 06:00 97.7 101 18 126/88 (101) 98 Room Air I&O- Last 24 Hours up to 6 AM 09/14/20 06:00 Intake Total 1630 ml Output Total 2350 ml Balance -720 ml Laboratory Data 24H LABS Laboratory Tests 2 09/14/20 05:53: Nucleated Red Blood Cells % (auto) 0.0, Erythrocyte Sedimentation Rate 88H, Anion Gap 8, Glomerular Filtration Rate > 60.0, Calcium Level 9.9, C-Reactive Protein, Quantitative 4.81H, Free Thyroxine 1.28, Total Triiodothyronine 91.0 CBC/BMP Laboratory Tests 09/14/20 05:53 Microbiology Microbiology 09/05/20 Gram Stain - Final, Complete 09/05/20 Wound Culture - Final, Complete Current Medications Current Medications Medications (Trade) Dose Ordered Sig/Sharmaine Route PRN Reason Start Time Stop Time Status Last Admin Dose Admin Acetaminophen (Tylenol Tab) 650 mg Q4H PRN PO PAIN OR FEVER 08/17/20 01:00 09/04/20 12:26 DC 08/31/20 12:57 Acetaminophen (Tylenol Tab) 1,000 mg Q8H PO 09/04/20 14:00 09/14/20 05:53 Apixaban (Eliquis) 5 mg BID PO 09/05/20 21:00 09/14/20 10:01 Apixaban (Eliquis) 10 mg BID PO 08/29/20 21:00 09/05/20 12:00 DC 09/05/20 08:11 Cyclobenzaprine HCl (Flexeril) 5 mg Q6HP PRN PO SPASMS 08/30/20 12:00 09/13/20 22:30 Diphenhydramine HCl (Benadryl) 25 mg Q8HP PRN PO ANXIETY 09/06/20 11:00 09/06/20 11:01 DC Diphenhydramine HCl (Benadryl) 50 mg Q8HP PRN PO ANXIETY 09/06/20 11:00 09/06/20 13:32 DC 09/06/20 11:45 Duloxetine HCl (Cymbalta) 30 mg QAM PO 09/08/20 09:00 09/14/20 10:01 Enoxaparin Sodium (Lovenox) 40 mg DAILY SC 08/17/20 09:00 08/17/20 09:35 DC Enoxaparin Sodium (Lovenox) 60 mg Q12H SC 08/21/20 09:00 08/29/20 10:08 DC 08/29/20 08:55 Fentanyl Citrate (Sublimaze) 25 mcg Q5MP PRN IV PAIN LEVEL 5-10 08/17/20 03:15 08/17/20 04:14 DC Ferrous Sulfate (Ferrous Sulfate) 325 mg BID PO 08/23/20 09:00 09/14/20 10:01 Heparin Sodium (Heparin (Flush)) 200 units ASDIRECTED PRN IV SEE LABEL COMMENTS 08/26/20 06:45 09/02/20 22:57 Heparin Sodium (Heparin (Flush)) 200 units PICC IV 08/26/20 18:00 09/14/20 07:05 Heparin Sodium (Porcine) (Heparin) ASDIRECTED PRN IV SEE LABEL COMMENTS 08/17/20 09:45 08/21/20 08:18 DC 08/19/20 04:22 Heparin Sodium (Porcine) 31440 units/IV Miscellaneous Supplies 250 ml @ 0 mls/hr Q0M IV 08/17/20 09:32 08/21/20 08:18 DC 08/21/20 06:13 Home Med (Med Rec Complete!) ASDIRECTED XX 08/17/20 00:00 08/16/20 23:50 DC Ibuprofen (Advil) 600 mg Q8HP PRN PO PAIN 08/30/20 13:00 08/31/20 17:05 DC 08/31/20 15:16 Ketorolac Tromethamine (ToRADol) 15 mg Q6H PRN IV PAIN 08/31/20 21:00 09/05/20 20:59 DC 09/03/20 16:25 Lactated Ringer's 1,000 ml @ 100 mls/hr Q10H IV 08/17/20 03:15 08/17/20 04:14 DC Lidocaine (Lidoderm Patch) 1 patch DAILY TD 08/30/20 09:00 09/14/20 10:01 Magnesium Hydroxide (Milk Of Magnesia) 30 ml DAILY PRN PO CONSTIPATION 08/17/20 01:00 09/04/20 14:10 Meperidine HCl (Demerol) 12.5 mg Q5MP PRN IV SHIVERING 08/17/20 03:15 08/17/20 04:14 DC Meropenem 1 gm/IV Miscellaneous Supplies 50 ml @ 100 mls/hr Q8H IV 08/17/20 02:00 08/17/20 15:38 DC 08/17/20 10:46 Methadone HCl (Dolophine) 5 mg DAILY PO 09/06/20 09:00 09/13/20 08:37 DC 09/12/20 09:41 Methadone HCl (Dolophine) 5 mg Q48H PO 09/14/20 09:00 09/14/20 10:01 Methadone HCl (Dolophine) 10 mg BID PO 08/30/20 21:00 09/01/20 14:13 DC 09/01/20 08:03 Methadone HCl (Dolophine) 10 mg DAILY PO 09/02/20 09:00 09/04/20 12:26 DC 09/04/20 08:21 Methadone HCl (Dolophine) 10 mg Q6H PO 08/19/20 12:00 08/27/20 09:53 DC 08/27/20 05:58 Methadone HCl (Dolophine) 10 mg Q8H PO 08/27/20 14:00 08/30/20 12:56 DC 08/30/20 06:37 Methadone HCl (Dolophine) 10 mg Q8H PO 08/17/20 14:00 08/19/20 13:30 DC 08/19/20 05:14 Metoclopramide HCl (REGLAN INJection) 10 mg Q6HP PRN IV NAUSEA OR VOMITING 08/17/20 03:15 08/17/20 04:14 DC Morphine Sulfate (Morphine Sulfate Inj) 4 mg Q12HP PRN IV SEVERE PAIN (PS 8-10) 08/26/20 12:00 08/27/20 09:53 DC Morphine Sulfate (Morphine Sulfate Inj) 4 mg Q4HP PRN IV SEVERE PAIN (PS 8-10) 08/17/20 13:00 08/24/20 08:14 DC 08/24/20 07:49 Morphine Sulfate (Morphine Sulfate Inj) 4 mg Q6HP PRN IV SEVERE PAIN (PS 8-10) 08/24/20 14:00 08/26/20 11:57 DC 08/25/20 12:16 Nafcillin Sodium 2 gm/Dextrose 50 ml @ 50 mls/hr Q4H IV 08/18/20 15:00 08/19/20 07:16 DC 08/19/20 03:01 Non-Formulary Medication ( See Comment Field Below ) REMOVE LIDODERM PATCH DAILY@21 XX 08/30/20 21:00 09/12/20 21:12 Non-Formulary Medication (Heparin Iv Rate Change Documentation ml/ Hr) ASDIRECTED XX 08/17/20 09:45 08/21/20 08:18 DC 08/21/20 03:10 Olanzapine (ZyPREXA) 5 mg Q6HP PRN PO ANXIETY/AGITATION 09/07/20 09:00 09/13/20 21:54 Ondansetron HCl (ZOFRAN INJection) 4 mg Q4HP PRN IV NAUSEA OR VOMITING 08/17/20 03:15 08/17/20 04:14 DC Ondansetron HCl (ZOFRAN INJection) 4 mg Q6HP PRN IV NAUSEA OR VOMITING 08/19/20 17:30 08/23/20 13:36 Oxycodone HCl (Roxicodone, Oxyir) 5 mg ASDIRECTED PRN PO PAIN LEVEL 1-4 08/17/20 03:15 08/17/20 04:14 DC Pantoprazole Sodium (Protonix) 40 mg DAILY IV 08/17/20 09:00 08/24/20 08:15 DC 08/23/20 09:02 Pantoprazole Sodium (Protonix) 40 mg DAILY PO 08/24/20 09:00 09/08/20 12:43 DC 09/08/20 09:16 Polyethylene Glycol (Miralax) 1 pkt BID PRN PO CONSTIPATION 08/23/20 09:00 Senna/Docusate Sodium (Senokot S) 1 tab BIDP PRN PO CONSTIPATION 08/23/20 09:00 09/14/20 10:01 Sodium Chloride 1,000 ml @ 60 mls/hr [id number] IV 08/19/20 10:45 08/20/20 08:44 DC 08/19/20 11:30 Sodium Chloride 1,000 ml @ 60 mls/hr [id number] IV 08/23/20 09:15 08/24/20 01:54 DC 08/23/20 09:49 Sodium Chloride 1,000 ml @ 60 mls/hr [id number] IV 08/17/20 01:15 08/17/20 19:04 DC 08/17/20 10:37 Sodium Chloride (Saline Lock Flush) 2 ml ASDIRECTED PRN IV SEE LABEL COMMENTS 08/23/20 08:30 08/26/20 06:38 DC Sodium Chloride (Saline Lock Flush) 2 ml SLF IV 08/23/20 14:00 08/26/20 06:38 DC 08/25/20 22:19 Sodium Chloride (Saline Lock Flush) 10 ml ASDIRECTED PRN IV SEE LABEL COMMENTS 08/26/20 06:45 09/02/20 22:57 Sodium Chloride (Saline Lock Flush) 10 ml PICC IV 08/26/20 18:00 09/14/20 07:05 Vancomycin HCl 500 mg/Dextrose 110 ml @ 110 mls/hr Q12H IV 09/01/20 06:00 09/07/20 20:00 DC 09/07/20 17:40 Vancomycin HCl 500 mg/Dextrose 110 ml @ 110 mls/hr Q8H IV 08/22/20 14:00 08/25/20 12:55 DC 08/25/20 06:26 Vancomycin HCl 500 mg/Dextrose 110 ml @ 110 mls/hr Q8H IV 08/28/20 16:00 08/31/20 18:00 DC 08/31/20 15:52 Vancomycin HCl 500 mg/Dextrose 110 ml @ 110 mls/hr Q8H IV 08/18/20 13:00 08/22/20 12:05 DC 08/22/20 05:49 Vancomycin HCl 750 mg/IV Miscellaneous Supplies 1 each/ Dextrose 275 ml @ 275 mls/hr Q12H IV 09/01/20 05:00 09/07/20 20:00 MA 09/07/20 16:28 Vancomycin HCl 750 mg/IV Miscellaneous Supplies 1 each/ Dextrose 275 ml @ 275 mls/hr Q8H IV 08/22/20 13:00 08/25/20 12:55 MA 08/25/20 05:00 Vancomycin HCl 750 mg/IV Miscellaneous Supplies 1 each/ Dextrose 275 ml @ 275 mls/hr Q8H IV 08/25/20 13:00 08/28/20 14:32 MA 08/28/20 04:32 Vancomycin HCl 750 mg/IV Miscellaneous Supplies 1 each/ Dextrose 275 ml @ 275 mls/hr Q8H IV 08/25/20 14:00 08/28/20 14:33 MA 08/28/20 05:48 Vancomycin HCl 750 mg/IV Miscellaneous Supplies 1 each/ Dextrose 275 ml @ 275 mls/hr Q8H IV 08/28/20 15:00 08/31/20 18:00 MA 08/31/20 15:52 Vancomycin HCl 1000 mg/IV Miscellaneous Supplies 1 each/ Dextrose 270 ml @ 270 mls/hr Q12H IV 09/08/20 06:00 09/14/20 05:53 Vancomycin HCl 1000 mg/IV Miscellaneous Supplies 1 each/ Dextrose 270 ml @ 270 mls/hr Q6H IV 08/18/20 00:00 08/18/20 12:25 MA 08/18/20 05:12 Vancomycin HCl 1000 mg/IV Miscellaneous Supplies 1 each/ Dextrose 270 ml @ 270 mls/hr Q8H IV 08/17/20 04:00 08/17/20 21:01 MA 08/17/20 20:35 Vancomycin HCl 1000 mg/IV Miscellaneous Supplies 1 each/ Dextrose 270 ml @ 270 mls/hr Q8H IV 08/18/20 12:00 08/22/20 12:05 MA 08/22/20 04:31 Allergies Coded Allergies: fluoxetine (Verified Adverse Reaction, Intermediate, tongue dystonia, 06/29/19) Ingrid Fernandez MD Sep 14, 2020 13:35
[2020-09-14] MEDS ORDERED: LIDOCAINE 1% MDV 20ML VIAL As Ordered ONE (13:53)
[2020-09-14] MEDS ORDERED: LIDOCAINE 1% MDV 20ML VIAL SC ONE (14:00)
[2020-09-14] MEDS: SODIUM CHLORIDE 0.9% INJ 10 ML SYR IV PRN (19:27)
[2020-09-14] MEDS ORDERED: IBUPROFEN 400 MG TAB PO ONE (19:45)
[2020-09-14] MEDS: **NOTE PATIENT COMMENT** MISC XX SCH (20:05)
[2020-09-15] VITALS (7 sets, daily range): BP systolic 134–144; BP diastolic 78–97
[2020-09-15] MEDS: ACETAMINOPHEN 500 MG TAB PO SCH ×3 (05:37→21:14)
[2020-09-15] MEDS: VANCOMYCIN HCL 1,000 MG, VIAL MATE ADAPTER 1 EACH in D5W 250 ML IV SCH ×2 (05:52→18:46)
[2020-09-15] MEDS: SODIUM CHLORIDE 0.9% INJ 10 ML SYR IV SCH ×2 (07:09→18:46)
--- NOTE | 2020-09-15 08:50 | RO ---
DATE OF OPERATION: 09/14/2020 PREOPERATIVE DIAGNOSIS: Possible septic right knee. POSTOPERATIVE DIAGNOSIS: Possible septic right knee. PROCEDURE: Right knee aspiration. SURGEON: Darwin Kirkpatrick MD UPTWIST SPINNER: ANESTHESIA: Local, %1 lidocaine COMPLICATIONS: None. SPECIMENS: Small amount of clot of blood was obtained and sent on a culture swab for Gram stain, aerobic and anaerobic culture. DESCRIPTION OF OPERATIVE PROCEDURE: After appropriate time out and consent time, right knee area was carefully prepped with chlorhexidine. The area of maximum tenderness, which is right at the anteromedial joint line as well as suprapatellar medial pouch was infiltrated with 1% lidocaine. I first addressed the anteromedial aspect of the knee, was able to obtain about 2 cc of watery bloody material, not enough to place into the container tube, so I instead cultured it. I then aspirated the area where there is obvious loculated fluid appear to be at the superomedial aspect of the knee and obtained just a small amount of blood that did not appear to be purulent material and this was also sent for culture. She tolerated it well. Bandage was applied. RUSS
[2020-09-15] MEDS ORDERED: ROPIvacaine 0.5% 30ML INJECTION (J2795 PER 1MG) As Ordered ONE (08:52)
[2020-09-15] MEDS: FERROUS SULFATE 325MG TAB PO SCH ×2 (09:04→20:50)
[2020-09-15] MEDS: DULoxetine 30 MG CAP (CYMBALTA) PO SCH (09:04)
[2020-09-15] MEDS: LIDOCAINE 5% (LIDODERM) PATCH TD SCH (09:04)
[2020-09-15] MEDS ORDERED: propofoL 200 MG/20 ML VIAL As Ordered ONE ×2 (09:51→14:06)
[2020-09-15] MEDS ORDERED: ONDANSETRON 4MG/2ML VIAL As Ordered ONE (09:52)
[2020-09-15] MEDS ORDERED: dexameTHASONE 4 MG/ML 1ML VIAL (J1100 PER 1MG) As Ordered ONE (09:52)
[2020-09-15] MEDS ORDERED: MIDAZOLAM INJ 2MG/2ML VIAL (J2250 PER 1MG) As Ordered ONE (09:52)
[2020-09-15] MEDS ORDERED: fentaNYL 100 MCG/2 ML INJECTION (J3010) As Ordered ONE ×4 (09:52→14:57)
[2020-09-15] MEDS ORDERED: LIDOCAINE 2% 100MG/5ML SDV (FOR ANES.) As Ordered ONE ×2 (09:52→10:31)
[2020-09-15 09:56] LABS: INR 1.16; PROTHROMBIN TIME 15.1 SECONDS (12.5-14.3)
[2020-09-15] MEDS ORDERED: NORCO, ANEXSIA 5/325MG TABLET (HYDROcodone/ACETAMINOPHEN) PO PRN (13:45)
[2020-09-15] MEDS ORDERED: LR 1,000 ML IV SCH ×2 (13:45→14:15)
[2020-09-15] MEDS ORDERED: HYDROmorphone HCL 2 MG/ML 1ML VIAL (J1170) As Ordered ONE (14:02)
[2020-09-15] MEDS ORDERED: HYDROMORPHONE HCL 0.5 MG/ 0.5 ML SYRINGE (J1170 PER 1) As Ordered ONE ×2 (14:04→14:30)
[2020-09-15] MEDS ORDERED: ACETAMINOPHEN 1000MG 100ML IV BTL (OFIRMEV) (J0131 PER 10MG) As Ordered ONE (14:05)
[2020-09-15] MEDS: HYDROMORPHONE HCL 0.5 MG/ 0.5 ML SYRINGE (J1170 PER 1) IV PRN ×2 (14:10→14:32)
[2020-09-15] MEDS ORDERED: ONDANSETRON 4MG/2ML VIAL IV PRN (14:15)
[2020-09-15] MEDS ORDERED: METOCLOPRAMIDE INJ 10MG/2ML VIAL (J2765 PER 1) IV PRN (14:15)
[2020-09-15 14:35] LABS: SOURCE, BODY FLUID RT KNEE; SYNOVIAL FLUID COLOR RED (YELLOW)
--- NOTE | 2020-09-15 14:41 | IPNPDOC ---
Date Seen The patient was seen on 09/15/20. Progress Note SUBJECTIVE: OR for washout today of right knee, f/u cultures. Afebrile, WBC remains wnl. Discussed case with Dr. Watkins in detail at bedside with patient. Patient denies chest pain, shortness of breath, n/v/d, chills. OBJECTIVE: PHYSICAL EXAMINATION: VS: Please see below General: Patient sitting up in bed, comfortable, awake, alert and oriented 3 HEENT: Normocephalic, atraumatic, moist mucous membranes, EOM intact CVS: sinus tachycardic, normal S1-S2, no M/R/G Lungs: CTAB, no W/R/R Abdomen: Nondistended, without tenderness, bowel sounds normal Extremities: No edema. Right knee swollen , tender to touch, no redness- unchanged since last exam. Patch in place Psych: mood and affect appropriate LABORATORY: Please see below MICROBIOLOGY: COVID PCR 09/08/20: Neg BCx x 2 sets 08/16/20: NG BCx x 2 sets 08/20/20: MRSA + Repeat BCX x 2 sets 08/22/20: NG x 5 days Right knee fluid aspiration, GS and culture 08/17/20: MRSA Repeat right knee fluid aspiration, GS and culture 09/05/20: NG STD w/u: neg IMAGING: MRI right knee with contrast 09/13/20: Diffuse edema and cellulitis of the soft tissues of the right knee. Moderate complex joint fluid with diffuse synovial enhancement, compatible with septic arthritis and infected joint fluid. No other evidence of soft tissue abscess. There are findings compatible with osteomyelitis of the distal femur. Echocardiogram 09/09/20: 1. Normal global left ventricular systolic and diastolic function. 2. Just mild mitral regurgitation. 3. Moderate tricuspid regurgitation. Pulmonary artery systolic pressure was normal but most likely under-estimated. 4. Diffuse pericardial effusion. 5. Possible vegetation on the tricuspid valve, it appeared to be smaller when compared to the most recent echocardiogram on 08/16/2020. ASSESSMENT: Patient is a 29-year-old female with a PMHx of Hepatitis C, IV heroin abuse who presented to the emergency room with right knee pain and fever. Later treated for right septic knee 2/2 to MRSA s/p washout and later aspiration, TV endocarditis, MRSA bacteremia (resolved) and new diagnosis as of 09/13/20 of right distal femur osteomyelitis. PLAN: #Right distal femur osteomyelitis, new diagnosis -CRP improving, WBC wnl, afebrile -MRI right knee with contrast 09/13/20: Please see above -Last XR from 08/16/20: No knee joint space narrowing or erosive/inflammatory changes. 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 Will then need to discuss treatment plan going forward. -Micro above -Repeat Echocardiogram 09/09/20 see above- TV vegetation appears smaller. -ID following #Septic arthritis of right knee, MRSA -MRI above: No abscess but moderate complex joint fluid with diffuse synovial enhancement, compatible with septic arthritis and infected joint fluid. -S/p joint washout on 08/[address] Shiv Mar. Reevaluated by ortho 08/30/20 and did not think needed retapping. -Swelling persists but afebrile, WBC wnl. -F/u MRI right knee today with contrast to r/o abscess vs. incr fluid . If present, consider re-aspiration per ID. -C/w IV vancomycin until 09/19/20, pain control -ID following #Septic emboli to lung -On RA, denies shortness of breath, chest pain. -CXR 08/25 slight improvement. -c/w treatment above #COVID + exposure 08/30- -Asymptomatic thus far -COVID 09/08/20 neg #IV drug abuse, heroin -Has been on low dose methadone daily here -C/w methadone Q48 H as we are preparing her to d/c in 4 days. -Olanzepine prn. -Patient has clinic in mind for following up after discharge. #Extensive RLE DVT -Duplex US 08/17: Extensive right femoropopliteal DVT. -Eliquis #Chronic Anemia likely 2/2 to chronic disease, MARTÍNEZ -S/p 4 units PRBC this admission. -No s/s of bleeding since admission -Iron low -C/w iron supplement -May benefit from IV venofer #Hepatitis C -Patient has not completed therapy as an outpatient; reports she was incarcerated -spontaneous remission as per ID -LFTs normal #History of bipolar disorder -Currently untreated but stable. -Will benefit from psychiatry referral by PCP. #GI prophylaxis -Protonix #DVT prophylaxis -Eliquis Disposition: Going to OR today for right knee wash out, following up cultures. Ortho and ID following closely to prepare for discharge when appropriate. VS, I&O, 24H, Fishbone Vital Signs/I&O Vital Signs Date Time Temp Pulse Resp B/P (MAP) Pulse Ox O2 Delivery O2 Flow Rate FiO2 09/15/20 14:17 89 16 146/103 (117) 100 Nasal Cannula 2 09/15/20 13:50 98 I&O- Last 24 Hours up to 6 AM 09/15/20 05:59 Intake Total 2180 ml Output Total 650 ml Balance 1530 ml Laboratory Data 24H LABS Laboratory Tests 2 09/15/20 09:25: Prothrombin Time 15.1H, Prothromb Time International Ratio 1.16 09/15/20 14:21: Microbiology Microbiology 09/15/20 Gram Stain - Final, Resulted 09/15/20 Wound Culture, Resulted Pending 09/15/20 Anaerobic Culture, Resulted Pending 09/14/20 Anaerobic Culture, Received Pending 09/14/20 Body Fluid Culture, Received Pending 09/05/20 Gram Stain - Final, Complete 09/05/20 Wound Culture - Final, Complete Current Medications Current Medications Medications (Trade) Dose Ordered Sig/Sharmaine Route PRN Reason Start Time Stop Time Status Last Admin Dose Admin Acetaminophen (Tylenol Tab) 650 mg Q4H PRN PO PAIN OR FEVER 08/17/20 01:00 09/04/20 12:26 DC 08/31/20 12:57 Acetaminophen (Tylenol Tab) 1,000 mg Q8H PO 09/04/20 14:00 09/15/20 05:37 Acetaminophen/ Hydrocodone Bitart ([place], [employer] 5/325) 1 tab Q4HP PRN PO MODERATE PAIN (PS 5-7) 09/15/20 13:45 Acetaminophen/ Hydrocodone Bitart ([place], [place]nexsia 5/325) 2 tab Q4HP PRN PO SEVERE PAIN (PS 8-10) 09/15/20 13:45 Apixaban (Eliquis) 5 mg BID PO 09/05/20 21:00 09/14/20 15:16 DC 09/14/20 10:01 Apixaban (Eliquis) 5 mg BID PO 09/16/20 09:00 Apixaban (Eliquis) 10 mg BID PO 08/29/20 21:00 09/05/20 12:00 DC 09/05/20 08:11 Cyclobenzaprine HCl (Flexeril) 5 mg Q6HP PRN PO SPASMS 08/30/20 12:00 09/13/20 22:30 Diphenhydramine HCl (Benadryl) 25 mg Q8HP PRN PO ANXIETY 09/06/20 11:00 09/06/20 11:01 DC Diphenhydramine HCl (Benadryl) 50 mg Q8HP PRN PO ANXIETY 09/06/20 11:00 09/06/20 13:32 DC 09/06/20 11:45 Duloxetine HCl (Cymbalta) 30 mg QAM PO 09/08/20 09:00 09/15/20 09:04 Enoxaparin Sodium (Lovenox) 40 mg DAILY SC 08/17/20 09:00 08/17/20 09:35 DC Enoxaparin Sodium (Lovenox) 60 mg Q12H SC 08/21/20 09:00 08/29/20 10:08 DC 08/29/20 08:55 Fentanyl Citrate (Sublimaze) 25 mcg Q5MP PRN IV PAIN LEVEL 5-10 08/17/20 03:15 08/17/20 04:14 DC Fentanyl Citrate (Sublimaze) 25 mcg Q5MP PRN IV PAIN LEVEL 5-10 09/15/20 14:15 09/15/20 15:15 Ferrous Sulfate (Ferrous Sulfate) 325 mg BID PO 08/23/20 09:00 09/15/20 09:04 Heparin Sodium (Heparin (Flush)) 200 units ASDIRECTED PRN IV SEE LABEL COMMENTS 08/26/20 06:45 09/14/20 19:27 Heparin Sodium (Heparin (Flush)) 200 units PICC IV 08/26/20 18:00 09/15/20 07:09 Heparin Sodium (Porcine) (Heparin) ASDIRECTED PRN IV SEE LABEL COMMENTS 08/17/20 09:45 08/21/20 08:18 DC 08/19/20 04:22 Heparin Sodium (Porcine) 54577 units/IV Miscellaneous Supplies 250 ml @ 0 mls/hr Q0M IV 08/17/20 09:32 08/21/20 08:18 DC 08/21/20 06:13 Home Med (Med Rec Complete!) ASDIRECTED XX 08/17/20 00:00 08/16/20 23:50 DC Hydromorphone HCl (Dilaudid) 0.4 mg Q5MP PRN IV PAIN LEVEL 4-7 09/15/20 14:15 09/15/20 15:15 09/15/20 14:10 Ibuprofen (Advil) 600 mg Q8HP PRN PO PAIN 08/30/20 13:00 08/31/20 17:05 DC 08/31/20 15:16 Ketorolac Tromethamine (ToRADol) 15 mg Q6H PRN IV PAIN 08/31/20 21:00 09/05/20 20:59 DC 09/03/20 16:25 Lactated Ringer's 1,000 ml @ 80 mls/hr [id number] IV 09/15/20 13:45 Lactated Ringer's 1,000 ml @ 100 mls/hr Q10H IV 08/17/20 03:15 08/17/20 04:14 DC Lactated Ringer's 1,000 ml @ 100 mls/hr Q10H IV 09/15/20 14:15 09/15/20 15:15 Lidocaine (Lidoderm Patch) 1 patch DAILY TD 08/30/20 09:00 09/15/20 13:39 DC 09/15/20 09:04 Magnesium Hydroxide (Milk Of Magnesia) 30 ml DAILY PRN PO CONSTIPATION 08/17/20 01:00 09/04/20 14:10 Meperidine HCl (Demerol) 12.5 mg Q5MP PRN IV SHIVERING 08/17/20 03:15 08/17/20 04:14 DC Meropenem 1 gm/IV Miscellaneous Supplies 50 ml @ 100 mls/hr Q8H IV 08/17/20 02:00 08/17/20 15:38 DC 08/17/20 10:46 Methadone HCl (Dolophine) 5 mg DAILY PO 09/06/20 09:00 09/13/20 08:37 DC 09/12/20 09:41 Methadone HCl (Dolophine) 5 mg Q48H PO 09/14/20 09:00 09/14/20 10:01 Methadone HCl (Dolophine) 10 mg BID PO 08/30/20 21:00 09/01/20 14:13 DC 09/01/20 08:03 Methadone HCl (Dolophine) 10 mg DAILY PO 09/02/20 09:00 09/04/20 12:26 DC 09/04/20 08:21 Methadone HCl (Dolophine) 10 mg Q6H PO 08/19/20 12:00 08/27/20 09:53 DC 08/27/20 05:58 Methadone HCl (Dolophine) 10 mg Q8H PO 08/27/20 14:00 08/30/20 12:56 DC 08/30/20 06:37 Methadone HCl (Dolophine) 10 mg Q8H PO 08/17/20 14:00 08/19/20 13:30 DC 08/19/20 05:14 Metoclopramide HCl (REGLAN INJection) 10 mg Q6HP PRN IV NAUSEA OR VOMITING 08/17/20 03:15 08/17/20 04:14 DC Metoclopramide HCl (REGLAN INJection) 10 mg Q6HP PRN IV NAUSEA OR VOMITING 09/15/20 14:15 09/15/20 15:15 Morphine Sulfate (Morphine Sulfate Inj) 4 mg Q12HP PRN IV SEVERE PAIN (PS 8-10) 08/26/20 12:00 08/27/20 09:53 DC Morphine Sulfate (Morphine Sulfate Inj) 4 mg Q4HP PRN IV SEVERE PAIN (PS 8-10) 08/17/20 13:00 08/24/20 08:14 DC 08/24/20 07:49 Morphine Sulfate (Morphine Sulfate Inj) 4 mg Q6HP PRN IV SEVERE PAIN (PS 8-10) 08/24/20 14:00 08/26/20 11:57 DC 08/25/20 12:16 Nafcillin Sodium 2 gm/Dextrose 50 ml @ 50 mls/hr Q4H IV 08/18/20 15:00 08/19/20 07:16 DC 08/19/20 03:01 Non-Formulary Medication ( See Comment Field Below ) REMOVE LIDODERM PATCH DAILY@21 XX 08/30/20 21:00 09/15/20 13:39 DC 09/14/20 20:05 Non-Formulary Medication (Heparin Iv Rate Change Documentation ml/ Hr) ASDIRECTED XX 08/17/20 09:45 08/21/20 08:18 DC 08/21/20 03:10 Olanzapine (ZyPREXA) 5 mg Q6HP PRN PO ANXIETY/AGITATION 09/07/20 09:00 09/13/20 21:54 Ondansetron HCl (ZOFRAN INJection) 4 mg Q4HP PRN IV NAUSEA OR VOMITING 08/17/20 03:15 08/17/20 04:14 DC Ondansetron HCl (ZOFRAN INJection) 4 mg Q4HP PRN IV NAUSEA OR VOMITING 09/15/20 14:15 09/15/20 15:15 Ondansetron HCl (ZOFRAN INJection) 4 mg Q6HP PRN IV NAUSEA OR VOMITING 08/19/20 17:30 08/23/20 13:36 Oxycodone HCl (Roxicodone, Oxyir) 5 mg ASDIRECTED PRN PO PAIN LEVEL 1-4 08/17/20 03:15 08/17/20 04:14 DC Pantoprazole Sodium (Protonix) 40 mg DAILY IV 08/17/20 09:00 08/24/20 08:15 DC 08/23/20 09:02 Pantoprazole Sodium (Protonix) 40 mg DAILY PO 08/24/20 09:00 09/08/20 12:43 DC 09/08/20 09:16 Polyethylene Glycol (Miralax) 1 pkt BID PRN PO CONSTIPATION 08/23/20 09:00 Senna/Docusate Sodium (Senokot S) 1 tab BIDP PRN PO CONSTIPATION 08/23/20 09:00 09/14/20 10:01 Sodium Chloride 1,000 ml @ 60 mls/hr [id number] IV 08/19/20 10:45 08/20/20 08:44 DC 08/19/20 11:30 Sodium Chloride 1,000 ml @ 60 mls/hr [id number] IV 08/23/20 09:15 08/24/20 01:54 DC 08/23/20 09:49 Sodium Chloride 1,000 ml @ 60 mls/hr [id number] IV 08/17/20 01:15 08/17/20 19:04 DC 08/17/20 10:37 Sodium Chloride (Saline Lock Flush) 2 ml ASDIRECTED PRN IV SEE LABEL COMMENTS 08/23/20 08:30 08/26/20 06:38 DC Sodium Chloride (Saline Lock Flush) 2 ml SLF IV 08/23/20 14:00 08/26/20 06:38 DC 08/25/20 22:19 Sodium Chloride (Saline Lock Flush) 10 ml ASDIRECTED PRN IV SEE LABEL COMMENTS 08/26/20 06:45 09/14/20 19:27 Sodium Chloride (Saline Lock Flush) 10 ml PICC IV 08/26/20 18:00 09/15/20 07:09 Vancomycin HCl 500 mg/Dextrose 110 ml @ 110 mls/hr Q12H IV 09/01/20 06:00 09/07/20 20:00 DC 09/07/20 17:40 Vancomycin HCl 500 mg/Dextrose 110 ml @ 110 mls/hr Q8H IV 08/22/20 14:00 08/25/20 12:55 DC 08/25/20 06:26 Vancomycin HCl 500 mg/Dextrose 110 ml @ 110 mls/hr Q8H IV 08/28/20 16:00 08/31/20 18:00 DC 08/31/20 15:52 Vancomycin HCl 500 mg/Dextrose 110 ml @ 110 mls/hr Q8H IV 08/18/20 13:00 08/22/20 12:05 DC 08/22/20 05:49 Vancomycin HCl 750 mg/IV Miscellaneous Supplies 1 each/ Dextrose 275 ml @ 275 mls/hr Q12H IV 09/01/20 05:00 09/07/20 20:00 DC 09/07/20 16:28 Vancomycin HCl 750 mg/IV Miscellaneous Supplies 1 each/ Dextrose 275 ml @ 275 mls/hr Q8H IV 08/22/20 13:00 08/25/20 12:55 DC 08/25/20 05:00 Vancomycin HCl 750 mg/IV Miscellaneous Supplies 1 each/ Dextrose 275 ml @ 275 mls/hr Q8H IV 08/25/20 13:00 08/28/20 14:32 DC 08/28/20 04:32 Vancomycin HCl 750 mg/IV Miscellaneous Supplies 1 each/ Dextrose 275 ml @ 275 mls/hr Q8H IV 08/25/20 14:00 08/28/20 14:33 DC 08/28/20 05:48 Vancomycin HCl 750 mg/IV Miscellaneous Supplies 1 each/ Dextrose 275 ml @ 275 mls/hr Q8H IV 08/28/20 15:00 08/31/20 18:00 DC 08/31/20 15:52 Vancomycin HCl 1000 mg/IV Miscellaneous Supplies 1 each/ Dextrose 270 ml @ 270 mls/hr Q12H IV 09/08/20 06:00 09/15/20 05:52 Vancomycin HCl 1000 mg/IV Miscellaneous Supplies 1 each/ Dextrose 270 ml @ 270 mls/hr Q6H IV 08/18/20 00:00 08/18/20 12:25 DC 08/18/20 05:12 Vancomycin HCl 1000 mg/IV Miscellaneous Supplies 1 each/ Dextrose 270 ml @ 270 mls/hr Q8H IV 08/17/20 04:00 08/17/20 21:01 AL 08/17/20 20:35 Vancomycin HCl 1000 mg/IV Miscellaneous Supplies 1 each/ Dextrose 270 ml @ 270 mls/hr Q8H IV 08/18/20 12:00 08/22/20 12:05 AL 08/22/20 04:31 Allergies Coded Allergies: fluoxetine (Verified Adverse Reaction, Intermediate, tongue dystonia, 06/29/19) Ingrid Fernandez MD Sep 15, 2020 14:41
[2020-09-15] MEDS ORDERED: oxyCODONE 5MG TAB As Ordered ONE ×2 (14:42→15:17)
[2020-09-15] MEDS: oxyCODONE 5MG TAB PO PRN ×2 (14:45→15:13)
[2020-09-15] MEDS: fentaNYL 100 MCG/2 ML INJECTION (J3010) IV PRN ×4 (14:59→15:18)
[2020-09-15] MEDS ORDERED: LABETALOL 100MG/20ML VIAL As Ordered ONE (15:13)
[2020-09-15] MEDS: NORCO, ANEXSIA 5/325MG TABLET (HYDROcodone/ACETAMINOPHEN) PO PRN ×2 (18:51→23:03)
[2020-09-15] MEDS: SODIUM CHLORIDE 0.9% INJ 10 ML SYR IV PRN (19:56)
[2020-09-16 02:00] VITALS: BP 146/75
[2020-09-16 06:00] VITALS: BP 130/78
[2020-09-16] MEDS ORDERED: PERCOCET 5MG/325MG TAB PO PRN ×2 (06:00)
[2020-09-16] MEDS: VANCOMYCIN HCL 1,000 MG, VIAL MATE ADAPTER 1 EACH in D5W 250 ML IV SCH ×2 (06:38→17:07)
[2020-09-16] MEDS: ACETAMINOPHEN 500 MG TAB PO SCH ×3 (06:39→21:31)
[2020-09-16 06:51] LABS: HEMATOCRIT 26.8 % (36.0-47.0); MEAN CORPUSCULAR HEMOGLOBIN 22.5 pg (27.0-33.0); MEAN CORPUSCULAR HGB CONC 29.9 g/dl (32.0-36.5); MEAN CORPUSCULAR VOLUME 75.5 fl (80.0-96.0); PLATELET COUNT, AUTOMATED 502 10^3/uL (150-450); RED BLOOD COUNT 3.55 10^6/uL (4.00-5.40); WHITE BLOOD COUNT 6.6 10^3/uL (4.0-10.0)
[2020-09-16 07:27] LABS: ALBUMIN 2.8 GM/DL (3.2-5.2); ALT/SGPT 9 U/L (12-78); BILIRUBIN,TOTAL 0.2 MG/DL (0.2-1.0); BLOOD UREA NITROGEN 17 MG/DL (7-18); CALCIUM LEVEL 9.5 MG/DL (8.5-10.1); CARBON DIOXIDE LEVEL 28 MEQ/L (21-32); CHLORIDE LEVEL 106 MEQ/L (98-107); CREATININE FOR GFR 0.66 MG/DL (0.55-1.30); GLOMERULAR FILTRATION RATE > 60.0 (>60); GLUCOSE, FASTING 99 MG/DL (70-100); POTASSIUM SERUM 4.4 MEQ/L (3.5-5.1); SODIUM LEVEL 139 MEQ/L (136-145); TOTAL PROTEIN 7.5 GM/DL (6.4-8.2)
[2020-09-16] MEDS: APIXABAN 5 MG TAB (ELIQUIS) PO SCH ×2 (08:30→21:29)
[2020-09-16] MEDS: FERROUS SULFATE 325MG TAB PO SCH ×2 (08:30→21:29)
[2020-09-16] MEDS: DULoxetine 30 MG CAP (CYMBALTA) PO SCH (08:30)
[2020-09-16] MEDS: SODIUM CHLORIDE 0.9% INJ 10 ML SYR IV SCH ×3 (08:30→18:26)
[2020-09-16] MEDS: METHADONE 5 MG TAB (S0109) PO SCH (08:30)
[2020-09-16 10:00] VITALS: BP 128/84
[2020-09-16 14:00] VITALS: BP 132/92
[2020-09-16] MEDS: traMADol 50 MG TAB PO PRN ×2 (14:14→21:30)
--- NOTE | 2020-09-16 18:39 | IPNPDOC ---
Date Seen The patient was seen on 09/16/20. Progress Note SUBJECTIVE: POD1 OR for washout of right knee. 30 mL of red fluid in drain of right knee. Cultures, path pending. Afebrile, WBC remains wnl. Patient denies chest pain, shortness of breath, n/v/d, chills. OBJECTIVE: PHYSICAL EXAMINATION: VS: Please see below General: Patient sitting up in bed, comfortable, awake, alert and oriented 3 HEENT: Normocephalic, atraumatic, moist mucous membranes, EOM intact CVS: sinus tachycardic, normal S1-S2, no M/R/G Lungs: CTAB, no W/R/R Abdomen: Nondistended, without tenderness, bowel sounds normal Extremities: No edema. Right knee swollen covered in JUSTYNA, RADHA drain taped to outside , tender to touch. No increased erythema or swelling Psych: mood and affect appropriate LABORATORY: Please see below MICROBIOLOGY: Right knee fluid cultures: pending COVID PCR 09/08/20: Neg BCx x 2 sets 08/16/20: NG BCx x 2 sets 08/20/20: MRSA + Repeat BCX x 2 sets 08/22/20: NG x 5 days Right knee fluid aspiration, GS and culture 08/17/20: MRSA Repeat right knee fluid aspiration, GS and culture 09/05/20: NG STD w/u: neg IMAGING: MRI right knee with contrast 09/13/20: Diffuse edema and cellulitis of the soft tissues of the right knee. Moderate complex joint fluid with diffuse synovial enhancement, compatible with septic arthritis and infected joint fluid. No other evidence of soft tissue abscess. There are findings compatible with osteomyelitis of the distal femur. Echocardiogram 09/09/20: 1. Normal global left ventricular systolic and diastolic function. 2. Just mild mitral regurgitation. 3. Moderate tricuspid regurgitation. Pulmonary artery systolic pressure was normal but most likely under-estimated. 4. Diffuse pericardial effusion. 5. Possible vegetation on the tricuspid valve, it appeared to be smaller when compared to the most recent echocardiogram on 08/16/2020. ASSESSMENT: Patient is a 29-year-old female with a PMHx of Hepatitis C, IV heroin abuse who presented to the emergency room with right knee pain and fever. Later treated for right septic knee 2/2 to MRSA s/p washout and later aspiration, TV endocarditis, MRSA bacteremia (resolved) and new diagnosis as of 09/13/20 of right distal femur osteomyelitis. PLAN: #Septic arthritis of right knee, MRSA -POD 1 of right knee washout, all cultures pending -WBC wnl, afebrile with improvement in tachycardia -Pain after washout, wanted tramadol in addition to methadone Q48H -Last MRI above -F/u knee fluid cultures -S/p joint washout on 08/[address] Shiv Mar. Reevaluated by ortho 08/30/20 and did not think needed retapping. -C/w IV vancomycin until 09/19/20, pain control -ID following #Right distal femur osteomyelitis, new diagnosis -CRP improving, WBC wnl, remains afebrile -MRI right knee with contrast 09/13/20: Please see above -Last XR from 08/16/20: No knee joint space narrowing or erosive/inflammatory changes. 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 Will then need to discuss treatment plan going forward. -Micro above -Repeat Echocardiogram 09/09/20 see above- TV vegetation appears smaller. -ID following #Septic emboli to lung -On RA, denies shortness of breath, chest pain. -CXR 08/25 slight improvement. -c/w treatment above #COVID + exposure 08/30- -Asymptomatic thus far -COVID 09/08/20 neg #IV drug abuse, heroin -Has been on low dose methadone daily here -C/w methadone Q48 H as we are preparing her to d/c in 4 days. -Olanzepine prn. -Patient has clinic in mind for following up after discharge. #Extensive RLE DVT -Duplex US 08/17: Extensive right femoropopliteal DVT. -Eliquis #Chronic Anemia likely 2/2 to chronic disease, MARTÍNEZ -S/p 4 units PRBC this admission. -No s/s of bleeding since admission -Iron low -C/w iron supplement -May benefit from IV venofer #Hepatitis C -Patient has not completed therapy as an outpatient; reports she was incarcerated -spontaneous remission as per ID -LFTs normal #History of bipolar disorder -Currently untreated but stable. -Will benefit from psychiatry referral by PCP. #GI prophylaxis -Protonix #DVT prophylaxis -Eliquis Disposition: Ortho and ID following closely to prepare for discharge when appropriate. VS, I&O, 24H, Fishbone Vital Signs/I&O Vital Signs Date Time Temp Pulse Resp B/P (MAP) Pulse Ox O2 Delivery O2 Flow Rate FiO2 09/16/20 14:44 18 09/16/20 14:00 98.2 91 132/92 (105) 97 Room Air 09/15/20 15:33 2 I&O- Last 24 Hours up to 6 AM 09/16/20 06:00 Intake Total 2040 ml Output Total 1617 ml Balance 423 ml Laboratory Data 24H LABS Laboratory Tests 2 09/16/20 06:37: Nucleated Red Blood Cells % (auto) 0.0, Anion Gap 5L, Glomerular Filtration Rate > 60.0, Calcium Level 9.5, Total Bilirubin 0.2, Aspartate Amino Transf (AST/SGOT) 7, Alanine Aminotransferase (ALT/SGPT) 9L, Alkaline Phosphatase 139H, Total Protein 7.5, Albumin 2.8L, Albumin/Globulin Ratio 0.6L CBC/BMP Laboratory Tests 09/16/20 06:37 Microbiology Microbiology 09/15/20 Gram Stain - Final, Resulted 09/15/20 Wound Culture, Resulted Pending 09/15/20 Anaerobic Culture, Resulted Pending 09/14/20 Anaerobic Culture - Final, Complete 09/14/20 Body Fluid Culture - Final, Complete Current Medications Current Medications Medications (Trade) Dose Ordered Sig/Sharmaine Route PRN Reason Start Time Stop Time Status Last Admin Dose Admin Acetaminophen (Tylenol Tab) 650 mg Q4H PRN PO PAIN OR FEVER 08/17/20 01:00 09/04/20 12:26 DC 08/31/20 12:57 Acetaminophen (Tylenol Tab) 1,000 mg Q8H PO 09/04/20 14:00 09/16/20 14:14 Acetaminophen/ Hydrocodone Bitart ([place], [place]nexsia 5/325) 1 tab Q4HP PRN PO MODERATE PAIN (PS 5-7) 09/15/20 13:45 09/16/20 05:54 DC 09/15/20 23:03 Acetaminophen/ Hydrocodone Bitart ([place], Anexsia 5/325) 2 tab Q4HP PRN PO SEVERE PAIN (PS 8-10) 09/15/20 13:45 09/16/20 05:54 DC 09/16/20 04:59 Apixaban (Eliquis) 5 mg BID PO 09/05/20 21:00 09/14/20 15:16 DC 09/14/20 10:01 Apixaban (Eliquis) 5 mg BID PO 09/16/20 09:00 09/16/20 08:30 Apixaban (Eliquis) 10 mg BID PO 08/29/20 21:00 09/05/20 12:00 DC 09/05/20 08:11 Cyclobenzaprine HCl (Flexeril) 5 mg Q6HP PRN PO SPASMS 08/30/20 12:00 09/13/20 22:30 Diphenhydramine HCl (Benadryl) 25 mg Q8HP PRN PO ANXIETY 09/06/20 11:00 09/06/20 11:01 DC Diphenhydramine HCl (Benadryl) 50 mg Q8HP PRN PO ANXIETY 09/06/20 11:00 09/06/20 13:32 DC 09/06/20 11:45 Duloxetine HCl (Cymbalta) 30 mg QAM PO 09/08/20 09:00 09/16/20 08:30 Enoxaparin Sodium (Lovenox) 40 mg DAILY SC 08/17/20 09:00 08/17/20 09:35 DC Enoxaparin Sodium (Lovenox) 60 mg Q12H SC 08/21/20 09:00 08/29/20 10:08 DC 08/29/20 08:55 Fentanyl Citrate (Sublimaze) 25 mcg Q5MP PRN IV PAIN LEVEL 5-10 08/17/20 03:15 08/17/20 04:14 DC Fentanyl Citrate (Sublimaze) 25 mcg Q5MP PRN IV PAIN LEVEL 5-10 09/15/20 14:15 09/15/20 15:15 DC 09/15/20 15:18 Ferrous Sulfate (Ferrous Sulfate) 325 mg BID PO 08/23/20 09:00 09/16/20 08:30 Heparin Sodium (Heparin (Flush)) 200 units ASDIRECTED PRN IV SEE LABEL COMMENTS 08/26/20 06:45 09/15/20 19:56 Heparin Sodium (Heparin (Flush)) 200 units PICC IV 08/26/20 18:00 09/16/20 18:26 Heparin Sodium (Porcine) (Heparin) ASDIRECTED PRN IV SEE LABEL COMMENTS 08/17/20 09:45 08/21/20 08:18 DC 08/19/20 04:22 Heparin Sodium (Porcine) 72913 units/IV Miscellaneous Supplies 250 ml @ 0 mls/hr Q0M IV 08/17/20 09:32 08/21/20 08:18 DC 08/21/20 06:13 Home Med (Med Rec Complete!) ASDIRECTED XX 08/17/20 00:00 08/16/20 23:50 DC Hydromorphone HCl (Dilaudid) 0.4 mg Q5MP PRN IV PAIN LEVEL 4-7 09/15/20 14:15 09/15/20 15:15 DC 09/15/20 14:32 Ibuprofen (Advil) 600 mg Q8HP PRN PO PAIN 08/30/20 13:00 08/31/20 17:05 DC 08/31/20 15:16 Ketorolac Tromethamine (ToRADol) 15 mg Q6H PRN IV PAIN 08/31/20 21:00 09/05/20 20:59 DC 09/03/20 16:25 Lactated Ringer's 1,000 ml @ 80 mls/hr [id number] IV 09/15/20 13:45 Cancel Lactated Ringer's 1,000 ml @ 100 mls/hr Q10H IV 08/17/20 03:15 08/17/20 04:14 DC Lactated Ringer's 1,000 ml @ 100 mls/hr Q10H IV 09/15/20 14:15 09/15/20 15:15 DC Lidocaine (Lidoderm Patch) 1 patch DAILY TD 08/30/20 09:00 09/15/20 13:39 DC 09/15/20 09:04 Magnesium Hydroxide (Milk Of Magnesia) 30 ml DAILY PRN PO CONSTIPATION 08/17/20 01:00 09/04/20 14:10 Meperidine HCl (Demerol) 12.5 mg Q5MP PRN IV SHIVERING 08/17/20 03:15 08/17/20 04:14 DC Meropenem 1 gm/IV Miscellaneous Supplies 50 ml @ 100 mls/hr Q8H IV 08/17/20 02:00 08/17/20 15:38 DC 08/17/20 10:46 Methadone HCl (Dolophine) 5 mg DAILY PO 09/06/20 09:00 09/13/20 08:37 DC 09/12/20 09:41 Methadone HCl (Dolophine) 5 mg Q48H PO 09/14/20 09:00 09/16/20 08:30 Methadone HCl (Dolophine) 10 mg BID PO 08/30/20 21:00 09/01/20 14:13 DC 09/01/20 08:03 Methadone HCl (Dolophine) 10 mg DAILY PO 09/02/20 09:00 09/04/20 12:26 DC 09/04/20 08:21 Methadone HCl (Dolophine) 10 mg Q6H PO 08/19/20 12:00 08/27/20 09:53 DC 08/27/20 05:58 Methadone HCl (Dolophine) 10 mg Q8H PO 08/27/20 14:00 08/30/20 12:56 DC 08/30/20 06:37 Methadone HCl (Dolophine) 10 mg Q8H PO 08/17/20 14:00 08/19/20 13:30 DC 08/19/20 05:14 Metoclopramide HCl (REGLAN INJection) 10 mg Q6HP PRN IV NAUSEA OR VOMITING 08/17/20 03:15 08/17/20 04:14 DC Metoclopramide HCl (REGLAN INJection) 10 mg Q6HP PRN IV NAUSEA OR VOMITING 09/15/20 14:15 09/15/20 15:15 DC Morphine Sulfate (Morphine Sulfate Inj) 4 mg Q12HP PRN IV SEVERE PAIN (PS 8-10) 08/26/20 12:00 08/27/20 09:53 DC Morphine Sulfate (Morphine Sulfate Inj) 4 mg Q4HP PRN IV SEVERE PAIN (PS 8-10) 08/17/20 13:00 08/24/20 08:14 DC 08/24/20 07:49 Morphine Sulfate (Morphine Sulfate Inj) 4 mg Q6HP PRN IV SEVERE PAIN (PS 8-10) 08/24/20 14:00 08/26/20 11:57 DC 08/25/20 12:16 Nafcillin Sodium 2 gm/Dextrose 50 ml @ 50 mls/hr Q4H IV 08/18/20 15:00 08/19/20 07:16 DC 08/19/20 03:01 Non-Formulary Medication ( See Comment Field Below ) REMOVE LIDODERM PATCH DAILY@21 XX 08/30/20 21:00 09/15/20 13:39 DC 09/14/20 20:05 Non-Formulary Medication (Heparin Iv Rate Change Documentation ml/ Hr) ASDIRECTED XX 08/17/20 09:45 08/21/20 08:18 DC 08/21/20 03:10 Olanzapine (ZyPREXA) 5 mg Q6HP PRN PO ANXIETY/AGITATION 09/07/20 09:00 09/13/20 21:54 Ondansetron HCl (ZOFRAN INJection) 4 mg Q4HP PRN IV NAUSEA OR VOMITING 08/17/20 03:15 08/17/20 04:14 DC Ondansetron HCl (ZOFRAN INJection) 4 mg Q4HP PRN IV NAUSEA OR VOMITING 09/15/20 14:15 09/15/20 15:15 DC Ondansetron HCl (ZOFRAN INJection) 4 mg Q6HP PRN IV NAUSEA OR VOMITING 08/19/20 17:30 08/23/20 13:36 Oxycodone HCl (Roxicodone, Oxyir) 5 mg ASDIRECTED PRN PO PAIN LEVEL 1-4 08/17/20 03:15 08/17/20 04:14 DC Oxycodone HCl (Roxicodone, Oxyir) 5 mg ASDIRECTED PRN PO PAIN LEVEL 1-4 09/15/20 15:00 09/15/20 15:15 DC 09/15/20 14:45 Oxycodone/ Acetaminophen (Percocet 5mg/ 325mg Tablet) 1 tab Q4HP PRN PO MODERATE PAIN (PS 5-7) 09/16/20 06:00 09/16/20 12:50 DC Oxycodone/ Acetaminophen (Percocet 5mg/ 325mg Tablet) 2 tab Q4HP PRN PO SEVERE PAIN (PS 8-10) 09/16/20 06:00 09/16/20 12:50 DC Pantoprazole Sodium (Protonix) 40 mg DAILY IV 08/17/20 09:00 08/24/20 08:15 DC 08/23/20 09:02 Pantoprazole Sodium (Protonix) 40 mg DAILY PO 08/24/20 09:00 09/08/20 12:43 DC 09/08/20 09:16 Polyethylene Glycol (Miralax) 1 pkt BID PRN PO CONSTIPATION 08/23/20 09:00 Senna/Docusate Sodium (Senokot S) 1 tab BIDP PRN PO CONSTIPATION 08/23/20 09:00 09/14/20 10:01 Sodium Chloride 1,000 ml @ 60 mls/hr [id number] IV 08/19/20 10:45 08/20/20 08:44 DC 08/19/20 11:30 Sodium Chloride 1,000 ml @ 60 mls/hr [id number] IV 08/23/20 09:15 08/24/20 01:54 DC 08/23/20 09:49 Sodium Chloride 1,000 ml @ 60 mls/hr [id number] IV 08/17/20 01:15 08/17/20 19:04 DC 08/17/20 10:37 Sodium Chloride (Saline Lock Flush) 2 ml ASDIRECTED PRN IV SEE LABEL COMMENTS 08/23/20 08:30 08/26/20 06:38 DC Sodium Chloride (Saline Lock Flush) 2 ml SLF IV 08/23/20 14:00 08/26/20 06:38 DC 08/25/20 22:19 Sodium Chloride (Saline Lock Flush) 10 ml ASDIRECTED PRN IV SEE LABEL COMMENTS 08/26/20 06:45 09/15/20 19:56 Sodium Chloride (Saline Lock Flush) 10 ml PICC IV 08/26/20 18:00 09/16/20 18:26 Tramadol HCl (Ultram) 50 mg Q6HP PRN PO MODERATE PAIN (PS 5-7) 09/16/20 13:00 09/16/20 14:14 Vancomycin HCl 500 mg/Dextrose 110 ml @ 110 mls/hr Q12H IV 09/01/20 06:00 09/07/20 20:00 DC 09/07/20 17:40 Vancomycin HCl 500 mg/Dextrose 110 ml @ 110 mls/hr Q8H IV 08/22/20 14:00 08/25/20 12:55 DC 08/25/20 06:26 Vancomycin HCl 500 mg/Dextrose 110 ml @ 110 mls/hr Q8H IV 08/28/20 16:00 08/31/20 18:00 DC 08/31/20 15:52 Vancomycin HCl 500 mg/Dextrose 110 ml @ 110 mls/hr Q8H IV 08/18/20 13:00 08/22/20 12:05 DC 08/22/20 05:49 Vancomycin HCl 750 mg/IV Miscellaneous Supplies 1 each/ Dextrose 275 ml @ 275 mls/hr Q12H IV 09/01/20 05:00 09/07/20 20:00 DC 09/07/20 16:28 Vancomycin HCl 750 mg/IV Miscellaneous Supplies 1 each/ Dextrose 275 ml @ 275 mls/hr Q8H IV 08/22/20 13:00 08/25/20 12:55 DC 08/25/20 05:00 Vancomycin HCl 750 mg/IV Miscellaneous Supplies 1 each/ Dextrose 275 ml @ 275 mls/hr Q8H IV 08/25/20 13:00 08/28/20 14:32 DC 08/28/20 04:32 Vancomycin HCl 750 mg/IV Miscellaneous Supplies 1 each/ Dextrose 275 ml @ 275 mls/hr Q8H IV 08/25/20 14:00 08/28/20 14:33 DC 08/28/20 05:48 Vancomycin HCl 750 mg/IV Miscellaneous Supplies 1 each/ Dextrose 275 ml @ 275 mls/hr Q8H IV 08/28/20 15:00 08/31/20 18:00 DC 08/31/20 15:52 Vancomycin HCl 1000 mg/IV Miscellaneous Supplies 1 each/ Dextrose 270 ml @ 270 mls/hr Q12H IV 09/08/20 06:00 09/16/20 17:07 Vancomycin HCl 1000 mg/IV Miscellaneous Supplies 1 each/ Dextrose 270 ml @ 270 mls/hr Q6H IV 08/18/20 00:00 08/18/20 12:25 DC 08/18/20 05:12 Vancomycin HCl 1000 mg/IV Miscellaneous Supplies 1 each/ Dextrose 270 ml @ 270 mls/hr Q8H IV 08/17/20 04:00 08/17/20 21:01 DC 08/17/20 20:35 Vancomycin HCl 1000 mg/IV Miscellaneous Supplies 1 each/ Dextrose 270 ml @ 270 mls/hr Q8H IV 08/18/20 12:00 08/22/20 12:05 DC 08/22/20 04:31 Allergies Coded Allergies: fluoxetine (Verified Adverse Reaction, Intermediate, tongue dystonia, 06/29/19) Ingrid Fernandez MD Sep 16, 2020 18:39
[2020-09-16] MEDS: OLANZapine 5 MG TAB PO PRN (21:29)
[2020-09-16 22:00] VITALS: BP 130/75
[2020-09-17 06:00] VITALS: BP 120/85
[2020-09-17] MEDS: traMADol 50 MG TAB PO PRN ×3 (06:25→20:00)
[2020-09-17] MEDS: ACETAMINOPHEN 500 MG TAB PO SCH ×3 (06:25→22:13)
[2020-09-17] MEDS: VANCOMYCIN HCL 1,000 MG, VIAL MATE ADAPTER 1 EACH in D5W 250 ML IV SCH ×2 (06:26→17:27)
[2020-09-17 06:56] LABS: HEMATOCRIT 26.5 % (36.0-47.0); HEMOGLOBIN 7.6 g/dl (12.0-15.5); MEAN CORPUSCULAR HEMOGLOBIN 22.2 pg (27.0-33.0); MEAN CORPUSCULAR HGB CONC 28.7 g/dl (32.0-36.5); MEAN CORPUSCULAR VOLUME 77.5 fl (80.0-96.0); PLATELET COUNT, AUTOMATED 418 10^3/uL (150-450); RED BLOOD COUNT 3.42 10^6/uL (4.00-5.40); WHITE BLOOD COUNT 5.1 10^3/uL (4.0-10.0)
[2020-09-17 07:14] LABS: ALBUMIN 2.7 GM/DL (3.2-5.2); ALT/SGPT 8 U/L (12-78); BILIRUBIN,TOTAL 0.2 MG/DL (0.2-1.0); BLOOD UREA NITROGEN 17 MG/DL (7-18); CALCIUM LEVEL 9.6 MG/DL (8.5-10.1); CARBON DIOXIDE LEVEL 28 MEQ/L (21-32); CHLORIDE LEVEL 106 MEQ/L (98-107); CREATININE FOR GFR 0.73 MG/DL (0.55-1.30); GLOMERULAR FILTRATION RATE > 60.0 (>60); GLUCOSE, FASTING 76 MG/DL (70-100); POTASSIUM SERUM 4.4 MEQ/L (3.5-5.1); SODIUM LEVEL 139 MEQ/L (136-145); TOTAL PROTEIN 7.1 GM/DL (6.4-8.2)
[2020-09-17] MEDS: DULoxetine 30 MG CAP (CYMBALTA) PO SCH (08:19)
[2020-09-17] MEDS: APIXABAN 5 MG TAB (ELIQUIS) PO SCH ×2 (08:19→20:00)
[2020-09-17] MEDS: FERROUS SULFATE 325MG TAB PO SCH ×2 (08:19→20:01)
[2020-09-17] MEDS: SENOKOT S TAB PO PRN (08:19)
--- NOTE | 2020-09-17 13:47 | IPNPDOC ---
Date Seen The patient was seen on 09/17/20. Progress Note SUBJECTIVE: POD2 OR for washout of right knee. Minimal drainage from knee, RADHA drain in place. Noticing H/H dropping- has received several blood transfusions this admission thus far. F/u knee cultures, path that pending. Patient denies night sweats, chest pain, shortness of breath, n/v/d, chills. OBJECTIVE: PHYSICAL EXAMINATION: VS: Please see below General: Patient sitting up in bed, comfortable, awake, alert and oriented 3 HEENT: Normocephalic, atraumatic, moist mucous membranes, EOM intact CVS: sinus tachycardic, normal S1-S2, no M/R/G Lungs: CTAB, no W/R/R Abdomen: Nondistended, without tenderness, bowel sounds normal Extremities: No edema. Right knee swollen covered in JUSTYNA, RADHA drain taped to outside with 30 mL of serosanguinous bloody fluid , tender to touch. mild increased swelling of R leg vs. L leg Psych: mood and affect appropriate LABORATORY: Please see below MICROBIOLOGY: Right knee fluid cultures: pending COVID PCR 09/08/20: Neg BCx x 2 sets 08/16/20: NG BCx x 2 sets 08/20/20: MRSA + Repeat BCX x 2 sets 08/22/20: NG x 5 days Right knee fluid aspiration, GS and culture 08/17/20: MRSA Repeat right knee fluid aspiration, GS and culture 09/05/20: NG STD w/u: neg IMAGING: MRI right knee with contrast 09/13/20: Diffuse edema and cellulitis of the soft tissues of the right knee. Moderate complex joint fluid with diffuse synovial enhancement, compatible with septic arthritis and infected joint fluid. No other evidence of soft tissue abscess. There are findings compatible with osteomyelitis of the distal femur. Echocardiogram 09/09/20: 1. Normal global left ventricular systolic and diastolic function. 2. Just mild mitral regurgitation. 3. Moderate tricuspid regurgitation. Pulmonary artery systolic pressure was normal but most likely under-estimated. 4. Diffuse pericardial effusion. 5. Possible vegetation on the tricuspid valve, it appeared to be smaller when compared to the most recent echocardiogram on 08/16/2020. ASSESSMENT: Patient is a 29-year-old female with a PMHx of Hepatitis C, IV heroin abuse who presented to the emergency room with right knee pain and fever. Later treated for right septic knee 2/2 to MRSA s/p washout and later aspiration, TV endocarditis, MRSA bacteremia (resolved) and new diagnosis as of 09/13/20 of right distal femur osteomyelitis. PLAN: #Septic arthritis of right knee, MRSA -POD 2 of right knee washout, all cultures pending -WBC wnl, afebrile with improvement in tachycardia -Pain after washout, wanted tramadol in addition to methadone Q48H -Last MRI above -F/u knee fluid cultures -S/p joint washout on 08/[address] Shiv Mar. Reevaluated by ortho 08/30/20 and did not think needed retapping. -C/w IV vancomycin until 09/19/20, pain control -ID following #Chronic Anemia likely 2/2 to chronic disease, MARTÍNEZ -S/p 4 units PRBC this admission. H/H dropping over past several days -Minimal blood loss during right knee washout, total of 177 mL of blood loss to date from recent washout. -Iron low -C/w iron supplement -May benefit from IV venofer and may need PRBC again if Hgb <7. #Right distal femur osteomyelitis, new diagnosis -CRP improving, WBC wnl, remains afebrile -MRI right knee with contrast 09/13/20: Please see above -Last XR from 08/16/20: No knee joint space narrowing or erosive/inflammatory changes. 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 Will then need to discuss treatment plan going forward. -Micro above -Repeat Echocardiogram 09/09/20 see above- TV vegetation appears smaller. -ID following #Septic emboli to lung -On RA, denies shortness of breath, chest pain. -CXR 08/25 slight improvement. -c/w treatment above #COVID + exposure 08/30- -Asymptomatic thus far -COVID 09/08/20 neg #IV drug abuse, heroin -Has been on low dose methadone daily here -C/w methadone Q48 H as we are preparing her to d/c in 4 days. -Olanzepine prn. -Patient has clinic in mind for following up after discharge. #Extensive RLE DVT -Duplex US 08/17: Extensive right femoropopliteal DVT. -Eliquis #Hepatitis C -Patient has not completed therapy as an outpatient; reports she was incarc erated -spontaneous remission as per ID -LFTs normal #History of bipolar disorder -Currently untreated but stable. -Will benefit from psychiatry referral by PCP. #GI prophylaxis -Protonix #DVT prophylaxis -Eliquis Disposition: Ortho and ID following closely to prepare for discharge when ap propriate. VS, I&O, 24H, Fishbone Vital Signs/I&O Vital Signs Date Time Temp Pulse Resp B/P (MAP) Pulse Ox O2 Delivery O2 Flow Rate FiO2 09/17/20 06:55 18 09/17/20 06:00 98.2 81 120/85 (97) 97 Room Air 09/15/20 15:33 2 I&O- Last 24 Hours up to 6 AM 09/17/20 05:59 Intake Total 300 ml Output Total 1660 ml Balance -1360 ml Laboratory Data 24H LABS Laboratory Tests 2 09/17/20 05:58: Nucleated Red Blood Cells % (auto) 0.0, Anion Gap 5L, Glomerular Filtration Rate > 60.0, Calcium Level 9.6, Total Bilirubin 0.2, Aspartate Amino Transf (AST/SGOT) 8, Alanine Aminotransferase (ALT/SGPT) 8L, Alkaline Phosphatase 120H, Total Protein 7.1, Albumin 2.7L, Albumin/Globulin Ratio 0.6L CBC/BMP Laboratory Tests 09/17/20 05:58 Microbiology Microbiology 09/15/20 Gram Stain - Final, Complete 09/15/20 Wound Culture - Final, Complete 09/15/20 Anaerobic Culture - Final, Complete 09/14/20 Anaerobic Culture - Final, Complete 09/14/20 Body Fluid Culture - Final, Complete Current Medications Current Medications Medications (Trade) Dose Ordered Sig/Sharmaine Route PRN Reason Start Time Stop Time Status Last Admin Dose Admin Acetaminophen (Tylenol Tab) 650 mg Q4H PRN PO PAIN OR FEVER 08/17/20 01:00 09/04/20 12:26 DC 08/31/20 12:57 Acetaminophen (Tylenol Tab) 1,000 mg Q8H PO 09/04/20 14:00 09/17/20 06:25 Acetaminophen/ Hydrocodone Bitart ([place], [place] 5/325) 1 tab Q4HP PRN PO MODERATE PAIN (PS 5-7) 09/15/20 13:45 09/16/20 05:54 DC 09/15/20 23:03 Acetaminophen/ Hydrocodone Bitart ([place], [place] 5/325) 2 tab Q4HP PRN PO SEVERE PAIN (PS 8-10) 09/15/20 13:45 09/16/20 05:54 DC 09/16/20 04:59 Apixaban (Eliquis) 5 mg BID PO 09/05/20 21:00 09/14/20 15:16 DC 09/14/20 10:01 Apixaban (Eliquis) 5 mg BID PO 09/16/20 09:00 09/17/20 08:19 Apixaban (Eliquis) 10 mg BID PO 08/29/20 21:00 09/05/20 12:00 DC 09/05/20 08:11 Cyclobenzaprine HCl (Flexeril) 5 mg Q6HP PRN PO SPASMS 08/30/20 12:00 09/13/20 22:30 Diphenhydramine HCl (Benadryl) 25 mg Q8HP PRN PO ANXIETY 09/06/20 11:00 09/06/20 11:01 DC Diphenhydramine HCl (Benadryl) 50 mg Q8HP PRN PO ANXIETY 09/06/20 11:00 09/06/20 13:32 DC 09/06/20 11:45 Duloxetine HCl (Cymbalta) 30 mg QAM PO 09/08/20 09:00 09/17/20 08:19 Enoxaparin Sodium (Lovenox) 40 mg DAILY SC 08/17/20 09:00 08/17/20 09:35 DC Enoxaparin Sodium (Lovenox) 60 mg Q12H SC 08/21/20 09:00 08/29/20 10:08 DC 08/29/20 08:55 Fentanyl Citrate (Sublimaze) 25 mcg Q5MP PRN IV PAIN LEVEL 5-10 08/17/20 03:15 08/17/20 04:14 DC Fentanyl Citrate (Sublimaze) 25 mcg Q5MP PRN IV PAIN LEVEL 5-10 09/15/20 14:15 09/15/20 15:15 DC 09/15/20 15:18 Ferrous Sulfate (Ferrous Sulfate) 325 mg BID PO 08/23/20 09:00 09/17/20 08:19 Heparin Sodium (Heparin (Flush)) 200 units ASDIRECTED PRN IV SEE LABEL COMMENTS 08/26/20 06:45 09/15/20 19:56 Heparin Sodium (Heparin (Flush)) 200 units PICC IV 08/26/20 18:00 09/16/20 18:26 Heparin Sodium (Porcine) (Heparin) ASDIRECTED PRN IV SEE LABEL COMMENTS 08/17/20 09:45 08/21/20 08:18 DC 08/19/20 04:22 Heparin Sodium (Porcine) 67393 units/IV Miscellaneous Supplies 250 ml @ 0 mls/hr Q0M IV 08/17/20 09:32 08/21/20 08:18 DC 08/21/20 06:13 Home Med (Med Rec Complete!) ASDIRECTED XX 08/17/20 00:00 08/16/20 23:50 DC Hydromorphone HCl (Dilaudid) 0.4 mg Q5MP PRN IV PAIN LEVEL 4-7 09/15/20 14:15 09/15/20 15:15 DC 09/15/20 14:32 Ibuprofen (Advil) 600 mg Q8HP PRN PO PAIN 08/30/20 13:00 08/31/20 17:05 DC 08/31/20 15:16 Ketorolac Tromethamine (ToRADol) 15 mg Q6H PRN IV PAIN 08/31/20 21:00 09/05/20 20:59 DC 09/03/20 16:25 Lactated Ringer's 1,000 ml @ 80 mls/hr [id number] IV 09/15/20 13:45 Cancel Lactated Ringer's 1,000 ml @ 100 mls/hr Q10H IV 08/17/20 03:15 08/17/20 04:14 DC Lactated Ringer's 1,000 ml @ 100 mls/hr Q10H IV 09/15/20 14:15 09/15/20 15:15 DC Lidocaine (Lidoderm Patch) 1 patch DAILY TD 08/30/20 09:00 09/15/20 13:39 DC 09/15/20 09:04 Magnesium Hydroxide (Milk Of Magnesia) 30 ml DAILY PRN PO CONSTIPATION 08/17/20 01:00 09/04/20 14:10 Meperidine HCl (Demerol) 12.5 mg Q5MP PRN IV SHIVERING 08/17/20 03:15 08/17/20 04:14 DC Meropenem 1 gm/IV Miscellaneous Supplies 50 ml @ 100 mls/hr Q8H IV 08/17/20 02:00 08/17/20 15:38 DC 08/17/20 10:46 Methadone HCl (Dolophine) 5 mg DAILY PO 09/06/20 09:00 09/13/20 08:37 DC 09/12/20 09:41 Methadone HCl (Dolophine) 5 mg Q48H PO 09/14/20 09:00 09/16/20 08:30 Methadone HCl (Dolophine) 10 mg BID PO 08/30/20 21:00 09/01/20 14:13 DC 09/01/20 08:03 Methadone HCl (Dolophine) 10 mg DAILY PO 09/02/20 09:00 09/04/20 12:26 DC 09/04/20 08:21 Methadone HCl (Dolophine) 10 mg Q6H PO 08/19/20 12:00 08/27/20 09:53 DC 08/27/20 05:58 Methadone HCl (Dolophine) 10 mg Q8H PO 08/27/20 14:00 08/30/20 12:56 DC 08/30/20 06:37 Methadone HCl (Dolophine) 10 mg Q8H PO 08/17/20 14:00 08/19/20 13:30 DC 08/19/20 05:14 Metoclopramide HCl (REGLAN INJection) 10 mg Q6HP PRN IV NAUSEA OR VOMITING 08/17/20 03:15 08/17/20 04:14 DC Metoclopramide HCl (REGLAN INJection) 10 mg Q6HP PRN IV NAUSEA OR VOMITING 09/15/20 14:15 09/15/20 15:15 DC Morphine Sulfate (Morphine Sulfate Inj) 4 mg Q12HP PRN IV SEVERE PAIN (PS 8-10) 08/26/20 12:00 08/27/20 09:53 DC Morphine Sulfate (Morphine Sulfate Inj) 4 mg Q4HP PRN IV SEVERE PAIN (PS 8-10) 08/17/20 13:00 08/24/20 08:14 DC 08/24/20 07:49 Morphine Sulfate (Morphine Sulfate Inj) 4 mg Q6HP PRN IV SEVERE PAIN (PS 8-10) 08/24/20 14:00 08/26/20 11:57 DC 08/25/20 12:16 Nafcillin Sodium 2 gm/Dextrose 50 ml @ 50 mls/hr Q4H IV 08/18/20 15:00 08/19/20 07:16 DC 08/19/20 03:01 Non-Formulary Medication ( See Comment Field Below ) REMOVE LIDODERM PATCH DAILY@21 XX 08/30/20 21:00 09/15/20 13:39 DC 09/14/20 20:05 Non-Formulary Medication (Heparin Iv Rate Change Documentation ml/ Hr) ASDIRECTED XX 08/17/20 09:45 08/21/20 08:18 DC 08/21/20 03:10 Olanzapine (ZyPREXA) 5 mg Q6HP PRN PO ANXIETY/AGITATION 09/07/20 09:00 09/16/20 21:29 Ondansetron HCl (ZOFRAN INJection) 4 mg Q4HP PRN IV NAUSEA OR VOMITING 08/17/20 03:15 08/17/20 04:14 DC Ondansetron HCl (ZOFRAN INJection) 4 mg Q4HP PRN IV NAUSEA OR VOMITING 09/15/20 14:15 09/15/20 15:15 DC Ondansetron HCl (ZOFRAN INJection) 4 mg Q6HP PRN IV NAUSEA OR VOMITING 08/19/20 17:30 08/23/20 13:36 Oxycodone HCl (Roxicodone, Oxyir) 5 mg ASDIRECTED PRN PO PAIN LEVEL 1-4 08/17/20 03:15 08/17/20 04:14 DC Oxycodone HCl (Roxicodone, Oxyir) 5 mg ASDIRECTED PRN PO PAIN LEVEL 1-4 09/15/20 15:00 09/15/20 15:15 DC 09/15/20 14:45 Oxycodone/ Acetaminophen (Percocet 5mg/ 325mg Tablet) 1 tab Q4HP PRN PO MODERATE PAIN (PS 5-7) 09/16/20 06:00 09/16/20 12:50 DC Oxycodone/ Acetaminophen (Percocet 5mg/ 325mg Tablet) 2 tab Q4HP PRN PO SEVERE PAIN (PS 8-10) 09/16/20 06:00 09/16/20 12:50 DC Pantoprazole Sodium (Protonix) 40 mg DAILY IV 08/17/20 09:00 08/24/20 08:15 DC 08/23/20 09:02 Pantoprazole Sodium (Protonix) 40 mg DAILY PO 08/24/20 09:00 09/08/20 12:43 DC 09/08/20 09:16 Polyethylene Glycol (Miralax) 1 pkt BID PRN PO CONSTIPATION 08/23/20 09:00 Senna/Docusate Sodium (Senokot S) 1 tab BIDP PRN PO CONSTIPATION 08/23/20 09:00 09/17/20 08:19 Sodium Chloride 1,000 ml @ 60 mls/hr [id number] IV 08/19/20 10:45 08/20/20 08:44 DC 08/19/20 11:30 Sodium Chloride 1,000 ml @ 60 mls/hr [id number] IV 08/23/20 09:15 08/24/20 01:54 DC 08/23/20 09:49 Sodium Chloride 1,000 ml @ 60 mls/hr [id number] IV 08/17/20 01:15 08/17/20 19:04 DC 08/17/20 10:37 Sodium Chloride (Saline Lock Flush) 2 ml ASDIRECTED PRN IV SEE LABEL COMMENTS 08/23/20 08:30 08/26/20 06:38 DC Sodium Chloride (Saline Lock Flush) 2 ml SLF IV 08/23/20 14:00 08/26/20 06:38 DC 08/25/20 22:19 Sodium Chloride (Saline Lock Flush) 10 ml ASDIRECTED PRN IV SEE LABEL COMMENTS 08/26/20 06:45 09/15/20 19:56 Sodium Chloride (Saline Lock Flush) 10 ml PICC IV 08/26/20 18:00 09/16/20 18:26 Tramadol HCl (Ultram) 50 mg Q6HP PRN PO MODERATE PAIN (PS 5-7) 09/16/20 13:00 09/17/20 06:25 Vancomycin HCl 500 mg/Dextrose 110 ml @ 110 mls/hr Q12H IV 09/01/20 06:00 09/07/20 20:00 AR 09/07/20 17:40 Vancomycin HCl 500 mg/Dextrose 110 ml @ 110 mls/hr Q8H IV 08/22/20 14:00 08/25/20 12:55 AR 08/25/20 06:26 Vancomycin HCl 500 mg/Dextrose 110 ml @ 110 mls/hr Q8H IV 08/28/20 16:00 08/31/20 18:00 AR 08/31/20 15:52 Vancomycin HCl 500 mg/Dextrose 110 ml @ 110 mls/hr Q8H IV 08/18/20 13:00 08/22/20 12:05 AR 08/22/20 05:49 Vancomycin HCl 750 mg/IV Miscellaneous Supplies 1 each/ Dextrose 275 ml @ 275 mls/hr Q12H IV 09/01/20 05:00 09/07/20 20:00 AR 09/07/20 16:28 Vancomycin HCl 750 mg/IV Miscellaneous Supplies 1 each/ Dextrose 275 ml @ 275 mls/hr Q8H IV 08/22/20 13:00 08/25/20 12:55 AR 08/25/20 05:00 Vancomycin HCl 750 mg/IV Miscellaneous Supplies 1 each/ Dextrose 275 ml @ 275 mls/hr Q8H IV 08/25/20 13:00 08/28/20 14:32 DC 08/28/20 04:32 Vancomycin HCl 750 mg/IV Miscellaneous Supplies 1 each/ Dextrose 275 ml @ 275 mls/hr Q8H IV 08/25/20 14:00 08/28/20 14:33 AR 08/28/20 05:48 Vancomycin HCl 750 mg/IV Miscellaneous Supplies 1 each/ Dextrose 275 ml @ 275 mls/hr Q8H IV 08/28/20 15:00 08/31/20 18:00 AR 08/31/20 15:52 Vancomycin HCl 1000 mg/IV Miscellaneous Supplies 1 each/ Dextrose 270 ml @ 270 mls/hr Q12H IV 09/08/20 06:00 09/17/20 06:26 Vancomycin HCl 1000 mg/IV Miscellaneous Supplies 1 each/ Dextrose 270 ml @ 270 mls/hr Q6H IV 08/18/20 00:00 08/18/20 12:25 DC 08/18/20 05:12 Vancomycin HCl 1000 mg/IV Miscellaneous Supplies 1 each/ Dextrose 270 ml @ 270 mls/hr Q8H IV 08/17/20 04:00 08/17/20 21:01 DC 08/17/20 20:35 Vancomycin HCl 1000 mg/IV Miscellaneous Supplies 1 each/ Dextrose 270 ml @ 270 mls/hr Q8H IV 08/18/20 12:00 08/22/20 12:05 DC 08/22/20 04:31 Allergies Coded Allergies: fluoxetine (Verified Adverse Reaction, Intermediate, tongue dystonia, 06/29/19) Ingrid Fernandez MD Sep 17, 2020 13:47
[2020-09-17] MEDS: SODIUM CHLORIDE 0.9% INJ 10 ML SYR IV SCH (17:27)
[2020-09-17 22:00] VITALS: BP 132/80
[2020-09-17] MEDS: OLANZapine 5 MG TAB PO PRN (22:12)
[2020-09-18] MEDS: traMADol 50 MG TAB PO PRN (05:11)
[2020-09-18 05:29] LABS: HEMATOCRIT 30.6 % (36.0-47.0); MEAN CORPUSCULAR HEMOGLOBIN 22.7 pg (27.0-33.0); MEAN CORPUSCULAR HGB CONC 29.4 g/dl (32.0-36.5); MEAN CORPUSCULAR VOLUME 77.1 fl (80.0-96.0); PLATELET COUNT, AUTOMATED 462 10^3/uL (150-450); RED BLOOD COUNT 3.97 10^6/uL (4.00-5.40); WHITE BLOOD COUNT 4.6 10^3/uL (4.0-10.0)
[2020-09-18 05:47] LABS: ERYTHROCYTE SEDIMENTATION RATE 73 mm/hr (0-20)
[2020-09-18 06:00] VITALS: BP 132/88
[2020-09-18 06:01] LABS: ALBUMIN 3.1 GM/DL (3.2-5.2); ALT/SGPT 10 U/L (12-78); BILIRUBIN,TOTAL 0.2 MG/DL (0.2-1.0); BLOOD UREA NITROGEN 20 MG/DL (7-18); C REACTIVE PROTEIN QUANTITATIV 1.79 MG/DL (0.00-0.30); CALCIUM LEVEL 10.2 MG/DL (8.5-10.1); CARBON DIOXIDE LEVEL 29 MEQ/L (21-32); CHLORIDE LEVEL 103 MEQ/L (98-107); CREATININE FOR GFR 0.76 MG/DL (0.55-1.30); GLOMERULAR FILTRATION RATE > 60.0 (>60); GLUCOSE, FASTING 82 MG/DL (70-100); POTASSIUM SERUM 4.4 MEQ/L (3.5-5.1); SODIUM LEVEL 138 MEQ/L (136-145); TOTAL PROTEIN 7.9 GM/DL (6.4-8.2)
[2020-09-18] MEDS: VANCOMYCIN HCL 1,000 MG, VIAL MATE ADAPTER 1 EACH in D5W 250 ML IV SCH ×2 (06:25→17:38)
[2020-09-18] MEDS: ACETAMINOPHEN 500 MG TAB PO SCH ×3 (06:26→21:14)
--- NOTE | 2020-09-18 07:11 | CR ---
ORTHOPEDIC CONSULTATION DATE/TIME OF CONSULT: 09/14/2020, 2:34 p.m. REASON FOR CONSULTATION: Evaluation of septic right knee. HISTORY OF PRESENT ILLNESS: She is a 30-year-old female who was admitted August 16 to the hospital with a septic knee thought to be secondary to bacterial endocarditis and I.V. drug abuse. Additional diagnoses on admission was a right deep venous thrombosis of the leg as well as septic emboli of the lungs with bilateral pneumonia. After diagnosis made through the Emergency Room she was taken to the operating room for a synovectomy of the right knee. Cultures grew Staphylococcus aureus which was Methicillin-resistant. Initial blood cultures were negative. White blood cell count on admission was 28,000. Her white blood count slowly returned to normal levels within about 10 days from surgery. She was treated with I.V. vancomycin antibiotics and initially felt better with significant improvement in her pain and swelling. There was an episode on post-op day 4 or 5 where she had positive blood cultures again and increasing pain and about 2 weeks after the surgery with some increasing swelling of the right knee. Since then she has gotten a bit better, but her knee symptoms still are persisting more than would be expected 3 and 1/2 weeks out from a surgical synovectomy for a septic knee. Clinically her tricuspid valve vegetations by echocardiography has become a bit smaller based on recent echo. Her lung septic emboli and pneumonia picture has gradually started to clear on her chest x-rays and the swelling of the right leg from her DVT is markedly improved. She is on Eliquis for that. However, because of the persisting soreness and difficulty with persisting pain in that knee an aspiration was attempted 2 weeks ago which was performed by Dr. Mar, 2 mL of old hematoma blood was obtained superolaterally and did not grow any bacteria. This was re-attempted recently by Dr. Watkins the infectious disease doctor and similarly just had some small amount of blood and the Gram stain culture were negative for bacteria. Because of the persistence of the pain and soreness, MR scan was completed on September 13, yesterday, which shows fairly extensive osteomyelitis of the distal femur. In addition there is some persisting enhancing synovium and loculated fluid collections intra-articularly as well as some evidence of thickening in the subdermal tissues around the knee consistent with some persisting cellulitis. There has been discussion as to whether or not a repeat synovectomy is needed. She remains afebrile. PAST MEDICAL HISTORY: Reviewed and otherwise other than her I.V. heroin use she is a fairly healthy 30-year-old female; however, she does have: 1. A chronic hepatitis C infection that has been partially treated. 2. History of bipolar disorder untreated. PAST SURGICAL HISTORY: Only surgical history she had some tubes in her ears. SOCIAL HISTORY: She does not smoke or drink alcohol excessively. ALLERGIES: FLUOXETINE. PHYSICAL EXAMINATION: On examination she is a slender, pleasant female. She is walking with a bit of a flexed knee contracted type gait using a walker. Her knee has obvious fullness and swelling; however, there is no surrounding erythema or there is no true induration, but clearly there is some palpable fluid collections with localized tenderness predominantly on the medial side of the knee in the anteromedial joint line and the anteromedial suprapatellar area. Laterally there is really minimally tenderness in the suprapatellar pouch, but there is some tenderness in the anterolateral aspect of the knee joint. The knee is not markedly irritable other than the extremes of motion. She cannot fully straighten the knee; she is shy about 5 degrees and she bends about 105-110 degrees beyond which is a bit painful because of the tightness and fullness of the knee. Distally she has got good pulses and no pitting edema. No evidence clinically of DVT. The rest of her body examination showed no evidence of any swollen joints of the shoulders, elbows, wrists or hands. Her opposite left lower extremity is benign. There is no irritability to either hip. LABORATORY STUDIES: Normal white blood count today, hematocrit 31.6, platelets 516. Her sedimentation rate is still elevated at 88 and the most recent CRP is still elevated at 4.81 and the peak of the CRP was 20.1. It is noteworthy that it declined after the surgery, but then climbed back up to a high of 17.5 on August 23 and it has stayed fairly elevated, but just recently started to decline once again. IMPRESSION: My impression is that she has a picture of a septic arthritis with initial improvement, but there is a question of whether or not she had a recurrence of an infection given the episode that happened a couple weeks after the surgery. This is despite being 3 and 1/2 weeks now on I.V. vancomycin. MR recently done shows enhancing synovium which could be normal post-operative appearance of hemosiderin and old clotted blood, but the enhancing synovium also could be recurrence of or some persistence of some loculated fluid collections which could contain purulent material. PLAN: The options at this juncture are to try to re-aspirate the knee and see if we can find any areas of pus and/or continue to wait this out on I.V. antibiotics and be patient with this or just to consider a second arthroscopic synovectomy and debridement formally in the operating room. I discussed all these options with her and she remains a bit concerned about the persisting swelling and I did discuss the risks and benefits of waiting longer or to consider further surgery and the risk of course doing surgery is the risk of persisting infection or secondary infection, risk of anesthetic complications, phlebitis, embolism, heart attack, amongst other risks always with any type of surgical procedure and she understands that, but she is concerned enough that she feels that she would like to have another clean out of the knee and I think it is a reasonable course. I think it is also reasonable to wait this out longer. I did also talk about before making a final decision to try to aspirate the knee once again and make a decision if we find obvious purulent material so she is agreeable to trying that again today as well. So I plan today, this afternoon, to attempt to aspirate her knee. RUSS
--- NOTE | 2020-09-18 07:15 | IPN ---
DATE: 09/14/2020 SUBJECTIVE: Brooke seems to be doing good this afternoon. She was seen by Dr. Kirkpatrick for a second opinion consultation. She will be going to the operating room tomorrow at noon for incision and drainage (I&D) and synovectomy of the right knee for persistent swelling and pain. The patient continues with night sweats, but no fever or chills. No cough or shortness of breath. She is still concerned about her tachycardia. OBJECTIVE: VITAL SIGNS: Temperature 97.7, pulse 101, respirations 18, blood pressure 126/88. O2 saturation 98% on room air. HEART: Normal S1, S2. No murmurs appreciated. LUNGS: Clear. No wheezes, rales, or rhonchi. ABDOMEN: Soft and nontender. No hepatosplenomegaly. EXTREMITIES: No clubbing, cyanosis, or edema. Right knee is swollen, slightly warm to touch, and tender especially medially. Range of motion about 90 degrees. LABORATORY DATA: White count 6.8, hemoglobin 9.4, hematocrit 31.6, platelets 516,000, ESR 88 down from 140. Sodium 139, potassium 4.2, chloride 105, bicarb 26, BUN 15, creatinine 0.77, glucose 100, calcium 9.9, CRP 4.81. Right knee joint fluid aspiration was done again today, just blood was able to be obtained, and cultures are pending. IMAGING: MRI of the knee from 09/13 shows complex joint fluid with diffuse synovial enhancement compatible with septic arthritis and infected joint fluid, diffuse edema, and cellulitis, as well as finding compatible with osteomyelitis of the distal femur. ASSESSMENT: 1. Methicillin-resistant Staphylococcus aureus (MRSA) tricuspid valve endocarditis with septic emboli to the lungs on intravenous (IV) vancomycin doing well. Echocardiogram shows decrease in vegetation and patient does not have any pulmonary symptoms except for mild tachycardia. 2. Methicillin-resistant Staphylococcus aureus (MRSA) septic arthritis of the right knee with persistent complex joint effusion and now evidence of femoral osteomyelitis. The patient will be taken to the operating room for debridement tomorrow with Dr. Kirkpatrick. 3. COVID exposure. The patient is now off isolation without evidence of infection. 4. History of intravenous (IV) drug use on tapering methadone 5 mg every other day doing well. PLAN: Continue IV vancomycin 1 gram q. 12 hours. Patient will need prolonged antibiotics, but we could switch her eventually next week to IV dalbavancin 1500 mg every 10 days to be given as an outpatient. The case has been discussed with Dr. Fernandez and Dr. Kirkpatrick at length. She is going to the OR tomorrow. Intraoperative cultures will be sent. RUSS
--- NOTE | 2020-09-18 07:18 | IPN ---
DATE: 09/15/2020 Brooke is doing well. She is anxious about surgery but otherwise is doing well. She has some night sweats. No fever or chills. No nausea, vomiting, or diarrhea. No abdominal pain. She went to the operating room (OR) today for synovectomy. MEDICATIONS: Vancomycin 1 gram intravenous (IV) every 12 hours LABORATORY DATA: White count 6.8, hemoglobin 9.4, hematocrit 31.6, platelets 516. ESR 88. Sodium 139, potassium 4.2, chloride 105, bicarbonate 26, BUN 15, creatinine 0.77, glucose 100, calcium 9.9. CRP 4.81. Free T4 of 1.28, T3 of 91. Vancomycin 14.8. Intraoperative cultures, aerobic, anaerobic, Gram stain are pending. PHYSICAL EXAMINATION: Temperature is 97.1, pulse 95, respirations 18, blood pressure 134/97, oxygen saturation 99% on room air. HEART: Normal S1, S2. No murmurs, rubs, or gallops. LUNGS: Clear. No wheezes, rhonchi or rales. ABDOMEN: Soft, nontender. No hepatosplenomegaly. EXTREMITIES: No clubbing, cyanosis, or edema. Right knee effusion with limited range of motion to about 95 degrees. Oropharynx is clear. IMPRESSION: 1. 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 2. Septic arthritis of the right knee with femoral osteomyelitis, on IV vancomycin. The initial plan was to treat her until September 19 with IV vancomycin. My plan would be for her to continue with IV Dalvance as an outpatient at 1.5 grams for a total of three doses for septic arthritis and osteomyelitis. 3. History of IV drug abuse, doing well on methadone tapering 5 mg every other day. 4. History of hepatitis C with probable spontaneous remission. Viral load was only 180. PLAN: Continue IV vancomycin postoperatively. Will discuss on Friday her possible discharge later that week on Dalvance every 10 days through peripheral IV. Case has been discussed with Dr. Fernandez and Dr. Kirkpatrick. [facility]
[2020-09-18] MEDS: SENOKOT S TAB PO PRN (08:01)
[2020-09-18] MEDS: APIXABAN 5 MG TAB (ELIQUIS) PO SCH ×2 (08:01→21:12)
[2020-09-18] MEDS: SODIUM CHLORIDE 0.9% INJ 10 ML SYR IV SCH ×2 (08:01→17:37)
[2020-09-18] MEDS: DULoxetine 30 MG CAP (CYMBALTA) PO SCH (08:01)
[2020-09-18] MEDS: METHADONE 5 MG TAB (S0109) PO SCH (08:01)
[2020-09-18] MEDS: FERROUS SULFATE 325MG TAB PO SCH ×2 (08:01→21:12)
--- NOTE | 2020-09-18 12:22 | IPNPDOC ---
Date Seen The patient was seen on 09/18/20. Progress Note SUBJECTIVE: POD3 OR for washout of right knee. RADHA drained removed, minimal swelling with little pain on exam. H/H improving. All cultures from recent washout appear neg, cytology neg. Patient is in great spirits and denies night sweats, chest pain, shortness of breath, n/v/d, chills. OBJECTIVE: PHYSICAL EXAMINATION: VS: Please see below General: Patient sitting up in bed, comfortable, awake, alert and oriented 3 HEENT: Normocephalic, atraumatic, moist mucous membranes, EOM intact CVS: sinus tachycardic, normal S1-S2, no M/R/G Lungs: CTAB, no W/R/R Abdomen: Nondistended, without tenderness, bowel sounds normal Extremities: No edema. Right knee swollen exposed, three small incisions rosenberg around right knee, appear well healing. Mild pain to palpation of upper knee. no erythema. Psych: mood and affect appropriate LABORATORY: Please see below MICROBIOLOGY: Right knee fluid cultures 09/15/20: neg Right knee fluid cytology 09/15/20: neg for malignancy COVID PCR 09/08/20: Neg BCx x 2 sets 08/16/20: NG BCx x 2 sets 08/20/20: MRSA + Repeat BCX x 2 sets 08/22/20: NG x 5 days Right knee fluid aspiration, GS and culture 08/17/20: MRSA Repeat right knee fluid aspiration, GS and culture 09/05/20: NG STD w/u: neg IMAGING: MRI right knee with contrast 09/13/20: Diffuse edema and cellulitis of the soft tissues of the right knee. Moderate complex joint fluid with diffuse synovial enhancement, compatible with septic arthritis and infected joint fluid. No other evidence of soft tissue abscess. There are findings compatible with osteomyelitis of the distal femur. Echocardiogram 09/09/20: 1. Normal global left ventricular systolic and diastolic function. 2. Just mild mitral regurgitation. 3. Moderate tricuspid regurgitation. Pulmonary artery systolic pressure was normal but most likely under-estimated. 4. Diffuse pericardial effusion. 5. Possible vegetation on the tricuspid valve, it appeared to be smaller when compared to the most recent echocardiogram on 08/16/2020. ASSESSMENT: Patient is a 29-year-old female with a PMHx of Hepatitis C, IV heroin abuse who presented to the emergency room with right knee pain and fever. Later treated for right septic knee 2/2 to MRSA s/p washout and later aspiration, TV endocarditis, MRSA bacteremia (resolved) and new diagnosis as of 09/13/20 of right distal femur osteomyelitis. PLAN: #Septic arthritis of right knee, MRSA -POD 3 of right knee washout, all cultures neg -RADHA drain out, tolerating PT well -WBC wnl, afebrile -Last MRI above -S/p joint washout on 08/[address] Shiv Mar. Reevaluated by ortho 08/30/20 and did not think needed retapping. -C/w IV vancomycin until 09/19/20, pain control. After 09/19/20, decision about treatment will be up to ID. -ID following #Chronic Anemia likely 2/2 to chronic disease, MARTÍNEZ -H/H much improved -S/p 4 units PRBC this admission. -Minimal blood loss during right knee washout, total of 177 mL of blood loss to date from recent washout. -Iron low -C/w iron supplement #Right distal femur osteomyelitis, new diagnosis -CRP improving, WBC wnl, remains afebrile -MRI right knee with contrast 09/13/20: Please see above -Last XR from 08/16/20: No knee joint space narrowing or erosive/inflammatory ch anges. -C/w IV Vancomycin until 09/19/20, then possibly oral abx after. 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 -Micro above -Repeat Echocardiogram 09/09/20 see above- TV vegetation appears smaller. -ID following #Septic emboli to lung -On RA, denies shortness of breath, chest pain. -CXR 08/25 slight improvement. -c/w treatment above #COVID + exposure 08/30- -Asymptomatic thus far -COVID 09/08/20 neg #IV drug abuse, heroin -Has been on low dose methadone daily here -C/w methadone Q48 H as we are preparing her to d/c likely in next 24-48 hr -Olanzepine prn. -Patient has o/p clinic in mind for following up after discharge. #Extensive RLE DVT -Duplex US 08/17: Extensive right femoropopliteal DVT. -Eliquis #Hepatitis C -Patient has not completed therapy as an outpatient; reports she was incarcerated -spontaneous remission as per ID -LFTs normal #History of bipolar disorder -Currently untreated but stable. -Will benefit from psychiatry referral by PCP. #GI prophylaxis -Protonix #DVT prophylaxis -Eliquis Disposition: Ortho and ID following closely to prepare for discharge likely in next 24-48 H. Would touch base with ID to discuss lobsterman antibiotic plan. VS, I&O, 24H, Fishbone Vital Signs/I&O Vital Signs Date Time Temp Pulse Resp B/P (MAP) Pulse Ox O2 Delivery O2 Flow Rate FiO2 09/18/20 06:00 97.9 80 18 132/88 (103) 98 Room Air 09/15/20 15:33 2 I&O- Last 24 Hours up to 6 AM 09/18/20 06:00 Intake Total 1830 ml Output Total 1315 ml Balance 515 ml Laboratory Data 24H LABS Laboratory Tests 2 09/18/20 05:20: Nucleated Red Blood Cells % (auto) 0.0, Erythrocyte Sedimentation Rate 73H, Anion Gap 6L, Glomerular Filtration Rate > 60.0, Calcium Level 10.2H, Total Bilirubin 0.2, Aspartate Amino Transf (AST/SGOT) 9, Alanine Aminotransferase (ALT/SGPT) 10L, Alkaline Phosphatase 140H, C-Reactive Protein, Quantitative 1.79H, Total Protein 7.9, Albumin 3.1L, Albumin/Globulin Ratio 0.6L, Vancomycin Level Trough 13.1 CBC/BMP Laboratory Tests 09/18/20 05:20 Microbiology Microbiology 09/15/20 Gram Stain - Final, Complete 09/15/20 Wound Culture - Final, Complete 09/15/20 Anaerobic Culture - Final, Complete 09/14/20 Anaerobic Culture - Final, Complete 09/14/20 Body Fluid Culture - Final, Complete Current Medications Current Medications Medications (Trade) Dose Ordered Sig/Sharmaine Route PRN Reason Start Time Stop Time Status Last Admin Dose Admin Acetaminophen (Tylenol Tab) 650 mg Q4H PRN PO PAIN OR FEVER 08/17/20 01:00 09/04/20 12:26 DC 08/31/20 12:57 Acetaminophen (Tylenol Tab) 1,000 mg Q8H PO 09/04/20 14:00 09/18/20 06:26 Acetaminophen/ Hydrocodone Bitart ([place], Anexsia 5/325) 1 tab Q4HP PRN PO MODERATE PAIN (PS 5-7) 09/15/20 13:45 09/16/20 05:54 DC 09/15/20 23:03 Acetaminophen/ Hydrocodone Bitart ([place], Anexsia 5/325) 2 tab Q4HP PRN PO SEVERE PAIN (PS 8-10) 09/15/20 13:45 09/16/20 05:54 DC 09/16/20 04:59 Apixaban (Eliquis) 5 mg BID PO 09/05/20 21:00 09/14/20 15:16 DC 09/14/20 10:01 Apixaban (Eliquis) 5 mg BID PO 09/16/20 09:00 09/18/20 08:01 Apixaban (Eliquis) 10 mg BID PO 08/29/20 21:00 09/05/20 12:00 DC 09/05/20 08:11 Cyclobenzaprine HCl (Flexeril) 5 mg Q6HP PRN PO SPASMS 08/30/20 12:00 09/13/20 22:30 Diphenhydramine HCl (Benadryl) 25 mg Q8HP PRN PO ANXIETY 09/06/20 11:00 09/06/20 11:01 DC Diphenhydramine HCl (Benadryl) 50 mg Q8HP PRN PO ANXIETY 09/06/20 11:00 09/06/20 13:32 DC 09/06/20 11:45 Duloxetine HCl (Cymbalta) 30 mg QAM PO 09/08/20 09:00 09/18/20 08:01 Enoxaparin Sodium (Lovenox) 40 mg DAILY SC 08/17/20 09:00 08/17/20 09:35 DC Enoxaparin Sodium (Lovenox) 60 mg Q12H SC 08/21/20 09:00 08/29/20 10:08 DC 08/29/20 08:55 Fentanyl Citrate (Sublimaze) 25 mcg Q5MP PRN IV PAIN LEVEL 5-10 08/17/20 03:15 08/17/20 04:14 DC Fentanyl Citrate (Sublimaze) 25 mcg Q5MP PRN IV PAIN LEVEL 5-10 09/15/20 14:15 09/15/20 15:15 DC 09/15/20 15:18 Ferrous Sulfate (Ferrous Sulfate) 325 mg BID PO 08/23/20 09:00 09/18/20 08:01 Heparin Sodium (Heparin (Flush)) 200 units ASDIRECTED PRN IV SEE LABEL COMMENTS 08/26/20 06:45 09/15/20 19:56 Heparin Sodium (Heparin (Flush)) 200 units PICC IV 08/26/20 18:00 09/18/20 08:01 Heparin Sodium (Porcine) (Heparin) ASDIRECTED PRN IV SEE LABEL COMMENTS 08/17/20 09:45 08/21/20 08:18 DC 08/19/20 04:22 Heparin Sodium (Porcine) 97673 units/IV Miscellaneous Supplies 250 ml @ 0 mls/hr Q0M IV 08/17/20 09:32 08/21/20 08:18 DC 08/21/20 06:13 Home Med (Med Rec Complete!) ASDIRECTED XX 08/17/20 00:00 08/16/20 23:50 DC Hydromorphone HCl (Dilaudid) 0.4 mg Q5MP PRN IV PAIN LEVEL 4-7 09/15/20 14:15 09/15/20 15:15 DC 09/15/20 14:32 Ibuprofen (Advil) 600 mg Q8HP PRN PO PAIN 08/30/20 13:00 08/31/20 17:05 DC 08/31/20 15:16 Ketorolac Tromethamine (ToRADol) 15 mg Q6H PRN IV PAIN 08/31/20 21:00 09/05/20 20:59 DC 09/03/20 16:25 Lactated Ringer's 1,000 ml @ 80 mls/hr [id number] IV 09/15/20 13:45 Cancel Lactated Ringer's 1,000 ml @ 100 mls/hr Q10H IV 08/17/20 03:15 08/17/20 04:14 DC Lactated Ringer's 1,000 ml @ 100 mls/hr Q10H IV 09/15/20 14:15 09/15/20 15:15 DC Lidocaine (Lidoderm Patch) 1 patch DAILY TD 08/30/20 09:00 09/15/20 13:39 DC 09/15/20 09:04 Magnesium Hydroxide (Milk Of Magnesia) 30 ml DAILY PRN PO CONSTIPATION 08/17/20 01:00 09/04/20 14:10 Meperidine HCl (Demerol) 12.5 mg Q5MP PRN IV SHIVERING 08/17/20 03:15 08/17/20 04:14 DC Meropenem 1 gm/IV Miscellaneous Supplies 50 ml @ 100 mls/hr Q8H IV 08/17/20 02:00 08/17/20 15:38 DC 08/17/20 10:46 Methadone HCl (Dolophine) 5 mg DAILY PO 09/06/20 09:00 09/13/20 08:37 DC 09/12/20 09:41 Methadone HCl (Dolophine) 5 mg Q48H PO 09/14/20 09:00 09/18/20 08:01 Methadone HCl (Dolophine) 10 mg BID PO 08/30/20 21:00 09/01/20 14:13 DC 09/01/20 08:03 Methadone HCl (Dolophine) 10 mg DAILY PO 09/02/20 09:00 09/04/20 12:26 DC 09/04/20 08:21 Methadone HCl (Dolophine) 10 mg Q6H PO 08/19/20 12:00 08/27/20 09:53 DC 08/27/20 05:58 Methadone HCl (Dolophine) 10 mg Q8H PO 08/27/20 14:00 08/30/20 12:56 DC 08/30/20 06:37 Methadone HCl (Dolophine) 10 mg Q8H PO 08/17/20 14:00 08/19/20 13:30 DC 08/19/20 05:14 Metoclopramide HCl (REGLAN INJection) 10 mg Q6HP PRN IV NAUSEA OR VOMITING 08/17/20 03:15 08/17/20 04:14 DC Metoclopramide HCl (REGLAN INJection) 10 mg Q6HP PRN IV NAUSEA OR VOMITING 09/15/20 14:15 09/15/20 15:15 DC Morphine Sulfate (Morphine Sulfate Inj) 4 mg Q12HP PRN IV SEVERE PAIN (PS 8-10) 08/26/20 12:00 08/27/20 09:53 DC Morphine Sulfate (Morphine Sulfate Inj) 4 mg Q4HP PRN IV SEVERE PAIN (PS 8-10) 08/17/20 13:00 08/24/20 08:14 DC 08/24/20 07:49 Morphine Sulfate (Morphine Sulfate Inj) 4 mg Q6HP PRN IV SEVERE PAIN (PS 8-10) 08/24/20 14:00 08/26/20 11:57 DC 08/25/20 12:16 Nafcillin Sodium 2 gm/Dextrose 50 ml @ 50 mls/hr Q4H IV 08/18/20 15:00 08/19/20 07:16 DC 08/19/20 03:01 Non-Formulary Medication ( See Comment Field Below ) REMOVE LIDODERM PATCH DAILY@21 XX 08/30/20 21:00 09/15/20 13:39 DC 09/14/20 20:05 Non-Formulary Medication (Heparin Iv Rate Change Documentation ml/ Hr) ASDIRECTED XX 08/17/20 09:45 08/21/20 08:18 DC 08/21/20 03:10 Olanzapine (ZyPREXA) 5 mg Q6HP PRN PO ANXIETY/AGITATION 09/07/20 09:00 09/17/20 22:12 Ondansetron HCl (ZOFRAN INJection) 4 mg Q4HP PRN IV NAUSEA OR VOMITING 08/17/20 03:15 08/17/20 04:14 DC Ondansetron HCl (ZOFRAN INJection) 4 mg Q4HP PRN IV NAUSEA OR VOMITING 09/15/20 14:15 09/15/20 15:15 DC Ondansetron HCl (ZOFRAN INJection) 4 mg Q6HP PRN IV NAUSEA OR VOMITING 08/19/20 17:30 08/23/20 13:36 Oxycodone HCl (Roxicodone, Oxyir) 5 mg ASDIRECTED PRN PO PAIN LEVEL 1-4 08/17/20 03:15 08/17/20 04:14 DC Oxycodone HCl (Roxicodone, Oxyir) 5 mg ASDIRECTED PRN PO PAIN LEVEL 1-4 09/15/20 15:00 09/15/20 15:15 DC 09/15/20 14:45 Oxycodone/ Acetaminophen (Percocet 5mg/ 325mg Tablet) 1 tab Q4HP PRN PO MODERATE PAIN (PS 5-7) 09/16/20 06:00 09/16/20 12:50 DC Oxycodone/ Acetaminophen (Percocet 5mg/ 325mg Tablet) 2 tab Q4HP PRN PO SEVERE PAIN (PS 8-10) 09/16/20 06:00 09/16/20 12:50 DC Pantoprazole Sodium (Protonix) 40 mg DAILY IV 08/17/20 09:00 08/24/20 08:15 DC 08/23/20 09:02 Pantoprazole Sodium (Protonix) 40 mg DAILY PO 08/24/20 09:00 09/08/20 12:43 DC 09/08/20 09:16 Polyethylene Glycol (Miralax) 1 pkt BID PRN PO CONSTIPATION 08/23/20 09:00 Senna/Docusate Sodium (Senokot S) 1 tab BIDP PRN PO CONSTIPATION 08/23/20 09:00 09/18/20 08:01 Sodium Chloride 1,000 ml @ 60 mls/hr [id number] IV 08/19/20 10:45 08/20/20 08:44 DC 08/19/20 11:30 Sodium Chloride 1,000 ml @ 60 mls/hr [id number] IV 08/23/20 09:15 08/24/20 01:54 DC 08/23/20 09:49 Sodium Chloride 1,000 ml @ 60 mls/hr [id number] IV 08/17/20 01:15 08/17/20 19:04 DC 08/17/20 10:37 Sodium Chloride (Saline Lock Flush) 2 ml ASDIRECTED PRN IV SEE LABEL COMMENTS 08/23/20 08:30 08/26/20 06:38 DC Sodium Chloride (Saline Lock Flush) 2 ml SLF IV 08/23/20 14:00 08/26/20 06:38 DC 08/25/20 22:19 Sodium Chloride (Saline Lock Flush) 10 ml ASDIRECTED PRN IV SEE LABEL COMMENTS 08/26/20 06:45 09/15/20 19:56 Sodium Chloride (Saline Lock Flush) 10 ml PICC IV 08/26/20 18:00 09/18/20 08:01 Tramadol HCl (Ultram) 50 mg Q6HP PRN PO MODERATE PAIN (PS 5-7) 09/16/20 13:00 09/18/20 05:11 Vancomycin HCl 500 mg/Dextrose 110 ml @ 110 mls/hr Q12H IV 09/01/20 06:00 09/07/20 20:00 AR 09/07/20 17:40 Vancomycin HCl 500 mg/Dextrose 110 ml @ 110 mls/hr Q8H IV 08/22/20 14:00 08/25/20 12:55 AR 08/25/20 06:26 Vancomycin HCl 500 mg/Dextrose 110 ml @ 110 mls/hr Q8H IV 08/28/20 16:00 08/31/20 18:00 AR 08/31/20 15:52 Vancomycin HCl 500 mg/Dextrose 110 ml @ 110 mls/hr Q8H IV 08/18/20 13:00 08/22/20 12:05 AR 08/22/20 05:49 Vancomycin HCl 750 mg/IV Miscellaneous Supplies 1 each/ Dextrose 275 ml @ 275 mls/hr Q12H IV 09/01/20 05:00 09/07/20 20:00 AR 09/07/20 16:28 Vancomycin HCl 750 mg/IV Miscellaneous Supplies 1 each/ Dextrose 275 ml @ 275 mls/hr Q8H IV 08/22/20 13:00 08/25/20 12:55 AR 08/25/20 05:00 Vancomycin HCl 750 mg/IV Miscellaneous Supplies 1 each/ Dextrose 275 ml @ 275 mls/hr Q8H IV 08/25/20 13:00 08/28/20 14:32 AR 08/28/20 04:32 Vancomycin HCl 750 mg/IV Miscellaneous Supplies 1 each/ Dextrose 275 ml @ 275 mls/hr Q8H IV 08/25/20 14:00 08/28/20 14:33 AR 08/28/20 05:48 Vancomycin HCl 750 mg/IV Miscellaneous Supplies 1 each/ Dextrose 275 ml @ 275 mls/hr Q8H IV 08/28/20 15:00 08/31/20 18:00 AR 08/31/20 15:52 Vancomycin HCl 1000 mg/IV Miscellaneous Supplies 1 each/ Dextrose 270 ml @ 270 mls/hr Q12H IV 09/08/20 06:00 09/18/20 06:25 Vancomycin HCl 1000 mg/IV Miscellaneous Supplies 1 each/ Dextrose 270 ml @ 270 mls/hr Q6H IV 08/18/20 00:00 08/18/20 12:25 DC 08/18/20 05:12 Vancomycin HCl 1000 mg/IV Miscellaneous Supplies 1 each/ Dextrose 270 ml @ 270 mls/hr Q8H IV 08/17/20 04:00 08/17/20 21:01 DC 08/17/20 20:35 Vancomycin HCl 1000 mg/IV Miscellaneous Supplies 1 each/ Dextrose 270 ml @ 270 mls/hr Q8H IV 08/18/20 12:00 08/22/20 12:05 DC 08/22/20 04:31 Allergies Coded Allergies: fluoxetine (Verified Adverse Reaction, Intermediate, tongue dystonia, 06/29/19) Ingrid Fernandez MD Sep 18, 2020 12:22
[2020-09-18 14:00] VITALS: BP 138/80
--- NOTE | 2020-09-18 14:14 | RO ---
DATE OF OPERATION: 09/15/2020 PREOPERATIVE DIAGNOSES: 1. Rule out right septic knee. 2. Osteofibrosis right knee. POSTOPERATIVE DIAGNOSES: 1. Rule out right septic knee. 2. Osteofibrosis right knee. PROCEDURE: 1. Right knee aspiration. 2. Right knee manipulation under anesthesia. 3. Right knee arthroscopic complete synovectomy with insertion of 19 J-Vac drain. SURGEON: Darwin Kirkpatrick MD ANESTHESIA: General laryngeal mask anesthetic. COMPLICATIONS: None. SPECIMENS: Joint fluid sent for Gram stain, culture and sensitivity, joint fluid analysis. FINDINGS: She had extensive hemosiderin and angry synovitis throughout the knee. No gross purulence however was felt to have been identified. The medial and lateral menisci were not torn. The ACL and PCL were intact. The knee range of motion showed shaft in full extension about 3 to 4 degrees and flexion to about 100 degrees. OPERATIVE PROCEDURE: She is already on antibiotics. Successful laryngeal mask anesthetic was established. Tourniquet was placed in the right upper thigh non- inflated. Lower extremity was carefully prepped and draped in the usual sterile fashion; and then after appropriate time-out, her knee was manipulated into extension and flexed easily to 135 degrees and there was some obvious palpable lysis of adhesions felt as I flexed the knee. The Veress needle was placed in the standard superomedial insufflation portal and aspirated about 10 cc of bloody fluid and that was placed in a red top and green top tube for Gram stain, culture and sensitivity and joint fluid analysis. I then introduced the fluid and then placed the scope through the previous anterolateral portal and introduced the shaver through the anteromedial portal. It was noted that there was a significant amount of hemosiderin stained synovium throughout the anterior compartment of the knee and unilateral gutters and the suprapatellar pouch. Systematically, I first addressed the anterior pouch and anterior interval by debriding the hematoma and angry synovium in front of the ACL and PCL, medial and lateral compartments, as well as into the medial gutter. Photographs were taken to document this work and then I switch the scope for visualization to anterolateral, placed the shaver in anterolateral and completed the synovectomy and debridement into the lateral gutter and then up into the suprapatellar pouch. All the angry reddish hemosiderin stained synovium was removed systematically documenting along the way with photographs. No gross purulent material was felt to be obtained. I inspected the mediolateral menisci and they are not torn. The articular cartilage still seemed to be well preserved. At this point, I completed the procedure by introducing the 19 J-Vac drain through the anterolateral portal and exiting out before the Veress needle was placed superior and medially and pulled the drain out that way, cut the trocar off and made sure the drain was well within the knee and then sutured securely with a 3-0 nylon suture. I then covered the wounds with Adaptic dressing and bulky dressing and then the tourniquet was released and she was awakened from general laryngeal mask anesthetic. [facility]
[2020-09-18] MEDS: OLANZapine 5 MG TAB PO PRN (21:12)
[2020-09-18 22:00] VITALS: BP 138/98
[2020-09-19] MEDS: ACETAMINOPHEN 500 MG TAB PO SCH ×2 (05:03→13:10)
[2020-09-19] MEDS: traMADol 50 MG TAB PO PRN ×2 (05:04→11:52)
[2020-09-19] MEDS: SODIUM CHLORIDE 0.9% INJ 10 ML SYR IV SCH (05:06)
[2020-09-19] MEDS: VANCOMYCIN HCL 1,000 MG, VIAL MATE ADAPTER 1 EACH in D5W 250 ML IV SCH (05:52)
[2020-09-19 06:07] LABS: HEMATOCRIT 29.5 % (36.0-47.0); HEMOGLOBIN 8.7 g/dl (12.0-15.5); MEAN CORPUSCULAR HEMOGLOBIN 22.9 pg (27.0-33.0); MEAN CORPUSCULAR HGB CONC 29.5 g/dl (32.0-36.5); MEAN CORPUSCULAR VOLUME 77.6 fl (80.0-96.0); PLATELET COUNT, AUTOMATED 489 10^3/uL (150-450); WHITE BLOOD COUNT 7.2 10^3/uL (4.0-10.0)
[2020-09-19 06:10] VITALS: BP 148/110
[2020-09-19] MEDS: CYCLOBENZAPRINE 5MG TABLET PO PRN ×2 (06:24→13:10)
[2020-09-19 06:49] LABS: ALBUMIN 3.1 GM/DL (3.2-5.2); ALT/SGPT 10 U/L (12-78); BILIRUBIN,TOTAL 0.2 MG/DL (0.2-1.0); BLOOD UREA NITROGEN 22 MG/DL (7-18); CALCIUM LEVEL 9.9 MG/DL (8.5-10.1); CARBON DIOXIDE LEVEL 27 MEQ/L (21-32); CHLORIDE LEVEL 105 MEQ/L (98-107); CREATININE FOR GFR 0.83 MG/DL (0.55-1.30); GLOMERULAR FILTRATION RATE > 60.0 (>60); GLUCOSE, FASTING 88 MG/DL (70-100); POTASSIUM SERUM 4.4 MEQ/L (3.5-5.1); SODIUM LEVEL 139 MEQ/L (136-145)
[2020-09-19] MEDS: APIXABAN 5 MG TAB (ELIQUIS) PO SCH (08:38)
[2020-09-19] MEDS: DULoxetine 30 MG CAP (CYMBALTA) PO SCH (08:38)
[2020-09-19] MEDS: SODIUM CHLORIDE 0.9% INJ 10 ML SYR IV PRN (08:39)
[2020-09-19] MEDS: FERROUS SULFATE 325MG TAB PO SCH (08:39)
--- NOTE | 2020-09-19 08:40 | IPN ---
DATE: 09/18/2020 SUBJECTIVE: Brooke is doing great. Her drains were removed by Dr. Archer. She states her ankle pain has markedly improved. Review of the operative report shows extensive hemosiderin and angry synovitis but Interoperative culture had no growth. PHYSICAL EXAMINATION: VITAL SIGNS: Temperature is 97.9, pulse 80, respirations 18, blood pressure 132/88. O2 sat 98% on room air. HEART: Normal S1, S2, no murmurs, rubs or gallops. LUNGS: Clear. No rales, rhonchi or wheezes. ABDOMEN: Soft, nondistended, no hepatosplenomegaly. EXTREMITIES: No clubbing, cyanosis, or edema. Right knee with effusion. Drains were all removed. She has three laparoscopic incisions that are healing well. Range of motion over 100 degrees. LABORATORY STUDIES: White count 4.6, hemoglobin 9, hematocrit 30.6, platelets 462, ESR 73. Sodium 138, potassium 4.4, chloride 103, bicarbonate 29, BUN 20, creatinine 0.76, glucose 82, calcium 10.2, bilirubin 0.2, AST 9, ALT 10, alkaline phosphatase 140, CRP 1.79, albumin 3.1. IMPRESSION: 1. 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 The patient will finish antibiotics on September 19 for endocarditis. 2. Septic arthritis of the right knee with some osteomyelitis with status post I&D done on 09/15 - The patient is doing much better. She will be treated with Delvance 1.5 grams x3 doses if approved by her insurance. I have written a prescription for home IV infusion at 10 days interval starting 09/20. PFS is working on prior authorization. 3. History of IV heroin abuse - patient doing well off medications. She is currently on tapering dose of Methadone 5 mg every 48 hours. 4. History of bipolar disorder and anxiety on Duloxetine 30 mg p.o. q. a.m. PLAN: Hopefully the patient could be discharged home tomorrow with Delvance 1.5 grams IV q. 10 days for a total of 3 doses. The patient is to follow up in my office in 7-10 days. We will obtain hepatitis EGG SETTER in the morning as well to follow up on chronic hepatitis C. [facility]
--- NOTE | 2020-09-19 10:57 | DS.PDOC ---
Discharge Summary General Date of Admission Aug 17, 2020 at 00:37 Date of Discharge 09/19/20 Discharge Summary PROCEDURES PERFORMED DURING STAY: [None]. ADMITTING DIAGNOSES: 1. . DISCHARGE DIAGNOSES: 1. . COMPLICATIONS/CHIEF COMPLAINT: Infected Endocarditis. HISTORY OF PRESENT ILLNESS: 29-year-old female with past medical history of heroin IV drug abuse presented to the ED for worsening right knee pain and fever. Viktor that her right knee pain has been worsening since and she is unable to ambulate on it causing her to use more hair when than usual. Says also over the past few weeks she has been feeling tired and feverish at home. In ED found to have a 1.8 cm vegetation on the tricuspid valve at bedside echo done in the ED and read by Dr. fernando. Patient was also found to have septic right knee joint and was taken for washout by Dr. aMr. Patient meets criteria for sepsis at time of admission and will be admitted to ICU for close monitoring and initiation of empiric antibiotics. Tells me that she has lower back pain which started 2 weeks ago after lifting heavy items during a house move. Endorses history of hepatitis C but she did not complete treatment because she got incarcerated. HOSPITAL COURSE: #Septic arthritis of right knee, MRSA -POD 3 of right knee washout, all cultures neg -RADHA drain out, tolerating PT well -WBC wnl, afebrile -Last MRI above -S/p joint washout on 08/[address] Shiv Mar. Reevaluated by ortho 08/30/20 and did not think needed retapping. -C/w IV vancomycin until 09/19/20, pain control. After 09/19/20, decision about treatment will be up to ID. -ID following #R knee hemathrosis - after starting eliquis. - discussed with Dr. Valdivia, safe for DC with adequate pain control - will f/u with patient in 2-3 weeks #Chronic Anemia likely 2/2 to chronic disease, MARTÍNEZ -H/H much improved -S/p 4 units PRBC this admission. -Minimal blood loss during right knee washout, total of 177 mL of blood loss to date from recent washout. -Iron low -C/w iron supplement #Right distal femur osteomyelitis, new diagnosis -CRP improving, WBC wnl, remains afebrile -MRI right knee with contrast 11/4/20: Please see above -Last XR from 08/16/20: No knee joint space narrowing or erosive/inflammatory changes. -C/w IV Vancomycin until 09/19/20, then possibly oral abx after. 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 -Micro above -Repeat Echocardiogram 09/09/20 see above- TV vegetation appears smaller. -ID following #Septic emboli to lung -On RA, denies shortness of breath, chest pain. -CXR 08/25 slight improvement. -c/w treatment above #COVID + exposure 08/30- -Asymptomatic thus far -COVID 09/08/20 neg #IV drug abuse, heroin -Has been on low dose methadone daily here -C/w methadone Q48 H as we are preparing her to d/c likely in next 24-48 hr -Olanzepine prn. -Patient has o/p clinic in mind for following up after discharge. #Extensive RLE DVT -Duplex US 08/17: Extensive right femoropopliteal DVT. -Eliquis #Hepatitis C -Patient has not completed therapy as an outpatient; reports she was incarcerated -spontaneous remission as per ID -LFTs normal #History of bipolar disorder -Currently untreated but stable. -Will benefit from psychiatry referral by PCP. #GI prophylaxis -Protonix #DVT prophylaxis -Eliquis DISCHARGE MEDICATIONS: Please see below. ALLERGIES: Please see below. PHYSICAL EXAMINATION ON DISCHARGE: VITAL SIGNS: please see below General: NAD, comfortable HEENT: PERRLA, EOMI, sclerae clear Neck: supple, normal ROM, no JVD Respiratory: lungs CTAB, no wheeze, no rales, no crackles CVS: RRR, normal S1, S2, no murmurs Abdo: soft, no masses, no hepatosplenomegaly, BS+, no rebound tenderness Extremities: no edema, pulses 2+ MSK: Right knee swelling, mildly warm to touch. No cellulitis. Neuro: no focal neuro deficits, moving all 4 extremities, CN2-12 intact. Strength 5/5 in all 4 extremities. No nystagmus. Psych: calm, cooperative, AAO x 3 LABORATORY DATA: Please see below. IMAGING: MRI right knee with contrast 09/13/20: Diffuse edema and cellulitis of the soft tissues of the right knee. Moderate complex joint fluid with diffuse synovial enhancement, compatible with septic arthritis and infected joint fluid. No other evidence of soft tissue abscess. There are findings compatible with osteomyelitis of the distal femur. Echocardiogram 09/09/20: 1. Normal global left ventricular systolic and diastolic function. 2. Just mild mitral regurgitation. 3. Moderate tricuspid regurgitation. Pulmonary artery systolic pressure was normal but most likely under-estimated. 4. Diffuse pericardial effusion. 5. Possible vegetation on the tricuspid valve, it appeared to be smaller when compared to the most recent echocardiogram on 08/16/2020. PROGNOSIS: good ACTIVITY: [As tolerated]. DIET: regular diet DISPOSITION: home with IV antibiotics, PCP and specialist follow up (ID and orthopedics) DISCHARGE INSTRUCTIONS: Please follow up with primary care provider within 3-5 days. Please follow up with Dr. Solano in orthopedics clinic in 2-3 weeks Please follow-up with Dr. Watkins in infectious disease clinic on October 09 at 9 AM Please take your medications as prescribed. Prescription for Dalvance has been approved and supplies will be sent to your home for an injection every 10 day x 3 injections. If you develop fevers, chills, n/v/d, severe knee pain, chest pain or otherwise worsening of your symptoms, please call 911 or return to the nearest emergency room. ITEMS TO FOLLOWUP ON ON OUTPATIENT: 1. . DISCHARGE CONDITION: [Stable]. TIME SPENT ON DISCHARGE: Greater than 30 minutes. Vital Signs/I&Os Vital Signs Date Time Temp Pulse Resp B/P (MAP) Pulse Ox O2 Delivery O2 Flow Rate FiO2 09/19/20 06:10 96.5 108 20 148/110 (123) 99 Room Air 09/15/20 15:33 2 I&O- Last 24 Hours up to 6 AM 09/19/20 06:00 Intake Total 2260 ml Output Total 1150 ml Balance 1110 ml Laboratory Data Labs 24H Laboratory Tests 2 09/19/20 05:47: Nucleated Red Blood Cells % (auto) 0.0, Anion Gap 7L, Glomerular Filtration Rate > 60.0, Calcium Level 9.9, Total Bilirubin 0.2, Aspartate Amino Transf (AST/SGOT) 8, Alanine Aminotransferase (ALT/SGPT) 10L, Alkaline Phosphatase 166H, Total Protein 8.0, Albumin 3.1L, Albumin/Globulin Ratio 0.6L CBC/BMP Laboratory Tests 09/19/20 05:47 Microbiology Microbiology 09/15/20 Gram Stain - Final, Complete 09/15/20 Wound Culture - Final, Complete 09/15/20 Anaerobic Culture - Final, Complete 09/14/20 Anaerobic Culture - Final, Complete 09/14/20 Body Fluid Culture - Final, Complete Discharge Medications Scheduled Apixaban (Eliquis) 5 Mg Tablet, 5 MG PO BID Duloxetine Hcl (Cymbalta) 30 Mg Capsule.dr, 30 MG PO QAM Ferrous Sulfate (Ferrous Sulfate) 325 Mg Tablet, 325 MG PO BID Scheduled PRN Acetaminophen (Acetaminophen) 500 Mg Tablet, 1,000 MG PO Q8H PRN for PAIN LEVEL 4-7 Cyclobenzaprine HCl (Cyclobenzaprine HCl) 5 Mg Tablet, 5 MG PO Q6HP PRN for SPASMS Polyethylene Glycol 3350 (Polyethylene Glycol 3350) 17 Gm Powd.pack, 1 PKT PO BID PRN for CONSTIPATION Sennosides/Docusate Sodium (Senna Plus Tablet) 1 Each Tablet, 1 TAB PO BIDP PRN for CONSTIPATION Tramadol HCl (Tramadol HCl) 50 Mg Tablet, 50 MG PO Q6HP PRN for MODERATE PAIN (PS 5-7) Allergies Coded Allergies: fluoxetine (Verified Adverse Reaction, Intermediate, tongue dystonia, 06/29/19) CHARISMA TORRES MD Sep 19, 2020 10:57
[2020-09-19] MEDS ORDERED: FERR325T18 PO (11:04)
[2020-09-19] MEDS ORDERED: PEG1POW PO (11:16)
[2020-09-19] MEDS ORDERED: CYMB1CAP5 PO (11:16)
[2020-09-19] MEDS ORDERED: CYCL5TAB PO (11:16)
[2020-09-19] MEDS ORDERED: ELIQ5TAB PO (11:16)
[2020-09-19] MEDS ORDERED: TRAM50TA2 PO (11:16)
[2020-09-19] MEDS ORDERED: ACET-683 PO (11:16)
[2020-09-19] MEDS ORDERED: SENN-52 PO (11:16)
[2020-09-20 23:15] LABS: HEPATITIS C QUANTITATION 33470 IU/mL (.)
== END 2020-09-19 13:43 | disposition home or self-care (01) | DRG 710 ==
LOC: M ED 20:35 → M ED INP 08-17 00:37 → EEVIPCON 08-17 00:37 → ENRESERV 08-17 00:50 → M ICU 08-17 03:00 → M PCU 08-20 11:39 → M MSPAV 08-26 00:47
PROVIDERS: ADMIT Family Medicine; ATTEND Family Medicine
PROC: 0SBC3ZZ Excision of Right Knee Joint, Percutaneous Approach (ICD-10-PCS; 2020-08-17)
PROC: 02HV33Z Insertion of Infusion Device into Superior Vena Cava, Percutaneous Approach (ICD-10-PCS; 2020-08-17)
PROC: 0S9C3ZX Drainage of Right Knee Joint, Percutaneous Approach, Diagnostic (ICD-10-PCS; principal; 2020-08-17 01:00)
PROC: 30233N1 Transfusion of Nonautologous Red Blood Cells into Peripheral Vein, Percutaneous Approach (ICD-10-PCS; 2020-08-19)
PROC: 02HV33Z Insertion of Infusion Device into Superior Vena Cava, Percutaneous Approach (ICD-10-PCS; 2020-09-04)
PROC: 0S9C3ZX Drainage of Right Knee Joint, Percutaneous Approach, Diagnostic (ICD-10-PCS; 2020-09-14)
PROC: 0S9C30Z Drainage of Right Knee Joint with Drainage Device, Percutaneous Approach (ICD-10-PCS; 2020-09-15)
PROC: 0S9C3ZZ Drainage of Right Knee Joint, Percutaneous Approach (ICD-10-PCS; 2020-09-15)
DX: A41.9 Sepsis, unspecified organism (principal); I33.0 Acute and subacute infective endocarditis; I76 Septic arterial embolism; I82.411 Acute embolism and thrombosis of right femoral vein; M00.061 Staphylococcal arthritis, right knee; I82.431 Acute embolism and thrombosis of right popliteal vein; I31.3 Pericardial effusion (noninflammatory); E87.1 Hypo-osmolality and hyponatremia; M25.061 Hemarthrosis, right knee; D63.8 Anemia in other chronic diseases classified elsewhere; B18.2 Chronic viral hepatitis C; M06.9 Rheumatoid arthritis, unspecified; F11.13 Opioid abuse with withdrawal; F31.9 Bipolar disorder, unspecified; D50.9 Iron deficiency anemia, unspecified; E87.6 Hypokalemia; Z88.8 Allergy status to other drugs, medicaments and biological substances; Z20.828 Contact with and (suspected) exposure to other viral communicable diseases; M70.41 Prepatellar bursitis, right knee; B95.62 Methicillin resistant Staphylococcus aureus infection as the cause of diseases classified elsewhere

== ENCOUNTER → 2020-09-30 | Outpatient (REF) | payer OTHER, MEDICAID ==
[~2020-09-30] MED LIST changes: +ACET-683 PO; +CYCL5TAB PO; +CYMB1CAP5 PO; +ELIQ5TAB PO; +FERR325T18 PO; +PEG1POW PO; +SENN-52 PO; +TRAM50TA2 PO
[2020-09-30 14:45] LABS: HEMATOCRIT 28.2 % (36.0-47.0); HEMOGLOBIN 8.2 g/dl (12.0-15.5); MEAN CORPUSCULAR HGB CONC 29.1 g/dl (32.0-36.5); PLATELET COUNT, AUTOMATED 375 10^3/uL (150-450); RED BLOOD COUNT 3.57 10^6/uL (4.00-5.40)
[2020-09-30 15:02] LABS: BLOOD UREA NITROGEN 10 MG/DL (7-18); C REACTIVE PROTEIN QUANTITATIV 7.06 MG/DL (0.00-0.30); CARBON DIOXIDE LEVEL 29 MEQ/L (21-32); CHLORIDE LEVEL 100 MEQ/L (98-107); CREATININE FOR GFR 0.59 MG/DL (0.55-1.30); GLOMERULAR FILTRATION RATE > 60.0 (>60); GLUCOSE, FASTING 91 MG/DL (70-100); POTASSIUM SERUM 4.3 MEQ/L (3.5-5.1); SODIUM LEVEL 134 MEQ/L (136-145)
[2020-09-30 15:05] LABS: ERYTHROCYTE SEDIMENTATION RATE 52 mm/hr (0-20)
== END ==
LOC: M LAB REF 14:21
PROVIDERS: ATTEND Internal Medicine Infectious Disease
DX: M86.159 Other acute osteomyelitis, unspecified femur (principal)

== ENCOUNTER → 2020-10-10 | Outpatient (REF) | payer MEDICAID ==
[2020-10-10 14:15] LABS: BASO % 0.9 % (0.0-1.0); EOS # 0.2 10^3/uL (0.0-0.5); EOS % 5.3 % (0.0-3.0); HEMATOCRIT 31.4 % (36.0-47.0); LYMPH # 1.5 10^3/uL (1.5-5.0); LYMPH % 33.8 % (24.0-44.0); MEAN CORPUSCULAR HEMOGLOBIN 23.4 pg (27.0-33.0); MEAN CORPUSCULAR HGB CONC 28.7 g/dl (32.0-36.5); MEAN CORPUSCULAR VOLUME 81.6 fl (80.0-96.0); MONO # 0.4 10^3/uL (0.0-0.8); MONO % 7.9 % (0.0-5.0); NEUTROPHILS # 2.4 10^3/uL (1.5-8.5); NEUTROPHILS % 51.7 % (36.0-66.0); PLATELET COUNT, AUTOMATED 362 10^3/uL (150-450); RED BLOOD COUNT 3.85 10^6/uL (4.00-5.40); WHITE BLOOD COUNT 4.6 10^3/uL (4.0-10.0)
[2020-10-10 14:19] LABS: ALBUMIN 3.4 GM/DL (3.2-5.2); ALT/SGPT 91 U/L (12-78); BILIRUBIN,TOTAL 0.3 MG/DL (0.2-1.0); BLOOD UREA NITROGEN 15 MG/DL (7-18); C REACTIVE PROTEIN QUANTITATIV 4.27 MG/DL (0.00-0.30); CALCIUM LEVEL 9.4 MG/DL (8.5-10.1); CARBON DIOXIDE LEVEL 30 MEQ/L (21-32); CHLORIDE LEVEL 102 MEQ/L (98-107); CREATININE FOR GFR 0.68 MG/DL (0.55-1.30); GLOMERULAR FILTRATION RATE > 60.0 (>60); GLUCOSE, FASTING 123 MG/DL (70-100); POTASSIUM SERUM 4.2 MEQ/L (3.5-5.1); SODIUM LEVEL 135 MEQ/L (136-145); TOTAL PROTEIN 7.3 GM/DL (6.4-8.2)
[2020-10-10 14:51] LABS: ERYTHROCYTE SEDIMENTATION RATE 45 mm/hr (0-20)
== END ==
LOC: M SFHCPLAZ 10:23
PROVIDERS: ATTEND Internal Medicine Infectious Disease
DX: B18.2 Chronic viral hepatitis C (principal); I07.9 Rheumatic tricuspid valve disease, unspecified

== ENCOUNTER → 2020-11-08 | Outpatient (REF) | payer MEDICAID, OTHER | LOC: M SFHCPLAZ 14:48 | PROVIDERS: ATTEND Nurse Practitioner Family | DX: Z53.9 Procedure and treatment not carried out, unspecified reason (principal); D64.9 Anemia, unspecified; Z13.228 Encounter for screening for other metabolic disorders; Z13.220 Encounter for screening for lipoid disorders ==

== ENCOUNTER → 2020-12-11 | Outpatient (REF) | payer MEDICAID, OTHER ==
[2020-12-11 17:27] LABS: BASO % 0.5 % (0.0-1.0); EOS # 0.1 10^3/uL (0.0-0.5); EOS % 1.3 % (0.0-3.0); HEMATOCRIT 38.4 % (36.0-47.0); HEMOGLOBIN 11.7 g/dl (12.0-15.5); LYMPH # 1.6 10^3/uL (1.5-5.0); LYMPH % 19.2 % (24.0-44.0); MEAN CORPUSCULAR HEMOGLOBIN 24.4 pg (27.0-33.0); MEAN CORPUSCULAR HGB CONC 30.5 g/dl (32.0-36.5); MEAN CORPUSCULAR VOLUME 80.2 fl (80.0-96.0); MONO # 0.4 10^3/uL (0.0-0.8); NEUTROPHILS # 6.1 10^3/uL (1.5-8.5); NEUTROPHILS % 73.6 % (36.0-66.0); PLATELET COUNT, AUTOMATED 345 10^3/uL (150-450); RED BLOOD COUNT 4.79 10^6/uL (4.00-5.40); WHITE BLOOD COUNT 8.3 10^3/uL (4.0-10.0)
[2020-12-11 17:44] LABS: ALBUMIN 4.1 GM/DL (3.2-5.2); ALT/SGPT 14 U/L (12-78); BILIRUBIN,TOTAL 0.1 MG/DL (0.2-1.0); BLOOD UREA NITROGEN 11 MG/DL (7-18); C REACTIVE PROTEIN QUANTITATIV 2.34 MG/DL (0.00-0.30); CALCIUM LEVEL 10.1 MG/DL (8.5-10.1); CARBON DIOXIDE LEVEL 32 MEQ/L (21-32); CHLORIDE LEVEL 101 MEQ/L (98-107); CREATININE FOR GFR 0.74 MG/DL (0.55-1.30); FERRITIN 67 NG/ML (8-252); GLOMERULAR FILTRATION RATE > 60.0 (>60); GLUCOSE, FASTING 73 MG/DL (70-100); IRON (FE) 17 UG/DL (50-170); PERCENT SATURATION 4.5 % (13.2-45.0); SODIUM LEVEL 140 MEQ/L (136-145); TOTAL IRON BINDING CAPACITY 378 UG/DL (250-450); TOTAL PROTEIN 7.8 GM/DL (6.4-8.2)
[2020-12-11 18:49] LABS: ERYTHROCYTE SEDIMENTATION RATE 20 mm/hr (0-20)
[2020-12-13 23:07] LABS: HEPATITIS C QUANTITATION 130 IU/mL (.)
== END ==
LOC: M SFHCPLAZ 15:54
PROVIDERS: ATTEND Internal Medicine Infectious Disease
DX: B18.2 Chronic viral hepatitis C (principal); I07.9 Rheumatic tricuspid valve disease, unspecified; D50.8 Other iron deficiency anemias

== ENCOUNTER → 2021-01-02 | Outpatient (REF) | payer MEDICAID ==
[2021-01-02 16:00] LABS: BASO % 0.4 % (0.0-1.0); EOS # 0.2 10^3/uL (0.0-0.5); HEMATOCRIT 41.1 % (36.0-47.0); HEMOGLOBIN 12.3 g/dl (12.0-15.5); LYMPH # 1.6 10^3/uL (1.5-5.0); LYMPH % 33.5 % (24.0-44.0); MEAN CORPUSCULAR HEMOGLOBIN 23.6 pg (27.0-33.0); MEAN CORPUSCULAR HGB CONC 29.9 g/dl (32.0-36.5); MEAN CORPUSCULAR VOLUME 78.9 fl (80.0-96.0); MONO # 0.3 10^3/uL (0.0-0.8); MONO % 5.5 % (2.0-8.0); NEUTROPHILS # 2.7 10^3/uL (1.5-8.5); NEUTROPHILS % 56.4 % (36.0-66.0); PLATELET COUNT, AUTOMATED 268 10^3/uL (150-450); RED BLOOD COUNT 5.21 10^6/uL (4.00-5.40); WHITE BLOOD COUNT 4.8 10^3/uL (4.0-10.0)
[2021-01-02 16:27] LABS: ALBUMIN 4.2 GM/DL (3.2-5.2); ALT/SGPT 20 U/L (12-78); BILIRUBIN,DIRECT < 0.1 MG/DL (0.0-0.2); BILIRUBIN,TOTAL 0.2 MG/DL (0.2-1.0); C REACTIVE PROTEIN QUANTITATIV < 0.30 MG/DL (0.00-0.30); TOTAL PROTEIN 8.3 GM/DL (6.4-8.2)
[2021-01-02 16:36] LABS: ERYTHROCYTE SEDIMENTATION RATE 11 mm/hr (0-20)
== END ==
LOC: M SFHCPLAZ 13:42
PROVIDERS: ATTEND Internal Medicine Infectious Disease
DX: I07.9 Rheumatic tricuspid valve disease, unspecified (principal); B18.2 Chronic viral hepatitis C

== ENCOUNTER 2022-01-26 23:55 | Emergency (ER) | payer OTHER ==
[~2022-01-26] VITALS: Ht 167.6 cm; Wt 69.9 kg
[~2022-01-26 23:55] MED LIST changes: +EMTR1TAB16 PO; -PEG1POW PO; +POLY17PO18 PO; -TRUVTAB PO
[2022-01-27] MEDS ORDERED: METH-1177 PO (00:03)
[2022-01-27 03:46] VITALS: BP 128/92
== END 2022-01-27 04:00 | disposition home or self-care (01) ==
LOC: M ED 23:55
DX: F11.10 Opioid abuse, uncomplicated (principal); F17.200 Nicotine dependence, unspecified, uncomplicated; Z79.899 Other long term (current) drug therapy; Z88.8 Allergy status to other drugs, medicaments and biological substances

== ENCOUNTER 2023-12-21 22:01 | Inpatient (IN) | payer OTHER ==
[~2023-12-21] VITALS: Ht 167.6 cm; Wt 55.1 kg
[~2023-12-21 22:01] MED LIST changes: +METH-1177 PO
[2023-12-22 00:08] LABS: BASO % 0.7 % (0.0-1.0); EOS # 0.1 10^3/uL (0.0-0.5); EOS % 1.4 % (0.0-3.0); HEMOGLOBIN 9.3 g/dl (12.0-15.5); LYMPH # 1.2 10^3/uL (1.5-5.0); LYMPH % 20.6 % (24.0-44.0); MEAN CORPUSCULAR HEMOGLOBIN 20.5 pg (27.0-33.0); MEAN CORPUSCULAR HGB CONC 29.1 g/dl (32.0-36.5); MEAN CORPUSCULAR VOLUME 70.5 fl (80.0-96.0); MONO # 0.4 10^3/uL (0.0-0.8); MONO % 7.3 % (2.0-8.0); NEUTROPHILS % 69.1 % (36.0-66.0); PLATELET COUNT, AUTOMATED 405 10^3/uL (150-450); RED BLOOD COUNT 4.54 10^6/uL (4.00-5.40); WHITE BLOOD COUNT 5.7 10^3/uL (4.0-10.0)
[2023-12-22 00:11] LABS: RSV AMPLIFICATION NEGATIVE (NEGATIVE)
[2023-12-22 00:13] LABS: ALBUMIN 3.5 G/DL (3.2-5.2); ALKALINE PHOSPHATASE 110 U/L (46-116); ALT/SGPT 16 U/L (7.0-40); AST/SGOT 13 U/L (<34); BILIRUBIN,DIRECT 0.1 MG/DL (<0.4); BILIRUBIN,TOTAL 0.3 MG/DL (0.3-1.2); BLOOD UREA NITROGEN 6 MG/DL (9-23); CALCIUM LEVEL 10.5 MG/DL (8.5-10.1); CARBON DIOXIDE LEVEL 31 MMOL/L (20-31); CHLORIDE LEVEL 102 MMOL/L (98-107); CREATININE FOR GFR 0.56 MG/DL (0.55-1.30); GLOMERULAR FILTRATION RATE > 60.0 (>60); GLUCOSE, FASTING 82 MG/DL (60-100); POTASSIUM SERUM 3.9 MMOL/L (3.5-5.1); SODIUM LEVEL 136 MMOL/L (136-145)
[2023-12-22 00:25] LABS: ERYTHROCYTE SEDIMENTATION RATE > 130 mm/hr (0-20)
[2023-12-22] MEDS ORDERED: VANCOMYCIN HCL 1,250 MG in NS 250 ML IV ONE (01:00)
[2023-12-22] MEDS: PIPERACILLIN/TAZOBACTAM SOD 4.5 GM in D5W MINI-BAG PLUS 50 ML IV ONE (01:00)
[2023-12-22] MEDS: CIPRODEX OTIC SUSP 7.5ML AD SCH (01:27)
[2023-12-22] MEDS ORDERED: HOME MED LIST COMPLETE! XX SCH (01:45)
[2023-12-22] MEDS: VANCOMYCIN HCL 500 MG in D5W MINI-BAG PLUS 100 ML IV ONE (02:00)
[2023-12-22] MEDS: VANCOMYCIN HCL 750 MG, VIAL MATE ADAPTER 1 EACH in D5W 250 ML IV ONE (02:00)
[2023-12-22] MEDS ORDERED: MAALOX 30 ML SUSP *UDC PO PRN (02:50)
[2023-12-22] MEDS ORDERED: ACETAMINOPHEN TAB 650MG DOSE (2X325MG) PO PRN (02:50)
[2023-12-22] MEDS ORDERED: MOM 30ML SUSPENSION UDC PO PRN (02:50)
[2023-12-22] MEDS ORDERED: LORazepam 2 MG TAB PO PRN (02:50)
[2023-12-22 03:20] LABS: HCG, SERUM QUALITATIVE NEGATIVE (NEGATIVE)
[2023-12-22] MEDS: cefTRIAXone SOD 2GM VIAL IM ONE (03:35)
[2023-12-22] MEDS: LIDOCAINE 1% SDV 5ML VIAL DILUENT ONE (03:35)
[2023-12-22] MEDS: KETOROLAC 60MG 2ML VIAL IM ONE (03:36)
[2023-12-22 03:44] LABS: APPEARANCE, URINE HAZY (CLEAR); BACTERIA, URINE AUTO NEGATIVE (NEGATIVE); BILIRUBIN, URINE AUTO NEGATIVE (NEGATIVE); BLOOD, URINE BLOOD 1+ (NEGATIVE); COLOR, URINE YELLOW (YELLOW); GLUCOSE, URINE (UA) AUTO NEGATIVE (NEGATIVE); KETONE, URINE AUTO NEGATIVE (NEGATIVE); LEUKOCYTE ESTERASE, URINE AUTO NEGATIVE (NEGATIVE); MUCUS, URINE SMALL (NEGATIVE); NITRITE, URINE AUTO NEGATIVE (NEGATIVE); PROTEIN, URINE AUTO NEGATIVE (NEGATIVE); RBC, URINE AUTO 0 /HPF (0-3); SPECIFIC GRAVITY URINE AUTO 1.006 (1.002-1.035); SQUAMOUS EPITHELIAL CELL UR AU 5 /HPF (0-6); TRANSITIONAL EPITHELIAL AUTO <1 /HPF; UROBILINOGEN, URINE AUTO 0.2 mg/dL (0.0-2.0); WBC, URINE AUTO 2 /HPF (0-3)
[2023-12-22 04:06] LABS: BARBITURATES URINE NEGATIVE (NEGATIVE); CANNABINOIDS URINE NEGATIVE (NEGATIVE); COCAINE METABOLITE URINE NEGATIVE (NEGATIVE); METHADONE URINE NEGATIVE (NEGATIVE); PHENCYCLIDINE URINE NEGATIVE (NEGATIVE)
[2023-12-22 04:08] LABS: AMPHETAMINES LEVEL URINE POSITIVE (NEGATIVE); BENZODIAZEPINES URINE POSITIVE (NEGATIVE); OPIATES URINE POSITIVE (NEGATIVE)
[2023-12-22 04:23] LABS: HIV 1&2 SCREEN NEGATIVE (NEGATIVE)
[2023-12-22 04:30] LABS: HEPATITIS B CORE ANTIBODY IGM NEGATIVE (NEGATIVE)
[2023-12-22 04:59] LABS: HEPATITIS C VIRUS ABY INDEX > 11.00 INDEX (<0.8)
[2023-12-22 05:08] LABS: GC DNA AMPLIFICATION NEGATIVE (NEGATIVE)
[2023-12-22] MEDS: DOXYCYCLINE HYCLATE 100MG TABLET PO SCH (06:00)
[2023-12-22] MEDS: SODIUM CHLORIDE 0.9% INJ 10 ML SYR IV SCH (06:00)
[2023-12-22] MEDS: THIAMINE 100 MG TAB PO SCH (06:00)
[2023-12-22 06:05] VITALS: BP_SYST 108; BP_SYST 110; BP_DIAS 60; BP_DIAS 74; TEMP 97.2; O2SAT 99
[2023-12-22] MEDS: HEPARIN SOD (PORCINE) 5000UNITS/ML 1ML VIAL/SYRINGE SQ SCH (08:42)
[2023-12-22] MEDS: DOCUSATE SODIUM 100MG CAPSULE PO SCH (08:42)
[2023-12-22] MEDS: MULTIVITAMINS/MINERALS THERAP 1 TAB PO SCH (08:42)
[2023-12-22] MEDS: FOLIC ACID 1MG TAB PO SCH (08:43)
[2023-12-22] MEDS ORDERED: SODIUM CHLORIDE 0.9% INJ 10 ML SYR IV PRN (10:50)
[2023-12-22] MEDS: METHADONE 10MG TAB PO SCH (11:00)
[2023-12-22] MEDS: CARBAMIDE PEROXIDE 6.5% OTIC SOLN 15ML AD SCH (11:34)
[2023-12-22] MEDS: KETOROLAC 30 MG/ML 1ML VIAL IV ONE (11:34)
[2023-12-22] MEDS: ACETAMINOPHEN TAB 650MG DOSE (2X325MG) PO ONE (11:35)
[2023-12-22 11:38] LABS: BASO % 0.6 % (0.0-1.0); EOS # 0.1 10^3/uL (0.0-0.5); EOS % 2.9 % (0.0-3.0); HEMOGLOBIN 7.9 g/dl (12.0-15.5); LYMPH # 1.1 10^3/uL (1.5-5.0); LYMPH % 23.9 % (24.0-44.0); MEAN CORPUSCULAR HEMOGLOBIN 20.5 pg (27.0-33.0); MEAN CORPUSCULAR HGB CONC 29.3 g/dl (32.0-36.5); MEAN CORPUSCULAR VOLUME 70.1 fl (80.0-96.0); MONO # 0.6 10^3/uL (0.0-0.8); MONO % 12.2 % (2.0-8.0); NEUTROPHILS # 2.9 10^3/uL (1.5-8.5); PLATELET COUNT, AUTOMATED 361 10^3/uL (150-450); RED BLOOD COUNT 3.85 10^6/uL (4.00-5.40); WHITE BLOOD COUNT 4.8 10^3/uL (4.0-10.0)
[2023-12-22 11:50] LABS: ERYTHROCYTE SEDIMENTATION RATE 42 mm/hr (0-20)
[2023-12-22 12:11] LABS: PROCALCITONIN <0.04 ng/ml
[2023-12-22 12:12] LABS: BLOOD UREA NITROGEN 10 MG/DL (9-23); CALCIUM LEVEL 9.4 MG/DL (8.5-10.1); CARBON DIOXIDE LEVEL 31 MMOL/L (20-31); CHLORIDE LEVEL 105 MMOL/L (98-107); CREATININE FOR GFR 0.52 MG/DL (0.55-1.30); GLOMERULAR FILTRATION RATE > 60.0 (>60); GLUCOSE, FASTING 116 MG/DL (60-100); SODIUM LEVEL 139 MMOL/L (136-145)
[2023-12-22] MEDS ORDERED: CARBOT AD (13:09)
[2023-12-22] MEDS ORDERED: CIPRHCOTIC AD (13:10)
[2023-12-22] MEDS ORDERED: DOXY-444 PO (13:10)
[2023-12-22] MEDS ORDERED: AMOX875T2 PO (13:10)
== END 2023-12-22 13:12 | disposition left against medical advice (07) | DRG 115 ==
LOC: M ED 22:01 → M ED INP 12-22 02:48 → ENRESERV 12-22 05:10 → M MSPAV 12-22 06:06
PROVIDERS: ADMIT Internal Medicine; ATTEND General Practice
PROC: 02HV33Z Insertion of Infusion Device into Superior Vena Cava, Percutaneous Approach (ICD-10-PCS; principal; 2023-12-22)
DX: H60.11 Cellulitis of right external ear (principal); U07.1 COVID-19; K73.9 Chronic hepatitis, unspecified; F11.20 Opioid dependence, uncomplicated; S81.802A Unspecified open wound, left lower leg, initial encounter; F31.9 Bipolar disorder, unspecified; F42.9 Obsessive-compulsive disorder, unspecified; H60.91 Unspecified otitis externa, right ear; R60.0 Localized edema; X58.XXXA Exposure to other specified factors, initial encounter; Y92.9 Unspecified place or not applicable; R01.1 Cardiac murmur, unspecified; Z90.49 Acquired absence of other specified parts of digestive tract; Z88.8 Allergy status to other drugs, medicaments and biological substances; Z86.718 Personal history of other venous thrombosis and embolism

== ENCOUNTER 2024-06-23 11:46 | Emergency (ER) | payer MEDICAID, OTHER ==
[~2024-06-23] VITALS: Ht 165.1 cm; Wt 57.2 kg
[~2024-06-23 11:46] MED LIST changes: +AMOX875T2 PO; +CARBOT AD; +CIPRHCOTIC AD; +DOXY-440 PO
[2024-06-23 13:21] LABS: BASO % 0.2 % (0.0-1.0); EOS % 0.2 % (0.0-3.0); LYMPH # 1.2 10^3/uL (1.5-5.0); LYMPH % 9.2 % (24.0-44.0); MEAN CORPUSCULAR HEMOGLOBIN 22.4 pg (27.0-33.0); MEAN CORPUSCULAR HGB CONC 31.3 g/dl (32.0-36.5); MEAN CORPUSCULAR VOLUME 71.6 fl (80.0-96.0); MONO # 0.7 10^3/uL (0.0-0.8); MONO % 5.6 % (2.0-8.0); NEUTROPHILS # 10.7 10^3/uL (1.5-8.5); NEUTROPHILS % 84.5 % (36.0-66.0); PLATELET COUNT, AUTOMATED 322 10^3/uL (150-450); RED BLOOD COUNT 4.47 10^6/uL (4.00-5.40); WHITE BLOOD COUNT 12.7 10^3/uL (4.0-10.0)
[2024-06-23 13:45] LABS: ERYTHROCYTE SEDIMENTATION RATE 38 mm/hr (0-20)
[2024-06-23 13:49] LABS: BLOOD UREA NITROGEN 14 MG/DL (9-23); CALCIUM LEVEL 10.3 MG/DL (8.5-10.1); CARBON DIOXIDE LEVEL 30 MMOL/L (20-31); CHLORIDE LEVEL 102 MMOL/L (98-107); CREATININE FOR GFR 0.69 MG/DL (0.55-1.30); GLOMERULAR FILTRATION RATE > 60.0 (>60); GLUCOSE, FASTING 96 MG/DL (60-100); POTASSIUM SERUM 3.7 MMOL/L (3.5-5.1); SODIUM LEVEL 136 MMOL/L (136-145)
[2024-06-23] MEDS: CEFEPIME HCL 2 GM in D5W MINI-BAG PLUS 50 ML IV ONE (14:20)
[2024-06-23] MEDS: NS 1,000 ML IV SCH (14:23)
[2024-06-23] MEDS ORDERED: HOME MED LIST COMPLETE! XX SCH (15:20)
[2024-06-23] MEDS ORDERED: ZYVO1TAB PO (16:08)
[2024-06-23 16:24] VITALS: BP 117/79; TEMP 97.9; O2SAT 100
[2024-06-24] MEDS ORDERED: LINE1TAB6 PO (10:47)
== END 2024-06-23 17:20 | disposition left against medical advice (07) ==
LOC: M ED 11:46 → EDBD 11:46 → M ED 17:20
DX: A41.9 Sepsis, unspecified organism (principal); L03.116 Cellulitis of left lower limb; S81.801A Unspecified open wound, right lower leg, initial encounter; X58.XXXA Exposure to other specified factors, initial encounter; Y92.9 Unspecified place or not applicable; Y93.9 Activity, unspecified; Y99.9 Unspecified external cause status; Z53.9 Procedure and treatment not carried out, unspecified reason; Z86.19 Personal history of other infectious and parasitic diseases; F31.9 Bipolar disorder, unspecified; F42.9 Obsessive-compulsive disorder, unspecified; F19.10 Other psychoactive substance abuse, uncomplicated; Z86.718 Personal history of other venous thrombosis and embolism
CPT/HCPCS: 51701; 73590; 73630; 80048; 81001; 83605; 85025; 85652; 86140; 87040; 93005; 93041; 96365; 99285; J0692

== ENCOUNTER 2024-06-24 01:20 | Emergency (ER) | payer OTHER ==
[~2024-06-24] VITALS: Ht 167.6 cm; Wt 54.5 kg
[2024-06-24 01:20] VITALS: BP 135/65; TEMP 100.9; O2SAT 100
[~2024-06-24 01:20] MED LIST changes: +ZYVO1TAB PO
[2024-06-24] MEDS ORDERED: LINE1TAB6 PO (10:47)
== END 2024-06-24 02:15 | disposition left against medical advice (07) ==
LOC: M ED 01:20
DX: Z53.21 Procedure and treatment not carried out due to patient leaving prior to being seen by health care provider (principal)

== ENCOUNTER 2024-06-24 08:35 | Inpatient (IN) | payer OTHER ==
[~2024-06-24] VITALS: Ht 167.6 cm; Wt 55.5 kg
[2024-06-24] MEDS: ENOXAPARIN 30MG/0.3ML SYRINGE (J1650 PER 10MG) SC SCH (09:00)
[2024-06-24 09:41] LABS: BASO # 0.1 10^3/uL (0.0-0.2); BASO % 0.3 % (0.0-1.0); EOS % 0.1 % (0.0-3.0); HEMATOCRIT 36.3 % (36.0-47.0); HEMOGLOBIN 10.9 g/dl (12.0-15.5); LYMPH # 1.7 10^3/uL (1.5-5.0); MEAN CORPUSCULAR HEMOGLOBIN 22.2 pg (27.0-33.0); MEAN CORPUSCULAR VOLUME 73.8 fl (80.0-96.0); MONO # 0.8 10^3/uL (0.0-0.8); MONO % 5.5 % (2.0-8.0); NEUTROPHILS # 12.6 10^3/uL (1.5-8.5); NEUTROPHILS % 82.6 % (36.0-66.0); PLATELET COUNT, AUTOMATED 300 10^3/uL (150-450); RED BLOOD COUNT 4.92 10^6/uL (4.00-5.40); WHITE BLOOD COUNT 15.2 10^3/uL (4.0-10.0)
[2024-06-24] MEDS: BOOSTRIX VACCINE (TETANUS/DIPHTH/ACEL. PERTUSSIS) 0.5ML SYR IM.IMMUN ONE (09:58)
[2024-06-24 10:04] LABS: ALBUMIN 3.5 G/DL (3.2-5.2); ALKALINE PHOSPHATASE 144 U/L (46-116); ALT/SGPT 62 U/L (7.0-40); AST/SGOT 42 U/L (<34); BILIRUBIN,DIRECT 0.2 MG/DL (<0.4); BILIRUBIN,TOTAL 0.6 MG/DL (0.3-1.2); BLOOD UREA NITROGEN 9 MG/DL (9-23); CALCIUM LEVEL 10.6 MG/DL (8.5-10.1); CARBON DIOXIDE LEVEL 25 MMOL/L (20-31); CHLORIDE LEVEL 100 MMOL/L (98-107); CREATININE FOR GFR 0.64 MG/DL (0.55-1.30); GLOMERULAR FILTRATION RATE > 60.0 (>60); GLUCOSE, FASTING 108 MG/DL (60-100); POTASSIUM SERUM 3.6 MMOL/L (3.5-5.1); SODIUM LEVEL 132 MMOL/L (136-145); TOTAL PROTEIN 7.8 G/DL (5.7-8.2)
[2024-06-24] MEDS ORDERED: LINE1TAB6 PO (10:47)
[2024-06-24] MEDS ORDERED: HOME MED LIST COMPLETE! XX SCH (10:50)
[2024-06-24] MEDS: KETOROLAC 30 MG/ML 1ML VIAL IV ONE (10:52)
[2024-06-24] MEDS: cefTRIAXone SOD 1 GM in D5W MINI-BAG PLUS 50 ML IV ONE (10:52)
[2024-06-24] MEDS: PIPERACILLIN/TAZOBACTAM SOD 3.375 GM in D5W MINI-BAG PLUS 50 ML IV SCH (12:26)
[2024-06-24] MEDS ORDERED: ACETAMINOPHEN 500 MG TAB PO PRN (12:30)
[2024-06-24] MEDS: VANCOMYCIN HCL 1,000 MG, VIAL MATE ADAPTER 1 EACH in D5W 250 ML IV ONE (14:21)
[2024-06-24 14:28] LABS: BARBITURATES URINE NEGATIVE (NEGATIVE); BENZODIAZEPINES URINE NEGATIVE (NEGATIVE); CANNABINOIDS URINE NEGATIVE (NEGATIVE); COCAINE METABOLITE URINE NEGATIVE (NEGATIVE); METHADONE URINE NEGATIVE (NEGATIVE); OPIATES URINE NEGATIVE (NEGATIVE); PHENCYCLIDINE URINE NEGATIVE (NEGATIVE)
[2024-06-24 14:34] VITALS: BP 106/66; TEMP 97.2; O2SAT 95
[2024-06-24 14:35] LABS: AMPHETAMINES LEVEL URINE POSITIVE (NEGATIVE)
[2024-06-24 16:00] VITALS: BP 101/64; TEMP 97.3; O2SAT 100
[2024-06-24] MEDS ORDERED: KETOROLAC 30 MG/ML 1ML VIAL IV PRN (17:00)
[2024-06-24 20:00] VITALS: BP 112/65; TEMP 97.9; O2SAT 96
[2024-06-24] MEDS: VANCOMYCIN HCL 1,000 MG, VIAL MATE ADAPTER 1 EACH in D5W 250 ML IV SCH (20:21)
[2024-06-25] VITALS: BP 115/65; TEMP 97.7; O2SAT 96
== END 2024-06-25 01:29 | disposition left against medical advice (07) | DRG 383 ==
LOC: M ED 08:35 → M ED INP 11:52 → M MSPAV 14:33
PROVIDERS: ADMIT Family Medicine; ATTEND Family Medicine
PROC: B246ZZZ Ultrasonography of Right and Left Heart (ICD-10-PCS; principal; 2024-06-24)
DX: L03.116 Cellulitis of left lower limb (principal); F11.20 Opioid dependence, uncomplicated; K73.9 Chronic hepatitis, unspecified; L97.919 Non-pressure chronic ulcer of unspecified part of right lower leg with unspecified severity; F31.9 Bipolar disorder, unspecified; F42.9 Obsessive-compulsive disorder, unspecified; R01.1 Cardiac murmur, unspecified; F15.10 Other stimulant abuse, uncomplicated; Z86.718 Personal history of other venous thrombosis and embolism; Z88.8 Allergy status to other drugs, medicaments and biological substances

== ENCOUNTER 2025-08-30 20:17 | Emergency (ER) | payer MEDICAID, OTHER, SELFPAY ==
[~2025-08-30] VITALS: Ht 167.6 cm; Wt 63.6 kg
[~2025-08-30 20:17] MED LIST changes: -AMBI5TAB PO; +CARB15DR25 AD; -CARBOT AD; -CYCL5TAB PO; +CYCL5TAB4 PO; +LINE1TAB6 PO; +ZOLP-532 PO
[2025-08-30 20:20] VITALS: TEMP 98.4; O2SAT 100
[2025-08-30 20:34] VITALS: BP 134/87
[2025-08-30] MEDS ORDERED: PRED20TA PO (21:05)
[2025-08-30] MEDS ORDERED: VALA1TAB5 PO (21:05)
== END 2025-08-30 21:45 | disposition home or self-care (01) ==
LOC: M ED 20:17
DX: G51.0 Bell's palsy (principal); Z86.19 Personal history of other infectious and parasitic diseases; F17.290 Nicotine dependence, other tobacco product, uncomplicated; F19.10 Other psychoactive substance abuse, uncomplicated; Z79.899 Other long term (current) drug therapy; Z88.8 Allergy status to other drugs, medicaments and biological substances
CPT/HCPCS: 80047; 96374; 99284; J2919